=== PATIENT | male | born 1945 | race Caucasian/White ===

== ENCOUNTER 2017-08-10 14:33 | Inpatient (IN) | payer OTHER, MEDICARE ==
--- NOTE | 2017-08-10 14:55 | PDOC ---
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 The patient states he was increasingly short of breath today on his way to dialysis. The patient reports the shortness of breath is present while walking and at rest. The patient denies any chest pain, headache, dizziness, and myalgias. Denies nausea, vomit, diarrhea and constipation. The patient notes that he has been noncompliant with his O2 via nasal cannula. Allergies: iodine, shellfish derived Social history: Former smoker. No reported alcohol or drug use. School Fundraising Director: Dr. Hale Information Technology Intern: Dr. Raymond Athletic Coordinator: Dr. 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) COPD: Yes (BRONCHITIS 04/2014) CHF: Yes Dementia: No Diabetes: Yes (IDDM) GI Disorders: Yes (POLYPS) Disorders: No HTN: Yes Hypercholesterolemia: Yes Liver Disease: Yes (CIRRHOSIS) Seizures: No Thyroid Disease: Yes (THYROID REMOVED IN 1995) - Surgical History Abdominal Surgery: No Appendectomy: No Cardiac Surgery: Yes (DEFIB/PACEMEAKER, STENT) Cholecystectomy: No Lung Surgery: No Neurologic Surgery: No Orthopedic Surgery: No - Suicide/Smoking/Psychosocial Hx Smoking Status: Yes Smoking History: Former smoker Have you smoked in the past 12 months: No Number of Cigarettes Smoked Daily: 0 If you are a former smoker, when did you quit?: 27 YRS AGO Information on smoking cessation initiated: No Hx Alcohol Use: No Drug/Substance Use Hx: No Substance Use Type: None Hx Substance Use Treatment: No <Drew Campoverde - Last Filed: 08/10/17 16:53> - Past Medical History Allergies/Adverse Reactions: Allergies Allergy/AdvReac Type Severity Reaction Status Date / Time iodine Allergy TONGUE Verified 08/10/17 14:51 SWELLING shellfish derived Allergy Hives Verified 08/10/17 14:51 IV CONTRAST Allergy "RASH" Uncoded 08/10/17 14:51 Home Medications: Ambulatory Orders Simvastatin [Zocor -] 5 mg PO HS 10/29/12 Warfarin Sodium [Coumadin] 5 mg PO TU 10/29/12 Levothyroxine [Synthroid -] 125 mcg PO DAILY 06/26/14 Docusate Sodium [Colace -] 100 mg PO BID 07/19/14 Nut.tx.impaired Renal Fxn,Soy [Nepro] 1 ml PO ASDIR 07/19/14 Pantoprazole Sodium [Protonix -] 40 mg PO DAILY 07/19/14 Warfarin Na [Coumadin -] 2.5 mg PO SUMOWETHFRSA 07/19/14 Albuterol Sulfate Inhaler - [Ventolin Hfa Inhaler -] 1 - 2 inh PO Q4H PRN Furosemide [Lasix -] 40 mg PO DAILY 08/10/17 Insulin (Levemir) [Levemir Flexpen -] 7 units SQ HS 08/10/17 Review of Systems - Review of Systems Constitutional: Yes: Chills, Fever Respiratory: Yes: Cough, Shortness of Breath Cardiac (ROS): No: Chest Pain ABD/GI: No: Diarrhea, Nausea, Vomiting : No: Dysuria, Frequency Neurological: No: Headache All Other Systems: Reviewed and Negative <Drew Campoverde - Last Filed: 08/10/17 16:53> *Physical Exam - Vital Signs Last Vital Signs Temp Pulse Resp BP Pulse Ox 98.2 F 73 20 168/52 97 08/10/17 14:38 08/10/17 14:38 08/10/17 14:38 08/10/17 14:38 08/10/17 14:38 - Physical Exam Comments: 08/10/17 15:18 GENERAL: The patient is awake, alert, and fully oriented, in no acute distress. HEAD: Normal with no signs of trauma. EYES: Pupils equal, round and reactive to light, extraocular movements intact, sclera anicteric, conjunctiva clear with no pallor. ENT: Ears normal, nares patent, oropharynx clear without exudates. Moist mucous membranes. NECK: Normal range of motion, supple without lymphadenopathy, JVD, or masses. LUNGS: Breath sounds equal, clear to auscultation bilaterally. No wheeze/ crackles. HEART: Regular rate and rhythm, normal S1 and S2 without murmur or rub. ABDOMEN: Soft/nontender/nondistended. BS wnl. No guarding or rebound. No palpable masses. No hepatosplenomegaly. EXTREMITIES: (+) Venous stasis dermatitis on lower extremities bilaterally with trace edema. (+) Right arm fistula thrill. Normal range of motion. No clubbing or cyanosis. No cords or tenderness. NEUROLOGICAL: Cranial nerves II through XII grossly intact. Normal speech, normal gait. PSYCH: Normal mood, normal affect. SKIN: Warm, Dry, normal turgor. <Suzy Luz - Last Filed: 08/10/17 16:22> - Vital Signs Last Vital Signs Temp Pulse Resp BP Pulse Ox 98.2 F 73 20 168/52 97 08/10/17 14:38 08/10/17 14:38 08/10/17 14:38 08/10/17 14:38 08/10/17 14:38 <Drew Campoverde - Last Filed: 08/10/17 16:53> Repeat PE for Septic Shock - Vital Signs Vital Signs: Vital Signs Temperature 101.7 F H 08/10/17 15:20 Pulse Rate 73 08/10/17 14:38 Respiratory Rate 20 08/10/17 14:38 Blood Pressure 168/52 08/10/17 14:38 O2 Sat by Pulse Oximetry (%) 89 L 08/10/17 15:20 I have reviewed the most recent vital signs: Yes - PE CV for Spetic Shock: Regular Rhythm, Regular Rate, S1, S2 Lungs: Lungs Clear Vascular: Left Radial: 2+ Skin exam: Normal Color, Warm - Impression Impression: Vasopressors not indicated, pt still hypovolemic <Drew Campoverde - Last Filed: 08/10/17 16:53> Heart Score/ECG Review #1 ECG reviewed & interpreted by me at: 15:59 08/10/17 16:05 v-paced at 72. no secondary sign of acute ischemic change. <Drew Campoverde - Last Filed: 08/10/17 16:53> ED Treatment Course - LABORATORY CBC & Chemistry Diagram: 08/10/17 15:13 08/10/17 15:13 <Suzy Luz - Last Filed: 08/10/17 16:22> - LABORATORY CBC & Chemistry Diagram: 08/10/17 15:13 08/10/17 15:13 <Drew Campoverde - Last Filed: 08/10/17 16:53> Medical Decision Making - Critical Care Time Total Critical Care Time (minutes): 55 Critical Care Statement: The care of this patient involved high complexity decision making to prevent further life threatening deterioration of the patient 's condition and/or to evaluate & treat vital organ system(s) failure or risk of failure. - Medical Decision Making 08/10/17 15:33 A portion of this note was documented by scribe services under my direction. I have reviewed the details of the note, within reason, and agree with the documentation with the following case summary and management plan written by me. 71-year-old male with history of end-stage renal disease on Wednesday// Wednesday dialysis presents from dialysis with worsening shortness of breath that has been progressive over the last few weeks to months, associated with increased cough and over the last week some URI symptoms with subjective fevers and chills. Is supposed to use oxygen at night but is noncompliant, denies any recurring chest pain or specific exertional symptoms. Positive fever on rectal temp, tachycardia, relatively low O2 sat at 90% Tachypnea, but alert, warm to touch, positive chills Oropharynx clear, dry mucosa Lungs are notably clear, question decreased breath sounds at the left base, no wheezing or prolonged expiration Heart is regular tachycardia Abdomen is benign Bilateral venous stasis changes with trace edema + R arm fistula thrill, no erythema or signs of infection 71-year-old male presents with fever/sepsis from dialysis, possible respiratory source given his worsening COPD symptoms, rule out bacteremia. Sepsis protocol initiated Antipyretics, broad-spectrum antibiotics, IV fluids Nebulizer Chest x-ray, EKG Admission, followed by Dr. Hale of pulmonology, Dr. Raymond of nephrology 08/10/17 16:05 White count 11.8 with left shift of 91%, remaining labs still pending. 08/10/17 16:29 Chem returned, Trop 0.11 with baseline renal failure, has had trop 0.11 in the past. lactate very elevated 5.4, receiving IVF. flu negative, cxr with congestion but no infiltrate, received abx. BNP markedly elevated 124k. proceed with admission, will repeat lactate, VSS at this time, respirations improved after nebs. 08/10/17 16:52 Accepted for inpatient tele by Dr. Jimenez, pt's PCP. Dr. Schwartz, Nicolas, and Christie consulted as patient's specialists. <Drew Campoverde - Last Filed: 08/10/17 16:53> *DC/Admit/Observation/Transfer - Attestations Scribe Attestion: 08/10/17 15:05 Documentation prepared by Suzy Luz, acting as director of medical services for Drew Campoverde MD. <Suzy Luz - Last Filed: 08/10/17 16:22> - Discharge Dispostion Admit: Yes <Drew Campoverde - Last Filed: 08/10/17 16:53> Diagnosis at time of Disposition: ESRD (end stage renal disease), Elevated lactic acid level Sepsis Qualifiers: Sepsis type: sepsis due to unspecified organism Qualified Code(s): A41.9 - Sepsis, unspecified organism - Discharge Dispostion Condition at time of disposition: Guarded - Referrals Referrals: Loida Jimenez MD [Primary Care Provider] -
[2017-08-10] MEDS: ALBUTEROL SO4 0.083% IH SOL 2.5 MG/3 ML VIAL.NEB. NEB PRN ×2 (15:00→15:25)
[2017-08-10] MEDS ORDERED: ALBUTEROL SO4 0.083% IH SOL 2.5 MG/3 ML VIAL.NEB. NEB ONE (15:05)
[2017-08-10 15:24] LABS: BASO % 0.5 % (0-2.0); EOS % 0.1 % (0-4.5); MCHC 32.1 g/dl (32.0-35.9); MEAN CELL VOLUME 96.6 fl (80-96); MEAN PLT VOLUME 9.5 fl (7.5-11.1); NEUT % 91.4 % (42.8-82.8); PLATELET COUNT 85 K/MM3 (134-434); RDW 17.4 % (11.9-15.9); WHITE BLOOD COUNT 11.8 K/mm3 (4.0-10.0)
[2017-08-10] MEDS ORDERED: SODIUM CHLORIDE 500 ML IV ONE (15:27)
[2017-08-10 15:28] LABS: VENOUS PH 7.33 (7.32-7.42)
[2017-08-10 15:29] LABS: VENOUS BLOOD GAS HCO3 21.5 meq/L (19-25)
[2017-08-10] MEDS ORDERED: PIPERACILLIN/TAZOB 3.375 GM 50 ML IVPB ONE (15:29)
[2017-08-10] MEDS ORDERED: VANCOMYCIN 1,000 MG in DEXTROSE 5%-WATER - 250 ML IVPB ONE (15:29)
[2017-08-10] MEDS ORDERED: ACETAMINOPHEN 1000 MG/100 ML VIAL (NON FORMULARY) IVPB ONE (15:29)
[2017-08-10] MEDS ORDERED: ACETAMINOPHEN INJECTION 100 ML IVPB ONE (15:30)
[2017-08-10 15:49] LABS: ALBUMIN 3.5 g/dl (3.4-5.0); BILIRUBIN,TOTAL 2.1 mg/dL (0.2-1.0); CALCIUM 8.5 mg/dL (8.5-10.1); CO2 20 mmol/L (21-32); CREATININE 4.7 mg/dL (0.7-1.3); GLUCOSE,RANDOM 151 mg/dL (74-106); SGPT/ALT 15 U/L (12-78); TOT PROT 8.1 g/dl (6.4-8.2)
[2017-08-10] MEDS ORDERED: VANCOMYCIN 1 GRAM (PRE-DOCKED) 1,000 MG/250 ML BAG IVPB ONE (15:55)
[2017-08-10] MEDS ORDERED: PIPERACILLIN/TAZOB 3.375 GM 3.375 GM/50 ML BAG IVPB ONE (15:55)
[2017-08-10 15:56] LABS: INR 2.26 (0.82-1.09); PROTHROMBIN TIME (PATIENT) 25.5 SEC (9.98-11.88)
--- NOTE | 2017-08-10 16:04 | EKG ---
Test Reason : Blood Pressure : / mmHG Vent. Rate : 072 BPM Atrial Rate : 075 BPM P-R Int : 000 ms QRS Dur : 162 ms QT Int : 534 ms P-R-T Axes : 000 -85 104 degrees QTc Int : 584 ms ATRIAL FIBRILLATION Ventricular-paced rhythm ABNORMAL ECG WHEN COMPARED WITH ECG OF 27-JUN-2014 09:54, ELECTRONIC VENTRICULAR PACEMAKER HAS REPLACED ATRIAL FIBRILLATION Confirmed by Oscar Michel ([id number]) on 08/10/2017 4:03:49 PM Referred By: Confirmed By:Oscar Michel
[2017-08-10 16:15] LABS: ANION GAP 16 (8-16); MAGNESIUM 1.9 mg/dL (1.8-2.4); SGOT/AST 20 U/L (15-37)
[2017-08-10 16:16] LABS: ALK PHOS 148 U/L (45-117); CPK 106 IU/L (39-308); TROPONIN I 0.11 ng/ml (0.00-0.05)
[2017-08-10 23:08] LABS: TROPONIN I 0.12 ng/ml (0.00-0.05)
[2017-08-10] MEDS ORDERED: DOCUSATE SODIUM 100 MG CAPSULE (FP) PO ONE (23:44)
[2017-08-11] MEDS ORDERED: INSULIN (NOVOLOG) ASPART 100 UNITS/ML 10ML VIAL ONE (00:10)
[2017-08-11] MEDS: INSULIN SLIDING SCALE (NOVOLOG) 1 VIAL SQ SCH ×5 (00:13→22:47)
[2017-08-11] MEDS: ATORVASTATIN CA 10 MG TABLET (FP) PO SCH ×2 (00:13→22:20)
[2017-08-11] MEDS: DOCUSATE SODIUM 100 MG CAPSULE (FP) PO SCH ×3 (00:13→22:19)
[2017-08-11 03:33] VITALS: BMI 22.5
[2017-08-11] MEDS ORDERED: PNEUMOC 13-VAL CONJ-DIP CRM/PF 0.5 ML DISP.SYRIN IM ONE (03:54)
[2017-08-11] MEDS: LEVOTHYROXINE NA 125 MCG TABLET (FP) PO SCH (06:35)
--- NOTE | 2017-08-11 08:21 | PN ---
Progress Note, Physician Chief Complaint: ID Full note dictated Appears comfortable Febrile here and notes episode of chills prior to dialysis yesterday Exertion al and dyspnea at rest progressive but not new - Current Medication List Current Medications: Active Medications Albuterol Sulfate (Ventolin 0.083% Nebulizer Soln -) 1 amp NEB Q15M PRN PRN Reason: Dyspnea Last Admin: 08/10/17 15:25 Dose: 1 amp Atorvastatin Calcium (Lipitor -) 10 mg PO HS [facility] Last Admin: 08/11/17 00:13 Dose: 10 mg Docusate Sodium (Colace -) 100 mg PO BID [facility] Last Admin: 08/11/17 00:13 Dose: 100 mg Furosemide (Lasix -) 40 mg PO DAILY [facility] CEFTRIAXONE 1 G/50 ML PREMIX (Ceftriaxone 1 Gm-D5w Bag) 50 mls @ 100 mls/hr IVPB DAILY [facility] Insulin Aspart (Novolog Vial Sliding Scale -) 1 vial SQ ACHS [facility] PRN Reason: Protocol Last Admin: 08/11/17 06:34 Dose: Not Given Levothyroxine Sodium (Synthroid -) 125 mcg PO DAILY@0700 [facility] Last Admin: 08/11/17 06:35 Dose: 125 mcg Pantoprazole Sodium (Protonix -) 40 mg PO DAILY [facility] Pneumococcal 13-Valent Conj Vacc (Prevnar 13 Syringe -) 0.5 ml IM .ONCE ONE Stop: 08/11/17 03:55 Warfarin Sodium (Coumadin -) 2.5 mg PO SuMoWeThFrSa@1800 [facility] - Objective Vital Signs: Vital Signs Temperature 97.4 F L 08/11/17 05:46 Pulse Rate 75 08/11/17 05:46 Respiratory Rate 20 08/11/17 05:46 Blood Pressure 111/59 08/11/17 05:46 O2 Sat by Pulse Oximetry (%) 97 08/11/17 03:48 Constitutional: Yes: No Distress Neck: Yes: WNL, Supple, Other (scar) Cardiovascular: Yes: Regular Rate and Rhythm, S1, S2. No: Murmur Respiratory: Yes: WNL, Regular, CTA Bilaterally. No: Rales, Rhonchi Gastrointestinal: Yes: Soft. No: Tenderness, Tenderness, Epigastrium Extremities: Yes: Other (ingrown great toe nail tender to touch) Edema: Yes Labs: INR, PTT INR 2.26 (0.82-1.09) H D 08/10/17 15:27 Problem List - Problems (1) Bacteremia Code(s): R78.81 - BACTEREMIA (2) ESRD (end stage renal disease) Code(s): N18.6 - END STAGE RENAL DISEASE (3) Sepsis Code(s): A41.9 - SEPSIS, UNSPECIFIED ORGANISM Qualifiers: Sepsis type: sepsis due to unspecified organism Qualified Code(s): A41.9 - Sepsis, unspecified organism Assessment/Plan Microbiology 08/10/17 15:25 Nasopharyngeal Swab Influenza Types A,B Antigen (BRENDA) - Final 08/10/17 15:25 Nasopharyngeal Swab - Final Laboratory Tests 08/10/17 08/10/17 08/10/17 14:56 15:13 15:27 WBC 11.8 H D Hgb 12.4 Hct 38.5 D Plt Count 85 L INR 2.26 H D Lactic Acid 5.4 H* 08/10/17 17:45 WBC Hgb Hct Plt Count INR Lactic Acid 3.7 H* Assessment Sepsis syndrome Bacteremia ESRD Ingrown infected toe nail great toe Plan Await blood cultures Vancomycin level for now redose based on blood culture Continue Ceftriaxone for now Podiatry evaluation infection great toe ISAURA Maxwell MD
[2017-08-11 08:22] LABS: BASO % 0.3 % (0-2.0); EOS % 0.1 % (0-4.5); MCH 31.7 pg (25.7-33.7); MCHC 32.9 g/dl (32.0-35.9); MEAN CELL VOLUME 96.2 fl (80-96); MEAN PLT VOLUME 9.5 fl (7.5-11.1); NEUT % 88.5 % (42.8-82.8); PLATELET COUNT 59 K/MM3 (134-434); RDW 17.3 % (11.9-15.9); WHITE BLOOD COUNT 9.3 K/mm3 (4.0-10.0)
[2017-08-11 08:39] LABS: INR 2.7 (0.82-1.09); PROTHROMBIN TIME (PATIENT) 30.5 SEC (9.98-11.88)
[2017-08-11 08:49] LABS: CALCIUM 7.6 mg/dL (8.5-10.1)
[2017-08-11 08:57] LABS: ALBUMIN 2.8 g/dl (3.4-5.0); ALK PHOS 97 U/L (45-117); ANION GAP 14 (8-16); BILIRUBIN,TOTAL 1.3 mg/dL (0.2-1.0); CO2 23 mmol/L (21-32); CPK 187 IU/L (39-308); CREATININE 5.7 mg/dL (0.7-1.3); GLUCOSE,RANDOM 95 mg/dL (74-106); SGOT/AST 21 U/L (15-37); SGPT/ALT 18 U/L (12-78); TOT PROT 6.4 g/dl (6.4-8.2); TROPONIN I 0.12 ng/ml (0.00-0.05)
--- NOTE | 2017-08-11 09:05 | HP ---
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 The patient states he was increasingly short of breath today on his way to dialysis. The patient reports the shortness of breath is present while walking and at rest. The patient denies any chest pain, headache, dizziness, and myalgias. Denies nausea, vomit, diarrhea and constipation. The patient notes that he has been noncompliant with his O2 via nasal cannula. This am pt feels better - Past Medical History Cardiovascular: Yes: CAD, CHF, HTN, Hyperlipdemia Pulmonary: Yes: Bronchitis, COPD Renal/: Yes: Renal Failure, Hemodialysis - Past Surgical History Past Surgical History: Yes: AICD, AV Fistula/Graft - Smoking History Smoking history: Former smoker Have you smoked in the past 12 months: No Aproximately how many cigarettes per day: 0 If you are a former smoker, when did you quit?: 27 YRS AGO - Alcohol/Substance Use Hx Alcohol Use: No Home Medications - Allergies Allergies/Adverse Reactions: Allergies Allergy/AdvReac Type Severity Reaction Status Date / Time iodine Allergy TONGUE Verified 08/10/17 14:51 SWELLING shellfish derived Allergy Hives Verified 08/10/17 14:51 IV CONTRAST Allergy "RASH" Uncoded 08/10/17 14:51 - Home Medications Home Medications: Ambulatory Orders Simvastatin [Zocor -] 5 mg PO HS 10/29/12 Warfarin Sodium [Coumadin] 5 mg PO TU 10/29/12 Levothyroxine [Synthroid -] 125 mcg PO DAILY 06/26/14 Docusate Sodium [Colace -] 100 mg PO BID 07/19/14 Nut.tx.impaired Renal Fxn,Soy [Nepro] 1 ml PO ASDIR 07/19/14 Pantoprazole Sodium [Protonix -] 40 mg PO DAILY 07/19/14 Warfarin Na [Coumadin -] 2.5 mg PO SUMOWETHFRSA 07/19/14 Albuterol Sulfate Inhaler - [Ventolin Hfa Inhaler -] 1 - 2 inh PO Q4H PRN Furosemide [Lasix -] 40 mg PO DAILY 08/10/17 Insulin (Levemir) [Levemir Flexpen -] 7 units SQ HS 08/10/17 Review of Systems - Review of Systems Constitutional: reports: Fever Cardiovascular: reports: Shortness of Breath. denies: Chest Pain Respiratory: reports: Cough, SOB, SOB on Exertion Neurological: reports: Weakness Physical Examination Vital Signs: Vital Signs Temperature 97.4 F L 08/11/17 05:46 Pulse Rate 75 08/11/17 05:46 Respiratory Rate 20 08/11/17 05:46 Blood Pressure 111/59 08/11/17 05:46 O2 Sat by Pulse Oximetry (%) 97 08/11/17 03:48 Cardiovascular: Yes: Murmur, S1, S2 Respiratory: Yes: Regular, CTA Bilaterally. No: SOB Gastrointestinal: Yes: Normal Bowel Sounds, Soft. No: Tenderness Extremities: Yes: Other (lt toe paronchia) Edema: No Wound/Incision: Yes: Reddened Neurological: Yes: Alert, Oriented Labs: CBC, BMP 08/11/17 06:45 08/11/17 06:45 Problem List - Problems (1) Bacteremia Assessment/Plan: IV ABX AWAIT FINAL RESULTS Microbiology 08/10/17 15:25 Blood Culture - Preliminary Blood - Peripheral Venous Pending Organism 08/10/17 15:25 Blood Culture - Preliminary Blood - Peripheral Venous Pending Organism 08/10/17 15:25 Influenza Types A,B Antigen (BRENDA) - Final Nasopharyngeal Swab - Final Code(s): R78.81 - BACTEREMIA (2) AICD (automatic cardioverter/defibrillator) present Assessment/Plan: per cardio Code(s): Z95.810 - PRESENCE OF AUTOMATIC (IMPLANTABLE) CARDIAC DEFIBRILLATOR (3) ESRD (end stage renal disease) Assessment/Plan: DAILYSIS PER RENAL Code(s): N18.6 - END STAGE RENAL DISEASE (4) Sepsis Code(s): A41.9 - SEPSIS, UNSPECIFIED ORGANISM Qualifiers: Sepsis type: sepsis due to unspecified organism Qualified Code(s): A41.9 - Sepsis, unspecified organism (5) Cellulitis Assessment/Plan: IV ABX PODIATRY Code(s): L03.90 - CELLULITIS, UNSPECIFIED (6) CHF (congestive heart failure) Assessment/Plan: DIALYSIS CARDIO Code(s): I50.9 - HEART FAILURE, UNSPECIFIED
[2017-08-11] MEDS ORDERED: CEFTRIAXONE 1 GM in DEXTROSE 5%-WATER - 50 ML IVPB SCH (10:00)
[2017-08-11 10:01] LABS: C-REACTIVE PROTEIN 8.1 MG/DL (0.00-0.3)
[2017-08-11] MEDS: FUROSEMIDE 40 MG TABLET (FP) PO SCH (10:32)
[2017-08-11] MEDS: CEFTRIAXONE 1 G/50 ML PREMIX 50 ML IVPB SCH (10:32)
[2017-08-11] MEDS: PANTOPRAZOLE 40 MG TABLET (FP) PO SCH (10:32)
--- NOTE | 2017-08-11 11:11 | CON.CARD ---
Cardiology Consult (text) - Consultation Consultation Note: cc: sob, cough, chills hpi: 71 m hx cad s/p pci (chet lpl1 2007, cath 05/2015: patent lpl1 stent, residual om1 60-70 (unchanged from 2011 cath), htn, hld, ICD, dm, copd, esrd on hd, chronic afib, here with sob/cough/chills. Chronic sumner unchanged until past few days when noticed sob, cough, chills. No cp, palps, dizzy, loc, pnd, orthopnea, le edema. Sees me for cardio. pmh: per hpi psh: icd social: ex tob fam: no premature cad, scd ros: per hpi; no nvd, szymanski, vision changes, wt loss, gib, hematuria, dysuria, muscle pain meds: Home Medications Medication Instructions Recorded Simvastatin [Zocor -] 5 mg PO HS 10/29/12 Warfarin Sodium [Coumadin] 5 mg PO TU 10/29/12 Levothyroxine [Synthroid -] 125 mcg PO DAILY 06/26/14 Docusate Sodium [Colace -] 100 mg PO BID 07/19/14 Nut.tx.impaired Renal Fxn,Soy 1 ml PO ASDIR 07/19/14 [Nepro] Pantoprazole Sodium [Protonix -] 40 mg PO DAILY 07/19/14 Warfarin Na [Coumadin -] 2.5 mg PO SUMOWETHFRSA 07/19/14 Albuterol Sulfate Inhaler - 1 - 2 inh PO Q4H PRN 08/10/17 [Ventolin Hfa Inhaler -] Furosemide [Lasix -] 40 mg PO DAILY 08/10/17 Insulin (Levemir) [Levemir Flexpen 7 units SQ HS 08/10/17 -] Current Medications Generic Name Dose Route Start Last Admin Trade Name Freq PRN Reason Stop Dose Admin Albuterol Sulfate 1 amp 08/10/17 14:56 08/10/17 15:25 Ventolin 0.083% Nebulizer Soln - NEB 1 amp Q15M PRN Administration Dyspnea Atorvastatin Calcium 10 mg 08/10/17 22:00 08/11/17 00:13 Lipitor - PO 10 mg HS [facility] Administration Docusate Sodium 100 mg 08/10/17 22:00 08/11/17 10:32 Colace - PO 100 mg BID [facility] Administration Furosemide 40 mg 08/11/17 10:00 08/11/17 10:32 Lasix - PO 40 mg DAILY [facility] Administration CEFTRIAXONE 1 G/50 ML PREMIX 50 mls @ 100 mls/hr 08/11/17 10:00 08/11/17 10: 32 Ceftriaxone 1 Gm-D5w Bag IVPB 100 mls/hr DAILY [facility] Administration Insulin Aspart 1 vial 08/10/17 22:00 08/11/17 06:34 Novolog Vial Sliding Scale - SQ Not Given ACHS [facility] Protocol Levothyroxine Sodium 125 mcg 08/11/17 07:00 08/11/17 06:35 Synthroid - PO 125 mcg DAILY@0700 [facility] Administration Pantoprazole Sodium 40 mg 08/11/17 10:00 08/11/17 10:32 Protonix - PO 40 mg DAILY [facility] Administration Warfarin Sodium 2.5 mg 08/11/17 18:00 Coumadin - PO SuMoWeThFrSa@1800 [facility] Vital Signs Period Temp Pulse Resp BP Sys/Rea Pulse Ox Last 24 Hr 97.4 F-101.7 F 70-86 19-24 111-168/52-78 89-100 nad no jvd irreg, s1s2 no mrg cta bl nl eff aaox3 trace le edema bl, no c/c abd nt nd pos bs no jaundice diaphoresis pos dp pt no carotid bruits Laboratory Last Values WBC 9.3 K/mm3 (4.0-10.0) 08/11/17 06:45 RBC 3.15 M/mm3 (4.00-5.60) L D 08/11/17 06:45 Hgb 10.0 GM/dL (11.7-16.9) L D 08/11/17 06:45 Hct 30.3 % (35.4-49) L D 08/11/17 06:45 MCV 96.2 fl (80-96) H 08/11/17 06:45 MCH 31.7 pg (25.7-33.7) 08/11/17 06:45 MCHC 32.9 g/dl (32.0-35.9) 08/11/17 06:45 RDW 17.3 % (11.9-15.9) H 08/11/17 06:45 Plt Count 59 K/MM3 (134-434) L D 08/11/17 06:45 MPV 9.5 fl (7.5-11.1) 08/11/17 06:45 Neutrophils % 88.5 % (42.8-82.8) H 08/11/17 06:45 Lymphocytes % 4.9 % (8-40) L 08/11/17 06:45 Monocytes % 6.2 % (3.8-10.2) 08/11/17 06:45 Eosinophils % 0.1 % (0-4.5) 08/11/17 06:45 Basophils % 0.3 % (0-2.0) 08/11/17 06:45 PT with INR 30.50 SEC (9.98-11.88) H 08/11/17 06:45 INR 2.70 (0.82-1.09) H 08/11/17 06:45 PTT (Actin FS) 34.0 SECONDS (26.9-34.4) 08/10/17 15:27 VBG pH 7.33 (7.32-7.42) 08/10/17 15:25 POC VBG pCO2 42.0 mmHg (38-52) 08/10/17 15:25 POC VBG pO2 32.1 mmHg (28-48) 08/10/17 15:25 Mixed VBG HCO3 21.5 meq/L (19-25) 08/10/17 15:25 Sodium 134 mmol/L (136-145) L 08/11/17 06:45 Potassium 3.7 mmol/L (3.5-5.1) 08/11/17 06:45 Chloride 97 mmol/L (98-107) L 08/11/17 06:45 Carbon Dioxide 23 mmol/L (21-32) 08/11/17 06:45 Anion Gap 14 (8-16) 08/11/17 06:45 BUN 55 mg/dL (7-18) H D 08/11/17 06:45 Creatinine 5.7 mg/dL (0.7-1.3) H D 08/11/17 06:45 Creat Clearance w eGFR 9.88 (>60) 08/11/17 06:45 POC Glucometer 172 UNITS (80-120) 08/11/17 05:39 Random Glucose 95 mg/dL (74-106) D 08/11/17 06:45 Lactic Acid 3.7 mmol/L (0.4-2.0) H* 08/11/17 06:45 Calcium 7.6 mg/dL (8.5-10.1) L 08/11/17 06:45 Magnesium 1.9 mg/dL (1.8-2.4) 08/10/17 15:13 Total Bilirubin 1.3 mg/dL (0.2-1.0) H D 08/11/17 06:45 AST 21 U/L (15-37) 08/11/17 06:45 ALT 18 U/L (12-78) 08/11/17 06:45 Alkaline Phosphatase 97 U/L (45-117) D 08/11/17 06:45 Creatine Kinase 187 IU/L (39-308) 08/11/17 06:45 Creatine Kinase Index 4.5 % (0.0-5.0) 08/11/17 06:45 CK-MB (CK-2) 8.551 ng/mL (0.5-3.6) H 08/11/17 06:45 Troponin I 0.12 ng/ml (0.00-0.05) H 08/11/17 06:45 C-Reactive Protein 8.1 MG/DL (0.00-0.3) H 08/11/17 06:45 B-Natriuretic Peptide 317148.95 pg/ml (5-125) H 08/10/17 15:13 Total Protein 6.4 g/dl (6.4-8.2) D 08/11/17 06:45 Albumin 2.8 g/dl (3.4-5.0) L 08/11/17 06:45 Random Vancomycin 13.255 ug/ml 08/11/17 10:00 Blood Type O POSITIVE 08/10/17 15:26 Antibody Screen Negative 08/10/17 15:26 ct chest: b/l effs, copd, ascites ecg 08/10/17: afib, vpaced tele: afib, vpaced, rate controlled mibi 09/2014: no ischemia echo 12/2015: nl lv/rv, mild [place], mild mr, mod tr, mild pr, rvsp 60 a/p: 71 m hx cad s/p pci, htn, hld, ICD, dm, copd, esrd on hd, chronic afib, here with sob/cough/chills. sob, fever, sepsis: -has some vol overload on imaging, would cont HD per renal for vol removal -has +bld cxs, cont abx per ID cad s/p remote pci: -stable, no signs acs, ce's neg x3 -recent cath 2014 showed patent stent -nl lvef on recent echo -cont statin, ac (no asa) -not on bb due to copd htn: -bb recently stopped as outpt by pulm htn specialist -currently bp controlled, monitor for need for additional bp med, would start norvasc 5 if needed pulm htn: -chronic issue, seen by pulm htn specialist at [facility] who felt due to ESRD/HD and had no further rec's at this time -nl rv on prior echo hld: -cont statin icd: -follows at [place] prn physical therapist, nl check this year in 03/2017 -unclear why has ICD (? low lvef in past that has since improved) afib: -cont ac -not on bb anymore due to copd, rate controlled off meds for now, monitor
--- NOTE | 2017-08-11 11:31 | CONS ---
INFECTIOUS DISEASE CONSULTATION DATE OF CONSULTATION: DATE OF DICTATION: 08/11/2017 HISTORY OF PRESENT ILLNESS: This is a 71-year-old male with end-stage renal disease and a defibrillator, who I am asked to see for evaluation of fever and sepsis. He is on chronic hemodialysis Tuesdays, , and Saturdays via a right arm fistula. He is a known diabetic, hypertensive, with severe COPD and came to the emergency room complaining of shortness of breath which, on further questioning, he says has been both chronic and progressive. In the ER, he was noted to be febrile to 101 degrees. On questioning, the patient states that prior to dialysis, he had had an episode of possible fever but definitely chills 1-2 days ago at home. He has a chronic cough, but this has not changed, and he denied any sputum production or hemoptysis or chest pain. He was given a dose of vancomycin along with ceftriaxone, and this morning, a preliminary culture information indicates growth in all bottles. A Gram stain is currently pending. At the present time, he is afebrile and feels generally at baseline. PAST MEDICAL HISTORY: As noted above. End-stage renal disease; congestive heart failure, status post defibrillator and coronary stent; hypertension; COPD; cirrhosis; status post thyroidectomy. MEDICATIONS AT HOME: Simvastatin, Coumadin, Synthroid, Protonix, Lasix, and insulin. ALLERGIES: IV CONTRAST. SOCIAL HISTORY: He lives at home with his . Heavy smoker but quit 27 years ago. No history of alcohol use. FAMILY HISTORY: Reviewed and noncontributory. REVIEW OF SYSTEMS: Respiratory: Shortness of breath, progressive; dry cough. Cardiac: No chest pain, palpitations. History of defibrillator. Coronary stent. Gastrointestinal: No nausea, vomiting, diarrhea, or abdominal pain. Genitourinary: No dysuria, hematuria, or urinary frequency. End-stage renal disease. Neuromuscular: No headaches, joint pains. Skin: No rash. PHYSICAL EXAMINATION: General: He was an alert male in no acute distress. Vital Signs: The temperature currently 97.4, pulse 75, blood pressure 111/59, respirations 20, O2 saturation 97% on room air. Neck: Supple without adenopathy and a healed surgical scar anteriorly across his neck. Lungs: Clear to percussion and auscultation with no rales or rhonchi. Heart: S1, S2. Irregularly irregular rhythm without murmur or gallop. Abdomen: Soft, nontender, without hepatosplenomegaly. Extremities: Revealed an ingrown toenail on the great toe with swelling and tenderness. Lower extremity edema with venous stasis dermatitis on both legs. DIAGNOSTIC DATA: The white count is 11.8 with a hemoglobin 12.4, platelets of 85,000. Chemistries consistent with end-stage renal disease. Lactic acid 3.7. AST 20, ALT 15, alkaline phosphatase 148. CT scan was reviewed, shows bilateral pleural effusions without obvious infiltrate, but official reading is pending. ASSESSMENT: Sepsis syndrome in this 71-year-old male with end-stage renal disease and multiple comorbidities, presents with shortness of breath and fever to 101,elevated lactic acid and white count consistent with diagnosis of sepsis syndrome. Possible sources include dialysis with fistula, the lung although no infiltrate seen, and lastly, the great toe which appears infected. Gram stain of the blood culture currently pending. For now, would get a vancomycin level to see if he needs to be re-dosed; continue ceftriaxone, again pending final blood culture report; CRP;advise podiatry consultation for evaluation of infection of the great toe. Endocarditis consdered Annita VILLARREAL/[id number] MTDD
--- NOTE | 2017-08-11 11:35 | CON.PULM ---
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 The patient states he was increasingly short of breath today on his way to dialysis. The patient reports the shortness of breath is present while walking and at rest. The patient denies any chest pain, headache, dizziness, and myalgias. Denies nausea , vomit, diarrhea and constipation. The patient notes that he has been noncompliant with his O2 via nasal cannula. the patient also states that he felt worse after HD. He now has blood cultures with a pending organism and has been started on antibiotics. 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 Cardio/Vascular: Yes: CAD, CHF, HTN, Hyperlipdemia Pulmonary: Yes: Bronchitis, COPD Renal/: Yes: Renal Failure, Hemodialysis - Past Surgical History Past Surgical History: Yes: AICD, AV Fistula/Graft - Alcohol/Substance Use Hx Alcohol Use: No - Smoking History Smoking history: Former smoker Have you smoked in the past 12 months: No Aproximately how many cigarettes per day: 0 If you are a former smoker, when did you quit?: 27 YRS AGO - Social History History of Recent Travel: No Home Medications - Allergies Allergies/Adverse Reactions: Allergies Allergy/AdvReac Type Severity Reaction Status Date / Time iodine Allergy TONGUE Verified 08/10/17 14:51 SWELLING shellfish derived Allergy Hives Verified 08/10/17 14:51 IV CONTRAST Allergy "RASH" Uncoded 08/10/17 14:51 - Home Medications Home Medications: Ambulatory Orders Simvastatin [Zocor -] 5 mg PO HS 10/29/12 Warfarin Sodium [Coumadin] 5 mg PO TU 10/29/12 Levothyroxine [Synthroid -] 125 mcg PO DAILY 06/26/14 Docusate Sodium [Colace -] 100 mg PO BID 07/19/14 Nut.tx.impaired Renal Fxn,Soy [Nepro] 1 ml PO ASDIR 07/19/14 Pantoprazole Sodium [Protonix -] 40 mg PO DAILY 07/19/14 Warfarin Na [Coumadin -] 2.5 mg PO SUMOWETHFRSA 07/19/14 Albuterol Sulfate Inhaler - [Ventolin Hfa Inhaler -] 1 - 2 inh PO Q4H PRN Furosemide [Lasix -] 40 mg PO DAILY 08/10/17 Insulin (Levemir) [Levemir Flexpen -] 7 units SQ HS 08/10/17 Family Disease History - Family Disease History Family History: Unremarkable Review of Systems - Review of Systems Constitutional: reports: Lethargy. denies: Diaphoresis, Fever, Night Sweats Eyes: denies: Blind Spots HENT: denies: Difficult Swallowing Neck: denies: Decreased ROM Cardiovascular: denies: Chest Pain, Palpitations Respiratory: reports: Cough, Exercise Intolerance, SOB, SOB on Exertion. denies : Hemoptysis Gastrointestinal: denies: Abdominal Pain Genitourinary: reports: No Symptoms Breasts: reports: No Symptoms Reported Musculoskeletal: reports: No Symptoms Integumentary: reports: No Symptoms Physical Exam Vital Sings: Vital Signs Temperature 98.6 F 08/11/17 10:00 Pulse Rate 80 08/11/17 10:00 Respiratory Rate 20 08/11/17 10:00 Blood Pressure 120/66 08/11/17 10:00 O2 Sat by Pulse Oximetry (%) 97 08/11/17 03:48 Constitutional: Yes: Calm Eyes: Yes: EOM Intact HENT: Yes: Normocephalic Neck: Yes: Trachea Midline Cardiovascular: Yes: Pulse Irregular, S1, S2 Respiratory: Yes: Diminished (BIBASILAR OTHERWISE CLEAR) ...Inspection: Yes: WNL Gastrointestinal: Yes: Normal Bowel Sounds, Soft Edema: No Integumentary: Yes: WNL Neurological: Yes: WNL Labs: CBC, BMP 08/11/17 06:45 08/11/17 06:45 INR 2.7 LACTIC ACID3.7 VBG 7.33/PCO2 42 MICRO ORGANISM PENDING Imaging - Results Chest X-ray: Report Reviewed, Image Reviewed Cat Scan: Report Reviewed, Image Reviewed Problem List - Problems (1) AICD (automatic cardioverter/defibrillator) present Code(s): Z95.810 - PRESENCE OF AUTOMATIC (IMPLANTABLE) CARDIAC DEFIBRILLATOR (2) Bacteremia Code(s): R78.81 - BACTEREMIA (3) CHF (congestive heart failure) Code(s): I50.9 - HEART FAILURE, UNSPECIFIED (4) ESRD (end stage renal disease) Code(s): N18.6 - END STAGE RENAL DISEASE (5) Elevated lactic acid level Code(s): R79.89 - OTHER SPECIFIED ABNORMAL FINDINGS OF BLOOD CHEMISTRY (6) Sepsis Code(s): A41.9 - SEPSIS, UNSPECIFIED ORGANISM Qualifiers: Sepsis type: sepsis due to unspecified organism Qualified Code(s): A41.9 - Sepsis, unspecified organism Assessment/Plan DYSPNEA/NO INFILTRATES ON CT BACTEREMIA/ORGANISM PENDING ? CONTAMINANT ESRD/HD COPD/HTN/ACS/AICD/ANEMIA/PUL HTN AWAIT ORGANISM IDENTIFICATION CONTINUE O2 TO KEEP SAT GREATER THAN 90% EMPIRIC ANTIBIOTICS FOR NOW HD PER RENAL WILL FOLLOW Zulay BLAKELY MD
--- NOTE | 2017-08-11 11:46 | EKG ---
Test Reason : Blood Pressure : / mmHG Vent. Rate : 070 BPM Atrial Rate : 066 BPM P-R Int : 000 ms QRS Dur : 168 ms QT Int : 538 ms P-R-T Axes : 000 -71 107 degrees QTc Int : 581 ms Ventricular-paced rhythm ABNORMAL ECG WHEN COMPARED WITH ECG OF 10-AUG-2017 15:59, VENT. RATE HAS DECREASED BY 2 BPM Confirmed by ADE PRESTON MD ([id number]) on 08/11/2017 11:45:33 AM Referred By: Confirmed By:ADE PRESTON MD
--- NOTE | 2017-08-11 12:02 | CON.NEP ---
Consult Consult Specialty:: Nephrology Referred by:: Dr. Jimenez Reason for Consultation:: ESRD on HD - History of Present Illness Chief Complaint: SOB/Fever History of Present Illness: This is a 71 year old gentleman with PMhx of ESRD on HD (TTS), Hypertension, CHF , CAD, Afib, COPD, Anemia who presented with complaints of SOB worsening over the past few days with fever and admitted for HF/Bactermia/Suspected sepsis. Pt last had dialysis yesterday w/o complication. Pt denies any CP, palpitations. + IVAN. + LE swelling. Pt is above his dry weight. No fevers noted at dialysis. 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 Cardio/Vascular: Yes: CAD, CHF, HTN, Hyperlipdemia Pulmonary: Yes: Bronchitis, COPD Renal/: Yes: Renal Failure, Hemodialysis - Past Surgical History Past Surgical History: Yes: AICD, AV Fistula/Graft - Alcohol/Substance Use Hx Alcohol Use: No - Smoking History Smoking history: Former smoker Have you smoked in the past 12 months: No Aproximately how many cigarettes per day: 0 If you are a former smoker, when did you quit?: 27 YRS AGO - Social History History of Recent Travel: No Home Medications - Allergies Allergies/Adverse Reactions: Allergies Allergy/AdvReac Type Severity Reaction Status Date / Time iodine Allergy TONGUE Verified 08/10/17 14:51 SWELLING shellfish derived Allergy Hives Verified 08/10/17 14:51 IV CONTRAST Allergy "RASH" Uncoded 08/10/17 14:51 - Home Medications Home Medications: Ambulatory Orders Simvastatin [Zocor -] 5 mg PO HS 10/29/12 Warfarin Sodium [Coumadin] 5 mg PO TU 10/29/12 Levothyroxine [Synthroid -] 125 mcg PO DAILY 06/26/14 Docusate Sodium [Colace -] 100 mg PO BID 07/19/14 Nut.tx.impaired Renal Fxn,Soy [Nepro] 1 ml PO ASDIR 07/19/14 Pantoprazole Sodium [Protonix -] 40 mg PO DAILY 07/19/14 Warfarin Na [Coumadin -] 2.5 mg PO SUMOWETHFRSA 07/19/14 Albuterol Sulfate Inhaler - [Ventolin Hfa Inhaler -] 1 - 2 inh PO Q4H PRN 12/12/ 17 Furosemide [Lasix -] 40 mg PO DAILY 08/10/17 Insulin (Levemir) [Levemir Flexpen -] 7 units SQ HS 08/10/17 Review of Systems - Review of Systems Constitutional: reports: No Symptoms Eyes: reports: No Symptoms HENT: reports: No Symptoms Neck: reports: No Symptoms Cardiovascular: reports: Edema, Shortness of Breath. denies: Chest Pain, Palpitations Respiratory: reports: Exercise Intolerance, Orthopnea, SOB, SOB on Exertion, Wheezing. denies: Cough Gastrointestinal: reports: No Symptoms Genitourinary: reports: No Symptoms Breasts: reports: No Symptoms Reported Musculoskeletal: reports: No Symptoms Integumentary: reports: No Symptoms Neurological: reports: No Symptoms Endocrine: reports: No Symptoms Hematology/Lymphatic: reports: No Symptoms Nephrology Consult - Height Height: 5 ft 6 in - Weight Weight: 63.276 kg - BMI Body Mass Index (BMI): 22.5 - Lab Results CBC,BMP: CBC, BMP 08/11/17 06:45 08/11/17 06:45 Anion Gap: Anion Gap Anion Gap 14 (8-16) 08/11/17 06:45 - Imaging Chest X-ray: Report Reviewed Cat Scan: Report Reviewed - Physical Examination Vital Signs: Vital Signs Temperature 98.6 F 08/11/17 10:00 Pulse Rate 80 08/11/17 10:00 Respiratory Rate 20 08/11/17 10:00 Blood Pressure 120/66 08/11/17 10:00 O2 Sat by Pulse Oximetry (%) 97 08/11/17 03:48 Constitutional: Yes: Well Nourished, No Distress, Calm HENT: Yes: Atraumatic, Normocephalic Neck: Yes: Supple Cardiovascular: Yes: Pulse Irregular. No: Murmur, Rub Respiratory: Yes: Regular, CTA Bilaterally, SOB. No: On Nasal O2, Rales, Rhonchi Gastrointestinal: Yes: Normal Bowel Sounds, Soft Renal/: No: Anuria, Bladder Distention, CVA Tenderness - Left, CVA Tenderness - Right, Liu Present Extremities: No: Cold, Cool, Cyanosis Edema: No Wound/Incision: Yes: Well Approximated Neurological: Yes: Alert, Oriented Assessment/Plan 71 year old gentleman with PMhx of ESRD on HD (TTS), Hypertension, CHF, CAD, Afib, COPD, Anemia who presented with complaints of SOB worsening over the past few days with fever and admitted for HF/Bactermia/Suspected sepsis. #SOB/IVAN CT w/o signs of PNA but pt with + fever and + blood cultures will arrange for isolated UF today for volume removal low salt diet Pulmonary and cardiology follow up #Bacteremia Blood cultures grew gram positive cocci in chains s/p Vanco yesterday f/u final culture report will check Vanco level and redose with HD tomorrow Ceftriaxone per ID #ESRD on HD s/p dialysis yesterday for isolated UF today dose all meds for intermittent Hd low salt diet fluid restriction of 1.2L daily Change Lasix 80mg Daily but unlikely that pt will produce considerable amount of urine Thank you will follow Antonio Koroma Do
[2017-08-11] MEDS ORDERED: VANCOMYCIN 1 GRAM (PRE-DOCKED) 1,000 MG/250 ML BAG IVPB ONE (12:24)
[2017-08-11] MEDS ORDERED: LIDOCAINE 2.5%/PRILOCAINE 2.5% (5 Gram/TUBE) TP ONE (12:28)
[2017-08-11] MEDS ORDERED: VANCOMYCIN 1,000 MG in DEXTROSE 5%-WATER - 250 ML IVPB ONE (12:30)
[2017-08-11] MEDS: WARFARIN NA 2.5 MG TABLET (FP) PO SCH (17:13)
[2017-08-12] MEDS: INSULIN SLIDING SCALE (NOVOLOG) 1 VIAL SQ SCH ×4 (06:31→21:07)
[2017-08-12] MEDS: LEVOTHYROXINE NA 125 MCG TABLET (FP) PO SCH (06:32)
[2017-08-12 07:32] LABS: BASO % 0.7 % (0-2.0); EOS % 1.3 % (0-4.5); MCH 31.5 pg (25.7-33.7); MCHC 32.6 g/dl (32.0-35.9); MEAN CELL VOLUME 96.4 fl (80-96); MEAN PLT VOLUME 9.1 fl (7.5-11.1); PLATELET COUNT 72 K/MM3 (134-434); RDW 17.5 % (11.9-15.9); WHITE BLOOD COUNT 7.9 K/mm3 (4.0-10.0)
[2017-08-12 07:54] LABS: ALBUMIN 2.9 g/dl (3.4-5.0); ALK PHOS 140 U/L (45-117); ANION GAP 14 (8-16); BILIRUBIN,TOTAL 1.2 mg/dL (0.2-1.0); CALCIUM 8.3 mg/dL (8.5-10.1); CO2 21 mmol/L (21-32); CREATININE 6.7 mg/dL (0.7-1.3); GLUCOSE,RANDOM 173 mg/dL (74-106); SGOT/AST 25 U/L (15-37); SGPT/ALT 19 U/L (12-78); TOT PROT 7.3 g/dl (6.4-8.2)
[2017-08-12] MEDS ORDERED: HEPARIN NA (PORCINE) 5,000 UNITS/ML 1ML VIAL IVPUSH ONE (08:00)
--- NOTE | 2017-08-12 08:33 | PN ---
Progress Note, Physician - Current Medication List Current Medications: Active Medications Albuterol Sulfate (Ventolin 0.083% Nebulizer Soln -) 1 amp NEB Q15M PRN PRN Reason: Dyspnea Last Admin: 08/10/17 15:25 Dose: 1 amp Atorvastatin Calcium (Lipitor -) 10 mg PO HS [facility] Last Admin: 08/11/17 22:20 Dose: 10 mg Docusate Sodium (Colace -) 100 mg PO BID [facility] Last Admin: 08/11/17 22:19 Dose: 100 mg Epoetin Kamran (Epogen -) 4,000 units IVPUSH ONCE ONE Stop: 08/12/17 09:01 Furosemide (Lasix -) 40 mg PO DAILY [facility] Last Admin: 08/11/17 10:32 Dose: 40 mg CEFTRIAXONE 1 G/50 ML PREMIX (Ceftriaxone 1 Gm-D5w Bag) 50 mls @ 100 mls/hr IVPB DAILY [facility] Last Admin: 08/11/17 10:32 Dose: 100 mls/hr Vancomycin HCl 1,000 mg/ (Dextrose) 250 mls @ 166.667 mls/hr IVPB ONCE ONE PRN Reason: Protocol Stop: 08/12/17 10:29 Insulin Aspart (Novolog Vial Sliding Scale -) 1 vial SQ ACHS [facility] PRN Reason: Protocol Last Admin: 08/12/17 06:31 Dose: Not Given Levothyroxine Sodium (Synthroid -) 125 mcg PO DAILY@0700 [facility] Last Admin: 08/12/17 06:32 Dose: Not Given Pantoprazole Sodium (Protonix -) 40 mg PO DAILY [facility] Last Admin: 08/11/17 10:32 Dose: 40 mg Warfarin Sodium (Coumadin -) 2.5 mg PO SuMoWeThFrSa@1800 [facility] Last Admin: 08/11/17 17:13 Dose: 2.5 mg - Objective Vital Signs: Vital Signs Temperature 18 F L 08/12/17 08:10 Pulse Rate 70 08/12/17 08:10 Respiratory Rate 18 08/12/17 07:40 Blood Pressure 140/85 08/12/17 08:10 O2 Sat by Pulse Oximetry (%) 95 08/11/17 21:00 Cardiovascular: Yes: Murmur, S1, S2 Respiratory: Yes: Regular, CTA Bilaterally Gastrointestinal: Yes: Normal Bowel Sounds, Soft Labs: CBC, BMP 08/12/17 05:05 INR, PTT INR 2.70 (0.82-1.09) H 08/11/17 06:45 Problem List - Problems (1) Bacteremia Assessment/Plan: IV ABX AWAIT FINAL RESULTS Microbiology 08/10/17 15:25 Blood Culture - Preliminary Blood - Peripheral Venous Pending Organism 08/10/17 15:25 Blood Culture - Preliminary Blood - Peripheral Venous Pending Organism 08/10/17 15:25 Influenza Types A,B Antigen (BRENDA) - Final Nasopharyngeal Swab - Final Code(s): R78.81 - BACTEREMIA (2) AICD (automatic cardioverter/defibrillator) present Assessment/Plan: per cardio Code(s): Z95.810 - PRESENCE OF AUTOMATIC (IMPLANTABLE) CARDIAC DEFIBRILLATOR (3) ESRD (end stage renal disease) Assessment/Plan: DAILYSIS PER RENAL Code(s): N18.6 - END STAGE RENAL DISEASE (4) Sepsis Code(s): A41.9 - SEPSIS, UNSPECIFIED ORGANISM Qualifiers: Sepsis type: sepsis due to unspecified organism Qualified Code(s): A41.9 - Sepsis, unspecified organism (5) Cellulitis Assessment/Plan: IV ABX PODIATRY Code(s): L03.90 - CELLULITIS, UNSPECIFIED (6) CHF (congestive heart failure) Assessment/Plan: DIALYSIS CARDIO Code(s): I50.9 - HEART FAILURE, UNSPECIFIED
[2017-08-12] MEDS ORDERED: EPOETIN ALFA 2,000 UNITS/1 ML VIAL IVPUSH ONE (09:00)
[2017-08-12] MEDS ORDERED: VANCOMYCIN 1,000 MG in DEXTROSE 5%-WATER - 250 ML IVPB ONE (09:00)
--- NOTE | 2017-08-12 09:08 | PN ---
Progress Note (short form) - Note Progress Note: ID Vancomcyin and Ceftriaxone day 2 Currently on dialysis Selected Entries 08/12/17 08/12/17 07:35 08:40 Temperature 98.4 F Pulse Rate 85 Respiratory 18 Rate Blood Pressure 154/59 Microbiology 08/10/17 15:25 Blood - Peripheral Venous Blood Culture - Preliminary Pending Organism 08/10/17 15:25 Blood - Peripheral Venous Blood Culture - Preliminary Pending Organism Laboratory Tests 08/12/17 08/12/17 08/12/17 05:05 05:05 08:40 WBC 7.9 Hgb 11.2 L D Plt Count 72 L D Total Bilirubin 1.2 H Alkaline Phosphatase 140 H D Random Vancomycin Pending Assessment Probable Enterococcal bacteremia source unclear Plan For now continue Vancomycin based on today level pending sensitivities Addition of Gentamycin CRP ECHO repeat blood cultures Hans BANKS Problem List - Problems (1) Bacteremia Code(s): R78.81 - BACTEREMIA (2) ESRD (end stage renal disease) Code(s): N18.6 - END STAGE RENAL DISEASE (3) Sepsis Code(s): A41.9 - SEPSIS, UNSPECIFIED ORGANISM Qualifiers: Sepsis type: sepsis due to unspecified organism Qualified Code(s): A41.9 - Sepsis, unspecified organism
[2017-08-12] MEDS ORDERED: GENTAMICIN SO4 *PEDIATRIC* 20 MG/2 ML VIAL IVPB ONE (09:09)
[2017-08-12 09:38] LABS: C-REACTIVE PROTEIN 7.1 MG/DL (0.00-0.3)
[2017-08-12] MEDS ORDERED: GENTAMICIN 80 MG PREMIXED IVPB 80 MG/100 ML BAG IVPB ONE (10:00)
--- NOTE | 2017-08-12 10:00 | PN ---
Progress Note (short form) - Note Progress Note: PULMONARY APPEARS STABLE/OFFERS NO COMPLAINTS FEBRILE ON HD PRESENTLY ANICTERIC DIMINISHED BREATH SOUNDS AT BASES S1S2 IRREGULAR BS+ SOFT NONTENDER NO EDEMA LABS/MEDS/NOTES/MICRO REVIEWED CRP 7.1 COPD STABLE ESRD ON HD HTN/ H/O ACS AICD/PUL HTN ANEMIA BACTEREMIA ORGANISM ID PENDING ABS CONTINUE FOR NOW R REDDY BANKS Problem List - Problems (1) AICD (automatic cardioverter/defibrillator) present Code(s): Z95.810 - PRESENCE OF AUTOMATIC (IMPLANTABLE) CARDIAC DEFIBRILLATOR (2) Bacteremia Code(s): R78.81 - BACTEREMIA (3) CHF (congestive heart failure) Code(s): I50.9 - HEART FAILURE, UNSPECIFIED (4) ESRD (end stage renal disease) Code(s): N18.6 - END STAGE RENAL DISEASE (5) Elevated lactic acid level Code(s): R79.89 - OTHER SPECIFIED ABNORMAL FINDINGS OF BLOOD CHEMISTRY (6) Sepsis Code(s): A41.9 - SEPSIS, UNSPECIFIED ORGANISM Qualifiers: Sepsis type: sepsis due to unspecified organism Qualified Code(s): A41.9 - Sepsis, unspecified organism
[2017-08-12] MEDS: ALBUTEROL SO4 0.083% IH SOL 2.5 MG/3 ML VIAL.NEB. NEB PRN (10:11)
--- NOTE | 2017-08-12 10:35 | PN ---
Progress Note (short form) - Note Progress Note: s: no cp palps dizzy; sob better o: Vital Signs Period Temp Pulse Resp BP Sys/Rea Pulse Ox Last 24 Hr 97.0 F-98.8 F 68-86 18-20 95-157/49-85 95-96 nad no jvd irreg, s1s2 no mrg cta bl nl eff aaox3 trace le edema bl, no c/c abd nt nd pos bs no jaundice diaphoresis Current Medications Generic Name Dose Route Start Last Admin Trade Name Liu PRN Reason Stop Dose Admin Atorvastatin Calcium 10 mg 08/10/17 22:00 08/11/17 22:20 Lipitor - PO 10 mg HS LIEN Administration Docusate Sodium 100 mg 08/10/17 22:00 08/11/17 22:19 Colace - PO 100 mg BID LIEN Administration Furosemide 40 mg 08/11/17 10:00 08/11/17 10:32 Lasix - PO 40 mg DAILY LIEN Administration CEFTRIAXONE 1 G/50 ML PREMIX 50 mls @ 100 mls/hr 08/11/17 10:00 08/11/17 10: 32 Ceftriaxone 1 Gm-D5w Bag IVPB 100 mls/hr DAILY LIEN Administration Gentamicin Sulfate/Sodium Chloride 80 mg in 100 mls @ 100 mls/hr 08/12/17 10: 00 Garamycin 80 Mg Premixed Ivpb - IVPB 08/12/17 10:59 ONCE ONE Insulin Aspart 1 vial 08/10/17 22:00 08/12/17 06:31 Novolog Vial Sliding Scale - SQ Not Given ACHS [facility] Protocol Levothyroxine Sodium 125 mcg 08/11/17 07:00 08/12/17 06:32 Synthroid - PO Not Given DAILY@0700 LIEN Pantoprazole Sodium 40 mg 08/11/17 10:00 08/11/17 10:32 Protonix - PO 40 mg DAILY [facility]EN Administration Warfarin Sodium 2.5 mg 08/11/17 18:00 08/11/17 17:13 Coumadin - PO 2.5 mg SuMoWeThFrSa@1800 LIEN Administration CBC, BMP 08/12/17 05:05 08/12/17 05:05 ct chest: b/l effs, copd, ascites ecg 08/10/17: afib, vpaced tele: afib, vpaced, rate controlled mibi 09/2014: no ischemia echo 12/2015: nl lv/rv, mild [place], mild mr, mod tr, mild pr, rvsp 60 a/p: 71 m hx cad s/p pci, htn, hld, ICD, dm, copd, esrd on hd, chronic afib, here with sob/cough/chills. sob, fever, sepsis: -has some vol overload on imaging, would cont HD per renal for vol removal -has +bld cxs, cont abx per ID cad s/p remote pci: -stable, no signs acs, ce's neg x3 -recent cath 2014 showed patent stent -nl lvef on recent echo -cont statin, ac (no asa) -not on bb due to copd htn: -bb recently stopped as outpt by pulm htn specialist -currently bp controlled, monitor for need for additional bp med, would start norvasc 5 if needed pulm htn: -chronic issue, seen by pulm htn specialist at [facility] who felt due to ESRD/HD and had no further rec's at this time -nl rv on prior echo hld: -cont statin icd: -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 low lvef in past that has since improved) afib: -cont ac -not on bb anymore due to copd, rate controlled off meds for now, monitor
[2017-08-12] MEDS: DOCUSATE SODIUM 100 MG CAPSULE (FP) PO SCH ×2 (11:55→21:06)
[2017-08-12] MEDS: CEFTRIAXONE 1 G/50 ML PREMIX 50 ML IVPB SCH (11:55)
[2017-08-12] MEDS: FUROSEMIDE 40 MG TABLET (FP) PO SCH (11:56)
[2017-08-12] MEDS: PANTOPRAZOLE 40 MG TABLET (FP) PO SCH (11:56)
--- NOTE | 2017-08-12 12:00 | PN ---
Progress Note (short form) - Note Progress Note: Renal follow up for ESRD on HD Pt seen and examined during dialysis BP stable goal UF is 2.5L pt without complaints no fever Vital Signs Temperature 97.6 F 08/12/17 10:12 Pulse Rate 67 08/12/17 11:15 Respiratory Rate 18 08/12/17 11:15 Blood Pressure 144/61 08/12/17 11:15 O2 Sat by Pulse Oximetry (%) 96 08/12/17 10:10 Intake & Output 08/09/17 08/10/17 08/11/17 08/12/17 23:59 23:59 23:59 23:59 Intake Total 510 170 Balance 510 170 Weight 63.957 kg 63.276 kg 62.414 kg NAD awake and alert 1+ LE edema CBC, BMP 08/12/17 05:05 08/12/17 05:05 Current Medications Atorvastatin Calcium (Lipitor -) 10 mg PO HS [facility] Last Admin: 08/11/17 22:20 Dose: 10 mg Docusate Sodium (Colace -) 100 mg PO BID [facility] Last Admin: 08/12/17 11:55 Dose: 100 mg Furosemide (Lasix -) 40 mg PO DAILY [facility] Last Admin: 08/12/17 11:56 Dose: 40 mg CEFTRIAXONE 1 G/50 ML PREMIX (Ceftriaxone 1 Gm-D5w Bag) 50 mls @ 100 mls/hr IVPB DAILY [facility] Last Admin: 08/12/17 11:55 Dose: 100 mls/hr Insulin Aspart (Novolog Vial Sliding Scale -) 1 vial SQ ACHS [facility] PRN Reason: Protocol Last Admin: 08/12/17 11:46 Dose: Not Given Levothyroxine Sodium (Synthroid -) 125 mcg PO DAILY@0700 [facility] Last Admin: 08/12/17 06:32 Dose: Not Given Pantoprazole Sodium (Protonix -) 40 mg PO DAILY [facility] Last Admin: 08/12/17 11:56 Dose: 40 mg Warfarin Sodium (Coumadin -) 2.5 mg PO SuMoWeThFrSa@1800 [facility] Last Admin: 08/11/17 17:13 Dose: 2.5 mg 71 year old gentleman with PMhx of ESRD on HD (TTS), Hypertension, CHF, CAD, Afib, COPD, Anemia who presented with complaints of SOB worsening over the past few days with fever and admitted for HF/Bactermia/Suspected sepsis. #SOB/IVAN CT w/o signs of PNA but pt with + fever and + blood cultures s/p 2.5L UF yesterday, will get additional 2.5L removed today #Bacteremia Blood cultures grew group D strep and enteroccocus to get Vanco and Gent per ID Vanco level 20 today #ESRD on HD tolerating dialysis well today UF as tolerated dose all meds for intermittent HD Antonio Koroma Do
--- NOTE | 2017-08-12 12:05 | CONSULT ---
Consult - text type - Consultation Consultation Note: Podiatry Consultation: 71 year old IDDM M presents to hospital for admission for SOB symptoms. Patient has complex medical history, found to have bacteremia while admitted. Podiatry consultation requested for L great toe ingrown nail, which he gets treated at [facility]. Does note occasional pus from the nail fold. He soaks in epsom salt which helps alleviate symptoms. Currently afebrile, VSS. PMHx: IDDM, HTN, HLP, COPD, ESRD on HD, CAD s/p PCI Meds: noted in chart ALL: iodine, shellfish JEFF: L foot: pedal pulses 1/4, TG wnl, CFT brisk to all toes. There is an ingrowing nail along the lateral nail fold with minimal erythema to the lateral nail fold. No purulence expressed on palpation. No fluctuance, no ascending cellulitis, no signs of active infection. No ischemic skin changes. The nail is thickened, tender, discolored. WBC: 7.9 Blood Cx: group D strep Blood Cx current: pending L foot XR: ? cortical erosion distal tuft of hallux Imp: 71 year old IDDM M with L great toe nail onychomycosis, paronychia nail fold 1. Medical management 2. IV abx per ID 3. I discussed my findings with patient. Given no signs of infection, no appreciable collection, I am confident paronychia is not source of bacteremia. Would f/u blood cultures. Findings on xray could be from prior trauma or reactivity. 4. Recommend epsom soaking to alleviate ingrowing nail. 5. Thank you for the courtesy of this consultation. Mario Neil DPM
[2017-08-12 18:22] LABS: INR 2.17 (0.82-1.09); PROTHROMBIN TIME (PATIENT) 24.5 SEC (9.98-11.88)
[2017-08-12] MEDS: WARFARIN NA 2.5 MG TABLET (FP) PO SCH (21:06)
[2017-08-12] MEDS: ATORVASTATIN CA 10 MG TABLET (FP) PO SCH (21:06)
[2017-08-13] MEDS: INSULIN SLIDING SCALE (NOVOLOG) 1 VIAL SQ SCH ×4 (06:30→21:27)
[2017-08-13] MEDS: LEVOTHYROXINE NA 125 MCG TABLET (FP) PO SCH (06:31)
[2017-08-13 08:09] LABS: INR 2.09 (0.82-1.09); PROTHROMBIN TIME (PATIENT) 23.6 SEC (9.98-11.88)
--- NOTE | 2017-08-13 08:16 | PN ---
Progress Note, Physician History of Present Illness: FEELS BETTER - Current Medication List Current Medications: Active Medications Atorvastatin Calcium (Lipitor -) 10 mg PO HS [facility] Last Admin: 08/12/17 21:06 Dose: 10 mg Docusate Sodium (Colace -) 100 mg PO BID [facility] Last Admin: 08/12/17 21:06 Dose: 100 mg Furosemide (Lasix -) 40 mg PO DAILY [facility] Last Admin: 08/12/17 11:56 Dose: 40 mg CEFTRIAXONE 1 G/50 ML PREMIX (Ceftriaxone 1 Gm-D5w Bag) 50 mls @ 100 mls/hr IVPB DAILY [facility] Last Admin: 08/12/17 11:55 Dose: 100 mls/hr Insulin Aspart (Novolog Vial Sliding Scale -) 1 vial SQ ACHS [facility] PRN Reason: Protocol Last Admin: 08/13/17 06:30 Dose: Not Given Levothyroxine Sodium (Synthroid -) 125 mcg PO DAILY@0700 [facility] Last Admin: 08/13/17 06:31 Dose: 125 mcg Pantoprazole Sodium (Protonix -) 40 mg PO DAILY [facility] Last Admin: 08/12/17 11:56 Dose: 40 mg Warfarin Sodium (Coumadin -) 2.5 mg PO SuMoWeThFrSa@1800 [facility] Last Admin: 08/12/17 21:06 Dose: 2.5 mg - Objective Vital Signs: Vital Signs Temperature 97.8 F 08/13/17 05:46 Pulse Rate 74 08/13/17 05:46 Respiratory Rate 18 08/13/17 05:46 Blood Pressure 121/73 08/13/17 05:46 O2 Sat by Pulse Oximetry (%) 99 08/12/17 21:00 Cardiovascular: Yes: S1, S2 Respiratory: Yes: Regular, CTA Bilaterally Gastrointestinal: Yes: Normal Bowel Sounds, Soft Labs: CBC, BMP 08/12/17 05:05 08/12/17 05:05 INR, PTT INR 2.17 (0.82-1.09) H 08/12/17 17:30 Problem List - Problems (1) Bacteremia Assessment/Plan: IV ABX AWAIT FINAL RESULTS Microbiology 08/10/17 15:25 Blood Culture - Preliminary Blood - Peripheral Venous Pending Organism 08/10/17 15:25 Blood Culture - Preliminary Blood - Peripheral Venous Pending Organism 08/10/17 15:25 Influenza Types A,B Antigen (BRENDA) - Final Nasopharyngeal Swab - Final REPEAT BC ECHO Code(s): R78.81 - BACTEREMIA (2) AICD (automatic cardioverter/defibrillator) present Assessment/Plan: per cardio Code(s): Z95.810 - PRESENCE OF AUTOMATIC (IMPLANTABLE) CARDIAC DEFIBRILLATOR (3) ESRD (end stage renal disease) Assessment/Plan: DAILYSIS PER RENAL Code(s): N18.6 - END STAGE RENAL DISEASE (4) Sepsis Code(s): A41.9 - SEPSIS, UNSPECIFIED ORGANISM Qualifiers: Sepsis type: sepsis due to unspecified organism Qualified Code(s): A41.9 - Sepsis, unspecified organism (5) Cellulitis Assessment/Plan: IV ABX PODIATRY NOTED--NOT SOURCE OF BACTEREMIA Code(s): L03.90 - CELLULITIS, UNSPECIFIED (6) CHF (congestive heart failure) Code(s): I50.9 - HEART FAILURE, UNSPECIFIED
[2017-08-13] MEDS: DOCUSATE SODIUM 100 MG CAPSULE (FP) PO SCH ×2 (09:35→21:26)
[2017-08-13] MEDS: PANTOPRAZOLE 40 MG TABLET (FP) PO SCH (09:35)
[2017-08-13] MEDS: FUROSEMIDE 40 MG TABLET (FP) PO SCH (09:35)
[2017-08-13] MEDS: CEFTRIAXONE 1 G/50 ML PREMIX 50 ML IVPB SCH (09:35)
--- NOTE | 2017-08-13 10:59 | PN ---
Progress Note (short form) - Note Progress Note: s: no cp palps dizzy; sob better o: Vital Signs Period Temp Pulse Resp BP Sys/Rea Pulse Ox Last 24 Hr 97.6 F-98.4 F 67-77 18-18 112-150/42-85 99-99 nad no jvd irreg, s1s2 no mrg cta bl nl eff aaox3 no le edema bl, no c/c abd nt nd pos bs no jaundice diaphoresis Current Medications Generic Name Dose Route Start Last Admin Trade Name Liu PRN Reason Stop Dose Admin Atorvastatin Calcium 10 mg 08/10/17 22:00 08/12/17 21:06 Lipitor - PO 10 mg HS LIEN Administration Docusate Sodium 100 mg 08/10/17 22:00 08/13/17 09:35 Colace - PO 100 mg BID LIEN Administration Furosemide 40 mg 08/11/17 10:00 08/13/17 09:35 Lasix - PO 40 mg DAILY LIEN Administration CEFTRIAXONE 1 G/50 ML PREMIX 50 mls @ 100 mls/hr 08/11/17 10:00 08/13/17 09: 35 Ceftriaxone 1 Gm-D5w Bag IVPB 100 mls/hr DAILY LIEN Administration Insulin Aspart 1 vial 08/10/17 22:00 08/13/17 06:30 Novolog Vial Sliding Scale - SQ Not Given ACHS [facility] Protocol Levothyroxine Sodium 125 mcg 08/11/17 07:00 08/13/17 06:31 Synthroid - PO 125 mcg DAILY@0700 LIEN Administration Pantoprazole Sodium 40 mg 08/11/17 10:00 08/13/17 09:35 Protonix - PO 40 mg DAILY [facility]EN Administration Warfarin Sodium 2.5 mg 08/11/17 18:00 08/12/17 21:06 Coumadin - PO 2.5 mg SuMoWeThFrSa@1800 LIEN Administration Laboratory Last Values WBC 7.9 K/mm3 (4.0-10.0) 08/12/17 05:05 RBC 3.56 M/mm3 (4.00-5.60) L 08/12/17 05:05 Hgb 11.2 GM/dL (11.7-16.9) L D 08/12/17 05:05 Hct 34.3 % (35.4-49) L 08/12/17 05:05 MCV 96.4 fl (80-96) H 08/12/17 05:05 MCH 31.5 pg (25.7-33.7) 08/12/17 05:05 MCHC 32.6 g/dl (32.0-35.9) 08/12/17 05:05 RDW 17.5 % (11.9-15.9) H 08/12/17 05:05 Plt Count 72 K/MM3 (134-434) L D 08/12/17 05:05 MPV 9.1 fl (7.5-11.1) 08/12/17 05:05 Neutrophils % 82.0 % (42.8-82.8) 08/12/17 05:05 Lymphocytes % 8.9 % (8-40) D 08/12/17 05:05 Monocytes % 7.1 % (3.8-10.2) 08/12/17 05:05 Eosinophils % 1.3 % (0-4.5) D 08/12/17 05:05 Basophils % 0.7 % (0-2.0) 08/12/17 05:05 PT with INR 23.60 SEC (9.98-11.88) H 08/13/17 06:30 INR 2.09 (0.82-1.09) H 08/13/17 06:30 PTT (Actin FS) 34.0 SECONDS (26.9-34.4) 08/10/17 15:27 VBG pH 7.33 (7.32-7.42) 08/10/17 15:25 POC VBG pCO2 42.0 mmHg (38-52) 08/10/17 15:25 POC VBG pO2 32.1 mmHg (28-48) 08/10/17 15:25 Mixed VBG HCO3 21.5 meq/L (19-25) 08/10/17 15:25 Sodium 131 mmol/L (136-145) L 08/12/17 05:05 Potassium 3.8 mmol/L (3.5-5.1) 08/12/17 05:05 Chloride 96 mmol/L (98-107) L 08/12/17 05:05 Carbon Dioxide 21 mmol/L (21-32) 08/12/17 05:05 Anion Gap 14 (8-16) 08/12/17 05:05 BUN 69 mg/dL (7-18) H D 08/12/17 05:05 Creatinine 6.7 mg/dL (0.7-1.3) H 08/12/17 05:05 Creat Clearance w eGFR 8.20 (>60) 08/12/17 05:05 POC Glucometer 153 UNITS (80-120) 08/13/17 06:20 Random Glucose 173 mg/dL (74-106) H D 08/12/17 05:05 Lactic Acid 3.7 mmol/L (0.4-2.0) H* 08/11/17 06:45 Calcium 8.3 mg/dL (8.5-10.1) L 08/12/17 05:05 Phosphorus 5.0 mg/dL (2.5-4.9) H D 08/12/17 05:05 Magnesium 1.9 mg/dL (1.8-2.4) 08/10/17 15:13 Total Bilirubin 1.2 mg/dL (0.2-1.0) H 08/12/17 05:05 AST 25 U/L (15-37) 08/12/17 05:05 ALT 19 U/L (12-78) 08/12/17 05:05 Alkaline Phosphatase 140 U/L (45-117) H D 08/12/17 05:05 Creatine Kinase 187 IU/L (39-308) 08/11/17 06:45 Creatine Kinase Index 4.5 % (0.0-5.0) 08/11/17 06:45 CK-MB (CK-2) 8.551 ng/mL (0.5-3.6) H 08/11/17 06:45 Troponin I 0.12 ng/ml (0.00-0.05) H 08/11/17 06:45 C-Reactive Protein 7.1 MG/DL (0.00-0.3) H D 08/12/17 05:05 B-Natriuretic Peptide 889343.95 pg/ml (5-125) H 08/10/17 15:13 Total Protein 7.3 g/dl (6.4-8.2) 08/12/17 05:05 Albumin 2.9 g/dl (3.4-5.0) L 08/12/17 05:05 Random Vancomycin 21.280 ug/ml 08/12/17 08:40 Hepatitis A Ab Total Negative (Negative) 08/11/17 13:30 Hep Bs Antigen Negative (Negative) 08/11/17 13:30 Hep Bs Antibody Reactive (.) 08/11/17 13:30 Hep B Core Total Ab Negative (Negative) 08/11/17 13:30 Hepatitis C Antibody <0.1 s/co ratio (0.0-0.9) 08/11/17 13:30 Blood Type O POSITIVE 08/10/17 15:26 Antibody Screen Negative 08/10/17 15:26 ct chest: b/l effs, copd, ascites ecg 08/10/17: afib, vpaced tele: afib, vpaced, rate controlled mibi 09/2014: no ischemia echo 12/2015: nl lv/rv, mild london, mild mr, mod tr, mild pr, rvsp 60 echo 07/2017: mild conc lvh, nl lv/rv, mod london, mild mr, mild tr, mod pr, small pericardial eff, rvsp 50-60 a/p: 71 m hx cad s/p pci, htn, hld, ICD, dm, copd, esrd on hd, chronic afib, here with sob/cough/chills. sob, fever, sepsis: -has some vol overload so has been getting daily HD/UF. Vol status improving. Cont HD per renal for vol removal -has +bld cxs, cont abx per ID cad s/p remote pci: -stable, no signs acs, ce's neg x3 -recent cath 2014 showed patent stent -nl lvef on echo here -cont statin, ac (no asa) -not on bb due to copd htn: -bb recently stopped as outpt by pulm htn specialist -currently bp controlled, monitor for need for additional bp med, would start norvasc 5 if needed pulm htn: -chronic issue, seen by pulm htn specialist at [facility] who felt due to ESRD/HD and had no further rec's at this time -nl rv on prior echo hld: -cont statin icd: -follows at [place] [facility], nl check this year in 03/2017 -unclear why has ICD (? low lvef in past that has since improved) afib: -cont ac -not on bb anymore due to copd, rate controlled off meds for now, monitor
--- NOTE | 2017-08-13 11:30 | PN ---
Progress Note (short form) - Note Progress Note: PULMONARY APPEARS STABLE/OFFERS NO COMPLAINTS AFEBRILE ANICTERIC DIMINISHED BREATH SOUNDS AT BASES S1S2 IRREGULAR BS+ SOFT NONTENDER NO EDEMA LABS/MEDS/NOTES/MICRO REVIEWED GRP D STREP OR ENTEROCOCCUS CRP 7.1 LUNG DOES NOT APPEAR TO BE SOURCE OF INFECTION COPD STABLE ESRD ON HD HTN/ H/O ACS AICD/PUL HTN ANEMIA GRP D STREP BACTEREMIA ABS/ANTICOAGULATION/HD ECHO DONE NO MENTION OF VEGETATIONS Zulay BLAKELY MD Problem List - Problems (1) AICD (automatic cardioverter/defibrillator) present Code(s): Z95.810 - PRESENCE OF AUTOMATIC (IMPLANTABLE) CARDIAC DEFIBRILLATOR (2) Bacteremia Code(s): R78.81 - BACTEREMIA (3) CHF (congestive heart failure) Code(s): I50.9 - HEART FAILURE, UNSPECIFIED (4) ESRD (end stage renal disease) Code(s): N18.6 - END STAGE RENAL DISEASE (5) Elevated lactic acid level Code(s): R79.89 - OTHER SPECIFIED ABNORMAL FINDINGS OF BLOOD CHEMISTRY (6) Sepsis Code(s): A41.9 - SEPSIS, UNSPECIFIED ORGANISM Qualifiers: Sepsis type: sepsis due to unspecified organism Qualified Code(s): A41.9 - Sepsis, unspecified organism
--- NOTE | 2017-08-13 12:22 | PN ---
Progress Note (short form) - Note Progress Note: feels well seen by podiatry- no active foot infection Vital Signs Period Temp Pulse Resp BP Sys/Rea Pulse Ox Last 24 Hr 97.6 F-98.4 F 71-74 18-18 112-150/42-85 99-99 cor-rrr lungs decreased bs at bases ppm/defib pocket no erythema, not tenderenterococcal ba abd soft,nt ext no edema, avf no erythema feet- no open lesions CBC, BMP 08/12/17 05:05 08/12/17 05:05 Microbiology 08/10/17 15:25 Blood - Peripheral Venous Blood Culture - Preliminary Group D Strep Or Entero Coccus 08/10/17 15:25 Blood - Peripheral Venous Blood Culture - Preliminary Group D Strep Or Entero Coccus 08/12/17 09:20 Blood - Peripheral Venous Blood Culture - Preliminary NO GROWTH OBTAINED AFTER 24 HOURS, INCUBATION TO CONTINUE FOR 4 DAYS. 08/12/17 09:20 Blood - Peripheral Venous Blood Culture - Preliminary NO GROWTH OBTAINED AFTER 24 HOURS, INCUBATION TO CONTINUE FOR 4 DAYS. 08/10/17 13:28 Urine - Urine - Catheterized Urine Culture - Final NO GROWTH OBTAINED 08/10/17 15:25 Nasopharyngeal Swab Influenza Types A,B Antigen (BRENDA) - Final 08/10/17 15:25 Nasopharyngeal Swab - Final Current Medications Atorvastatin Calcium (Lipitor -) 10 mg PO HS [facility] Last Admin: 08/12/17 21:06 Dose: 10 mg Docusate Sodium (Colace -) 100 mg PO BID [facility] Last Admin: 08/13/17 09:35 Dose: 100 mg Furosemide (Lasix -) 40 mg PO DAILY [facility] Last Admin: 08/13/17 09:35 Dose: 40 mg CEFTRIAXONE 1 G/50 ML PREMIX (Ceftriaxone 1 Gm-D5w Bag) 50 mls @ 100 mls/hr IVPB DAILY [facility] Last Admin: 08/13/17 09:35 Dose: 100 mls/hr Insulin Aspart (Novolog Vial Sliding Scale -) 1 vial SQ ACHS [facility] PRN Reason: Protocol Last Admin: 08/13/17 11:45 Dose: Not Given Levothyroxine Sodium (Synthroid -) 125 mcg PO DAILY@0700 [facility] Last Admin: 08/13/17 06:31 Dose: 125 mcg Pantoprazole Sodium (Protonix -) 40 mg PO DAILY [facility] Last Admin: 08/13/17 09:35 Dose: 40 mg Warfarin Sodium (Coumadin -) 2.5 mg PO SuMoWeThFrSa@1800 [facility] Last Admin: 08/12/17 21:06 Dose: 2.5 mg a/p enterococcal bacteremia ?source repeat blood cultures check vanco trough today, redose less the 15 received gentamicin yesterday for HD tomorrow ct scan abd/pelvis d/c rocephin esrd/hd- has avf cad- defib/ppm
--- NOTE | 2017-08-13 13:20 | PN ---
Progress Note (short form) - Note Progress Note: Renal follow up for ESRD on HD Pt seen and examined at the bedside no acute complaints no sob, chest pain, abd pain s/p dialysis yesterday no fever or chills Vital Signs Temperature 97.7 F 08/13/17 09:00 Pulse Rate 72 08/13/17 09:00 Respiratory Rate 18 08/13/17 09:00 Blood Pressure 150/85 08/13/17 09:00 O2 Sat by Pulse Oximetry (%) 99 08/13/17 09:00 Intake & Output 08/10/17 08/11/17 08/12/17 08/13/17 23:59 23:59 23:59 23:59 Intake Total 510 700 120 Balance 510 700 120 Weight 63.957 kg 63.276 kg 62.414 kg 62.324 kg NAD awake and alert 1+ LE edema CBC, BMP 08/12/17 05:05 08/12/17 05:05 Current Medications Atorvastatin Calcium (Lipitor -) 10 mg PO HS [facility] Last Admin: 08/12/17 21:06 Dose: 10 mg Docusate Sodium (Colace -) 100 mg PO BID [facility] Last Admin: 08/13/17 09:35 Dose: 100 mg Furosemide (Lasix -) 40 mg PO DAILY [facility] Last Admin: 08/13/17 09:35 Dose: 40 mg Insulin Aspart (Novolog Vial Sliding Scale -) 1 vial SQ ACHS [facility] PRN Reason: Protocol Last Admin: 08/13/17 11:45 Dose: Not Given Levothyroxine Sodium (Synthroid -) 125 mcg PO DAILY@0700 [facility] Last Admin: 08/13/17 06:31 Dose: 125 mcg Pantoprazole Sodium (Protonix -) 40 mg PO DAILY [facility] Last Admin: 08/13/17 09:35 Dose: 40 mg Warfarin Sodium (Coumadin -) 2.5 mg PO SuMoWeThFrSa@1800 [facility] Last Admin: 08/12/17 21:06 Dose: 2.5 mg 71 year old gentleman with PMhx of ESRD on HD (TTS), Hypertension, CHF, CAD, Afib, COPD, Anemia who presented with complaints of SOB worsening over the past few days with fever and admitted for HF/Bactermia/Suspected sepsis. #SOB/IVAN CT w/o signs of PNA but pt with + fever and + blood cultures will continue aggressive UF with HD for dialysis tomorrow #Bacteremia Blood cultures grew group D strep and enteroccocus on Vanco and Gent with HD to check Vanco level today ID following pt has pacemaker leads that could potentially be a cause of persistent bacteremia repeat cultures from yesterday so far negative #ESRD on HD for dialysis tomorrow Antonio Koroma Do
[2017-08-13] MEDS: WARFARIN NA 2.5 MG TABLET (FP) PO SCH (17:18)
[2017-08-13] MEDS: ATORVASTATIN CA 10 MG TABLET (FP) PO SCH (21:26)
[2017-08-14] MEDS: LEVOTHYROXINE NA 125 MCG TABLET (FP) PO SCH (06:15)
[2017-08-14] MEDS: INSULIN SLIDING SCALE (NOVOLOG) 1 VIAL SQ SCH ×4 (06:15→21:03)
[2017-08-14 08:59] LABS: MCH 31.2 pg (25.7-33.7); MCHC 32.3 g/dl (32.0-35.9); MEAN CELL VOLUME 96.7 fl (80-96); MEAN PLT VOLUME 9.2 fl (7.5-11.1); PLATELET COUNT 83 K/MM3 (134-434); RDW 17.3 % (11.9-15.9); WHITE BLOOD COUNT 5.7 K/mm3 (4.0-10.0)
[2017-08-14] MEDS: FUROSEMIDE 40 MG TABLET (FP) PO SCH (09:14)
[2017-08-14] MEDS: DOCUSATE SODIUM 100 MG CAPSULE (FP) PO SCH ×2 (09:14→21:17)
[2017-08-14] MEDS: PANTOPRAZOLE 40 MG TABLET (FP) PO SCH (09:14)
[2017-08-14] MEDS ORDERED: VANCOMYCIN 500 MG in DEXTROSE 5%-WATER - 100 ML IVPB ONE (09:15)
[2017-08-14] MEDS ORDERED: GENTAMICIN 80 MG PREMIXED IVPB 80 MG/100 ML BAG IVPB ONE (09:15)
[2017-08-14 09:25] LABS: ANION GAP 15 (8-16); CALCIUM 7.8 mg/dL (8.5-10.1); CO2 22 mmol/L (21-32); CREATININE 6.1 mg/dL (0.7-1.3); GLUCOSE,RANDOM 225 mg/dL (74-106); PHOSPHOROUS 4.7 mg/dL (2.5-4.9)
--- NOTE | 2017-08-14 09:34 | PN ---
Progress Note (short form) - Note Progress Note: Renal follow up for ESRD on HD Pt seen and examined during dialysis BP stable, goal uf is 3L arterial pressures high AVF with good flow pt reprots feeling better SOB is improved Vital Signs Temperature 97.4 F L 08/14/17 08:15 Pulse Rate 74 08/14/17 08:50 Respiratory Rate 18 08/14/17 08:50 Blood Pressure 148/79 08/14/17 08:50 O2 Sat by Pulse Oximetry (%) 99 08/13/17 21:00 Intake & Output 08/11/17 08/12/17 08/13/17 08/14/17 23:59 23:59 23:59 23:59 Intake Total 510 700 610 360 Balance 510 700 610 360 Weight 63.276 kg 62.414 kg 62.324 kg 63.866 kg NAD awake and alert 1+ LE edema CBC, BMP 08/14/17 08:20 Current Medications Atorvastatin Calcium (Lipitor -) 10 mg PO HS [facility] Last Admin: 08/13/17 21:26 Dose: 10 mg Docusate Sodium (Colace -) 100 mg PO BID [facility] Last Admin: 08/14/17 09:14 Dose: Not Given Furosemide (Lasix -) 40 mg PO DAILY [facility] Last Admin: 08/14/17 09:14 Dose: Not Given Gentamicin Sulfate/Sodium Chloride (Garamycin 80 Mg Premixed Ivpb -) 80 mg in 100 mls @ 100 mls/hr IVPB ONCE ONE Stop: 08/14/17 10:14 Vancomycin HCl 500 mg/ (Dextrose) 100 mls @ 100 mls/hr IVPB ONCE ONE PRN Reason: Protocol Stop: 08/14/17 10:14 Insulin Aspart (Novolog Vial Sliding Scale -) 1 vial SQ ACHS [facility] PRN Reason: Protocol Last Admin: 08/14/17 06:15 Dose: Not Given Levothyroxine Sodium (Synthroid -) 125 mcg PO DAILY@0700 [facility] Last Admin: 08/14/17 06:15 Dose: 125 mcg Pantoprazole Sodium (Protonix -) 40 mg PO DAILY [facility] Last Admin: 08/14/17 09:14 Dose: Not Given Warfarin Sodium (Coumadin -) 2.5 mg PO SuMoWeThFrSa@1800 [facility] Last Admin: 08/13/17 17:18 Dose: 2.5 mg 71 year old gentleman with PMhx of ESRD on HD (TTS), Hypertension, CHF, CAD, Afib, COPD, Anemia who presented with complaints of SOB worsening over the past few days with fever and admitted for HF/Bactermia/Suspected sepsis. #SOB/IVAN clinically improving aggressive UF with HD #Bacteremia Blood cultures grew group D strep and enteroccocus on Vanco and Gent with HD Vanco level is 15 today, will get 500mg of Vanco post HD continue Gent per ID recs #ESRD on HD tolerating dialysis well today Antonio Koroma Do
[2017-08-14] MEDS ORDERED: GENTAMICIN SO4 *PEDIATRIC* 20 MG/2 ML VIAL IVPB ONE (09:43)
--- NOTE | 2017-08-14 09:43 | PN ---
Progress Note, Physician Chief Complaint: ID Source of bacteremia unclear Doing well Kd Podiatry note seen and appreciated - Current Medication List Current Medications: Active Medications Atorvastatin Calcium (Lipitor -) 10 mg PO HS [facility] Last Admin: 08/13/17 21:26 Dose: 10 mg Docusate Sodium (Colace -) 100 mg PO BID [facility] Last Admin: 08/14/17 09:14 Dose: Not Given Furosemide (Lasix -) 40 mg PO DAILY [facility] Last Admin: 08/14/17 09:14 Dose: Not Given Gentamicin Sulfate/Sodium Chloride (Garamycin 80 Mg Premixed Ivpb -) 80 mg in 100 mls @ 100 mls/hr IVPB ONCE ONE Stop: 08/14/17 10:14 Vancomycin HCl 500 mg/ (Dextrose) 100 mls @ 100 mls/hr IVPB ONCE ONE PRN Reason: Protocol Stop: 08/14/17 10:14 Insulin Aspart (Novolog Vial Sliding Scale -) 1 vial SQ ACHS [facility] PRN Reason: Protocol Last Admin: 08/14/17 06:15 Dose: Not Given Levothyroxine Sodium (Synthroid -) 125 mcg PO DAILY@0700 [facility] Last Admin: 08/14/17 06:15 Dose: 125 mcg Pantoprazole Sodium (Protonix -) 40 mg PO DAILY [facility] Last Admin: 08/14/17 09:14 Dose: Not Given Warfarin Sodium (Coumadin -) 2.5 mg PO SuMoWeThFrSa@1800 [facility] Last Admin: 08/13/17 17:18 Dose: 2.5 mg - Objective Vital Signs: Vital Signs Temperature 97.4 F L 08/14/17 08:15 Pulse Rate 74 08/14/17 08:50 Respiratory Rate 18 08/14/17 08:50 Blood Pressure 148/79 08/14/17 08:50 O2 Sat by Pulse Oximetry (%) 99 08/13/17 21:00 Constitutional: Yes: Well Nourished, No Distress Neck: Yes: WNL, Supple Cardiovascular: Yes: Regular Rate and Rhythm, S1, S2. No: Murmur Respiratory: Yes: WNL, Regular, CTA Bilaterally Gastrointestinal: Yes: WNL, Normal Bowel Sounds, Soft. No: Tenderness Edema: No Labs: CBC, BMP 08/14/17 08:20 INR, PTT INR 2.09 (0.82-1.09) H 08/13/17 06:30 Problem List - Problems (1) Bacteremia Code(s): R78.81 - BACTEREMIA (2) ESRD (end stage renal disease) Code(s): N18.6 - END STAGE RENAL DISEASE (3) Sepsis Code(s): A41.9 - SEPSIS, UNSPECIFIED ORGANISM Qualifiers: Sepsis type: sepsis due to unspecified organism Qualified Code(s): A41.9 - Sepsis, unspecified organism Assessment/Plan Laboratory Tests 08/12/17 08/14/17 05:05 08:20 WBC 5.7 MCV 96.7 H Plt Count 83 L AST 25 ALT 19 Alkaline Phosphatase 140 H D C-Reactive Protein 7.1 H D Microbiology 08/12/17 09:20 Blood - Peripheral Venous Blood Culture - Preliminary NO GROWTH OBTAINED AFTER 24 HOURS, INCUBATION TO CONTINUE FOR 4 DAYS. 08/12/17 09:20 Blood - Peripheral Venous Blood Culture - Preliminary NO GROWTH OBTAINED AFTER 24 HOURS, INCUBATION TO CONTINUE FOR 4 DAYS. 08/10/17 15:25 Blood - Peripheral Venous Blood Culture - Preliminary Group D Strep Or Entero Coccus 08/10/17 15:25 Blood - Peripheral Venous Blood Culture - Preliminary Group D Strep Or Entero Coccus Laboratory Tests 08/14/17 05:05 Vancomycin Pre-Dose 15.748 H* Assessment Enterococcal bacteremia source unknown Has hardware ( pacemaker) NO GERMANIA at this point Plan Would obtain CT abd pelvis for completeness to look for GI source Await sensitivities make sure not VREF Would think that we could do vanco and Gent( 10 days or so has hearing loss already) with dialysis to complete 4 weeks given a pacemaker Hans BANKS
[2017-08-14 10:36] LABS: C-REACTIVE PROTEIN 3.2 MG/DL (0.00-0.3)
--- NOTE | 2017-08-14 10:41 | PN ---
Progress Note (short form) - Note Progress Note: PULMONARY APPEARS STABLE/OFFERS NO COMPLAINTS AFEBRILE/HD UNDERWAY ANICTERIC DIMINISHED BREATH SOUNDS AT BASES S1S2 IRREGULAR BS+ SOFT NONTENDER NO EDEMA LABS/MEDS/NOTES/MICRO REVIEWED GRP D STREP OR ENTEROCOCCUS CRP 3.2 INR 2.09 LUNG DOES NOT APPEAR TO BE SOURCE OF INFECTION COPD STABLE ESRD ON HD HTN/ H/O ACS AICD/PUL HTN ANEMIA GRP D STREP BACTEREMIA ABS PER ID/ANTICOAGULATION/HD ECHO DONE NO MENTION OF VEGETATIONS Zulay BLAKELY MD Problem List - Problems (1) AICD (automatic cardioverter/defibrillator) present Code(s): Z95.810 - PRESENCE OF AUTOMATIC (IMPLANTABLE) CARDIAC DEFIBRILLATOR (2) Bacteremia Code(s): R78.81 - BACTEREMIA (3) CHF (congestive heart failure) Code(s): I50.9 - HEART FAILURE, UNSPECIFIED (4) ESRD (end stage renal disease) Code(s): N18.6 - END STAGE RENAL DISEASE (5) Elevated lactic acid level Code(s): R79.89 - OTHER SPECIFIED ABNORMAL FINDINGS OF BLOOD CHEMISTRY (6) Sepsis Code(s): A41.9 - SEPSIS, UNSPECIFIED ORGANISM Qualifiers: Sepsis type: sepsis due to unspecified organism Qualified Code(s): A41.9 - Sepsis, unspecified organism
--- NOTE | 2017-08-14 11:17 | PN ---
Progress Note, Physician History of Present Illness: No complaints Feeling better On HD now Less dyspnea - Current Medication List Current Medications: Active Medications Atorvastatin Calcium (Lipitor -) 10 mg PO HS [facility] Last Admin: 08/13/17 21:26 Dose: 10 mg Docusate Sodium (Colace -) 100 mg PO BID [facility] Last Admin: 08/14/17 09:14 Dose: Not Given Furosemide (Lasix -) 40 mg PO DAILY [facility] Last Admin: 08/14/17 09:14 Dose: Not Given Insulin Aspart (Novolog Vial Sliding Scale -) 1 vial SQ ACHS [facility] PRN Reason: Protocol Last Admin: 08/14/17 11:15 Dose: 2 units Levothyroxine Sodium (Synthroid -) 125 mcg PO DAILY@0700 [facility] Last Admin: 08/14/17 06:15 Dose: 125 mcg Pantoprazole Sodium (Protonix -) 40 mg PO DAILY [facility] Last Admin: 08/14/17 09:14 Dose: Not Given Warfarin Sodium (Coumadin -) 2.5 mg PO SuMoWeThFrSa@1800 [facility] Last Admin: 08/13/17 17:18 Dose: 2.5 mg - Objective Vital Signs: Vital Signs Temperature 97.4 F L 08/14/17 09:00 Pulse Rate 68 08/14/17 10:20 Respiratory Rate 18 08/14/17 10:20 Blood Pressure 150/65 08/14/17 10:20 O2 Sat by Pulse Oximetry (%) 99 08/14/17 09:00 Constitutional: Yes: No Distress, Calm (On HD at bedside) Eyes: Yes: WNL HENT: Yes: WNL Neck: Yes: WNL Cardiovascular: Yes: Regular Rate and Rhythm Respiratory: Yes: CTA Bilaterally Gastrointestinal: Yes: Normal Bowel Sounds Extremities: Yes: WNL Edema: No Labs: CBC, BMP 08/14/17 08:20 08/14/17 08:20 INR, PTT INR 2.09 (0.82-1.09) H 08/13/17 06:30 Assessment/Plan a/p: 71 m hx cad s/p pci, htn, hld, ICD, dm, copd, esrd on hd, chronic afib, here with sob/cough/chills. sob, fever, sepsis: -Cont HD per renal for vol removal -has +bld cxs, cont abx per ID cad s/p remote pci: -stable, no signs acs, ce's neg x3 -recent cath 2014 showed patent stent -nl lvef on echo here -cont statin, ac (no asa) -not on bb due to copd htn: -bb recently stopped as outpt by pulm htn specialist -currently bp controlled, monitor for need for additional bp med, would start norvasc 5 if needed afib: -cont ac -not on bb anymore due to copd, rate controlled off meds for now, monitor
--- NOTE | 2017-08-14 11:53 | PN ---
Progress Note, Physician History of Present Illness: FEELS BETTER - Current Medication List Current Medications: Active Medications Atorvastatin Calcium (Lipitor -) 10 mg PO HS [facility] Last Admin: 08/13/17 21:26 Dose: 10 mg Docusate Sodium (Colace -) 100 mg PO BID [facility] Last Admin: 08/14/17 09:14 Dose: Not Given Furosemide (Lasix -) 40 mg PO DAILY [facility] Last Admin: 08/14/17 09:14 Dose: Not Given Insulin Aspart (Novolog Vial Sliding Scale -) 1 vial SQ ACHS [facility] PRN Reason: Protocol Last Admin: 08/14/17 11:15 Dose: 2 units Levothyroxine Sodium (Synthroid -) 125 mcg PO DAILY@0700 [facility] Last Admin: 08/14/17 06:15 Dose: 125 mcg Pantoprazole Sodium (Protonix -) 40 mg PO DAILY [facility] Last Admin: 08/14/17 09:14 Dose: Not Given Warfarin Sodium (Coumadin -) 2.5 mg PO SuMoWeThFrSa@1800 [facility] Last Admin: 08/13/17 17:18 Dose: 2.5 mg - Objective Vital Signs: Vital Signs Temperature 97.4 F L 08/14/17 09:00 Pulse Rate 69 08/14/17 11:20 Respiratory Rate 18 08/14/17 11:20 Blood Pressure 138/76 08/14/17 11:20 O2 Sat by Pulse Oximetry (%) 99 08/14/17 09:00 Cardiovascular: Yes: S1, S2 Respiratory: Yes: Regular, CTA Bilaterally Gastrointestinal: Yes: Normal Bowel Sounds, Soft Labs: CBC, BMP 08/14/17 08:20 08/14/17 08:20 INR, PTT INR 2.09 (0.82-1.09) H 08/13/17 06:30 Problem List - Problems (1) Bacteremia Assessment/Plan: IV ABX AWAIT FINAL RESULTS Microbiology 08/12/17 09:20 Blood Culture - Preliminary Blood - Peripheral Venous NO GROWTH OBTAINED AFTER 48 HOURS, INCUBATION TO CONTINUE FOR 3 DAYS. 08/12/17 09:20 Blood Culture - Preliminary Blood - Peripheral Venous NO GROWTH OBTAINED AFTER 48 HOURS, INCUBATION TO CONTINUE FOR 3 DAYS. 08/10/17 15:25 Blood Culture - Preliminary Blood - Peripheral Venous Group D Strep Or Entero Coccus 08/10/17 15:25 Blood Culture - Preliminary Blood - Peripheral Venous Group D Strep Or Entero Coccus AWAIT SENSITIVITY ECHO Code(s): R78.81 - BACTEREMIA (2) AICD (automatic cardioverter/defibrillator) present Assessment/Plan: per cardio Code(s): Z95.810 - PRESENCE OF AUTOMATIC (IMPLANTABLE) CARDIAC DEFIBRILLATOR (3) ESRD (end stage renal disease) Assessment/Plan: DAILYSIS PER RENAL Code(s): N18.6 - END STAGE RENAL DISEASE (4) Sepsis Code(s): A41.9 - SEPSIS, UNSPECIFIED ORGANISM Qualifiers: Sepsis type: sepsis due to unspecified organism Qualified Code(s): A41.9 - Sepsis, unspecified organism (5) Cellulitis Assessment/Plan: IV ABX PODIATRY NOTED--NOT SOURCE OF BACTEREMIA Code(s): L03.90 - CELLULITIS, UNSPECIFIED (6) CHF (congestive heart failure) Assessment/Plan: DIALYSIS CARDIO Code(s): I50.9 - HEART FAILURE, UNSPECIFIED
[2017-08-14 13:52] LABS: CREATININE 2.1 mg/dL (0.7-1.3)
[2017-08-14 15:14] LABS: INR 1.95 (0.82-1.09)
[2017-08-14] MEDS: WARFARIN NA 2.5 MG TABLET (FP) PO SCH (17:35)
[2017-08-14] MEDS: ATORVASTATIN CA 10 MG TABLET (FP) PO SCH (21:15)
[2017-08-15] MEDS: INSULIN SLIDING SCALE (NOVOLOG) 1 VIAL SQ SCH ×4 (06:30→22:05)
[2017-08-15] MEDS: LEVOTHYROXINE NA 125 MCG TABLET (FP) PO SCH (06:30)
--- NOTE | 2017-08-15 09:23 | PN ---
Progress Note, Physician History of Present Illness: Feels significantly improved Less dyspnea Able to ambulate across unit without dyspnea Appetite "great" - Current Medication List Current Medications: Active Medications Atorvastatin Calcium (Lipitor -) 10 mg PO HS [facility] Last Admin: 08/14/17 21:15 Dose: 10 mg Docusate Sodium (Colace -) 100 mg PO BID [facility] Last Admin: 08/14/17 21:17 Dose: 100 mg Furosemide (Lasix -) 40 mg PO DAILY [facility] Last Admin: 08/14/17 09:14 Dose: Not Given Insulin Aspart (Novolog Vial Sliding Scale -) 1 vial SQ ACHS [facility] PRN Reason: Protocol Last Admin: 08/15/17 06:30 Dose: Not Given Levothyroxine Sodium (Synthroid -) 125 mcg PO DAILY@0700 [facility] Last Admin: 08/15/17 06:30 Dose: 125 mcg Pantoprazole Sodium (Protonix -) 40 mg PO DAILY [facility] Last Admin: 08/14/17 09:14 Dose: Not Given Warfarin Sodium (Coumadin -) 2.5 mg PO SuMoWeThFrSa@1800 [facility] Last Admin: 08/14/17 17:35 Dose: 2.5 mg - Objective Vital Signs: Vital Signs Temperature 97.8 F 08/15/17 05:46 Pulse Rate 76 08/15/17 05:46 Respiratory Rate 20 08/15/17 05:46 Blood Pressure 145/80 08/15/17 05:46 O2 Sat by Pulse Oximetry (%) 99 08/14/17 21:00 Constitutional: Yes: No Distress, Calm Eyes: Yes: Conjunctiva Clear HENT: Yes: WNL Neck: Yes: WNL Cardiovascular: Yes: WNL, Regular Rate and Rhythm Respiratory: Yes: CTA Bilaterally Gastrointestinal: Yes: Normal Bowel Sounds Musculoskeletal: Yes: WNL Extremities: Yes: WNL Edema: LLE: Trace, RLE: Trace Labs: CBC, BMP 08/14/17 08:20 08/14/17 11:50 INR, PTT INR 1.95 (0.82-1.09) H 08/14/17 14:20 Assessment/Plan a/p: 71 m hx cad s/p pci, htn, hld, ICD, dm, copd, esrd on hd, chronic afib, here with sob/cough/chills. sob, fever, sepsis: -Cont HD per renal for vol removal -has +bld cxs, cont abx per ID cad s/p remote pci: -stable, no signs acs, ce's neg x3 -recent cath 2014 showed patent stent -nl lvef on echo here -cont statin, ac (no asa) -not on bb due to copd htn: -bb recently stopped as outpt by pulm htn specialist -currently bp elevated -Will start norvasc 5mg afib: -cont ac -not on bb anymore due to copd, rate controlled off meds for now, monitor
[2017-08-15] MEDS: FUROSEMIDE 40 MG TABLET (FP) PO SCH (09:48)
[2017-08-15] MEDS: DOCUSATE SODIUM 100 MG CAPSULE (FP) PO SCH ×2 (09:48→22:03)
[2017-08-15] MEDS: PANTOPRAZOLE 40 MG TABLET (FP) PO SCH (09:48)
--- NOTE | 2017-08-15 13:22 | PN ---
Progress Note, Physician - Current Medication List Current Medications: Active Medications Atorvastatin Calcium (Lipitor -) 10 mg PO HS [facility] Last Admin: 08/14/17 21:15 Dose: 10 mg Docusate Sodium (Colace -) 100 mg PO BID [facility] Last Admin: 08/15/17 09:48 Dose: 100 mg Furosemide (Lasix -) 40 mg PO DAILY [facility] Last Admin: 08/15/17 09:48 Dose: 40 mg Insulin Aspart (Novolog Vial Sliding Scale -) 1 vial SQ ACHS [facility] PRN Reason: Protocol Last Admin: 08/15/17 13:13 Dose: 2 units Levothyroxine Sodium (Synthroid -) 125 mcg PO DAILY@0700 [facility] Last Admin: 08/15/17 06:30 Dose: 125 mcg Pantoprazole Sodium (Protonix -) 40 mg PO DAILY [facility] Last Admin: 08/15/17 09:48 Dose: 40 mg Warfarin Sodium (Coumadin -) 2.5 mg PO SuMoWeThFrSa@1800 [facility] Last Admin: 08/14/17 17:35 Dose: 2.5 mg - Objective Vital Signs: Vital Signs Temperature 97.4 F L 08/15/17 10:00 Pulse Rate 80 08/15/17 10:00 Respiratory Rate 20 08/15/17 10:00 Blood Pressure 133/61 08/15/17 10:00 O2 Sat by Pulse Oximetry (%) 99 08/15/17 09:00 Cardiovascular: Yes: S1, S2 Respiratory: Yes: Regular, CTA Bilaterally Gastrointestinal: Yes: Normal Bowel Sounds, Soft Labs: CBC, BMP 08/14/17 08:20 08/14/17 11:50 INR, PTT INR 1.95 (0.82-1.09) H 08/14/17 14:20 Problem List - Problems (1) Bacteremia Assessment/Plan: IV ABX AWAIT FINAL RESULTS Microbiology 08/12/17 09:20 Blood Culture - Preliminary Blood - Peripheral Venous NO GROWTH OBTAINED AFTER 48 HOURS, INCUBATION TO CONTINUE FOR 3 DAYS. 08/12/17 09:20 Blood Culture - Preliminary Blood - Peripheral Venous NO GROWTH OBTAINED AFTER 48 HOURS, INCUBATION TO CONTINUE FOR 3 DAYS. 08/10/17 15:25 Blood Culture - Preliminary Blood - Peripheral Venous Group D Strep Or Entero Coccus 08/10/17 15:25 Blood Culture - Preliminary Blood - Peripheral Venous Group D Strep Or Entero Coccus AWAIT SENSITIVITY ECHO Code(s): R78.81 - BACTEREMIA (2) AICD (automatic cardioverter/defibrillator) present Assessment/Plan: per cardio Code(s): Z95.810 - PRESENCE OF AUTOMATIC (IMPLANTABLE) CARDIAC DEFIBRILLATOR (3) ESRD (end stage renal disease) Assessment/Plan: DAILYSIS PER RENAL Code(s): N18.6 - END STAGE RENAL DISEASE (4) Sepsis Assessment/Plan: ABOVE Code(s): A41.9 - SEPSIS, UNSPECIFIED ORGANISM Qualifiers: Sepsis type: sepsis due to unspecified organism Qualified Code(s): A41.9 - Sepsis, unspecified organism (5) Cellulitis Code(s): L03.90 - CELLULITIS, UNSPECIFIED (6) CHF (congestive heart failure) Assessment/Plan: DIALYSIS CARDIO NOTED Code(s): I50.9 - HEART FAILURE, UNSPECIFIED
--- NOTE | 2017-08-15 13:48 | PN ---
Progress Note (short form) - Note Progress Note: PULMONARY APPEARS STABLE/OFFERS NO COMPLAINTS AFEBRILE/ ANICTERIC DIMINISHED BREATH SOUNDS AT BASES S1S2 IRREGULAR BS+ SOFT NONTENDER NO EDEMA LABS/MEDS/NOTES/MICRO REVIEWED GRP D STREP OR ENTEROCOCCUS LUNG DOES NOT APPEAR TO BE SOURCE OF INFECTION COPD STABLE ESRD ON HD HTN/ H/O ACS AICD/PUL HTN ANEMIA GRP D STREP BACTEREMIA ABS PER ID/ANTICOAGULATION/HD ECHO DONE NO MENTION OF VEGETATIONS ABD CT RESULTS PENDING R REDDY BANKS Problem List - Problems (1) AICD (automatic cardioverter/defibrillator) present Code(s): Z95.810 - PRESENCE OF AUTOMATIC (IMPLANTABLE) CARDIAC DEFIBRILLATOR (2) Bacteremia Code(s): R78.81 - BACTEREMIA (3) CHF (congestive heart failure) Code(s): I50.9 - HEART FAILURE, UNSPECIFIED (4) ESRD (end stage renal disease) Code(s): N18.6 - END STAGE RENAL DISEASE (5) Elevated lactic acid level Code(s): R79.89 - OTHER SPECIFIED ABNORMAL FINDINGS OF BLOOD CHEMISTRY (6) Sepsis Code(s): A41.9 - SEPSIS, UNSPECIFIED ORGANISM Qualifiers: Sepsis type: sepsis due to unspecified organism Qualified Code(s): A41.9 - Sepsis, unspecified organism
[2017-08-15 15:16] LABS: INR 1.9 (0.82-1.09); PROTHROMBIN TIME (PATIENT) 21.5 SEC (9.98-11.88)
[2017-08-15 16:03] LABS: BILIRUBIN,DIRECT 0.5 mg/dL (0.0-0.2); BILIRUBIN,TOTAL 0.9 mg/dL (0.2-1.0); TOT PROT 7.5 g/dl (6.4-8.2)
[2017-08-15] MEDS: WARFARIN NA 2.5 MG TABLET (FP) PO SCH (17:53)
[2017-08-15] MEDS ORDERED: INSULIN (NOVOLOG) ASPART 100 UNITS/ML 10ML VIAL ONE (21:32)
--- NOTE | 2017-08-15 21:59 | PN ---
Progress Note, Physician - Current Medication List Current Medications: Active Medications Amlodipine Besylate (Norvasc -) 5 mg PO DAILY [facility] Atorvastatin Calcium (Lipitor -) 10 mg PO HS [facility] Last Admin: 08/14/17 21:15 Dose: 10 mg Docusate Sodium (Colace -) 100 mg PO BID [facility] Last Admin: 08/15/17 09:48 Dose: 100 mg Furosemide (Lasix -) 40 mg PO DAILY [facility] Last Admin: 08/15/17 09:48 Dose: 40 mg Insulin Aspart (Novolog Vial Sliding Scale -) 1 vial SQ ACHS [facility] PRN Reason: Protocol Last Admin: 08/15/17 16:10 Dose: Not Given Levothyroxine Sodium (Synthroid -) 125 mcg PO DAILY@0700 [facility] Last Admin: 08/15/17 06:30 Dose: 125 mcg Pantoprazole Sodium (Protonix -) 40 mg PO DAILY [facility] Last Admin: 08/15/17 09:48 Dose: 40 mg Warfarin Sodium (Coumadin -) 2.5 mg PO SuMoWeThFrSa@1800 [facility] Last Admin: 08/15/17 17:53 Dose: 2.5 mg - Objective Vital Signs: Vital Signs Temperature 97.6 F 08/15/17 20:42 Pulse Rate 80 08/15/17 20:42 Respiratory Rate 20 08/15/17 20:42 Blood Pressure 152/66 08/15/17 20:42 O2 Sat by Pulse Oximetry (%) 97 08/15/17 20:42 Labs: CBC, BMP 08/14/17 08:20 08/14/17 11:50 INR, PTT INR 1.90 (0.82-1.09) H 08/15/17 14:51 Assessment/Plan ct chest: b/l effs, copd, ascites Echo 12/2015: nl lv/rv, mild lodnon, mild mr, mod tr, mild pr, rvsp 60 Echo 07/2017: mild conc lvh, nl lv/rv, mod [place], mild MR/TR. small pericardial eff, rvsp 50-60 L/RHC 2014: wedge 22, PA 70/22, RA 14, C.I. normal (2.6). stent [id number] patent; 60- 70% OM1; 70-80% small RCA (med mngd) a/p: 71 m hx cad s/p pci, htn, hld, ICD, dm, copd, esrd on hd, chronic afib, here with sob/cough/chills. 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 low lvef in past that has since improved) afib: -cont ac -not on bb anymore due to copd, rate controlled off meds for now, monitor ESRD, on HD: -dialysis schedule per renal
[2017-08-15] MEDS: ATORVASTATIN CA 10 MG TABLET (FP) PO SCH (22:03)
[2017-08-16] MEDS: INSULIN SLIDING SCALE (NOVOLOG) 1 VIAL SQ SCH ×4 (06:40→21:58)
[2017-08-16] MEDS: LEVOTHYROXINE NA 125 MCG TABLET (FP) PO SCH (06:41)
--- NOTE | 2017-08-16 08:08 | PN ---
Progress Note, Physician - Current Medication List Current Medications: Active Medications Amlodipine Besylate (Norvasc -) 5 mg PO DAILY [facility] Atorvastatin Calcium (Lipitor -) 10 mg PO HS [facility] Last Admin: 08/15/17 22:03 Dose: 10 mg Docusate Sodium (Colace -) 100 mg PO BID [facility] Last Admin: 08/15/17 22:03 Dose: 100 mg Furosemide (Lasix -) 40 mg PO DAILY [facility] Last Admin: 08/15/17 09:48 Dose: 40 mg Insulin Aspart (Novolog Vial Sliding Scale -) 1 vial SQ ACHS [facility] PRN Reason: Protocol Last Admin: 08/16/17 06:40 Dose: 2 units Levothyroxine Sodium (Synthroid -) 125 mcg PO DAILY@0700 [facility] Last Admin: 08/16/17 06:41 Dose: 125 mcg Pantoprazole Sodium (Protonix -) 40 mg PO DAILY [facility] Last Admin: 08/15/17 09:48 Dose: 40 mg Warfarin Sodium (Coumadin -) 2.5 mg PO SuMoWeThFrSa@1800 [facility] Last Admin: 08/15/17 17:53 Dose: 2.5 mg - Objective Vital Signs: Vital Signs Temperature 98.0 F 08/16/17 06:00 Pulse Rate 70 08/16/17 06:00 Respiratory Rate 20 08/16/17 06:00 Blood Pressure 128/60 08/16/17 06:00 O2 Sat by Pulse Oximetry (%) 97 08/15/17 20:42 Cardiovascular: Yes: S1, S2 Respiratory: Yes: Regular, CTA Bilaterally Gastrointestinal: Yes: Normal Bowel Sounds, Soft Labs: CBC, BMP 08/14/17 08:20 08/14/17 11:50 INR, PTT INR 1.90 (0.82-1.09) H 08/15/17 14:51 Problem List - Problems (1) Bacteremia Assessment/Plan: IV ABX PER ID--FOLLOW UP AWAIT FINAL RESULTS Microbiology 08/12/17 09:20 Blood Culture - Preliminary Blood - Peripheral Venous NO GROWTH OBTAINED AFTER 48 HOURS, INCUBATION TO CONTINUE FOR 3 DAYS. 08/12/17 09:20 Blood Culture - Preliminary Blood - Peripheral Venous NO GROWTH OBTAINED AFTER 48 HOURS, INCUBATION TO CONTINUE FOR 3 DAYS. 08/10/17 15:25 Blood Culture - Preliminary Blood - Peripheral Venous Group D Strep Or Entero Coccus 08/10/17 15:25 Blood Culture - Preliminary Blood - Peripheral Venous Group D Strep Or Entero Coccus AWAIT SENSITIVITY ECHO Code(s): R78.81 - BACTEREMIA (2) AICD (automatic cardioverter/defibrillator) present Assessment/Plan: per cardio Code(s): Z95.810 - PRESENCE OF AUTOMATIC (IMPLANTABLE) CARDIAC DEFIBRILLATOR (3) ESRD (end stage renal disease) Assessment/Plan: DAILYSIS PER RENAL Code(s): N18.6 - END STAGE RENAL DISEASE (4) Sepsis Assessment/Plan: ABOVE Code(s): A41.9 - SEPSIS, UNSPECIFIED ORGANISM Qualifiers: Sepsis type: sepsis due to unspecified organism Qualified Code(s): A41.9 - Sepsis, unspecified organism (5) Cellulitis Code(s): L03.90 - CELLULITIS, UNSPECIFIED (6) CHF (congestive heart failure) Assessment/Plan: DIALYSIS CARDIO NOTED Code(s): I50.9 - HEART FAILURE, UNSPECIFIED (7) Contraction, gallbladder Assessment/Plan: GI CONSULT Code(s): K82.0 - OBSTRUCTION OF GALLBLADDER (8) Pancreatic abnormality Assessment/Plan: CHECK LABS GI CONSULT Code(s): 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
[2017-08-16 08:32] LABS: INR 1.84 (0.82-1.09); PROTHROMBIN TIME (PATIENT) 20.8 SEC (9.98-11.88)
[2017-08-16] MEDS: FUROSEMIDE 40 MG TABLET (FP) PO SCH (09:19)
[2017-08-16] MEDS: PANTOPRAZOLE 40 MG TABLET (FP) PO SCH (09:20)
[2017-08-16] MEDS: amLODIPine BESYLATE 5 MG TABLET (FP) PO SCH (09:20)
[2017-08-16] MEDS: DOCUSATE SODIUM 100 MG CAPSULE (FP) PO SCH ×2 (09:20→22:01)
--- NOTE | 2017-08-16 10:20 | CON.GI ---
Consult Consult Specialty:: Dr. Pollard covering for Dr. Valladares Referred by:: Dr. Loida Jimenez Reason for Consultation:: Abnormal CT scan findings - History of Present Illness Chief Complaint: "I have been getting more short of breath" History of Present Illness: 71M admitted through [facility] ER 08/10/17 for increasing SOB. Being treated for strep bacteremia. Asked to evaluate given abnormal CT scan findings of the chest and abdomen that consist of a cirrhotic appearing liver and question of prominence of the head of the pancreas. Mr. Newton denies nausea, vomiting, abdominal pain, change in appetite, fevers/chills, change in bowel habits. He had EGD / colonoscopy performed by Dr. Brittany Valladares 07/20/14: EGD revealed laci esophagitis and failed to reveal varices. Colonoscopy revealed a diminutive cecal adenoma and a few hyperplastic polyps. There is no family history of colorectal cancer or other GI malignancy. 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 No: Alzheimer's Cardio/Vascular: Yes: CAD, CHF, HTN, Hyperlipdemia Pulmonary: Yes: Bronchitis, COPD Gastrointestinal: Yes: Other Hepatobiliary: Yes: Cirrhosis, Other (Gallbladder polyps, suspected liver cirrhosis) Renal/: Yes: Renal Failure (CKD on HD //Wed), Hemodialysis ENT: Yes: Other (Hearing loss right ear) Endocrine: Yes: Diabetes Mellitus (DM II), Other (Multinoduilar thyroid goiter in the past) - Past Surgical History Past Surgical History: Yes: AICD (PPM/AICD), AV Fistula/Graft, Tonsillectomy Additional Surgical History: thyroidectomy - Alcohol/Substance Use Hx Alcohol Use: Yes (social) History of Substance Use: reports: None - Smoking History Smoking history: Former smoker Have you smoked in the past 12 months: No Aproximately how many cigarettes per day: 0 If you are a former smoker, when did you quit?: 27 YRS AGO - Social History Usual Living Arrangement: With Spouse ADL: Independent 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 Place of : [facility] History of Recent Travel: No Home Medications - Allergies Allergies/Adverse Reactions: Allergies Allergy/AdvReac Type Severity Reaction Status Date / Time iodine Allergy TONGUE Verified 12/12/17 14:51 SWELLING shellfish derived Allergy Hives Verified 08/10/17 14:51 IV CONTRAST Allergy "RASH" Uncoded 08/10/17 14:51 - Home Medications Home Medications: Ambulatory Orders Simvastatin [Zocor -] 5 mg PO HS 10/29/12 Warfarin Sodium [Coumadin] 5 mg PO TU 10/29/12 Levothyroxine [Synthroid -] 125 mcg PO DAILY 06/26/14 Docusate Sodium [Colace -] 100 mg PO BID 07/19/14 Nut.tx.impaired Renal Fxn,Soy [Nepro] 1 ml PO ASDIR 07/19/14 Pantoprazole Sodium [Protonix -] 40 mg PO DAILY 07/19/14 Warfarin Na [Coumadin -] 2.5 mg PO SUMOWETHFRSA 07/19/14 Albuterol Sulfate Inhaler - [Ventolin Hfa Inhaler -] 1 - 2 inh PO Q4H PRN Furosemide [Lasix -] 40 mg PO DAILY 08/10/17 Insulin (Levemir) [Levemir Flexpen -] 7 units SQ HS 08/10/17 Family Disease History - Family Disease History Family Disease History: Other: Father (Alive: 96: healthy), Mother (: 89 : Alzheimer's dementia), Sister (: alcoholic liver disease/cirrhosis) Other Family History: No children, no family history of colorectal cancer or other GI malignancy Review of Systems - Review of Systems Constitutional: denies: Chills, Unintentional Wgt. Loss Cardiovascular: reports: Shortness of Breath. denies: Chest Pain Respiratory: denies: Cough Gastrointestinal: denies: Abdominal Pain, Bloating, Constipation, Diarrhea, Dysphagia, Indigestion, Melena, Nausea, Rectal Bleeding, Vomiting, Vomiting Blood Musculoskeletal: reports: Extremity Pain (pain in left great toe: describes ingrown toenail that has been bothering him over the last 6 months: pus can sometimes be expressed.) Physical Exam-GI Vital Signs: Vital Signs Temperature 98.0 F 08/16/17 06:00 Pulse Rate 70 08/16/17 06:00 Respiratory Rate 20 08/16/17 06:00 Blood Pressure 128/60 08/16/17 06:00 O2 Sat by Pulse Oximetry (%) 97 08/15/17 20:42 Constitutional: Yes: Calm Eyes: No: Sclera Icterus Cardiovascular: Yes: Regular Rate and Rhythm Respiratory: Yes: CTA Bilaterally Gastrointestinal Inspection: No: Distention ...Auscultate: Yes: Normoactive Bowel Sounds ...Palpate: Yes: Soft. No: Hepatomegaly, Mass, Splenomegaly, Tenderness ...Percussion: No: Tympanitic ...Rectal Exam: Yes: Other (No external lesions, no masses, scant light brown stool, guaiac negative) Edema: Yes Neurological: Yes: Alert, Oriented Labs: CBC, BMP 08/14/17 08:20 08/14/17 11:50 INR, PTT INR 1.84 (0.82-1.09) H 08/16/17 06:00 Hepatic Panel Total Bilirubin 0.9 mg/dL (0.2-1.0) D 08/15/17 15:35 Direct Bilirubin 0.5 mg/dL (0.0-0.2) H 08/15/17 15:35 AST 25 U/L (15-37) 08/15/17 15:35 ALT 22 U/L (12-78) 08/15/17 15:35 Alkaline Phosphatase 135 U/L (45-117) H 08/15/17 15:35 Albumin 3.0 g/dl (3.4-5.0) L 08/15/17 15:35 Imaging - Results Cat Scan: Report Reviewed, Image Reviewed Ultrasound: Report Reviewed Problem List - Problems (1) Pancreatic abnormality Assessment/Plan: I Discussed this finding with Mr. Newton. He denies any current abdominal pain , change in appetite, symptoms suggestive of gastric outlet obstruction or early satiety. No clinical evidence of pancreatitis and lipase mildly elevated when you look at upper limit of normal. Advised Mr. Newton that he will need close follow-up regarding the CT scan finding of the pancereas to exclude a tumor/cancerous process. Contrast MRI would be ideal however he has a PPM/Defibrilator in place. EUS would likely need to be arrange as an outpatient. I called Dr. Valladares's office as he is away this week and asked that they arrange follow-up in office with him in the next 1-2 weeks. CA 19-9 pending. CEA was ordered and pending but not ideal for screening purposes. 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 Valladares as described above Code(s): K74.60 - UNSPECIFIED CIRRHOSIS OF LIVER Qualifiers: Hepatic cirrhosis type: unspecified hepatic cirrhosis
--- NOTE | 2017-08-16 10:49 | PN ---
Progress Note, Physician History of Present Illness: PULMONARY ALERT,NAD,-CP,LESS DYSPNEIC - Current Medication List Current Medications: Active Medications Amlodipine Besylate (Norvasc -) 5 mg PO DAILY [facility] Last Admin: 08/16/17 09:20 Dose: 5 mg Atorvastatin Calcium (Lipitor -) 10 mg PO HS [facility] Last Admin: 08/15/17 22:03 Dose: 10 mg Docusate Sodium (Colace -) 100 mg PO BID [facility] Last Admin: 08/16/17 09:20 Dose: 100 mg Furosemide (Lasix -) 40 mg PO DAILY [facility] Last Admin: 08/16/17 09:19 Dose: 40 mg Insulin Aspart (Novolog Vial Sliding Scale -) 1 vial SQ ACHS [facility] PRN Reason: Protocol Last Admin: 08/16/17 06:40 Dose: 2 units Levothyroxine Sodium (Synthroid -) 125 mcg PO DAILY@0700 [facility] Last Admin: 08/16/17 06:41 Dose: 125 mcg Pantoprazole Sodium (Protonix -) 40 mg PO DAILY [facility] Last Admin: 08/16/17 09:20 Dose: 40 mg Warfarin Sodium (Coumadin -) 2.5 mg PO SuMoWeThFrSa@1800 [facility] Last Admin: 08/15/17 17:53 Dose: 2.5 mg - Objective Vital Signs: Vital Signs Temperature 98.1 F 08/16/17 10:00 Pulse Rate 74 08/16/17 10:00 Respiratory Rate 20 08/16/17 10:00 Blood Pressure 142/82 08/16/17 10:00 O2 Sat by Pulse Oximetry (%) 95 08/16/17 10:00 Constitutional: Yes: Well Nourished, Calm Eyes: Yes: WNL HENT: Yes: WNL Neck: Yes: WNL Cardiovascular: Yes: Regular Rate and Rhythm, S1, S2 Respiratory: Yes: Rales (BIBASILAR CRACKLES) Gastrointestinal: Yes: Normal Bowel Sounds, Soft Extremities: Yes: WNL Edema: Yes Labs: CBC, BMP 08/14/17 08:20 08/14/17 11:50 INR, PTT INR 1.84 (0.82-1.09) H 08/16/17 06:00 Assessment/Plan Problem List - Problems (1) AICD (automatic cardioverter/defibrillator) present Code(s): Z95.810 - PRESENCE OF AUTOMATIC (IMPLANTABLE) CARDIAC DEFIBRILLATOR (2) Bacteremia Code(s): R78.81 - BACTEREMIA (3) CHF (congestive heart failure) Code(s): I50.9 - HEART FAILURE, UNSPECIFIED (4) ESRD (end stage renal disease) Code(s): N18.6 - END STAGE RENAL DISEASE (5) Elevated lactic acid level Code(s): R79.89 - OTHER SPECIFIED ABNORMAL FINDINGS OF BLOOD CHEMISTRY (6) Sepsis Code(s): A41.9 - SEPSIS, UNSPECIFIED ORGANISM Qualifiers: Sepsis type: sepsis due to unspecified organism Qualified Code(s): A41.9 - Sepsis, unspecified organism Assessment/Plan DYSPNEA/NO INFILTRATES ON CT BACTEREMIA/ORGANISM PENDING ? CONTAMINANT ESRD/HD COPD HTN ACS AICD ANEMIA PUL HTN AWAIT ORGANISM IDENTIFICATION CONTINUE O2 TO KEEP SAT GREATER THAN 90% HD PER RENAL DR HALL
[2017-08-16] MEDS ORDERED: INSULIN (NOVOLOG) ASPART 100 UNITS/ML 10ML VIAL ONE (11:28)
--- NOTE | 2017-08-16 11:54 | PN ---
Progress Note, Physician Chief Complaint: sob History of Present Illness: sob improved--can walk down pratt, vs previously this admit had to stop leg swelling mild, stable vs prior no cp, palpitations ex cigs - Current Medication List Current Medications: Active Medications Amlodipine Besylate (Norvasc -) 5 mg PO DAILY [facility] Last Admin: 08/16/17 09:20 Dose: 5 mg Atorvastatin Calcium (Lipitor -) 10 mg PO HS [facility] Last Admin: 08/15/17 22:03 Dose: 10 mg Docusate Sodium (Colace -) 100 mg PO BID [facility] Last Admin: 08/16/17 09:20 Dose: 100 mg Furosemide (Lasix -) 40 mg PO DAILY [facility] Last Admin: 08/16/17 09:19 Dose: 40 mg Insulin Aspart (Novolog Vial Sliding Scale -) 1 vial SQ ACHS [facility] PRN Reason: Protocol Last Admin: 08/16/17 11:32 Dose: 2 units Levothyroxine Sodium (Synthroid -) 125 mcg PO DAILY@0700 [facility] Last Admin: 08/16/17 06:41 Dose: 125 mcg Pantoprazole Sodium (Protonix -) 40 mg PO DAILY [facility] Last Admin: 08/16/17 09:20 Dose: 40 mg Warfarin Sodium (Coumadin -) 2.5 mg PO SuMoWeThFrSa@1800 [facility] Last Admin: 08/15/17 17:53 Dose: 2.5 mg - Objective Vital Signs: Vital Signs Temperature 98.1 F 08/16/17 10:00 Pulse Rate 74 08/16/17 10:00 Respiratory Rate 20 08/16/17 10:00 Blood Pressure 142/82 08/16/17 10:00 O2 Sat by Pulse Oximetry (%) 95 08/16/17 10:00 Constitutional: Yes: Well Nourished, No Distress, Calm Cardiovascular: Yes: Regular Rate and Rhythm, S1, S2. No: Gallop, Murmur Respiratory: Yes: Regular, CTA Bilaterally. No: Accessory Muscle Use, Rales, Wheezes Extremities: No: Cold Edema: No Neurological: Yes: Alert, Oriented Psychiatric: No: Agitated Labs: CBC, BMP 08/14/17 08:20 08/14/17 11:50 INR, PTT INR 1.84 (0.82-1.09) H 08/16/17 06:00 - ....Imaging EKG: Other (tele: v-paced, ? underlying afib) Assessment/Plan ct chest: b/l effs, copd, ascites Echo 12/2015: nl lv/rv, mild l[place], mild mr, mod tr, mild pr, rvsp 60 Echo 07/2017: mild conc lvh, nl lv/rv, mod london, mild MR/TR. small pericardial eff, rvsp 50-60 L/RHC 2014: wedge 22, PA 70/22, RA 14, C.I. normal (2.6). stent LPL1 patent; 60- 70% OM1; 70-80% small RCA (med mngd) a/p: 71 m hx cad s/p pci, htn, hld, ICD, dm, copd, esrd on hd, chronic afib, here with sob/cough/chills. enterococcal bacteremia, sepsis: -ID following, source not clear -cont mgmt plan/abx per ID recs sob, volume overload, acute diast chf, ascites on CT: -fluid mgmt per renal (HD) -sob has improved (ambulating halls) though wt not down significantly--d/w renal ? lower target wt -no significant TR on echo here (has ICD lead) to explain ascites -a.e. copd not suspected by pulmonary team cad s/p remote pci: -no signs/sx of acs, ce's neg x3 -cath 2014 no ischemia-causing dz (small RCA with stenosis--med mngd) -nl lvef -cont statin, ac (no asa) -not on bb due to copd -currently, sob sx's resolved with tx of infection (and ? due to volume removal with HD)--if returns, will probably need stress test. 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 low lvef in past that has since improved) afib: -cont warfarin, dose per INRs here -not on bb anymore due to copd, rate controlled off meds for now, monitor ESRD, on HD: -dialysis schedule per renal
--- NOTE | 2017-08-16 17:18 | PN ---
Progress Note (short form) - Note Progress Note: Renal follow up for ESRD on HD Pt seen and examined at the bedside awake and alert no acute complaints sob, ivan improved Vital Signs Temperature 98.4 F 08/16/17 14:20 Pulse Rate 71 08/16/17 14:20 Respiratory Rate 20 08/16/17 14:20 Blood Pressure 141/86 08/16/17 14:20 O2 Sat by Pulse Oximetry (%) 95 08/16/17 10:00 Intake & Output 08/13/17 08/14/17 08/15/17 08/16/17 23:59 23:59 23:59 23:59 Intake Total 610 920 620 200 Balance 610 920 620 200 Weight 62.324 kg 63.866 kg 62.324 kg 62.652 kg NAD awake and alert 1+ LE edema CBC, BMP 08/14/17 08:20 08/14/17 11:50 Current Medications Amlodipine Besylate (Norvasc -) 5 mg PO DAILY [facility] Last Admin: 08/16/17 09:20 Dose: 5 mg Atorvastatin Calcium (Lipitor -) 10 mg PO HS [facility] Last Admin: 08/15/17 22:03 Dose: 10 mg Docusate Sodium (Colace -) 100 mg PO BID [facility] Last Admin: 08/16/17 09:20 Dose: 100 mg Furosemide (Lasix -) 40 mg PO DAILY [facility] Last Admin: 08/16/17 09:19 Dose: 40 mg Insulin Aspart (Novolog Vial Sliding Scale -) 1 vial SQ ACHS [facility] PRN Reason: Protocol Last Admin: 08/16/17 11:32 Dose: 2 units Levothyroxine Sodium (Synthroid -) 125 mcg PO DAILY@0700 [facility] Last Admin: 08/16/17 06:41 Dose: 125 mcg Pantoprazole Sodium (Protonix -) 40 mg PO DAILY [facility] Last Admin: 08/16/17 09:20 Dose: 40 mg Warfarin Sodium (Coumadin -) 2.5 mg PO SuMoWeThFrSa@1800 [facility] Last Admin: 08/15/17 17:53 Dose: 2.5 mg 71 year old gentleman with PMhx of ESRD on HD (TTS), Hypertension, CHF, CAD, Afib, COPD, Anemia who presented with complaints of SOB worsening over the past few days with fever and admitted for HF/Bactermia/Suspected sepsis. #SOB/IVAN symptomatically improved but weight remains high continue salt and fluid restriction aggressive UF with HD tomorrow #Bacteremia Blood cultures grew group D strep and enteroccocus on Vanco and Gent with HD repeat cultures w/o growth to date #ESRD on HD for dialysis tomorrow Antonio Koroma Do
[2017-08-16] MEDS: ATORVASTATIN CA 10 MG TABLET (FP) PO SCH (22:01)
[2017-08-17] MEDS: INSULIN SLIDING SCALE (NOVOLOG) 1 VIAL SQ SCH ×2 (06:08→12:06)
[2017-08-17] MEDS: LEVOTHYROXINE NA 125 MCG TABLET (FP) PO SCH (06:18)
[2017-08-17] MEDS ORDERED: GENTAMICIN 80 MG PREMIXED IVPB 80 MG/100 ML BAG IVPB ONE (08:00)
--- NOTE | 2017-08-17 08:30 | DS ---
Physical Examination Vital Signs: Vital Signs Temperature 98.3 F 08/17/17 07:10 Pulse Rate 72 08/17/17 08:15 Respiratory Rate 18 08/17/17 08:15 Blood Pressure 135/41 08/17/17 08:15 O2 Sat by Pulse Oximetry (%) 96 08/16/17 21:00 Discharge Summary Reason For Visit: SEPSIS, ESRD Current Active Problems AICD (automatic cardioverter/defibrillator) present (Acute) Bacteremia (Acute) CHF (congestive heart failure) (Acute) Cirrhosis (Acute) Contraction, gallbladder (Acute) ESRD (end stage renal disease) (Acute) Elevated lactic acid level (Acute) Pancreatic abnormality (Acute) Sepsis (Acute) Condition: Guarded - Instructions Referrals: Loida Jimenez MD [Primary Care Provider] - - Home Medications Comprehensive Discharge Medication List: Ambulatory Orders Simvastatin [Zocor -] 5 mg PO HS 10/29/12 Warfarin Sodium [Coumadin] 5 mg PO TU 10/29/12 Levothyroxine [Synthroid -] 125 mcg PO DAILY 06/26/14 Docusate Sodium [Colace -] 100 mg PO BID 07/19/14 Nut.tx.impaired Renal Fxn,Soy [Nepro] 1 ml PO ASDIR 07/19/14 Pantoprazole Sodium [Protonix -] 40 mg PO DAILY 07/19/14 Warfarin Na [Coumadin -] 2.5 mg PO SUMOWETHFRSA 07/19/14 Albuterol Sulfate Inhaler - [Ventolin Hfa Inhaler -] 1 - 2 inh PO Q4H PRN Furosemide [Lasix -] 40 mg PO DAILY 08/10/17 Insulin (Levemir) [Levemir Flexpen -] 7 units SQ HS 08/10/17
[2017-08-17 08:31] LABS: BASO % 1.2 % (0-2.0); EOS % 1.5 % (0-4.5); MCH 31.3 pg (25.7-33.7); MCHC 32.6 g/dl (32.0-35.9); MEAN CELL VOLUME 95.9 fl (80-96); MEAN PLT VOLUME 8.9 fl (7.5-11.1); NEUT % 71.2 % (42.8-82.8); PLATELET COUNT 87 K/MM3 (134-434); RDW 17.1 % (11.9-15.9); WHITE BLOOD COUNT 5.2 K/mm3 (4.0-10.0)
[2017-08-17] MEDS ORDERED: EPOETIN ALFA 3,000 UNIT/1 ML ML IVPUSH ONE (09:00)
[2017-08-17] MEDS ORDERED: VANCOMYCIN 500 MG in DEXTROSE 5%-WATER - 100 ML IVPB ONE (09:00)
[2017-08-17 09:05] LABS: ANION GAP 16 (8-16); CALCIUM 7.8 mg/dL (8.5-10.1); CO2 23 mmol/L (21-32); CREATININE 7.1 mg/dL (0.7-1.3); GLUCOSE,RANDOM 145 mg/dL (74-106); MAGNESIUM 1.8 mg/dL (1.8-2.4); PHOSPHOROUS 5.4 mg/dL (2.5-4.9)
[2017-08-17 09:23] LABS: INR 1.71 (0.82-1.09); PROTHROMBIN TIME (PATIENT) 19.3 SEC (9.98-11.88)
[2017-08-17] MEDS ORDERED: VANCOMYCIN 1,000 MG in DEXTROSE 5%-WATER - 250 ML IVPB ONE (09:30)
--- NOTE | 2017-08-17 09:46 | DS ---
Physical Examination Vital Signs: Vital Signs Temperature 98.3 F 08/17/17 07:10 Pulse Rate 93 H 08/17/17 08:45 Respiratory Rate 18 08/17/17 08:45 Blood Pressure 117/73 08/17/17 08:45 O2 Sat by Pulse Oximetry (%) 96 08/16/17 21:00 Cardiovascular: Yes: Murmur, S1, S2 Respiratory: Yes: Regular, CTA Bilaterally Gastrointestinal: Yes: Normal Bowel Sounds, Soft Labs: CBC, BMP 08/17/17 07:15 08/17/17 07:15 Discharge Summary Reason For Visit: SEPSIS, ESRD Current Active Problems AICD (automatic cardioverter/defibrillator) present (Acute) Bacteremia (Acute) CHF (congestive heart failure) (Acute) Cirrhosis (Acute) Contraction, gallbladder (Acute) ESRD (end stage renal disease) (Acute) Elevated lactic acid level (Acute) Pancreatic abnormality (Acute) Sepsis (Acute) Hospital Course: 71 year old male with a significant PMH of 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 The patient states he was increasingly short of breath today on his way to dialysis. The patient reports the shortness of breath is present while walking and at rest. The patient denies any chest pain, headache, dizziness, and myalgias. Denies nausea, vomit, diarrhea and constipation. The patient notes that he has been noncompliant with his O2 via nasal cannula. This am pt feels better - Past Medical History Cardiovascular: Yes: CAD, CHF, HTN, Hyperlipdemia Pulmonary: Yes: Bronchitis, COPD Renal/: Yes: Renal Failure, Hemodialysis - Past Surgical History Past Surgical History: Yes: AICD, AV Fistula/Graft - Smoking History Smoking history: Former smoker - Problems (1) Bacteremia Assessment/Plan: IV ABX PER ID--FOLLOW UP Microbiology 08/10/17 15:25 Blood Culture - Final Blood - Peripheral Venous Enterococcus Faecalis 08/10/17 15:25 Blood Culture - Final Blood - Peripheral Venous Enterococcus Faecalis 08/12/17 09:20 Blood Culture - Preliminary Blood - Peripheral Venous NO GROWTH OBTAINED AFTER 96 HOURS, INCUBATION TO CONTINUE FOR 1 DAYS. 08/12/17 09:20 Blood Culture - Preliminary Blood - Peripheral Venous NO GROWTH OBTAINED AFTER 96 HOURS, INCUBATION TO CONTINUE FOR 1 DAYS. d/w dr vivian low on vanco ECHO noted Code(s): R78.81 - BACTEREMIA (2) AICD (automatic cardioverter/defibrillator) present Assessment/Plan: per cardio Code(s): Z95.810 - PRESENCE OF AUTOMATIC (IMPLANTABLE) CARDIAC DEFIBRILLATOR (3) ESRD (end stage renal disease) Assessment/Plan: DAILYSIS PER RENAL Code(s): N18.6 - END STAGE RENAL DISEASE (4) Sepsis Assessment/Plan: ABOVE Code(s): A41.9 - SEPSIS, UNSPECIFIED ORGANISM Qualifiers: Sepsis type: sepsis due to unspecified organism Qualified Code(s): A41.9 - Sepsis, unspecified organism (5) Cellulitis Code(s): L03.90 - CELLULITIS, UNSPECIFIED (6) CHF (congestive heart failure) Assessment/Plan: DIALYSIS CARDIO NOTED Code(s): I50.9 - HEART FAILURE, UNSPECIFIED (7) Contraction, gallbladder Assessment/Plan: GI CONSULT Code(s): K82.0 - OBSTRUCTION OF GALLBLADDER (8) Pancreatic abnormality Assessment/Plan: CHECK LABS GI CONSULT Code(s): 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 Condition: Improved - Instructions Diet, Activity, Other Instructions: vancomycin with dialysis Referrals: Loida Jimenez MD [Primary Care Provider] - Brittany Valladares MD [Staff Physician] - 1 Week Disposition: HOME - Home Medications Comprehensive Discharge Medication List: Ambulatory Orders Simvastatin [Zocor -] 5 mg PO HS 10/29/12 Warfarin Sodium [Coumadin] 5 mg PO TU 10/29/12 Levothyroxine [Synthroid -] 125 mcg PO DAILY 06/26/14 Docusate Sodium [Colace -] 100 mg PO BID 07/19/14 Nut.tx.impaired Renal Fxn,Soy [Nepro] 1 ml PO ASDIR 07/19/14 Pantoprazole Sodium [Protonix -] 40 mg PO DAILY 07/19/14 Warfarin Na [Coumadin -] 2.5 mg PO SUMOWETHFRSA 07/19/14 Albuterol Sulfate Inhaler - [Ventolin HFA Inhaler -] 1 - 2 inh PO Q4H PRN Furosemide [Lasix -] 40 mg PO DAILY 08/10/17 Insulin (Levemir) [Levemir Flexpen -] 7 units SQ HS 08/10/17 Amlodipine Besylate [Norvasc -] 5 mg PO DAILY #30 tablet 08/17/17
--- NOTE | 2017-08-17 10:36 | PN ---
Progress Note, Physician History of Present Illness: PULMONARY ALERT,ON DIALYSIS,DYSPNEA IMPROVING,-COUGH,-CP - Current Medication List Current Medications: Active Medications Amlodipine Besylate (Norvasc -) 5 mg PO DAILY [facility] Last Admin: 08/16/17 09:20 Dose: 5 mg Atorvastatin Calcium (Lipitor -) 10 mg PO HS [facility] Last Admin: 08/16/17 22:01 Dose: 10 mg Docusate Sodium (Colace -) 100 mg PO BID [facility] Last Admin: 08/16/17 22:01 Dose: 100 mg Furosemide (Lasix -) 40 mg PO DAILY [facility] Last Admin: 08/16/17 09:19 Dose: 40 mg Insulin Aspart (Novolog Vial Sliding Scale -) 1 vial SQ ACHS [facility] PRN Reason: Protocol Last Admin: 08/17/17 06:08 Dose: Not Given Levothyroxine Sodium (Synthroid -) 125 mcg PO DAILY@0700 [facility] Last Admin: 08/17/17 06:18 Dose: 125 mcg Pantoprazole Sodium (Protonix -) 40 mg PO DAILY [facility] Last Admin: 08/16/17 09:20 Dose: 40 mg - Objective Vital Signs: Vital Signs Temperature 98.3 F 08/17/17 07:10 Pulse Rate 79 08/17/17 10:15 Respiratory Rate 18 08/17/17 10:15 Blood Pressure 147/60 08/17/17 10:15 O2 Sat by Pulse Oximetry (%) 96 08/16/17 21:00 Constitutional: Yes: Well Nourished, Calm Eyes: Yes: WNL HENT: Yes: WNL Neck: Yes: WNL Cardiovascular: Yes: Regular Rate and Rhythm, S1, S2 Respiratory: Yes: Rales (FEW BIBASILAR RALES) Gastrointestinal: Yes: Normal Bowel Sounds, Soft Extremities: Yes: WNL Edema: Yes Edema: LLE: Trace, RLE: Trace Labs: CBC, BMP 08/17/17 07:15 08/17/17 07:15 INR, PTT INR 1.71 (0.82-1.09) H 08/17/17 07:15 Assessment/Plan Problem List - Problems (1) AICD (automatic cardioverter/defibrillator) present Code(s): Z95.810 - PRESENCE OF AUTOMATIC (IMPLANTABLE) CARDIAC DEFIBRILLATOR (2) Bacteremia Code(s): R78.81 - BACTEREMIA (3) CHF (congestive heart failure) Code(s): I50.9 - HEART FAILURE, UNSPECIFIED (4) ESRD (end stage renal disease) Code(s): N18.6 - END STAGE RENAL DISEASE (5) Elevated lactic acid level Code(s): R79.89 - OTHER SPECIFIED ABNORMAL FINDINGS OF BLOOD CHEMISTRY (6) Sepsis Code(s): A41.9 - SEPSIS, UNSPECIFIED ORGANISM Qualifiers: Sepsis type: sepsis due to unspecified organism Qualified Code(s): A41.9 - Sepsis, unspecified organism Assessment/Plan DYSPNEA/NO INFILTRATES ON CT BACTEREMIA ENTEROCOCCUS ESRD/HD COPD HTN ACS AICD ANEMIA PUL HTN CONTINUE O2 TO KEEP SAT GREATER THAN 90% HD PER RENAL ID F/U DR HALL
--- NOTE | 2017-08-17 10:51 | PN ---
Progress Note (short form) - Note Progress Note: feels well being dialyzied no complaints Vital Signs Period Temp Pulse Resp BP Sys/Rea Pulse Ox Last 24 Hr 97.3 F-98.4 F 62-93 18-20 117-174/41-86 96-97 cor-rrr llungs decreased bs at bases abd soft,nt ext no edema CBC, BMP 08/17/17 07:15 08/17/17 07:15 Microbiology 08/12/17 09:20 Blood - Peripheral Venous Blood Culture - Final NO GROWTH AFTER 5 DAYS INCUBATION 08/12/17 09:20 Blood - Peripheral Venous Blood Culture - Final NO GROWTH AFTER 5 DAYS INCUBATION 08/10/17 15:25 Blood - Peripheral Venous Blood Culture - Final Enterococcus Faecalis 08/10/17 15:25 Blood - Peripheral Venous Blood Culture - Final Enterococcus Faecalis 08/10/17 13:28 Urine - Urine - Catheterized Urine Culture - Final NO GROWTH OBTAINED 08/10/17 15:25 Nasopharyngeal Swab Influenza Types A,B Antigen (BRENDA) - Final 08/10/17 15:25 Nasopharyngeal Swab - Final a/p enterococcal bacteremia d/w Dr Maxwell low suspicion for endocarditis plan 4 weeks vancomycin with HD, 2 weeks gentamicin with HD will d/w renal should repeat blood cultures after antibiotics are completed as he has a PPM esrd/hd- has avf cad- defib/ppm GI f/u as outpt is planned
--- NOTE | 2017-08-17 11:39 | PN ---
Progress Note (short form) - Note Progress Note: Spoke with Shayla, nurse law office manager from Dr. Valladares's office today. Explained that Dr. Valladares has opening to see Mr. Newton as outpatient next wednesday. I spoke with Mr. Conrad today and advised that he call Blaine Cardoso's office to confirm timing of follow-up appointment. he stated that he would do so. Problem List - Problems (1) Pancreatic abnormality Code(s): Q45.3 - [facility] CONGENITAL MALFORMATIONS OF PANCREAS AND PANCREATIC DUCT (2) Cirrhosis Code(s): K74.60 - UNSPECIFIED CIRRHOSIS OF LIVER Qualifiers: Hepatic cirrhosis type: unspecified hepatic cirrhosis
[2017-08-17] MEDS: PANTOPRAZOLE 40 MG TABLET (FP) PO SCH (12:05)
[2017-08-17] MEDS: DOCUSATE SODIUM 100 MG CAPSULE (FP) PO SCH (12:05)
[2017-08-17] MEDS: FUROSEMIDE 40 MG TABLET (FP) PO SCH (12:06)
[2017-08-17] MEDS: amLODIPine BESYLATE 5 MG TABLET (FP) PO SCH (12:06)
--- NOTE | 2017-08-17 12:32 | PN ---
Progress Note (short form) - Note Progress Note: Renal follow up for ESRD on HD Pt seen and examined at the bedside awake and alert no acute complaints s/p dialysis earlier today Vital Signs Temperature 97.9 F 08/17/17 10:00 Pulse Rate 78 08/17/17 10:50 Respiratory Rate 18 08/17/17 10:50 Blood Pressure 143/75 08/17/17 10:50 O2 Sat by Pulse Oximetry (%) 97 08/17/17 10:00 Intake & Output 08/14/17 08/15/17 08/16/17 08/17/17 23:59 23:59 23:59 23:59 Intake Total 920 620 500 200 Balance 920 620 500 200 Weight 63.866 kg 62.324 kg 62.652 kg 63.985 kg NAD awake and alert 1+ LE edema CBC, BMP 08/17/17 07:15 08/17/17 07:15 Current Medications Amlodipine Besylate (Norvasc -) 5 mg PO DAILY [facility] Last Admin: 08/17/17 12:06 Dose: 5 mg Atorvastatin Calcium (Lipitor -) 10 mg PO HS [facility] Last Admin: 08/16/17 22:01 Dose: 10 mg Docusate Sodium (Colace -) 100 mg PO BID [facility] Last Admin: 08/17/17 12:05 Dose: 100 mg Furosemide (Lasix -) 40 mg PO DAILY [facility] Last Admin: 08/17/17 12:06 Dose: 40 mg Insulin Aspart (Novolog Vial Sliding Scale -) 1 vial SQ ACHS [facility] PRN Reason: Protocol Last Admin: 08/17/17 12:06 Dose: 2 units Levothyroxine Sodium (Synthroid -) 125 mcg PO DAILY@0700 [facility] Last Admin: 08/17/17 06:18 Dose: 125 mcg Pantoprazole Sodium (Protonix -) 40 mg PO DAILY [facility] Last Admin: 08/17/17 12:05 Dose: 40 mg 71 year old gentleman with PMhx of ESRD on HD (TTS), Hypertension, CHF, CAD, Afib, COPD, Anemia who presented with complaints of SOB worsening over the past few days with fever and admitted for HF/Bactermia/Suspected sepsis. #SOB/IVAN clinically improved #Bacteremia (enterococcus) to get VAnco for total of 4 weeks and Gent for 2 weeks per ID repeat blood culture after completion of Abx #ESRD on HD tolerated HD well #Pancreatic Abnormality for FOllow up with GI as outpatient Antonio Koroma Do
--- NOTE | 2017-08-17 12:37 | PN ---
Progress Note (short form) - Note Progress Note: Chief Complaint: sob History of Present Illness: sob improved--can walk down pratt, vs previously this admit had to stop leg swelling mild, stable vs prior no cp, palpitations plan for d/c today ex cigs Current Medications Amlodipine Besylate (Norvasc -) 5 mg PO DAILY [facility] Last Admin: 08/17/17 12:06 Dose: 5 mg Atorvastatin Calcium (Lipitor -) 10 mg PO HS [facility] Last Admin: 08/16/17 22:01 Dose: 10 mg Docusate Sodium (Colace -) 100 mg PO BID [facility] Last Admin: 08/17/17 12:05 Dose: 100 mg Furosemide (Lasix -) 40 mg PO DAILY [facility] Last Admin: 08/17/17 12:06 Dose: 40 mg Insulin Aspart (Novolog Vial Sliding Scale -) 1 vial SQ ACHS [facility] PRN Reason: Protocol Last Admin: 08/17/17 12:06 Dose: 2 units Levothyroxine Sodium (Synthroid -) 125 mcg PO DAILY@0700 [facility] Last Admin: 08/17/17 06:18 Dose: 125 mcg Pantoprazole Sodium (Protonix -) 40 mg PO DAILY [facility] Last Admin: 08/17/17 12:05 Dose: 40 mg - Objective Vital Signs: Vital Signs - 24 hr 08/16/17 08/16/17 08/16/17 14:20 17:00 20:05 Temperature 98.4 F 97.3 F L 98.0 F Pulse Rate 71 72 70 Respiratory 20 20 20 Rate Blood Pressure 141/86 136/74 121/57 O2 Sat by Pulse Oximetry (%) 08/16/17 08/17/17 08/17/17 21:00 00:00 07:10 Temperature 97.7 F 98.3 F Pulse Rate 72 80 Respiratory 20 18 Rate Blood Pressure 129/70 153/70 O2 Sat by Pulse 96 Oximetry (%) 08/17/17 08/17/17 08/17/17 07:15 07:45 08:15 Temperature Pulse Rate 71 74 72 Respiratory 18 18 Rate Blood Pressure 174/41 159/70 135/41 O2 Sat by Pulse Oximetry (%) 08/17/17 08/17/17 08/17/17 08:45 09:15 09:45 Temperature Pulse Rate 93 H 86 62 Respiratory 18 18 18 Rate Blood Pressure 117/73 130/76 144/80 O2 Sat by Pulse Oximetry (%) 08/17/17 08/17/17 08/17/17 10:00 10:15 10:45 Temperature 97.9 F Pulse Rate 75 79 64 Respiratory 18 18 18 Rate Blood Pressure 119/62 147/60 143/40 O2 Sat by Pulse 97 Oximetry (%) 08/17/17 10:50 Temperature Pulse Rate 78 Respiratory 18 Rate Blood Pressure 143/75 O2 Sat by Pulse Oximetry (%) Intake & Output 08/15/17 08/16/17 08/17/17 08/18/17 07:59 07:59 07:59 07:59 Intake Total 760 420 500 200 Balance 760 420 500 200 Weight 137 lb 6.4 oz 138 lb 2 oz 141 lb 1 oz Constitutional: Yes: Well Nourished, No Distress, Calm Cardiovascular: Yes: Regular Rate and Rhythm, S1, S2. No: Gallop, Murmur Respiratory: Yes: Regular, CTA Bilaterally. No: Accessory Muscle Use, Rales, Wheezes Extremities: No: Cold Edema: No Neurological: Yes: Alert, Oriented Psychiatric: No: Agitated Labs: CBC, BMP 08/17/17 07:15 08/17/17 07:15 - ....Imaging EKG: Other (tele: v-paced, ? underlying afib) Assessment/Plan ct chest: b/l effs, copd, ascites Echo 12/2015: nl lv/rv, mild l[place], mild mr, mod tr, mild pr, rvsp 60 Echo 07/2017: mild conc lvh, nl lv/rv, mod london, mild MR/TR. small pericardial eff, rvsp 50-60 L/RHC 2014: wedge 22, PA 70/22, RA 14, C.I. normal (2.6). stent LPL1 patent; 60- 70% OM1; 70-80% small RCA (med mngd) a/p: 71 m hx cad s/p pci, htn, hld, ICD, dm, copd, esrd on hd, chronic afib, here with sob/cough/chills. enterococcal bacteremia, sepsis: -ID following, source not clear -cont mgmt plan/abx per ID recs sob, volume overload, acute diast chf, ascites on CT: -fluid mgmt per renal (HD) -sob has improved (ambulating halls) though wt not down significantly--d/w renal ? lower target wt -no significant TR on echo here (has ICD lead) to explain ascites -a.e. copd not suspected by pulmonary team cad s/p remote pci: -no signs/sx of acs, ce's neg x3 -cath 2014 no ischemia-causing dz (small RCA with stenosis--med mngd) -nl lvef -cont statin, ac (no asa) -not on bb due to copd -currently, sob sx's resolved with tx of infection (and ? due to volume removal with HD)--if returns, will probably need stress test. 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 low lvef in past that has since improved) afib: -cont warfarin, dose per INRs here -not on bb anymore due to copd, rate controlled off meds for now, monitor ESRD, on HD: -dialysis schedule per renal
[2017-08-17 15:32] VITALS: BP 130/69; PULSE 72; TEMP 97.4
== END 2017-08-17 16:40 | disposition home or self-care (01) | DRG 871 ==
LOC: JER 14:33 → JERBED 16:53 → J4W 08-11 03:05
PROVIDERS: ADMIT Family Medicine; ATTEND Family Medicine
PROC: 5A1D70Z Performance of Urinary Filtration, Intermittent, Less than 6 Hours Per Day (ICD-10-PCS; principal; 2017-08-11)
DX: A41.89 Other specified sepsis (principal); N18.6 End stage renal disease; I50.31 Acute diastolic (congestive) heart failure; I13.2 Hypertensive heart and chronic kidney disease with heart failure and with stage 5 chronic kidney disease, or end stage renal disease; K82.0 Obstruction of gallbladder; Q45.3 Other congenital malformations of pancreas and pancreatic duct; R18.8 Other ascites; H91.8X1 Other specified hearing loss, right ear; J44.9 Chronic obstructive pulmonary disease, unspecified; I48.2 Chronic atrial fibrillation; I25.10 Atherosclerotic heart disease of native coronary artery without angina pectoris; K63.5 Polyp of colon; R00.0 Tachycardia, unspecified; L60.0 Ingrowing nail; E78.5 Hyperlipidemia, unspecified; D63.8 Anemia in other chronic diseases classified elsewhere; I27.20 Pulmonary hypertension, unspecified; R79.89 Other specified abnormal findings of blood chemistry; E11.22 Type 2 diabetes mellitus with diabetic chronic kidney disease; B35.1 Tinea unguium; L03.032 Cellulitis of left toe; K74.60 Unspecified cirrhosis of liver; Z87.891 Personal history of nicotine dependence; Z99.2 Dependence on renal dialysis; Z95.810 Presence of automatic (implantable) cardiac defibrillator; Z85.828 Personal history of other malignant neoplasm of skin; Z95.5 Presence of coronary angioplasty implant and graft
CPT/HCPCS: 36415; 71010-TC; 71250-TC; 73630-TC-LT; 74176-TC; 80048; 80053; 80076; 82150; 82378; 82550; 82553; 82565; 82803; 83605; 83690; 83735; 83880; 84100; 84484; 84520; 85025; 85027; 85610; 85730; 86140; 86301; 86704; 86706; 86708; 86803; 86850; 86900; 86901; 87040; 87086; 87186; 87340; 87804; 90670; 93005; 93010; 93306-TC; 94640; 99285-25; G0480; J0885; J1644

== ENCOUNTER 2017-11-25 10:57 | Emergency (ER) | payer OTHER, MEDICARE ==
--- NOTE | 2017-11-25 11:44 | PDOC ---
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 The patient states his cough is chronic and typically productive of yellow sputum. The coughing is slightly worse than usual but pt notes no changein his sputum production. The patient reports fatigue and subjective fever this morning prompting him to come to the ER for further evaluation. Of note, the patient did not go to dialysis today, he came here as he was not feeling well. The patient denies increased leg swelling, hemoptysis, dyspnea on exertion, abdominal pain, chest pain, headache and dizziness. Denies nausea, vomit, diarrhea and constipation. Denies dysuria, frequency, urgency and hematuria. Allergies: iodine, shellfish derived Social history: Former smoker. No reported alcohol or drug use. Supervisor Screen Making: Dr. Hale Homogenizer Operator: Dr. Raymond Dining Room Maid: Dr. 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) COPD: Yes (BRONCHITIS 04/2014) CHF: Yes Dementia: No Diabetes: Yes (IDDM) GI Disorders: Yes (POLYPS) Disorders: No HTN: Yes Hypercholesterolemia: Yes Liver Disease: Yes (CIRRHOSIS) Seizures: No Thyroid Disease: Yes (THYROID REMOVED IN 1995) - Surgical History Abdominal Surgery: No Appendectomy: No Cardiac Surgery: Yes (DEFIB/PACEMEAKER, STENT) Cholecystectomy: No Lung Surgery: No Neurologic Surgery: No Orthopedic Surgery: No - Suicide/Smoking/Psychosocial Hx Smoking Status: Yes Smoking History: Former smoker Have you smoked in the past 12 months: No Number of Cigarettes Smoked Daily: 0 If you are a former smoker, when did you quit?: 27 YRS AGO Hx Alcohol Use: No Drug/Substance Use Hx: No Substance Use Type: None Hx Substance Use Treatment: No <Eleazar Pena - Last Filed: 11/25/17 17:53> - Past Medical History Allergies/Adverse Reactions: Allergies Allergy/AdvReac Type Severity Reaction Status Date / Time iodine Allergy TONGUE Verified 11/25/17 11:45 SWELLING shellfish derived Allergy Hives Verified 11/25/17 11:45 IV CONTRAST Allergy "RASH" Uncoded 11/25/17 11:45 Home Medications: Ambulatory Orders Simvastatin [Zocor -] 5 mg PO HS 10/29/12 Warfarin Sodium [Coumadin] 5 mg PO TU 10/29/12 Levothyroxine [Synthroid -] 125 mcg PO DAILY 06/26/14 Docusate Sodium [Colace -] 100 mg PO BID 07/19/14 Nut.tx.impaired Renal Fxn,Soy [Nepro] 1 ml PO ASDIR 07/19/14 Pantoprazole Sodium [Protonix -] 40 mg PO DAILY 07/19/14 Warfarin Na [Coumadin -] 2.5 mg PO SUMOWETHFRSA 07/19/14 Albuterol Sulfate Inhaler - [Ventolin HFA Inhaler -] 1 - 2 inh PO Q4H PRN Furosemide [Lasix -] 40 mg PO DAILY 08/10/17 Insulin (Levemir) [Levemir Flexpen -] 7 units SQ HS 08/10/17 Amlodipine Besylate [Norvasc -] 5 mg PO DAILY #30 tablet 08/17/17 Guaifenesin Dm [Robitussin Dm -] 10 ml PO Q6H PRN #1 bottle 11/25/17 Review of Systems - Review of Systems Able to Perform ROS?: Yes Comments:: 11/25/17 13:14 CONSTITUTIONAL: Reported: (+) Subjective fever, Generalized Weakness, Malaise, No reported: Diaphoresis, Loss of Appetite HEENT: No reported: Rhinorrhea, Nasal Congestion, Throat Pain, Throat Swelling, Difficulty Swallowing, Mouth Swelling, Ear Pain, Eye Pain, Visual Changes CARDIOVASCULAR: No reported: Chest Pain, Syncope, Palpitations, Irregular Heart Rate, Lightheadedness, Peripheral Edema RESPIRATORY: Reported: (+) Productive, chronic cough. (+) SOB. No reported: SOB with Exertion, Orthopnea, Wheezing, Stridor, Hemoptysis GASTROINTESTINAL: No reported: Abdominal pain, Abdominal Distension, Nausea, Vomiting, Diarrhea, Constipation, Melena, Hematochezia GENITOURINARY: No reported: Dysuria, Frequency, Urgency, Hesitancy, Flank Pain, Genital Pain MUSCULOSKELETAL: No reported: Myalgia, Arthralgia, Joint Swelling, Back pain, Neck Pain SKIN: No reported: Rash, Itching, Pallor HEMEATOLOGIC/IMMUNOLOGIC: No reported: Easy Bleeding, Easy Bruising, Lymphadenopathy, Frequent infections ENDOCRINE: No reported: Unexplained Weight Gain, Unexplained Weight Loss, Heat Intolerance , Cold Intolerance NEUROLOGIC: No reported: Headache, Focal Weakness, Paresthesias, Vertigo, Lightheadedness, Unsteady Gait, Seizure, Mental Status Changes, Incontinence PSYCHIATRIC: No reported: Anxiety, Depression <Suzy Luz - Last Filed: 11/25/17 13:13> *Physical Exam - Vital Signs Last Vital Signs Temp Pulse Resp BP Pulse Ox 75 18 134/74 97 11/25/17 11:00 11/25/17 11:00 11/25/17 11:00 11/25/17 11:00 - Physical Exam Comments: 11/25/17 13:14 GENERAL: The patient is awake, alert, and fully oriented, Nontoxic - in no acute distress. HEAD: Normocephalic, atraumatic. EYES: extraocular movements intact, sclera anicteric, conjunctiva clear. ENT: Normal voice, Moist mucous membranes. NECK: Normal range of motion, supple LUNGS: (+) Scant basilar crackles.No wheezes, no rhonchi, no rales. HEART: (+) Pacemaker in left chest. Regular rate and rhythm, without murmur, rub or gallop. ABDOMEN: Soft, nontender, normoactive bowel sounds. No guarding, no rebound.No CVA tenderness EXTREMITIES: (+) Trace edema bilaterally. Normal range of motion. No clubbing or cyanosis. No cords, erythema, or tenderness. NEUROLOGICAL: No facial assymetry, Normal speech, PSYCH: Normal mood, normal affect. SKIN: Warm, Dry, normal turgor <Suzy Luz - Last Filed: 11/25/17 13:13> Heart Score/ECG Review - ECG Impressions Comment:: 11/25/17 12:38 Twelve-lead EKG was performed and reviewed by me. EKG performed: 11/25/2017 at 1227pm Paced ventricular rhythm Rate of 75 No signs of ischemia via Sgarbossa criteria <Eleazar Pena - Last Filed: 11/25/17 17:53> ED Treatment Course - LABORATORY CBC & Chemistry Diagram: 11/25/17 12:38 11/25/17 12:38 - ADDITIONAL ORDERS Additional order review: 11/25/17 11:50 Influenza Types A,B Antigen (BRENDA) - Final Nasopharyngeal Swab - Final <Suzy Luz - Last Filed: 11/25/17 13:13> - LABORATORY CBC & Chemistry Diagram: 11/25/17 12:38 11/25/17 12:38 - RADIOLOGY Radiology Studies Ordered: Category Date Time Status CHEST PA & LAT [RAD] Stat Radiology 11/25/17 11:42 Ordered <Eleazar Pena - Last Filed: 11/25/17 17:53> Medical Decision Making - Medical Decision Making 11/25/17 11:42 72y M hx of 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 ddx pna, viral syndrome, possilbe overload but sypmtmos seem to predate his symptoms Will check the patient's chest x-ray to rule out pneumonia, vs viral syndrome Influenza, CBC, CMP, ekg will reassess Allergies: iodine, shellfish derived Social history: Former smoker. No reported alcohol or drug use. Supervisor Screen Making: Dr. Hale Homogenizer Operator: Dr. Raymond Dining Room Maid: Dr. Valenzuela A portion of this note was documented by scribe services under my direction. I have reviewed the details of the note, within reason, and agree with the documentation with the following case summary and management plan written by me 11/25/17 16:28 Patient is currently symptomatic, labs are unremarkable Chest x-ray is normal without any signs of infiltrate The patient is complaining of a mild cough otherwise has a normal exam Suspect possible viral syndrome will discuss with renal regarding dialysis today or tomorrow. 11/25/17 17:20 case dw kendal does not need immediate dialysis, will dc him with dialysis tomorrow at 6am or 6pm will dc with pmd fu The patient is feeling improved is able to ambulate at his baseline without any shortness of breath return precuations were discussed I discussed the physical exam findings, ancillary test results and final diagnoses with the patient. I answered all of the patient's questions. The patient was satisfied with the care received and felt comfortable with the discharge plan and treatment plan. The patient will call their primary care physician within 24 hours to arrange follow-up and will return to the Emergency Department with any new, persistent or worsening symptoms. <Eleazar Pena - Last Filed: 11/25/17 17:53> *DC/Admit/Observation/Transfer - Attestations Scribe Attestion: 11/25/17 13:14 Documentation prepared by Suzy Luz, acting as medical practice assistant for Eleazar Pena MD. <Suzy Luz - Last Filed: 11/25/17 13:13> - Discharge Dispostion Admit: No <Eleazar Pena - Last Filed: 11/25/17 17:53> Diagnosis at time of Disposition: Cough - Discharge Dispostion Disposition: HOME Condition at time of disposition: Improved - Prescriptions Prescriptions: Guaifenesin Dm [Robitussin Dm -] 10 ml PO Q6H PRN #1 bottle PRN Reason: Cough - Referrals Referrals: Loida Jimenez MD [Primary Care Provider] - - Patient Instructions Printed Discharge Instructions: DI for Cough -- Adult Additional Instructions: Return to the emergency department immediately with ANY new, persistent or worsening symptoms. Take robitussin as needed for your cough. You MUST call and follow up with your doctor tomorrow for further evaluation of your symptoms. Results were discussed with you. Please make sure your doctor reviews the results of your emergency evaluation. Call your dialysis center tomorrow regarding dialysis - you can go either at 6am or 6pm If you had any xrays during your visit, it was read preliminarily by myself, a Radiologist will review it and if there are any additional findings we will call you. Print Language: PALESTINIAN
[2017-11-25 11:45] VITALS: BMI 20.5
[2017-11-25 13:14] LABS: BASO % 0.6 % (0-2.0); EOS % 2.2 % (0-4.5); HEMATOCRIT 34.4 % (35.4-49); HEMOGLOBIN 11.4 GM/dL (11.7-16.9); LYMPH % 4.6 % (8-40); MCH 31.4 pg (25.7-33.7); MCHC 33.2 g/dl (32.0-35.9); MEAN CELL VOLUME 94.8 fl (80-96); MEAN PLT VOLUME 8.9 fl (7.5-11.1); MONO % 5.2 % (3.8-10.2); NEUT % 87.4 % (42.8-82.8); PLATELET COUNT 103 K/MM3 (134-434); RBC 3.63 M/mm3 (4.00-5.60); RDW 17.9 % (11.9-15.9)
[2017-11-25 13:41] LABS: ALBUMIN 2.9 g/dl (3.4-5.0); ANION GAP 16 (8-16); BLOOD UREA NITROGEN 79 mg/dL (7-18); CALCIUM 8.2 mg/dL (8.5-10.1); CHLORIDE 93 mmol/L (98-107); CO2 21 mmol/L (21-32); CREATININE 6.3 mg/dL (0.7-1.3); GLUCOSE,RANDOM 276 mg/dL (74-106); POTASSIUM 4.8 mmol/L (3.5-5.1); SGOT/AST 21 U/L (15-37); SGPT/ALT 21 U/L (12-78); SODIUM 130 mmol/L (136-145)
[2017-11-25 13:42] LABS: ALK PHOS 237 U/L (45-117)
[2017-11-25] MEDS ORDERED: guaiFENesin/D-METHORPHAN HB 10 ML UNIT-DOSE CUPS PO ONE (16:28)
[2017-11-25] MEDS ORDERED: GUAIFENESIN ONE (17:15)
[2017-11-25] MEDS ORDERED: D METHORPHAN HB ONE (17:15)
[2017-11-25 18:24] VITALS: BP 120/77; PULSE 70; TEMP 98
--- NOTE | 2017-11-26 10:00 | EKG ---
Test Reason : Blood Pressure : / mmHG Vent. Rate : 075 BPM Atrial Rate : 098 BPM P-R Int : 000 ms QRS Dur : 164 ms QT Int : 468 ms P-R-T Axes : 000 -84 098 degrees QTc Int : 522 ms Ventricular-paced rhythm ABNORMAL ECG WHEN COMPARED WITH ECG OF 10-AUG-2017 22:30, VENT. RATE HAS INCREASED BY 5 BPM Confirmed by ELISABET BARRERA MD ([id number]) on 11/26/2017 9:59:59 AM Referred By: Confirmed By:ELISABET BARRERA MD
== END 2017-11-25 18:00 | disposition home or self-care (01) ==
LOC: JER 10:57
DX: R05 Cough (principal); I25.119 Atherosclerotic heart disease of native coronary artery with unspecified angina pectoris; I13.2 Hypertensive heart and chronic kidney disease with heart failure and with stage 5 chronic kidney disease, or end stage renal disease; N18.6 End stage renal disease; I50.9 Heart failure, unspecified; Z99.2 Dependence on renal dialysis; Z95.5 Presence of coronary angioplasty implant and graft; Z87.891 Personal history of nicotine dependence; I48.91 Unspecified atrial fibrillation; Z79.01 Long term (current) use of anticoagulants; Z95.810 Presence of automatic (implantable) cardiac defibrillator; E11.9 Type 2 diabetes mellitus without complications; Z79.4 Long term (current) use of insulin; J44.9 Chronic obstructive pulmonary disease, unspecified; K74.60 Unspecified cirrhosis of liver; H91.8X1 Other specified hearing loss, right ear; H34.9 Unspecified retinal vascular occlusion
CPT/HCPCS: 36415; 71046-TC-FY; 80053; 85025; 87804; 93005; 93010; 99284-25

== ENCOUNTER 2017-12-06 11:50 | Inpatient (IN) | payer OTHER, MEDICARE ==
[2017-12-06 12:16] VITALS: BMI 20.5
--- NOTE | 2017-12-06 12:30 | PDOC ---
History of Present Illness - General Chief Complaint: Shortness of Breath Stated Complaint: Shortness of Breath Time Seen by Provider: 12/06/17 12:05 - History of Present Illness Initial Comments: 12/06/17 13:40 The patient is a 72 year old male with a history of ESRD on Dialysis // Wed, CHF, COPD, HTN, HLD, DM who presents for evaluation of shortness of breath. The patient reports a 1 day history of worsening shortness of breath with productive cough and dyspnea on excertion prompting his presentation to the ED for evaluation. The patient also notes some left lower extremity pain but notes that it is chronic in nature. He also notes lower extremity swelling at baseline which he notes has not worsened. He otherwise denies fevers, chills , chest pain, abdominal pain, nausea, vomiting, or changes with bowel movements. Past History - Past Medical History Allergies/Adverse Reactions: Allergies Allergy/AdvReac Type Severity Reaction Status Date / Time iodine Allergy TONGUE Verified 12/06/17 12:02 SWELLING shellfish derived Allergy Hives Verified 12/06/17 12:02 IV CONTRAST Allergy "RASH" Uncoded 12/06/17 12:02 Home Medications: Ambulatory Orders Simvastatin [Zocor -] 20 mg PO HS 10/29/12 Warfarin Sodium [Coumadin] 5 mg PO TU 10/29/12 Levothyroxine [Synthroid -] 125 mcg PO DAILY 06/26/14 Docusate Sodium [Colace -] 100 mg PO BID 07/19/14 Nut.tx.impaired Renal Fxn,Soy [Nepro] 1 ml PO ASDIR 07/19/14 Pantoprazole Sodium [Protonix -] 40 mg PO DAILY 07/19/14 Warfarin Na [Coumadin -] 2.5 mg PO SUMOWETHFRSA 07/19/14 Albuterol Sulfate Inhaler - [Ventolin HFA Inhaler -] 1 - 2 inh PO Q4H PRN Insulin (Levemir) [Levemir Flexpen -] 7 units SQ BID 08/10/17 Anemia: Yes Asthma: No Cancer: Yes (SKIN) Cardiac Disorders: Yes (A FIB; ASHD) 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) COPD: Yes (BRONCHITIS 04/2014) CHF: Yes Dementia: No Diabetes: Yes (IDDM) GI Disorders: Yes (POLYPS) Disorders: No HTN: Yes Hypercholesterolemia: Yes Liver Disease: Yes (CIRRHOSIS) Seizures: No Thyroid Disease: Yes (THYROID REMOVED IN 1995) - Surgical History Abdominal Surgery: No Appendectomy: No Cardiac Surgery: Yes (DEFIB/PACEMEAKER, STENT) Cholecystectomy: No Lung Surgery: No Neurologic Surgery: No Orthopedic Surgery: No - Suicide/Smoking/Psychosocial Hx Smoking Status: Yes Smoking History: Former smoker Have you smoked in the past 12 months: No Number of Cigarettes Smoked Daily: 0 If you are a former smoker, when did you quit?: 27 YRS AGO Information on smoking cessation initiated: No Hx Alcohol Use: No Drug/Substance Use Hx: No Substance Use Type: None Hx Substance Use Treatment: No Review of Systems - Review of Systems Comments:: 12/06/17 13:46 Constitutional: Fatigue. No fevers, chills, malaise HEENT: No Rhinorrhea, nasal congestion, visual changes Cardiovascular: No chest pain, syncope, palpitations, lightheadedness Respiratory: SOB, Cough. No Hemoptysis, Gastrointestinal: No Abdominal pain, Nausea, Vomiting, Constipation, Diarrhea, Melena Genitourinary: No Dysuria, Frequency, Urgency, Hesitancy, Hematuria, Flank pain Musculoskeletal: Left Lower Extremity Pain. No Myalgia, arthralgia Skin: No rashes, itching, bruising, pallor Neurologic: No Headache, Dizziness, Numbness, Weakness, or Tingling Psychiatric: No Hallucinations. No SI or HI *Physical Exam - Vital Signs Last Vital Signs Temp Pulse Resp BP Pulse Ox 99.2 F 72 32 H 112/57 96 12/06/17 12:02 12/06/17 12:02 12/06/17 12:02 12/06/17 12:02 12/06/17 12:02 - Physical Exam Comments: 12/06/17 13:49 General Appearance: Nourished. No Apparent Distress HEENT: EOMI, YAZ. No Pharyngeal Erythema, Tonsillar Exudate, Tonsillar Erythema Neck: No Cervical Lymphadenopathy Respiratory/Chest: Lungs Clear, Normal Breath Sounds. Bibasilar Rales Noted on Exam. No Crackles, Rhonchi, Wheezing Cardiovascular: Regular Rhythm, Regular Rate. No Murmur, Gallops, Rubs Gastrointestinal/Abdominal: Normal Bowel Sounds, Soft. No Guarding, Rebound, Tenderness Musculoskeletal: No CVA Tenderness Extremity: 2+ Pitting Edema in the bilateral lower extremities. Tenderness to Palpation along the left lower extremity. Normal Capillary Refill Integumentary: Normal Color, Dry, Warm Neurologic: Fully Oriented, Alert, Normal Mood/Affect, Normal Response, ED Treatment Course - LABORATORY CBC & Chemistry Diagram: 12/06/17 13:00 12/06/17 13:00 Medical Decision Making - Medical Decision Making 12/06/17 13:55 The patient is a 72 year old male with a history of ESRD on Dialysis Tu// Wed, CHF, COPD, HTN, HLD, DM who presents for evaluation of shortness of breath. Differential includes but is not limited to: CHF exacerbation, COPD exacerbation, DVT, Pneumonia, infectious, metabolic derangement. Given the patient's history, we will obtain a cbc, cmp, troponin, bnp, ekg, blood cultures , chest plain film, lower extremity dopplers to evaluate further for possible etiologies. We will continue to monitor and reassess in the meantime. 12/06/17 16:56 CBC demonstrates small elevated wbc. CMP is consistent with the patient's ESRD. Given the patient's clinical picture of severe dyspnea on excertion and lab results, we believe the patient requires admission for dialysis and further management. Given the patient's left lower extremity pain and wounds, it is possible that the patient is also suffering from a cellulitis and will require antibiotics as well. We discussed the case with Dr. Koroma who has been made aware of the case. We discussed the case with the admitting team who accepted the patient for admission. *DC/Admit/Observation/Transfer Diagnosis at time of Disposition: ESRD (end stage renal disease) Cellulitis Qualifiers: Site of cellulitis: unspecified site Qualified Code(s): L03.90 - Cellulitis, unspecified - Discharge Dispostion Condition at time of disposition: Guarded Admit: Yes - Referrals - Patient Instructions - Post Discharge Activity
[2017-12-06 13:10] LABS: BASO % 0.8 % (0-2.0); EOS % 0.6 % (0-4.5); HEMOGLOBIN 12.3 GM/dL (11.7-16.9); LYMPH % 1.7 % (8-40); MCH 30.4 pg (25.7-33.7); MCHC 32.4 g/dl (32.0-35.9); MEAN CELL VOLUME 93.8 fl (80-96); MONO % 4.3 % (3.8-10.2); NEUT % 92.6 % (42.8-82.8); PLATELET COUNT 118 K/MM3 (134-434); RBC 4.06 M/mm3 (4.00-5.60); RDW 17.5 % (11.9-15.9); WHITE BLOOD COUNT 14.8 K/mm3 (4.0-10.0)
[2017-12-06 13:54] LABS: ALBUMIN 2.6 g/dl (3.4-5.0); ANION GAP 16 (8-16); BILIRUBIN,TOTAL 1.1 mg/dL (0.2-1.0); BLOOD UREA NITROGEN 68 mg/dL (7-18); CALCIUM 8.4 mg/dL (8.5-10.1); CHLORIDE 95 mmol/L (98-107); CO2 19 mmol/L (21-32); CREATININE 5.9 mg/dL (0.7-1.3); GLUCOSE,RANDOM 235 mg/dL (74-106); SGPT/ALT 16 U/L (12-78); SODIUM 130 mmol/L (136-145); TOT PROT 7.7 g/dl (6.4-8.2)
[2017-12-06 14:08] LABS: ALK PHOS 233 U/L (45-117); N-TERMINAL BNP 135241.61 pg/ml (5-125)
[2017-12-06 14:09] LABS: POTASSIUM 5.9 mmol/L (3.5-5.1)
[2017-12-06 14:10] LABS: SGOT/AST 22 U/L (15-37)
[2017-12-06] MEDS ORDERED: VANCOMYCIN 1,000 MG in DEXTROSE 5%-WATER - 250 ML IVPB ONE (16:08)
--- NOTE | 2017-12-06 16:38 | PDOC ---
Attending Attestation - Resident Resident Name: Sudhakar Guillory - ED Attending Attestation I have performed the following: I have examined & evaluated the patient, The case was reviewed & discussed with the resident, I agree w/resident's findings & plan, Exceptions are as noted - Medical Decision Making 12/06/17 16:36 72 years old endstage renal disease diabetic presents with severe shortness of breath difficulty ambulating unable to ambulate a few feet as well as pain to his left shankar with a small ulcer We'll check labs ultrasound x-ray reassess Reevaluation: Patient with notable pulmonary congestion. Given leg pain with redness we will cover with vancomycin admit to medicine arrange for dialysis tomorrow. <Chuckie Urbano - Last Filed: 12/06/17 16:36> - HPI HPI: The patient is a 72 year old female with a significant past medical history of ESRD on Dialysis (//Wednesday) CHF, COPD, hypertension, hyperlipidemia, and diabetes mellitus who presents to the emergency department complaining of shortness of breath since yesterday. The patient reports worsening shortness of breath. The patient also reports associated symptoms of productive cough with yellow sputum, lower extremity pain and swelling, which has not worsened. The patient denies chest pain, headache, and dizziness. Denies fevers, chills, nausea, vomiting, diarrhea, and constipation. Denies dysuria, frequency, urgency, and hematuria. Allergies: iodine, shellfish derived, IV Contrast Past surgical history: Defib, pacemaker Stent. Social history: No reported cigarette, alcohol, or drug use. PCP: Dr. Jimenez - Physicial Exam PE: Vitals: Triage Vital signs reviewed General Appearance: no acute distress, well nourished well developed, Head: Atraumatic, normocephalic Eyes: Pupils equal reactive round, extraocular movement intact Ears: TM's normal bilaterally; Nose: Nares patent bilaterally;no nasal congestion Throat: Posterior oropharynx without erythema, mucous membranes moist, Neck: Supple;No Nuchal rigidity Chest Wall: Nontender Cardiac: Regular rate and rhythm, no murmurs, no rubs, no gallops, Lungs: Clear to auscultation bilateral, good air movement bilaterally, Abdomen: Soft, nondistended, normal bowel sounds, nontender to palpation Rectal: Exam deferred Extremities: +Left lower extremity tender to palpation. +Mild edema in left lower extremity. Full range of motion to all extremities, no cyanosis, clubbing , or edema Skin: Warm and dry, no rashes or lesions, no petechiae Psych: normal mood, normal affect - Medical Decision Making The patient is a 72 year old female with a significant past medical history of ESRD on Dialysis (//Wednesday) CHF, COPD, hypertension, hyperlipidemia, and diabetes mellitus who presents to the emergency department complaining of shortness of breath since yesterday. Plan: -cbc -cmp -troponin -bnp -ECG -blood cultures -chest plain film -lower extremity dopplers <Rosalia Ye - Last Filed: 12/06/17 16:53> Attestations - Attestations 12/06/17 16:53 Documentation prepared by Rosalia Ye, acting as medical affairs manager for Chuckie Urbano MD. <Rosalia Ye - Last Filed: 12/06/17 16:53>
[2017-12-06] MEDS ORDERED: VANCOMYCIN 1 GRAM (PRE-DOCKED) 1,000 MG/250 ML BAG IVPB ONE (16:42)
--- NOTE | 2017-12-06 19:24 | HP ---
CHIEF COMPLAINT: short of breath, left lower extremity ulcer PCP: Dr. Jimenez HISTORY OF PRESENT ILLNESS: Patient is a 72 year old male with a significant past medical history of ESRD on Dialysis (//Wednesday) via right arm AV fistula, CHF, afib, COPD, hypertension, hyperlipidemia, and diabetes mellitus. He presents to the ED today with complaints of shortness of breath since yesterday. He reports that he has worsening shortness of breath associated with a productive cough with yellow sputum. He also notes that he left lower extremity ulcer is painful with pain and swelling of the left lower extremity which continues to worsen. The patient denies any fevers, chest pain or dizziness. No jaw pain no upper extremity pain. Not nauseous or vomiting. ER course was notable for: (1) wbc 14.8 (2) sodium 130 (3) bun.creat 68/5.9 (4) trops 0.13, 0.16 (5) bnp 135,241 Recent Travel: PAST MEDICAL HISTORY: PAST SURGICAL HISTORY: Social History: Smoking: Alcohol: Drugs: Family History: Allergies iodine Allergy (Verified 12/06/17 12:02) TONGUE SWELLING shellfish derived Allergy (Verified 12/06/17 12:02) Hives IV CONTRAST Allergy (Uncoded 12/06/17 12:02) "RASH" HOME MEDICATIONS: Home Medications Medication Instructions Recorded Simvastatin [Zocor -] 20 mg PO 10/29/12 Warfarin Sodium [Coumadin] 5 mg PO 10/29/12 Levothyroxine [Synthroid -] 125 mcg PO DAILY 06/26/14 Docusate Sodium [Colace -] 100 mg PO BID 07/19/14 Nut.tx.impaired Renal Fxn,Soy 1 ml PO ASDIR 07/19/14 [Nepro] Pantoprazole Sodium [Protonix -] 40 mg PO DAILY 07/19/14 Warfarin Na [Coumadin -] 2.5 mg PO SUMOWETHFRSA 07/19/14 Albuterol Sulfate Inhaler - 1 - 2 inh PO Q4H PRN 08/10/17 [Ventolin HFA Inhaler -] Insulin (Levemir) [Levemir Flexpen 7 units SQ BID 08/10/17 -] PHYSICAL EXAMINATION Vital Signs - 24 hr 12/06/17 12/06/17 12:02 12:41 Temperature 99.2 F 98.6 F Pulse Rate 72 104 H Pulse Rate [ 98 H Left Apical] Respiratory 32 H 16 Rate Blood Pressure 112/57 Blood Pressure 112/57 [Left Arm] O2 Sat by Pulse 96 96 Oximetry (%) GENERAL: Awake, alert, and fully oriented, in mild resp. distress HEAD: redness noted to left eye sclera, pt post left eye surgical procedure, right eye visual defect EYES: Pupils equal, round and reactive to light, extraocular movements intact, sclera anicteric, conjunctiva clear. No lid lag. EARS, NOSE, THROAT: Ears normal, nares patent, oropharynx clear without exudates. Moist mucous membranes. NECK: Normal range of motion, supple without lymphadenopathy, JVD, or masses. LUNGS: Breath sounds equal, clear to auscultation bilaterally. No wheezes, and no crackles. No accessory muscle use. HEART: irregular ABDOMEN: Soft, nontender, not distended, normoactive bowel sounds, no guarding, no rebound, no masses. No hepatomegaly or splenomegaly. MUSCULOSKELETAL: Normal range of motion at all joints. No bony deformities or tenderness. No CVA tenderness. UPPER EXTREMITIES:+ bruit, thrill of right upper arm AV fistula LOWER EXTREMITIES: 2+ pulses, warm, well-perfused. No calf tenderness. No peripheral edema. NEUROLOGICAL: Cranial nerves II-XII intact. Normal speech. Normal gait. PSYCHIATRIC: Cooperative. Good eye contact. Appropriate mood and affect. SKIN: left lower leg redness, warm to touch, left inner leg ulceration 12/06/17 12/06/17 13:00 13:00 WBC 14.8 H D RBC 4.06 Hgb 12.3 Hct 38.0 MCV 93.8 MCH 30.4 MCHC 32.4 RDW 17.5 H Plt Count 118 L MPV 9.0 Neutrophils % 92.6 H Lymphocytes % 1.7 L D Monocytes % 4.3 Eosinophils % 0.6 Basophils % 0.8 Sodium 130 L Potassium 5.9 H D Chloride 95 L Carbon Dioxide 19 L Anion Gap 16 BUN 68 H Creatinine 5.9 H Creat Clearance w eGFR 9.47 Random Glucose 235 H Calcium 8.4 L Total Bilirubin 1.1 H AST 22 ALT 16 D Alkaline Phosphatase 233 H Creatine Kinase 66 Troponin I 0.13 H B-Natriuretic Peptide 583646.61 H Total Protein 7.7 Albumin 2.6 L ASSESSMENT/PLAN: Patient is a 72 year old male with a significant past medical history of ESRD on Dialysis (//Wednesday) via right arm AV fistula, CHF, afib, COPD, hypertension, hyperlipidemia, [place], defibrillator, and diabetes mellitus. He presents to the ED today with complaints of shortness of breath since yesterday. He reports that he has worsening shortness of breath associated with a productive cough with yellow sputum. He also notes that he left lower extremity ulcer is painful with pain and swelling of the left lower extremity which continues to worsen. The patient denies any fevers, chest pain or dizziness. No jaw pain no upper extremity pain. Not nauseous or vomiting. ID: Meets SIRS criteria Blood culture/urine cultures sent Given Vanco in ED Pt reports yellow sputum, will sent sputum culture Also has left lower ext cellulitis/ulcer, will consult vascular Monitor labs, vitals ID consulted for antibiotic therapy Pulm: Rule out PNA sputum culture Chest xray with no change since 11/25/17 Supplemental oxygen @ 2 liters Pulm consult Vascular Left lower ext cellulitis, ulcer ID and Vascular consult negative for DVT per doppler left tibia xray pending Given Vanco Renal: ESRD Appears to be volume overloaded BNP elevated For dialysis today Renal following Card: CHF Afib HTN Hyperlipidemia No chest pain on admission Trend trops On Coumadin with alternative doses for afib Continue Coumadin, INR ordered Cardiology consulted Endocrine: Diabetes Mellitus, chronic BGM ac/hs Hmga1c F.E.N. Fluids: none Electrolytes: Repeat after dialysis Nutrition: diabetic/renal diet Prophy: DVT: Hepariin GI: deferred Disposition: full code Hospitalist Screening - Colonoscopy Questionnaire Colonoscopy Questionnaire: Colonoscopy Questionnaire
[2017-12-06] MEDS ORDERED: SODIUM CHLORIDE 250 ML IV PRN (20:23)
[2017-12-06] MEDS ORDERED: HEPARIN NA (PORCINE) 5,000 UNITS/ML 1ML VIAL IVPUSH ONE (20:30)
[2017-12-06] MEDS ORDERED: WARFARIN NA 2.5 MG TABLET (FP) PO ONE (21:00)
[2017-12-06] MEDS ORDERED: ACETAMINOPHEN 325 MG TABLET (FP) ONE (21:47)
[2017-12-06] MEDS: ACETAMINOPHEN 325 MG TABLET (FP) PO PRN (23:00)
[2017-12-06 23:32] LABS: PROTHROMBIN TIME (PATIENT) 48.5 SEC (9.98-11.88)
[2017-12-06 23:35] LABS: INR 4.29 (0.82-1.09)
--- NOTE | 2017-12-06 23:44 | EKG ---
Test Reason : Blood Pressure : / mmHG Vent. Rate : 076 BPM Atrial Rate : 073 BPM P-R Int : 000 ms QRS Dur : 166 ms QT Int : 452 ms P-R-T Axes : 000 263 088 degrees QTc Int : 508 ms Ventricular-paced rhythm ABNORMAL ECG WHEN COMPARED WITH ECG OF 25-NOV-2017 12:27, NO SIGNIFICANT CHANGE WAS FOUND Confirmed by SONIA READ MD ([id number]) on 12/06/2017 11:44:04 PM Referred By: Confirmed By:SONIA READ MD
[2017-12-07] MEDS: ATORVASTATIN CA 10 MG TABLET (FP) PO SCH ×2 (01:33→21:15)
[2017-12-07] MEDS: DOCUSATE SODIUM 100 MG CAPSULE (FP) PO SCH ×3 (01:33→21:15)
[2017-12-07] MEDS: INSULIN SLIDING SCALE (NOVOLOG) 1 VIAL SQ SCH ×4 (01:42→20:10)
[2017-12-07] MEDS: LEVOTHYROXINE NA 125 MCG TABLET (FP) PO SCH (06:00)
[2017-12-07] MEDS ORDERED: PT OWN MED DRAWER 7, Y5N ONE (06:49)
[2017-12-07 09:19] LABS: LDL CHOLESTEROL (ONLY SJRH) 37 mg/dL (5-100); TRIGLYCERIDES 71 mg/dL (35-160)
[2017-12-07 09:27] LABS: CHOLESTEROL 83 mg/dL (50-200); HDL CHOLESTEROL 38 mg/dL (40-60)
[2017-12-07 10:20] LABS: HEMATOCRIT 37.7 % (35.4-49); HEMOGLOBIN 12.2 GM/dL (11.7-16.9); MCH 30.5 pg (25.7-33.7); MCHC 32.4 g/dl (32.0-35.9); MEAN CELL VOLUME 94.3 fl (80-96); MEAN PLT VOLUME 8.3 fl (7.5-11.1); PLATELET COUNT 96 K/MM3 (134-434); RDW 17.9 % (11.9-15.9); WHITE BLOOD COUNT 14.8 K/mm3 (4.0-10.0)
[2017-12-07] MEDS: PANTOPRAZOLE 40 MG TABLET (FP) PO SCH (10:20)
[2017-12-07 10:55] LABS: CHLORIDE 100 mmol/L (98-107); POTASSIUM 4.3 mmol/L (3.5-5.1); SODIUM 137 mmol/L (136-145)
[2017-12-07 11:05] LABS: ALBUMIN 2.6 g/dl (3.4-5.0); ALK PHOS 186 U/L (45-117); ANION GAP 14 (8-16); BLOOD UREA NITROGEN 48 mg/dL (7-18); CALCIUM 8.1 mg/dL (8.5-10.1); CO2 23 mmol/L (21-32); CREATININE 4.9 mg/dL (0.7-1.3); GLUCOSE,RANDOM 81 mg/dL (74-106); SGOT/AST 31 U/L (15-37); SGPT/ALT 22 U/L (12-78); TOT PROT 7.2 g/dl (6.4-8.2)
--- NOTE | 2017-12-07 11:21 | CONSULT ---
Consult - text type - Consultation Consultation Note: Renal Consult for ESRD on HD This is a 72 year old gentleman with PMhx of ESRD on HD, Hypertension, CHF, Hyperlipidemia, DM who presented with SOB and hyperkalemia. Pt also reports brusing and swelling of his left LE. Denies any trauma to the leg. Denies any pain. s/p urgent dialysis yesterday evening with improvement in his symptoms. No N/V/D. Reports compliance with dialysis and dietary restrictions. PMHx: as above Allergies: Iodine Family Hx: NC Social Hx: No T/A/D ROS: as per HPI Home Medications Medication Instructions Recorded Simvastatin [Zocor -] 20 mg PO HS 10/29/12 Warfarin Sodium [Coumadin] 5 mg PO TU 10/29/12 Levothyroxine [Synthroid -] 125 mcg PO DAILY 06/26/14 Docusate Sodium [Colace -] 100 mg PO BID 07/19/14 Nut.tx.impaired Renal Fxn,Soy 1 ml PO ASDIR 07/19/14 [Nepro] Pantoprazole Sodium [Protonix -] 40 mg PO DAILY 07/19/14 Warfarin Na [Coumadin -] 2.5 mg PO SUMOWETHFRSA 07/19/14 Albuterol Sulfate Inhaler - 1 - 2 inh PO Q4H PRN 08/10/17 [Ventolin HFA Inhaler -] Insulin (Levemir) [Levemir Flexpen 7 units SQ BID 08/10/17 -] Vital Signs Temperature 97.4 F L 12/07/17 06:00 Pulse Rate 75 12/07/17 06:00 Respiratory Rate 18 12/07/17 06:00 Blood Pressure 145/77 12/07/17 06:00 O2 Sat by Pulse Oximetry (%) 99 12/07/17 00:35 Intake & Output 12/04/17 12/05/17 12/06/17 12/07/17 23:59 23:59 23:59 23:59 Intake Total 240 30 Balance 240 30 Weight 57.606 kg 55.792 kg NAD on NC O2 MMM, No JVD, neck supple RRR, No M/R Dec Bs at lung bases but no rales soft NT/ND 1+ edema in b/l LE, bursing and skin tears on left LE Right arm AVF + thrill CBC, BMP 12/07/17 08:15 12/07/17 08:15 Laboratory Tests 08/12/17 08/12/17 12/07/17 05:05 08:40 07:50 Calcium 8.3 L 8.1 L Phosphorus 5.0 H D Magnesium 2.0 Total Bilirubin 1.0 Albumin 2.9 L 2.6 L Random Vancomycin 21.280 Current Medications Acetaminophen (Tylenol -) 650 mg PO Q6H PRN PRN Reason: PAIN LEVEL 6-10 Last Admin: 12/06/17 23:00 Dose: 650 mg Atorvastatin Calcium (Lipitor -) 10 mg PO HS [facility] Last Admin: 12/07/17 01:33 Dose: 10 mg Docusate Sodium (Colace -) 100 mg PO BID [facility] Last Admin: 12/07/17 10:20 Dose: 100 mg Sodium Chloride (Normal Saline -) 250 mls @ 3,000 mls/hr IV PRN PRN PRN Reason: Hypotension during Dialysis Stop: 12/07/17 20:22 Insulin Aspart (Novolog Vial Sliding Scale -) 1 vial SQ ACHS [facility] PRN Reason: Protocol Last Admin: 12/07/17 06:00 Dose: 4 units Levothyroxine Sodium (Synthroid -) 125 mcg PO DAILY@0700 [facility] Last Admin: 12/07/17 06:00 Dose: 125 mcg Pantoprazole Sodium (Protonix -) 40 mg PO DAILY [facility] Last Admin: 12/07/17 10:20 Dose: 40 mg 72 year old gentleman with PMhx of ESRD on HD, Hypertension, CHF, Hyperlipidemia , DM who presented with SOB and hyperkalemia #Fluid Overload #CHF #ESRD on HD #Hypertension #Hyperkalemia #Thrombocytopenia Will arrange for additional dialysis today with UF as tolerated Additional HD/UF as needed to maintain evolemia Maintain on low salt diet and fluid restriction Cardiology follow up BP is acceptable off antihypertensives, expect BP to improve with UF Renal Diet Pt has chronic thrombocytopenia, will avoid heparin with HD US showed no DVT in LT, XRay showed no fracture pain control Thank you Antonio Koroma DO
[2017-12-07] MEDS ORDERED: SODIUM CHLORIDE 250 ML IV PRN (11:44)
--- NOTE | 2017-12-07 12:08 | CON.CARD ---
Cardiology Consult (text) - Consultation Consultation Note: cc: sob, cough, chills hpi: 72 yo with hx cad s/p pci (chet lpl1 2007, cath 05/2015: patent lpl1 stent , residual om1 60-70 (unchanged from 2011 cath), htn, hld, ICD, dm, copd, esrd on hd, chronic afib, here with sob/cough and le wound. worsening shortness of breath associated with a productive cough with yellow sputum. He also notes that he left lower extremity ulcer is painful with pain and swelling of the left lower extremity which continues to worsen. s/p urgent HD yesterday evening. No cp, palps, dizzy, loc, pnd, orthopnea, le edema. Sees Dr. Workman for cardio. pmh: per hpi psh: icd social: ex tob fam: no premature cad, scd ros: per hpi; no fcs, nvd, szymanski, vision changes, wt loss, gib, hematuria, dysuria , muscle pain meds: Ambulatory Orders Simvastatin [Zocor -] 20 mg PO HS 10/29/12 Warfarin Sodium [Coumadin] 5 mg PO TU 10/29/12 Levothyroxine [Synthroid -] 125 mcg PO DAILY 06/26/14 Docusate Sodium [Colace -] 100 mg PO BID 07/19/14 Nut.tx.impaired Renal Fxn,Soy [Nepro] 1 ml PO ASDIR 07/19/14 Pantoprazole Sodium [Protonix -] 40 mg PO DAILY 07/19/14 Warfarin Na [Coumadin -] 2.5 mg PO SUMOWETHFRSA 07/19/14 Albuterol Sulfate Inhaler - [Ventolin HFA Inhaler -] 1 - 2 inh PO Q4H PRN Insulin (Levemir) [Levemir Flexpen -] 7 units SQ BID 08/10/17 Current Medications Acetaminophen (Tylenol -) 650 mg PO Q6H PRN PRN Reason: PAIN LEVEL 6-10 Last Admin: 12/06/17 23:00 Dose: 650 mg Atorvastatin Calcium (Lipitor -) 10 mg PO HS [facility] Last Admin: 12/07/17 01:33 Dose: 10 mg Docusate Sodium (Colace -) 100 mg PO BID [facility] Last Admin: 12/07/17 10:20 Dose: 100 mg Sodium Chloride (Normal Saline -) 250 mls @ 3,000 mls/hr IV PRN PRN PRN Reason: Hypotension during Dialysis Stop: 12/07/17 20:22 Sodium Chloride (Normal Saline -) 250 mls @ 3,000 mls/hr IV PRN PRN PRN Reason: Hypotension during Dialysis Stop: 12/08/17 11:44 Insulin Aspart (Novolog Vial Sliding Scale -) 1 vial SQ ACHS [facility] PRN Reason: Protocol Last Admin: 12/07/17 12:03 Dose: Not Given Levothyroxine Sodium (Synthroid -) 125 mcg PO DAILY@0700 [facility] Last Admin: 12/07/17 06:00 Dose: 125 mcg Pantoprazole Sodium (Protonix -) 40 mg PO DAILY [facility] Last Admin: 12/07/17 10:20 Dose: 40 mg Tramadol HCl (Ultram -) 50 mg PO Q12H PRN PRN Reason: PAIN LEVEL 6-10 Vital Signs - 24 hr 12/06/17 12/06/17 12/06/17 12:41 20:35 20:40 Temperature 98.6 F 98.4 F Pulse Rate 104 H 88 86 Pulse Rate [ 98 H Left Apical] Respiratory 16 18 18 Rate Blood Pressure 129/95 132/94 Blood Pressure 112/57 [Left Arm] O2 Sat by Pulse 96 Oximetry (%) 12/06/17 12/06/17 12/06/17 21:00 21:10 21:40 Temperature 99.2 F Pulse Rate 85 82 85 Pulse Rate [ Left Apical] Respiratory 18 18 18 Rate Blood Pressure 118/56 127/44 132/100 Blood Pressure [Left Arm] O2 Sat by Pulse 989 H Oximetry (%) 12/06/17 12/06/17 12/06/17 22:10 22:40 23:10 Temperature Pulse Rate 81 99 H 73 Pulse Rate [ Left Apical] Respiratory 18 18 18 Rate Blood Pressure 143/47 133/41 119/65 Blood Pressure [Left Arm] O2 Sat by Pulse Oximetry (%) 12/06/17 12/07/17 12/07/17 23:40 00:00 00:35 Temperature 98.1 F Pulse Rate 75 78 75 Pulse Rate [ Left Apical] Respiratory 18 18 18 Rate Blood Pressure 101/55 120/62 118/74 Blood Pressure [Left Arm] O2 Sat by Pulse 99 Oximetry (%) 12/07/17 06:00 Temperature 97.4 F L Pulse Rate 75 Pulse Rate [ Left Apical] Respiratory 18 Rate Blood Pressure 145/77 Blood Pressure [Left Arm] O2 Sat by Pulse Oximetry (%) Intake & Output 12/05/17 12/06/17 12/07/17 12/08/17 07:59 07:59 07:59 07:59 Intake Total 270 Balance 270 Weight 123 lb nad no jvd rrr, s1s2 no mrg cta bl nl eff aaox3 trace le edema bl, no c/c + LE wound on left abd nt nd pos bs no jaundice diaphoresis pos dp pt no carotid bruits CBC, BMP 12/07/17 08:15 Laboratory Tests 11/25/17 12/06/17 12/06/17 12:38 13:00 19:20 INR Sodium 130 L Creatinine 6.3 H 5.9 H Total Bilirubin AST ALT Alkaline Phosphatase Troponin I 0.13 H 0.16 H 12/06/17 12/06/17 12/07/17 22:30 22:30 07:50 INR 4.29 H* D Sodium Creatinine Total Bilirubin 1.0 AST 31 D ALT 22 D Alkaline Phosphatase 186 H D Troponin I 0.16 H ekg- vpaced cxr: no infiltrates Echo 07/2017: mild conc lvh, nl lv/rv, mod [place], mild MR/TR. small pericardial eff, rvsp 50-60 L/RHC 2014: wedge 22, PA 70/22, RA 14, C.I. normal (2.6). stent LPL1 patent; 60- 70% OM1; 70-80% small RCA (med mngd) A/P sob, volume overload, acute diast chf, -fluid mgmt per renal (HD) -mgm't of possible copd component per pum cad s/p remote pci: -no signs/sx of acs, ce's intermediate elevation x3. flat trend in setting of underlying ckd. no concern for acs. -cath 2014 no ischemia-causing dz (small RCA with stenosis--med mngd) -nl lvef -cont statin, ac (no asa) -not on bb due to copd copd: -per pmd htn: -currently controlled off meds. hld: -cont statin icd: -follows at [facility], con't outpatient monitoring. May be seeing Dr. workman now? will check office notes. -unclear why has ICD (? low lvef in past that has since improved) afib: -cont warfarin, dose per INRs here -not on bb anymore due to copd, rate controlled off meds for now, monitor ESRD, on HD: -dialysis schedule per renal LE wound - per pmd
--- NOTE | 2017-12-07 15:54 | PN ---
Progress Note (short form) - Note Progress Note: ID consult dictated imp/reccd leukocytosis-f/u blood cultures volume overload - improved with HD, now denies cough or SOB and feels welll ( second HD) left leg with hematoma?- reports this occurred after a tape was removed from his leg leaving a small hole ?secondary to coagulopathy received vancomycin in Ed would check level in am no real component of cellulitis to the leg at this time esrd/hd suggest vascular to see for the LLE chronic thrombocytopenia enterococcal bacteremia in 07/2017, f/u repeat blood cultures Problem List - Problems (1) Leukocytosis Code(s): D72.829 - ELEVATED WHITE BLOOD CELL COUNT, UNSPECIFIED (2) ESRD (end stage renal disease) Code(s): N18.6 - END STAGE RENAL DISEASE (3) Hematoma Code(s): T14.8XXA - OTHER INJURY OF UNSPECIFIED BODY REGION, INITIAL ENCOUNTER
[2017-12-07] MEDS: traMADol HCL 50 MG TABLET PO PRN (17:24)
--- NOTE | 2017-12-07 19:30 | PN ---
Progress Note, Physician Chief Complaint: PATIENT SEEN AND EXAMINED NOTES REVIEWED THIS IS MY FIRST ENCOUNTER WITH THIS PATIENT - Current Medication List Current Medications: Active Medications Acetaminophen (Tylenol -) 650 mg PO Q6H PRN PRN Reason: PAIN LEVEL 6-10 Last Admin: 12/06/17 23:00 Dose: 650 mg Atorvastatin Calcium (Lipitor -) 10 mg PO HS [facility] Last Admin: 12/07/17 01:33 Dose: 10 mg Docusate Sodium (Colace -) 100 mg PO BID [facility] Last Admin: 12/07/17 10:20 Dose: 100 mg Sodium Chloride (Normal Saline -) 250 mls @ 3,000 mls/hr IV PRN PRN PRN Reason: Hypotension during Dialysis Stop: 12/07/17 20:22 Sodium Chloride (Normal Saline -) 250 mls @ 3,000 mls/hr IV PRN PRN PRN Reason: Hypotension during Dialysis Stop: 12/08/17 11:44 Insulin Aspart (Novolog Vial Sliding Scale -) 1 vial SQ ACHS [facility] PRN Reason: Protocol Last Admin: 12/07/17 12:03 Dose: Not Given Levothyroxine Sodium (Synthroid -) 125 mcg PO DAILY@0700 [facility] Last Admin: 12/07/17 06:00 Dose: 125 mcg Pantoprazole Sodium (Protonix -) 40 mg PO DAILY [facility] Last Admin: 12/07/17 10:20 Dose: 40 mg Tramadol HCl (Ultram -) 50 mg PO Q12H PRN PRN Reason: PAIN LEVEL 6-10 Last Admin: 12/07/17 17:24 Dose: 50 mg - Objective Vital Signs: Vital Signs Temperature 97.2 F L 12/07/17 15:05 Pulse Rate 77 12/07/17 17:55 Respiratory Rate 18 12/07/17 17:55 Blood Pressure 126/64 12/07/17 17:55 O2 Sat by Pulse Oximetry (%) 100 12/07/17 09:00 Constitutional: Yes: Mild Distress Eyes: Yes: WNL HENT: Yes: WNL Neck: Yes: WNL Cardiovascular: Yes: Pulse Irregular Respiratory: Yes: WNL Gastrointestinal: Yes: WNL Genitourinary: Yes: Other Musculoskeletal: Yes: Muscle Weakness Extremities: Yes: Deformity, Erythema Edema: Yes Peripheral Pulses WNL: Yes Integumentary: Yes: Pressure Ulcer, Venous Stasis Changes Wound/Incision: Yes: Dressing Dry and Intact Neurological: Yes: Pre-Existing Deficit ...Motor Strength: LLE, RLE Psychiatric: Yes: Other Labs: CBC, BMP 12/07/17 08:15 12/07/17 08:15 INR, PTT INR 4.29 (0.82-1.09) H* D 12/06/17 22:30 Problem List - Problems (1) Cellulitis Code(s): L03.90 - CELLULITIS, UNSPECIFIED Qualifiers: Site of cellulitis: unspecified site Qualified Code(s): L03.90 - Cellulitis , unspecified (2) ESRD (end stage renal disease) Code(s): N18.6 - END STAGE RENAL DISEASE (3) Hematoma Code(s): T14.8XXA - OTHER INJURY OF UNSPECIFIED BODY REGION, INITIAL ENCOUNTER (4) Leukocytosis Code(s): D72.829 - ELEVATED WHITE BLOOD CELL COUNT, UNSPECIFIED (5) AICD (automatic cardioverter/defibrillator) present Code(s): Z95.810 - PRESENCE OF AUTOMATIC (IMPLANTABLE) CARDIAC DEFIBRILLATOR (6) Bacteremia Code(s): R78.81 - BACTEREMIA (7) Bronchitis Code(s): J40 - BRONCHITIS, NOT SPECIFIED ACUTE OR CHRONIC (8) CHF (congestive heart failure) Code(s): I50.9 - HEART FAILURE, UNSPECIFIED (9) Cirrhosis Code(s): K74.60 - UNSPECIFIED CIRRHOSIS OF LIVER Qualifiers: Hepatic cirrhosis type: unspecified hepatic cirrhosis Assessment/Plan IV ABX VASC SX EVAL FOR LOWER EXTREMITY HEMATOMA/CELLULITIS ESRD ON HD RENAL F/U APPRECIATED HOLD COUMADIN FOR HIGH INR CHECK CBC AND INR IN AM PAIN MEDS
[2017-12-07] MEDS: ACETAMINOPHEN 325 MG TABLET (FP) PO PRN (21:15)
--- NOTE | 2017-12-07 22:07 | CONS ---
DATE OF CONSULTATION: 12/07/2017 This is a 72-year-old man who presented to the ER complaining of shortness of breath. As well, he has had progressive left lower extremity pain that he describes starting 3 weeks ago when he went for an MRI. They placed some sort of lead on his leg. When it was removed, it left a small hole, after which his leg became swollen and discolored. He denies any fevers or chills, chest pain. He was seen in the ER on the . He was found to be volume overloaded and hyperkalemic with a potassium of 5.9. He reports that he attends dialysis regularly. He had a chest x-ray that was notable for cardiomegaly. No real infiltrate. He underwent emergent dialysis yesterday. He was given a dose of vancomycin for possible cellulitis of the leg and I was asked to see him. Today he is on dialysis again, reporting feeling much better. He has no further shortness of breath. He has no cough. He denies any fevers or chills. He notes that as stated before, the leg incident happened after the lead was removed from his leg, which he thought left a small hole and he denies any trauma. He appears to have a large area of hematoma of blood. ALLERGIES: SHELLFISH AND IODINE. MEDICATIONS: Include Zocor, Coumadin, levothyroxine, Colace, Protonix, albuterol inhaler, and insulin. 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 He has a history of liver cirrhosis and is status post thyroidectomy. He has a defibrillator pacemaker in place. He has end-stage renal disease, on dialysis, and has had an AV fistula for 5 years. He has a history of prior Enterococcal bacteremia in July of 2017, and chronic thrombocytopenia. SOCIAL HISTORY: He is a former smoker. He quit 27 years ago. He lives at home with his . REVIEW OF SYSTEMS: His shortness of breath is completely resolved and he notes the discoloration of his left leg. PHYSICAL EXAMINATION: Vital Signs: He is afebrile, temperature 97.2, pulse is 71, blood pressure 149/59, respiratory rate is 18. HEENT: He is normocephalic. Eyes are anicteric. Neck: Supple. Lungs: Clear to auscultation. Heart: Regular rate and rhythm. Abdomen: Soft, nontender. Extremities: Notable for a hematoma of his left lower extremity. LABORATORY: His white count is 14.8, hemoglobin 12.2, platelets are 96,000. INR is 4.2. BUN of 48, creatinine 4.9. Blood cultures are negative after 24 hours. Chest x-ray reveals cardiomegaly with a pacemaker. Tibia-fibula x-rays are negative for fracture. Duplex of the left lower extremity is negative as well. IN SUMMARY: This is a 72-year-old man with leukocytosis. I recommend following up with the blood culture. He has no fevers. It is unclear as to what the source is. His volume overload is markedly improved with dialysis. The left leg has what appears to be a hematoma, which appears to be improving. He still has an elevated INR. I would suggest vascular disease of the left leg. I would check a vancomycin level in the morning. He received a dose last night. At this time, there is no real component of cellulitis to the leg. I would check a CBC as well in the morning to see if further workup is needed. Further recommendations to follow. Annita [id number]
[2017-12-08] MEDS: INSULIN SLIDING SCALE (NOVOLOG) 1 VIAL SQ SCH ×4 (00:14→17:55)
[2017-12-08] MEDS: LEVOTHYROXINE NA 125 MCG TABLET (FP) PO SCH (06:41)
[2017-12-08 07:36] LABS: HEMATOCRIT 37.8 % (35.4-49); HEMOGLOBIN 12.2 GM/dL (11.7-16.9); MCH 30.4 pg (25.7-33.7); MCHC 32.3 g/dl (32.0-35.9); MEAN CELL VOLUME 94.3 fl (80-96); MEAN PLT VOLUME 9.4 fl (7.5-11.1); PLATELET COUNT 101 K/MM3 (134-434); RBC 4.01 M/mm3 (4.00-5.60); RDW 17.7 % (11.9-15.9); WHITE BLOOD COUNT 13.3 K/mm3 (4.0-10.0)
[2017-12-08 07:40] LABS: INR 3.21 (0.82-1.09); PROTHROMBIN TIME (PATIENT) 36.3 SEC (9.98-11.88)
[2017-12-08] MEDS: PANTOPRAZOLE 40 MG TABLET (FP) PO SCH (09:21)
[2017-12-08] MEDS: DOCUSATE SODIUM 100 MG CAPSULE (FP) PO SCH ×2 (09:21→23:59)
--- NOTE | 2017-12-08 11:23 | PN ---
Progress Note, Physician Chief Complaint: AWAKE ALERT BEDSIDE NAD - Current Medication List Current Medications: Active Medications Acetaminophen (Tylenol -) 650 mg PO Q6H PRN PRN Reason: PAIN LEVEL 6-10 Last Admin: 12/07/17 21:15 Dose: 650 mg Atorvastatin Calcium (Lipitor -) 10 mg PO HS [facility] Last Admin: 12/07/17 21:15 Dose: 10 mg Docusate Sodium (Colace -) 100 mg PO BID [facility] Last Admin: 12/08/17 09:21 Dose: 100 mg Sodium Chloride (Normal Saline -) 250 mls @ 3,000 mls/hr IV PRN PRN PRN Reason: Hypotension during Dialysis Stop: 12/08/17 11:44 Insulin Aspart (Novolog Vial Sliding Scale -) 1 vial SQ ACHS [facility] PRN Reason: Protocol Last Admin: 12/08/17 06:41 Dose: Not Given Levothyroxine Sodium (Synthroid -) 125 mcg PO DAILY@0700 [facility] Last Admin: 12/08/17 06:41 Dose: 125 mcg Pantoprazole Sodium (Protonix -) 40 mg PO DAILY [facility] Last Admin: 12/08/17 09:21 Dose: 40 mg Tramadol HCl (Ultram -) 50 mg PO Q12H PRN PRN Reason: PAIN LEVEL 6-10 Last Admin: 12/07/17 17:24 Dose: 50 mg - Objective Vital Signs: Vital Signs Temperature 97.9 F 12/08/17 06:00 Pulse Rate 70 12/08/17 06:00 Respiratory Rate 18 12/08/17 06:00 Blood Pressure 114/46 12/08/17 06:00 O2 Sat by Pulse Oximetry (%) 98 12/07/17 21:00 Constitutional: Yes: No Distress Eyes: Yes: WNL, Occular Prosthesis Neck: Yes: WNL Cardiovascular: Yes: Other Respiratory: Yes: WNL Gastrointestinal: Yes: WNL Musculoskeletal: Yes: Muscle Weakness Extremities: Yes: Erythema Edema: No Peripheral Pulses WNL: Yes Integumentary: Yes: Erythema, Pressure Ulcer Wound/Incision: Yes: Open to air, Draining, Reddened, Excoriated, Unapproximated Neurological: Yes: Pre-Existing Deficit ...Motor Strength: LLE Psychiatric: Yes: WNL Labs: CBC, BMP 12/08/17 07:05 12/07/17 08:15 INR, PTT INR 3.21 (0.82-1.09) H 12/08/17 07:05 Problem List - Problems (1) Cellulitis Code(s): L03.90 - CELLULITIS, UNSPECIFIED Qualifiers: Site of cellulitis: unspecified site Qualified Code(s): L03.90 - Cellulitis , unspecified (2) ESRD (end stage renal disease) Code(s): N18.6 - END STAGE RENAL DISEASE (3) Hematoma Code(s): T14.8XXA - OTHER INJURY OF UNSPECIFIED BODY REGION, INITIAL ENCOUNTER (4) Leukocytosis Code(s): D72.829 - ELEVATED WHITE BLOOD CELL COUNT, UNSPECIFIED (5) AICD (automatic cardioverter/defibrillator) present Code(s): Z95.810 - PRESENCE OF AUTOMATIC (IMPLANTABLE) CARDIAC DEFIBRILLATOR (6) Bacteremia Code(s): R78.81 - BACTEREMIA (7) Bronchitis Code(s): J40 - BRONCHITIS, NOT SPECIFIED ACUTE OR CHRONIC (8) CHF (congestive heart failure) Code(s): I50.9 - HEART FAILURE, UNSPECIFIED (9) Cirrhosis Code(s): K74.60 - UNSPECIFIED CIRRHOSIS OF LIVER Qualifiers: Hepatic cirrhosis type: unspecified hepatic cirrhosis (10) Decubitus ulcer of left leg, stage 1 Code(s): L89.891 - PRESSURE ULCER OF OTHER SITE, STAGE 1 Assessment/Plan AWAIT BLOOD CX HD PER NEPHROLOGY IV ABX PER ID WOUND CARE MONITOR LABS
[2017-12-08] MEDS: BACITRACIN 15 GM TUBE TOPICAL OINTMENT TP SCH (12:00)
--- NOTE | 2017-12-08 12:57 | CONSULT ---
- Consultation REQUESTING PROVIDER: CONSULT REQUEST: We have been asked to surgically evaluate this patient for left leg weeping/blisters. PCP:Loida Jimenez HISTORY OF PRESENT ILLNESS:The patient is a 72 yo male with a h/o DM, ESRD on HD , afib who presented to the ER for Left lower ext wounds and SOB. He states that several weeks ago he was in the ER when they did an EKG. When the EKG sticker was removed he had a skin tear. Since then he has developed worsening pain, weeping from his leg. He denies any SOB/CP/Fevers. PMHx: CHF, afib, COPD, hypertension, hyperlipidemia, and diabetes mellitus PSHx: pacemaker insertion, thyroidectomy, R arm AV fistula Home Medications Medication Instructions Recorded Simvastatin [Zocor -] 20 mg PO HS 10/29/12 Warfarin Sodium [Coumadin] 5 mg PO TU 10/29/12 Levothyroxine [Synthroid -] 125 mcg PO DAILY 06/26/14 Docusate Sodium [Colace -] 100 mg PO BID 07/19/14 Nut.tx.impaired Renal Fxn,Soy 1 ml PO ASDIR 07/19/14 [Nepro] Pantoprazole Sodium [Protonix -] 40 mg PO DAILY 07/19/14 Warfarin Na [Coumadin -] 2.5 mg PO SUMOWETHFRSA 07/19/14 Albuterol Sulfate Inhaler - 1 - 2 inh PO Q4H PRN 08/10/17 [Ventolin HFA Inhaler -] Insulin (Levemir) [Levemir Flexpen 7 units SQ BID 08/10/17 -] Allergies Allergy/AdvReac Type Severity Reaction Status Date / Time iodine Allergy TONGUE Verified 12/06/17 12:02 SWELLING shellfish derived Allergy Hives Verified 12/06/17 12:02 IV CONTRAST Allergy "RASH" Uncoded 12/06/17 12:02 REVIEW OF SYSTEMS: CONSTITUTIONAL: Absent: fever, chills CARDIOVASCULAR: Absent: chest pain, syncope, palpitations RESPIRATORY: Present: cough, shortness of breath GASTROINTESTINAL: Absent: nausea, vomiting SKIN: Present:Left leg skin sloughing, oozing PHYSICAL EXAM: GENERAL: Awake, alert, and fully oriented, in no acute distress. HEAD: Normal with no signs of trauma. UPPER EXTREMITIES:RUE with fistula, gd thrill/bruit LOWER EXTREMITIES: 1+ pulses, warm, well-perfused. No ulcers to feet/toes/ heels. b/l legs with chronic venous stasis changes. Left leg with blister and sloughing skin over from ankle to knee circumfrential. Left leg with slight swelling in comparison to the right. NEUROLOGICAL: Normal speech, gait not observed. PSYCH: Cooperative. Good eye contact. Appropriate mood and affect. Vital Signs Temperature 97.9 F 12/08/17 06:00 Pulse Rate 70 12/08/17 06:00 Respiratory Rate 18 12/08/17 06:00 Blood Pressure 114/46 12/08/17 06:00 O2 Sat by Pulse Oximetry (%) 98 12/07/17 21:00 Lab Results WBC 13.3 K/mm3 (4.0-10.0) H 12/08/17 07:05 RBC 4.01 M/mm3 (4.00-5.60) 12/08/17 07:05 Hgb 12.2 GM/dL (11.7-16.9) 12/08/17 07:05 Hct 37.8 % (35.4-49) 12/08/17 07:05 MCV 94.3 fl (80-96) 12/08/17 07:05 MCHC 32.3 g/dl (32.0-35.9) 12/08/17 07:05 RDW 17.7 % (11.9-15.9) H 12/08/17 07:05 Plt Count 101 K/MM3 (134-434) L 12/08/17 07:05 Sodium 137 mmol/L (136-145) 12/07/17 07:50 Potassium 4.3 mmol/L (3.5-5.1) D 12/07/17 07:50 Chloride 100 mmol/L (98-107) 12/07/17 07:50 Carbon Dioxide 23 mmol/L (21-32) D 12/07/17 07:50 Anion Gap 14 (8-16) 12/07/17 07:50 BUN 48 mg/dL (7-18) H D 12/07/17 07:50 Creatinine 4.9 mg/dL (0.7-1.3) H 12/07/17 07:50 Random Glucose 81 mg/dL (74-106) D 12/07/17 07:50 Calcium 8.1 mg/dL (8.5-10.1) L 12/07/17 07:50 INR 3.21 (0.82-1.09) H 12/08/17 07:05 12/06- left LE xray-no fracture/tissue swelling noted 12/06-duplex-no evidence of DVT Problem List - Problems (1) ESRD (end stage renal disease) Assessment/Plan: Continue HD via RUE fistula Code(s): N18.6 - END STAGE RENAL DISEASE (2) Blister Assessment/Plan: 72 yo male with DM/chronic venous statsis and Blister/sloughing skin from skin tear D/w Dr. Farris, local wound care ordered. Calcium alginate to open areas, kerlix and aspen wrap from foot to knee. Leg elevation. No tape to skin F/u in wound clinic after discharge from the hospital Code(s): T14.8XXA - OTHER INJURY OF UNSPECIFIED BODY REGION, INITIAL ENCOUNTER Visit type - Case Type Case Type: ED Admission - Emergency Emergency Visit: Yes ED Registration Date: 12/06/17 Care time: The patient presented to the Emergency Department on the above date and was hospitalized for further evaluation of their emergent condition. - New patient This patient is new to me today: Yes Date on this admission: 12/08/17
[2017-12-08] MEDS ORDERED: SODIUM CHLORIDE 250 ML IV PRN ×3 (13:36→19:57)
[2017-12-08] MEDS: traMADol HCL 50 MG TABLET PO PRN (14:58)
[2017-12-08 15:52] LABS: ANION GAP 12 (8-16); BLOOD UREA NITROGEN 40 mg/dL (7-18); CHLORIDE 98 mmol/L (98-107); CO2 24 mmol/L (21-32); CREATININE 3.6 mg/dL (0.7-1.3); GLUCOSE,RANDOM 266 mg/dL (74-106); POTASSIUM 3.5 mmol/L (3.5-5.1); SODIUM 134 mmol/L (136-145)
--- NOTE | 2017-12-08 17:20 | PN ---
Progress Note (short form) - Note Progress Note: cc: sob, cough, chills S: getting HD today. no cp, palps, sob, dizziness. Current Medications Acetaminophen (Tylenol -) 650 mg PO Q6H PRN PRN Reason: PAIN LEVEL 6-10 Last Admin: 12/07/17 21:15 Dose: 650 mg Atorvastatin Calcium (Lipitor -) 10 mg PO HS [facility] Last Admin: 12/07/17 21:15 Dose: 10 mg Bacitracin (Bacitracin -) 1 applic TP BID [facility] Docusate Sodium (Colace -) 100 mg PO BID [facility] Last Admin: 12/08/17 09:21 Dose: 100 mg Sodium Chloride (Normal Saline -) 250 mls @ 3,000 mls/hr IV PRN PRN PRN Reason: Hypotension during Dialysis Stop: 12/08/17 11:44 Sodium Chloride (Normal Saline -) 250 mls @ 3,000 mls/hr IV PRN PRN PRN Reason: Hypotension during Dialysis Stop: 12/09/17 13:36 Insulin Aspart (Novolog Vial Sliding Scale -) 1 vial SQ ACHS [facility] PRN Reason: Protocol Last Admin: 12/08/17 12:25 Dose: 8 units Levothyroxine Sodium (Synthroid -) 125 mcg PO DAILY@0700 [facility] Last Admin: 12/08/17 06:41 Dose: 125 mcg Pantoprazole Sodium (Protonix -) 40 mg PO DAILY [facility] Last Admin: 12/08/17 09:21 Dose: 40 mg Tramadol HCl (Ultram -) 50 mg PO Q12H PRN PRN Reason: PAIN LEVEL 6-10 Last Admin: 12/08/17 14:58 Dose: 50 mg Vital Signs - 24 hr 12/07/17 12/07/17 12/07/17 17:25 17:55 18:25 Temperature Pulse Rate 55 L 77 74 Respiratory 18 18 18 Rate Blood Pressure 167/53 126/64 155/53 O2 Sat by Pulse Oximetry (%) 12/07/17 12/07/17 12/07/17 18:55 19:13 21:00 Temperature Pulse Rate 80 80 Respiratory 18 18 18 Rate Blood Pressure 125/74 134/83 O2 Sat by Pulse 98 Oximetry (%) 12/07/17 12/08/17 12/08/17 22:00 02:00 06:00 Temperature 97.4 F L 97.6 F 97.9 F Pulse Rate 72 70 Respiratory 18 18 Rate Blood Pressure 109/52 114/46 O2 Sat by Pulse Oximetry (%) 12/08/17 12/08/17 12/08/17 09:00 14:15 14:18 Temperature 97.5 F L Pulse Rate 69 75 Respiratory 18 18 18 Rate Blood Pressure 135/48 112/54 O2 Sat by Pulse 98 Oximetry (%) 12/08/17 12/08/17 12/08/17 14:35 15:05 15:35 Temperature Pulse Rate 79 89 72 Respiratory 18 18 18 Rate Blood Pressure 115/57 123/83 94/22 O2 Sat by Pulse Oximetry (%) 12/08/17 12/08/17 16:05 16:35 Temperature Pulse Rate 87 90 Respiratory 18 18 Rate Blood Pressure 101/48 114/31 O2 Sat by Pulse Oximetry (%) Intake & Output 12/06/17 12/07/17 12/08/17 12/09/17 07:59 07:59 07:59 07:59 Intake Total 270 1080 Balance 270 1080 Weight 123 lb nad no jvd rrr, s1s2 no mrg cta bl nl eff aaox3 trace le edema bl, no c/c + LE wound on left abd nt nd pos bs no jaundice diaphoresis dimished dp/pt. black dry necrosis at right UE fingertips. CBC, BMP 12/08/17 07:05 12/08/17 14:50 ekg- vpaced cxr: no infiltrates Echo 07/2017: mild conc lvh, nl lv/rv, mod [place], mild MR/TR. small pericardial eff, rvsp 50-60 L/RHC 2014: wedge 22, PA 70/22, RA 14, C.I. normal (2.6). stent LPL1 patent; 60- 70% OM1; 70-80% small RCA (med mngd) A/P sob, volume overload, acute diast chf, -fluid mgmt per renal (HD) -mgm't of possible copd component per pmd cad s/p remote pci: -no signs/sx of acs, ce's intermediate elevation x3. flat trend in setting of underlying ckd. no concern for acs. -cath 2014 no ischemia-causing dz (small RCA with stenosis--med mngd) -nl lvef -cont statin, ac (no asa) -not on bb due to copd copd: -per pmd htn: -currently controlled off meds. hld: -cont statin icd: -follows at [facility] for monitoring. (Dr. Valenzueal for other cv issues). con't outpatient monitoring. -unclear why has ICD (? low lvef in past that has since improved) afib: -cont warfarin, dose per INRs here -not on bb anymore due to copd, rate controlled off meds for now, monitor ESRD, on HD: -dialysis schedule per renal LE wound - per pmd/ID/vascular
--- NOTE | 2017-12-08 18:25 | PN ---
Progress Note (short form) - Note Progress Note: dialyzed again today leg seen by surgery blister unroofed- much improved Vital Signs Period Temp Pulse Resp BP Sys/Rea Pulse Ox Last 24 Hr 97.4 F-97.9 F 69-90 - 94-155/22-83 98-98 cor-rrr lungs clear abd soft,nt ext no erythema of the leg- blister open, leg is dry CBC, BMP 12/08/17 07:05 12/08/17 14:50 Microbiology 12/06/17 15:27 Blood - Peripheral Venous Blood Culture - Preliminary NO GROWTH OBTAINED AFTER 48 HOURS, INCUBATION TO CONTINUE FOR 3 DAYS. 12/06/17 15:27 Blood - Peripheral Venous Blood Culture - Preliminary NO GROWTH OBTAINED AFTER 48 HOURS, INCUBATION TO CONTINUE FOR 3 DAYS. 12/07/17 10:20 Sputum - Expectorated Sputum Culture - Preliminary NORMAL RESPIRATORY AIDA a/p leukocytosis-f/u blood cultures volume overload - improved with HD, left leg with hematoma?- reports this occurred after a tape was removed from his leg leaving a small hole ?secondary to coagulopathy cultures negative, no cellulitis, would observe off antibiotics esrd/hd suggest vascular to see for the LLE chronic thrombocytopenia Problem List - Problems (1) Leukocytosis Code(s): D72.829 - ELEVATED WHITE BLOOD CELL COUNT, UNSPECIFIED (2) ESRD (end stage renal disease) Code(s): N18.6 - END STAGE RENAL DISEASE (3) Hematoma Code(s): T14.8XXA - OTHER INJURY OF UNSPECIFIED BODY REGION, INITIAL ENCOUNTER
--- NOTE | 2017-12-08 19:56 | PN ---
Progress Note (short form) - Note Progress Note: Renal follow up for ESRD on HD Pt seen and examined at the bedside sob is improved but not at the baseline has new skin tear on LE edema persists Vital Signs Temperature 97.3 F L 12/08/17 18:45 Pulse Rate 73 12/08/17 18:45 Respiratory Rate 18 12/08/17 18:45 Blood Pressure 116/52 12/08/17 18:45 O2 Sat by Pulse Oximetry (%) 98 12/08/17 09:00 Intake & Output 12/05/17 12/06/17 12/07/17 12/08/17 23:59 23:59 23:59 23:59 Intake Total 240 630 680 Balance 240 630 680 Weight 57.606 kg 55.792 kg NAD on NC O2 MMM, No JVD, neck supple RRR, No M/R Dec Bs at lung bases but no rales soft NT/ND 1+ edema in b/l LE, bursing and skin tears on left LE Right arm AVF + thrill CBC, BMP 12/08/17 07:05 12/08/17 14:50 Current Medications Acetaminophen (Tylenol -) 650 mg PO Q6H PRN PRN Reason: PAIN LEVEL 6-10 Last Admin: 12/07/17 21:15 Dose: 650 mg Atorvastatin Calcium (Lipitor -) 10 mg PO HS [facility] Last Admin: 12/07/17 21:15 Dose: 10 mg Bacitracin (Bacitracin -) 1 applic TP BID [facility] Last Admin: 12/08/17 12:00 Dose: 1 applic Docusate Sodium (Colace -) 100 mg PO BID [facility] Last Admin: 12/08/17 09:21 Dose: 100 mg Sodium Chloride (Normal Saline -) 250 mls @ 3,000 mls/hr IV PRN PRN PRN Reason: Hypotension during Dialysis Stop: 12/08/17 11:44 Sodium Chloride (Normal Saline -) 250 mls @ 3,000 mls/hr IV PRN PRN PRN Reason: Hypotension during Dialysis Stop: 12/09/17 13:36 Insulin Aspart (Novolog Vial Sliding Scale -) 1 vial SQ ACHS [facility] PRN Reason: Protocol Last Admin: 12/08/17 17:55 Dose: 4 units Levothyroxine Sodium (Synthroid -) 125 mcg PO DAILY@0700 [facility] Last Admin: 12/08/17 06:41 Dose: 125 mcg Pantoprazole Sodium (Protonix -) 40 mg PO DAILY [facility] Last Admin: 12/08/17 09:21 Dose: 40 mg Tramadol HCl (Ultram -) 50 mg PO Q12H PRN PRN Reason: PAIN LEVEL 6-10 Last Admin: 12/08/17 14:58 Dose: 50 mg 72 year old gentleman with PMhx of ESRD on HD, Hypertension, CHF, Hyperlipidemia , DM who presented with SOB and hyperkalemia #Fluid Overload #CHF #ESRD on HD #Hypertension #Hyperkalemia #Thrombocytopenia s/p HD yesterday, will arrange for isolated UF today to improve volume status Fluid and salt restricton Renal Diet Vascular follow up Thank you Antonio Koroma DO
[2017-12-08] MEDS: ATORVASTATIN CA 10 MG TABLET (FP) PO SCH (23:59)
[2017-12-09] MEDS: traMADol HCL 50 MG TABLET PO PRN (00:02)
[2017-12-09] MEDS: INSULIN SLIDING SCALE (NOVOLOG) 1 VIAL SQ SCH ×4 (01:47→19:33)
[2017-12-09] MEDS: LEVOTHYROXINE NA 125 MCG TABLET (FP) PO SCH (06:25)
[2017-12-09 08:12] LABS: HBSAG SCREEN Negative (Negative); HEP B CORE AB, TOT Negative (Negative)
[2017-12-09] MEDS: ACETAMINOPHEN 325 MG TABLET (FP) PO PRN (10:48)
[2017-12-09] MEDS: PANTOPRAZOLE 40 MG TABLET (FP) PO SCH (10:49)
[2017-12-09] MEDS: DOCUSATE SODIUM 100 MG CAPSULE (FP) PO SCH (10:49)
--- NOTE | 2017-12-09 10:52 | DS ---
Physical Examination Vital Signs: Vital Signs Temperature 97.5 F L 12/09/17 06:00 Pulse Rate 71 12/09/17 06:00 Respiratory Rate 18 12/09/17 06:00 Blood Pressure 98/45 12/09/17 06:00 O2 Sat by Pulse Oximetry (%) 98 12/08/17 21:00 Findings/Remarks: AWAKE ALERT HARD OF HEARING NOTES REVIEWED OFF ABX Constitutional: Yes: No Distress Eyes: Yes: WNL HENT: Yes: WNL Neck: Yes: WNL Cardiovascular: Yes: WNL Respiratory: Yes: WNL Gastrointestinal: Yes: WNL Musculoskeletal: Yes: Muscle Weakness Extremities: Yes: Erythema Edema: No Peripheral Pulses WNL: Yes Integumentary: Yes: Pressure Ulcer, Skin Tear Wound/Incision: Yes: Dressing Dry and Intact Neurological: Yes: Pre-Existing Deficit ...Motor Strength: LLE, RLE Psychiatric: Yes: WNL Labs: CBC, BMP 12/08/17 07:05 12/08/17 14:50 Discharge Summary Reason For Visit: CELLULITIS,END-STAGE RENAL DISEASE Current Active Problems Blister (Acute) Cellulitis (Acute) Chronic venous stasis dermatitis (Acute) Decubitus ulcer of left leg, stage 1 (Acute) ESRD (end stage renal disease) (Acute) Hematoma (Acute) Leukocytosis (Acute) Procedures: Principal: VASCULAR WORKUP Hospital Course: ADMITTED IV ABX FOR CELLULITIS WOUND LEFT LEG ON HD ESRD. STOP ABX, WOUND CARE LEFT LEG Condition: Guarded - Instructions Diet, Activity, Other Instructions: RENAL DIET BACITRACIN WITH WOUND CARE LEFT LEG SEE DR ZAMORA NEXT WEEK HOLD COUMADIN FOR 2 DAYS. START COUMADIN THERAPY WednesdayNovember Referrals: Loida Zamora MD [Primary Care Provider] - Disposition: VNS/HOME HEALTH CARE - Home Medications Comprehensive Discharge Medication List: Ambulatory Orders Simvastatin [Zocor -] 20 mg PO HS 10/29/12 Warfarin Sodium [Coumadin] 5 mg PO TU 10/29/12 Levothyroxine [Synthroid -] 125 mcg PO DAILY 06/26/14 Docusate Sodium [Colace -] 100 mg PO BID 07/19/14 Nut.tx.impaired Renal Fxn,Soy [Nepro] 1 ml PO ASDIR 07/19/14 Pantoprazole Sodium [Protonix -] 40 mg PO DAILY 07/19/14 Warfarin Na [Coumadin -] 2.5 mg PO SUMOWETHFRSA 07/19/14 Albuterol Sulfate Inhaler - [Ventolin HFA Inhaler -] 1 - 2 inh PO Q4H PRN Insulin (Levemir) [Levemir Flexpen -] 7 units SQ BID 08/10/17 Acetaminophen [Tylenol .Regular Strength -] 650 mg PO Q6H PRN tablet 12/09/17 Bacitracin - [Bacitracin Topical Ointment -] 1 applic TP BID tube 12/09/17 Insulin Sliding Scale [Novolog Vial Sliding Scale -] 1 vial SQ ACHS units 12/09
[2017-12-09] MEDS ORDERED: INSULIN (NOVOLOG) ASPART 100 UNITS/ML 10ML VIAL ONE (11:14)
[2017-12-09] MEDS ORDERED: FUROSEMIDE 100 MG/10 ML INJECTABLE VIAL IVPB ONE (12:24)
[2017-12-09] MEDS ORDERED: FUROSEMIDE INJECTION 100 MG in SODIUM CHLORIDE 40 ML IVPB SCH (12:30)
[2017-12-09] MEDS: BACITRACIN 15 GM TUBE TOPICAL OINTMENT TP SCH ×2 (13:22)
[2017-12-09 16:24] LABS: HEMATOCRIT 33.4 % (35.4-49); HEMOGLOBIN 11.1 GM/dL (11.7-16.9); MCH 30.9 pg (25.7-33.7); MCHC 33.2 g/dl (32.0-35.9); MEAN PLT VOLUME 9.7 fl (7.5-11.1); PLATELET COUNT 106 K/MM3 (134-434); RBC 3.59 M/mm3 (4.00-5.60); RDW 17.3 % (11.9-15.9); WHITE BLOOD COUNT 13.2 K/mm3 (4.0-10.0)
[2017-12-09 16:45] VITALS: TEMP 98.4
[2017-12-09 17:00] LABS: ANION GAP 13 (8-16); BLOOD UREA NITROGEN 65 mg/dL (7-18); CHLORIDE 92 mmol/L (98-107); CO2 22 mmol/L (21-32); CREATININE 4.7 mg/dL (0.7-1.3); GLUCOSE,RANDOM 193 mg/dL (74-106); PHOSPHOROUS 5.2 mg/dL (2.5-4.9); POTASSIUM 4.5 mmol/L (3.5-5.1); SODIUM 127 mmol/L (136-145)
--- NOTE | 2017-12-09 17:26 | PN ---
Progress Note (short form) - Note Progress Note: Renal follow up for ESRD on HD Pt seen and examined during dialysis awake and alert BP low, will reduce UF goal Access with BFR at goal he reports some cramping in his left leg Vital Signs Temperature 98.4 F 12/09/17 15:35 Pulse Rate 75 12/09/17 17:10 Respiratory Rate 18 12/09/17 17:10 Blood Pressure 95/71 12/09/17 17:10 O2 Sat by Pulse Oximetry (%) 98 12/08/17 21:00 Intake & Output 12/06/17 12/07/17 12/08/17 12/09/17 23:59 23:59 23:59 23:59 Intake Total 240 630 800 Balance 240 630 800 Weight 57.606 kg 55.792 kg 53.932 kg NAD on NC O2 MMM, No JVD, neck supple RRR, No M/R Dec Bs at lung bases but no rales soft NT/ND 1+ edema in b/l LE, bursing and skin tears on left LE Right arm AVF + thrill CBC, BMP 12/09/17 15:50 12/09/17 15:50 Current Medications Acetaminophen (Tylenol -) 650 mg PO Q6H PRN PRN Reason: PAIN LEVEL 6-10 Last Admin: 12/09/17 10:48 Dose: 650 mg Atorvastatin Calcium (Lipitor -) 10 mg PO HS [facility] Last Admin: 12/08/17 23:59 Dose: 10 mg Bacitracin (Bacitracin -) 1 applic TP BID [facility] Last Admin: 12/09/17 13:22 Dose: 1 applic Docusate Sodium (Colace -) 100 mg PO BID [facility] Last Admin: 12/09/17 10:49 Dose: 100 mg Sodium Chloride (Normal Saline -) 250 mls @ 3,000 mls/hr IV PRN PRN PRN Reason: Hypotension during Dialysis Stop: 12/09/17 19:57 Insulin Aspart (Novolog Vial Sliding Scale -) 1 vial SQ ACHS [facility] PRN Reason: Protocol Last Admin: 12/09/17 11:18 Dose: 2 units Levothyroxine Sodium (Synthroid -) 125 mcg PO DAILY@0700 [facility] Last Admin: 12/09/17 06:25 Dose: 125 mcg Pantoprazole Sodium (Protonix -) 40 mg PO DAILY [facility] Last Admin: 12/09/17 10:49 Dose: 40 mg Tramadol HCl (Ultram -) 50 mg PO Q12H PRN PRN Reason: PAIN LEVEL 6-10 Last Admin: 12/09/17 00:02 Dose: 50 mg 72 year old gentleman with PMhx of ESRD on HD, Hypertension, CHF, Hyperlipidemia , DM who presented with SOB and hyperkalemia #Fluid Overload #CHF #ESRD on HD #Hypertension #Hyperkalemia #Thrombocytopenia tolerating dialysis well Volume status much improved reduced UF with HD today LE wound care discharge planning as per primary Thank you Antonio Koroma DO
[2017-12-09 19:24] VITALS: BP 116/59; PULSE 95
== END 2017-12-09 20:03 | disposition home health service (06) | DRG 291 ==
LOC: JER 11:50 → JERBED 18:14 → J5S 12-07 00:31
PROVIDERS: ADMIT Internal Medicine; ATTEND Family Medicine
PROC: 5A1D90Z Performance of Urinary Filtration, Continuous, Greater than 18 hours Per Day (ICD-10-PCS; principal; 2017-12-08)
DX: I13.2 Hypertensive heart and chronic kidney disease with heart failure and with stage 5 chronic kidney disease, or end stage renal disease (principal); N18.6 End stage renal disease; I50.31 Acute diastolic (congestive) heart failure; L03.116 Cellulitis of left lower limb; E11.22 Type 2 diabetes mellitus with diabetic chronic kidney disease; Z99.2 Dependence on renal dialysis; Z79.4 Long term (current) use of insulin; E78.5 Hyperlipidemia, unspecified; E87.70 Fluid overload, unspecified; D69.6 Thrombocytopenia, unspecified; D72.829 Elevated white blood cell count, unspecified; L89.891 Pressure ulcer of other site, stage 1; I25.10 Atherosclerotic heart disease of native coronary artery without angina pectoris; Z98.61 Coronary angioplasty status; Z95.810 Presence of automatic (implantable) cardiac defibrillator; J44.9 Chronic obstructive pulmonary disease, unspecified; I48.91 Unspecified atrial fibrillation
CPT/HCPCS: 36415; 71045-TC-FY; 73590-TC-LT-FY; 80048; 80053; 80061; 82550; 82962; 83036; 83721; 83735; 83880; 84100; 84443; 84484; 85025; 85027; 85610; 86704; 86706; 86708; 87040; 87070; 87186; 87205; 87340; 93005; 93010; 93971-TC; 99285-25; G0480; J1644

== ENCOUNTER 2017-12-10 11:40 | Inpatient (IN) | payer OTHER, MEDICARE ==
--- NOTE | 2017-12-10 11:55 | PDOC ---
Attending Attestation - Resident Resident Name: Ranulfo Flores - ED Attending Attestation I have performed the following: I have examined & evaluated the patient, The case was reviewed & discussed with the resident, I agree w/resident's findings & plan, Exceptions are as noted - HPI HPI: 72 yo M history ESRD on HD // and DM s/p recent hospitalization presents with episode of unresponsiveness, found to have severe hypoglycemia. He was given IV D10 by EMS with improvement in mental status. Currently awake, alert, answering questions. He states he has pain to the left leg. He was recently admitted and had a large blister on the leg that opened. He had bloody drainage at the time. He notes decreased sensation in the foot, but feels pain in the lower leg. No recent fevers, chills. He was dialyzed yesterday. - Physicial Exam PE: GENERAL: Awake, alert, and fully oriented, in no acute distress HEAD: No signs of trauma EYES: PERRLA, EOMI, sclera anicteric, conjunctiva clear ENT: Auricles normal inspection, hearing grossly normal, nares patent, oropharynx clear without exudates. Dry mucosa. Hard of hearing. NECK: Normal ROM, supple, no lymphadenopathy, JVD, or masses LUNGS: Breath sounds equal, clear to auscultation bilaterally. No wheezes, and no crackles HEART: Regular rate and rhythm, normal S1 and S2, no murmurs, rubs or gallops ABDOMEN: Soft, nontender, normoactive bowel sounds. No guarding, no rebound. No masses EXTREMITIES: RUE with dialysis fistula, +palpable thrill. Normal range of motion , no edema. No clubbing or cyanosis. No cords, erythema, or tenderness to RLE. Left lower leg erythematous with areas of sloughed skin. No purulent drainage. + Edema of the L foot with purple mottling. Difficult to palpate pulse to L foot due to edema. NEUROLOGICAL: Cranial nerves II through XII grossly intact. Normal speech. Motor intact. Dec sensation L leg. SKIN: Warm, Dry, normal turgor. See extremity exam for details. - Medical Decision Making Patient with large lesion to LLE. D/w Dr. Farris, who saw patient on prior admission, who stated that it was initially a large bullous lesion containing bloody fluid. It opened and drained during the admission. However, it is worse now. Discussed with Dr. Jaffe of ID as well- poss skin infection vs nec fasciitis. Poss TEN? It is an atypical presentation for any of these, however, infection is most likely case. Patient was heaton-cultured, admitted. Heart Score/ECG Review - ECG Impressions Comment:: EKG read 12:01- V-paced 74 bpm
[2017-12-10] MEDS ORDERED: SODIUM CHLORIDE 1,000 ML IV STA ×2 (12:18→13:36)
[2017-12-10] MEDS ORDERED: VANCOMYCIN 1,000 MG in DEXTROSE 5%-WATER - 250 ML IVPB ONE ×2 (12:19→13:33)
[2017-12-10] MEDS ORDERED: PIPERACILLIN/TAZOBACTAM 2.25 GM VIAL IVPB ONE ×2 (12:36→23:24)
--- NOTE | 2017-12-10 12:51 | PDOC ---
History of Present Illness - General Chief Complaint: Blood Sugar Problem Stated Complaint: Altered Mental Status Time Seen by Provider: 12/10/17 11:54 History Source: Patient Exam Limitations: No Limitations - History of Present Illness Initial Comments: 12/10/17 12:30 72yo M with history of ESRD (dialysis //Wed), diabetes, and recent hospitalization (discharged 12/09) for L lower extremity wound was found at his house unresponsive and was brought in by EMS. Pt was found to be hypotensive and hypoglycemic (<20 BG) and was given D10 en route. Pt's repeat glucometer reading showed 335 after the D10 injection. Pt is currently responsive and oriented x3. He states he was doing well at home last night and even ate this morning some eggs this morning. Pt states when he was in the bathroom this morning he noticed his leg began to hurt when standing on it. At this time pt forgets what has happened. Pt does endorse that his L leg is painful from the thigh down and that he has lost some feeling in his distal L lower extremity. Also he states his L foot is difficult to move, however he can still move it. Currently denies fever/chills, CP/discomfort, trauma to his head, lightheadedness, dizziness, abdominal pain. Past History - Past Medical History Allergies/Adverse Reactions: Allergies Allergy/AdvReac Type Severity Reaction Status Date / Time iodine Allergy TONGUE Verified 12/10/17 12:16 SWELLING shellfish derived Allergy Hives Verified 12/10/17 12:16 IV CONTRAST Allergy "RASH" Uncoded 12/10/17 12:16 Home Medications: Ambulatory Orders Simvastatin [Zocor -] 20 mg PO 10/29/12 Warfarin Sodium [Coumadin] 5 mg PO TU 10/29/12 Levothyroxine [Synthroid -] 125 mcg PO DAILY 06/26/14 Docusate Sodium [Colace -] 100 mg PO BID 07/19/14 Nut.tx.impaired Renal Fxn,Soy [Nepro] 1 ml PO ASDIR 07/19/14 Pantoprazole Sodium [Protonix -] 40 mg PO DAILY 07/19/14 Warfarin Na [Coumadin -] 2.5 mg PO SUMOWETHFRSA 07/19/14 Albuterol Sulfate Inhaler - [Ventolin HFA Inhaler -] 1 - 2 inh PO Q4H PRN Insulin (Levemir) [Levemir Flexpen -] 7 units SQ BID 08/10/17 Acetaminophen [Tylenol .Regular Strength -] 650 mg PO Q6H PRN tablet 12/09/17 Bacitracin - [Bacitracin Topical Ointment -] 1 applic TP BID tube 12/09/17 Insulin Sliding Scale [Novolog Vial Sliding Scale -] 1 vial SQ ACHS units 12/09 Anemia: Yes Asthma: No Cancer: Yes (SKIN) Cardiac Disorders: Yes (A FIB; ASHD) 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) COPD: Yes (BRONCHITIS 04/2014) CHF: Yes Dementia: No Diabetes: Yes (IDDM) GI Disorders: Yes (POLYPS) Disorders: No HTN: Yes Hypercholesterolemia: Yes Liver Disease: Yes (CIRRHOSIS) Seizures: No Thyroid Disease: Yes (THYROID REMOVED IN 1995) - Surgical History Abdominal Surgery: No Appendectomy: No Cardiac Surgery: Yes (DEFIB/PACEMEAKER, STENT) Cholecystectomy: No Lung Surgery: No Neurologic Surgery: No Orthopedic Surgery: No - Suicide/Smoking/Psychosocial Hx Smoking Status: Yes Smoking History: Never smoked Have you smoked in the past 12 months: No Number of Cigarettes Smoked Daily: 0 If you are a former smoker, when did you quit?: 27 YRS AGO Information on smoking cessation initiated: No Hx Alcohol Use: No Drug/Substance Use Hx: No Substance Use Type: None Hx Substance Use Treatment: No Review of Systems - Review of Systems Constitutional: No: Chills, Diaphoresis, Fever, Night Sweats, Weight Stable HEENTM: No: Nose Congestion, Throat Pain Respiratory: No: Cough, Shortness of Breath, Wheezing Cardiac (ROS): No: Chest Pain, Palpitations, Chest Tightness ABD/GI: Yes: Diarrhea. No: Abdominal Distended, Constipated, Nausea, Poor Appetite, Vomiting : No: Dysuria, Frequency Musculoskeletal: Yes: See HPI. No: Back Pain, Neck Pain Integumentary: Yes: See HPI Neurological: Yes: Numbness, Tingling. No: Headache, Dizziness Endocrine: No: Change in Weight *Physical Exam - Vital Signs Last Vital Signs Temp Pulse Resp BP Pulse Ox 97.4 F L 71 22 94/69 100 12/10/17 12:04 12/10/17 12:24 12/10/17 12:24 12/10/17 12:24 12/10/17 12:24 - Physical Exam Comments: 12/10/17 11:54 GEN: NAD, awake, alert, oriented x3, hard of hearing HEENT: EOMI, MARK, sclera anicteric, dry mucosa Neck: No JVD, soft LUNG: CTA b/l; no rhonchi wheezes rales CARDIAC: RRR, no murmurs appreciated ABD: Soft, NT/ND, normoactive BS, Heart Score/ECG Review #1 12/10/17 Ventricularly-paced rhythm; vent rate of 74bpm. ED Treatment Course - LABORATORY CBC & Chemistry Diagram: 12/11/17 06:22 12/11/17 06:22 - RADIOLOGY Radiology Studies Ordered: Category Date Time Status CXRPORT [CHEST X-RAY PORTABLE*] [RAD] Stat Radiology 12/10/17 12:29 Ordered Medical Decision Making - Medical Decision Making 12/10/17 13:14 DDx: TEN vs. Necrotizing fasciitis vs. other infectious causes --CBC, CMP, LA, 1L bolus, LE XR for subcutaneous air, Spoke with Dr. Koroma --If CTA needed okay to use contrast; can dialyze tomorrow Call placed for Dr. Jaffe 12/10/17 13:[address] Jaffe and Dr Farris at bedside --Lower wound (distal to major wound) cultured --Dopplerable DP pulse on LLE --Will cover with Vancomycin 1gm, Zosyn 3.35gm, and Clindamycin one time doses --Blood cultures --LA showing 5.8, WBC only 12,000's --CMP pending --Can do Lower extremity noncontrast CT for assessment of infectious causes/subcutaneous air 12/10/17 14:[address] Jimenez for admission; okay to accept for ICU inpatient *DC/Admit/Observation/Transfer Diagnosis at time of Disposition: Elevated lactic acid level, ESRD (end stage renal disease) Wound of left lower extremity Qualifiers: Encounter type: subsequent encounter Qualified Code(s): S81.802D - Unspecified open wound, left lower leg, subsequent encounter - Discharge Dispostion Condition at time of disposition: Stable Admit: Yes - Referrals - Patient Instructions - Post Discharge Activity
[2017-12-10] MEDS: PIPERACILLIN/TAZOB 2.25 GM/50 ML PREMIX BAG IVPB ONE ×2 (12:55→13:45)
[2017-12-10 13:20] LABS: MCH 30.4 pg (25.7-33.7); MCHC 32.4 g/dl (32.0-35.9); MEAN CELL VOLUME 93.6 fl (80-96); MEAN PLT VOLUME 10.1 fl (7.5-11.1); PLATELET COUNT 90 K/MM3 (134-434); RBC 3.63 M/mm3 (4.00-5.60); RDW 17.2 % (11.9-15.9); WHITE BLOOD COUNT 12.3 K/mm3 (4.0-10.0)
[2017-12-10] MEDS ORDERED: PIPERACIL/TAZOB 3.375 GM 3.375 GM/50 ML PREMIX IVPB ONE (13:33)
[2017-12-10] MEDS ORDERED: CLINDAMYCIN 600MG PREMIX IVPB 600 MG/50 ML BAG IVPB ONE ×2 (13:35→14:01)
[2017-12-10 13:44] LABS: ALBUMIN 2.1 g/dl (3.4-5.0); ANION GAP 17 (8-16); BILIRUBIN,TOTAL 1.9 mg/dL (0.2-1.0); BLOOD UREA NITROGEN 40 mg/dL (7-18); CALCIUM 7.9 mg/dL (8.5-10.1); CHLORIDE 93 mmol/L (98-107); CO2 22 mmol/L (21-32); CREATININE 3.5 mg/dL (0.7-1.3); POTASSIUM 4.7 mmol/L (3.5-5.1); SODIUM 132 mmol/L (136-145); TOT PROT 6.1 g/dl (6.4-8.2)
[2017-12-10 13:50] LABS: ALK PHOS 184 U/L (45-117)
[2017-12-10 13:51] LABS: SGOT/AST 1476 U/L (15-37); SGPT/ALT 486 U/L (12-78)
[2017-12-10 13:53] LABS: GLUCOSE,RANDOM 335 mg/dL (74-106)
[2017-12-10] MEDS ORDERED: VANCOMYCIN 1 GRAM (PRE-DOCKED) 1,000 MG/250 ML BAG IVPB ONE (14:01)
--- NOTE | 2017-12-10 14:11 | PN ---
Progress Note (short form) - Note Progress Note: ID consult dictated imp/reccd asked to see patient emergently in ED by ER staff he was just discharged home yesterday after a 3 day admission for volume overload he had a noted incidental large hematoma of the LLE that was unroofed by surgery he was discharged yesterday this am he was brought to ED after EMS was called- he was aparently hypotensive and hypoglycemic no fevers/chills, no seafood ingestion reports pain in his calf of the left foot foot is cold and dusky he is awake and appropriate he is [place] Vital Signs Period Temp Pulse Resp BP Sys/Rea Pulse Ox Last 24 Hr 97.4 F 71-75 14-22 94-111/15-69 97-100 cor-rrr lungs clear abd soft,nt +femoral pulses LLE is discolored below the knee and ecchymotic , foot is cool and dusky no crepitus noted labs are pending a/p r/o sepsis ?ischemic doubt necrotizing fascitis but unexplained hypoglycemia and worsening leg are concerning plan stat blood cultures, wound culture vancomycin/zosyn/clindamycin stat- d/w ER imaging of leg to r/o deep infection or vascular compromise vascular surgery to see- d/w Dr Farris multiple conversations with ED docs, vascular , ICU attending over 45 minutes spent in the care of this critically ill icu patient
[2017-12-10 14:15] LABS: PLATELET ESTIMATE DECREASED
[2017-12-10] MEDS ORDERED: PIPERACILLIN/TAZOB 3.375 GM 3.375 GM in DEXTROSE 5%-WATER - 50 ML IVPB ONE (14:15)
[2017-12-10 15:32] LABS: INR 3.41 (0.82-1.09); PROTHROMBIN TIME (PATIENT) 38.5 SEC (9.98-11.88)
[2017-12-10] MEDS ORDERED: ACETAMINOPHEN 325 MG TABLET (FP) PO PRN (15:51)
--- NOTE | 2017-12-10 16:49 | PN ---
Progress Note (short form) - Note Progress Note: Renal follow up for ESRD on HD This is a 72 year old gentleman with PMhx of ESRD on HD, Hypertension, CHD ( diastolic dysfunction), Afib on Coumadin, DM who presented from home with LOC and Hypoglycemia with hypotension, shock and worsening LE wounds. Pt s/p admission for HF/Volume overload with left LE brusing, and wounds and was discharged yesterday. Pt cannot receall events at home. Vital Signs Temperature 97.4 F L 12/10/17 12:04 Pulse Rate 75 12/10/17 16:13 Respiratory Rate 20 12/10/17 16:13 Blood Pressure 96/69 12/10/17 16:13 O2 Sat by Pulse Oximetry (%) 96 12/10/17 16:13 Vital Signs Temperature 97.4 F L 12/10/17 12:04 Pulse Rate 75 12/10/17 16:13 Respiratory Rate 20 12/10/17 16:13 Blood Pressure 96/69 12/10/17 16:13 O2 Sat by Pulse Oximetry (%) 96 12/10/17 16:13 NAD, awake and alert hard of hearing Dry MM, NO JVD Dec BS at lung bases soft NT/ND Left LE with brusing, skin tears, erythema and edema CBC, BMP 12/10/17 13:03 12/10/17 13:03 Current Medications Acetaminophen (Tylenol -) 650 mg PO Q6H PRN PRN Reason: PAIN LEVEL 6-10 Atorvastatin Calcium (Lipitor -) 10 mg PO HS LIEN Docusate Sodium (Colace -) 100 mg PO BID LIEN Clindamycin Phosphate (Cleocin 900 Mg Premix Ivpb -) 900 mg in 50 mls @ 100 mls /hr IVPB Q8H LIEN Piperacillin Sod/Tazobactam (Sod 2.25 gm/ Dextrose) 50 mls @ 100 mls/hr IVPB Q8H LIEN Levothyroxine Sodium (Synthroid -) 125 mcg PO 0700 LIEN Pantoprazole Sodium (Protonix -) 40 mg PO DAILY LIEN 72 year old gentleman with PMhx of ESRD on HD, Hypertension, CHD (diastolic dysfunction), Afib on Coumadin, DM who presented from home with LOC and Hypoglycemia with hypotension, shock and worsening LE wounds. #Shock r/o Sepsis #ESRD on HD #LE wounds #Anemia #Liver Injury #Afib on Coumadin Agree with ICU monitoring given hypotension and shock picture broad spectrum Abx coverage as per ID Check Cultures IVF to keep MAP > 65 Will access for HD tomorrow Trend LFTs Monitor respiratory status closely
[2017-12-10] MEDS ORDERED: SODIUM CHLORIDE 1,000 ML IV SCH (17:00)
--- NOTE | 2017-12-10 17:00 | PN ---
Progress Note (short form) - Note Progress Note: Vascular Surgery Pt seen and examined. Came back after he was DC home yest. Left foot -- motor intact. Dopplerable DP and PT pulse. CT of the leg shows no necrotizing changes. Pt on IV antibiotics. Pt going to the ICU . WBC is 12. Dress leg with ALVIN for compression. Therabond placed. Fabián Farris DO
[2017-12-10] MEDS ORDERED: PIPERACILLIN/TAZOB 2.25 GM/50 ML PREMIX BAG IVPB SCH ×2 (18:00→22:00)
[2017-12-10] MEDS ORDERED: PIPERACILLIN/TAZOB 2.25 GM 2.25 GM in DEXTROSE 5%-WATER - 50 ML IVPB SCH (18:00)
--- NOTE | 2017-12-10 18:01 | CONSULT ---
Consultation: Service: CCM CC: Hypotension and hypoglycemia PCP: Dr. Jimenez HPI: Briefly, 72 yo M h/o ESRD on HD and DM BIBEMS for hypotension and hypoglycemia. He was hospitalized for 4 days for worsening LE blisters and discharged yesterday. However, his LE continues to hurt with redness and skin starts to shed. Denies fever, chills, n/v, chest pain, shortness of breath. PMH: As above PSH: Defib/pacemaker and stent Social History: Former smoker quit at 27 yo Family History: Non-contributory Allergy: iodine, shellfish derived, iv contrast Home Meds: Simvastatin [Zocor -] 20 mg PO HS 10/29/12 Warfarin Sodium [Coumadin] 5 mg PO TU 10/29/12 Levothyroxine [Synthroid -] 125 mcg PO DAILY 06/26/14 Docusate Sodium [Colace -] 100 mg PO BID 07/19/14 Nut.tx.impaired Renal Fxn,Soy [Nepro] 1 ml PO ASDIR 07/19/14 Pantoprazole Sodium [Protonix -] 40 mg PO DAILY 07/19/14 Warfarin Na [Coumadin -] 2.5 mg PO SUMOWETHFRSA 07/19/14 Albuterol Sulfate Inhaler - [Ventolin HFA Inhaler -] 1 - 2 inh PO Q4H PRN Insulin (Levemir) [Levemir Flexpen -] 7 units SQ BID 08/10/17 Acetaminophen [Tylenol .Regular Strength -] 650 mg PO Q6H PRN tablet 12/09/17 Bacitracin - [Bacitracin Topical Ointment -] 1 applic TP BID tube 12/09/17 Insulin Sliding Scale [Novolog Vial Sliding Scale -] 1 vial SQ ACHS units 12/09 ROS: Constitutional: no fever, no loss of appetite, no weakness or weight change HEENT: No headache, nasal congestion, sore throat, ear pain, vision change Skin: +LLE skin blister and pain Cardiovascular: No chest pain or sob Pulmonary: No cough (dry or productive), colored sputum Endocrine: No polyuria, polydipsia, skin /hair changes, heat/cold intolerance. GI: No active abd pain, nausea or vomiting : No frequency, urgency, dysuria, or hematuria. MSK: No joint or muscle pain Psychology: No depression, anxiety, or insomnia. Physical Examination Temp Pulse Resp BP Pulse Ox 97.4 F L 75 20 96/69 96 12/10/17 12:04 12/10/17 16:13 12/10/17 16:13 12/10/17 16:13 12/10/17 17:11 GENERAL: AAO x 3, in no acute distress HEAD: No signs of trauma EYES: PERRLA, EOMI, sclera anicteric, conjunctiva pale ENT:nares patent, oropharynx clear without exudates. Dry mucosa NECK: Normal ROM, supple, no lymphadenopathy, JVD, or masses Lymph Nodes: No cervical or inguinal LAD. Cardiovascular: RRR, S1 and S2 normal, no m/g/r. Lungs: CTAB Abdomen: Normoactive bowel sounds. non-tender, no guarding/rebound Extremeties: cold L lower extremity, large blisters concentrated below the L knee with skin breakdown, erythema, no crepitus CBCD WBC 12.3 K/mm3 (4.0-10.0) H 12/10/17 13:03 RBC 3.63 M/mm3 (4.00-5.60) L 12/10/17 13:03 Hgb 11.0 GM/dL (11.7-16.9) L 12/10/17 13:03 Hct 34.0 % (35.4-49) L 12/10/17 13:03 MCV 93.6 fl (80-96) 12/10/17 13:03 MCHC 32.4 g/dl (32.0-35.9) 12/10/17 13:03 RDW 17.2 % (11.9-15.9) H 12/10/17 13:03 Plt Count 90 K/MM3 (134-434) L 12/10/17 13:03 MPV 10.1 fl (7.5-11.1) 12/10/17 13:03 CMP Sodium 132 mmol/L (136-145) L 12/10/17 13:03 Potassium 4.7 mmol/L (3.5-5.1) 12/10/17 13:03 Chloride 93 mmol/L (98-107) L 12/10/17 13:03 Carbon Dioxide 22 mmol/L (21-32) 12/10/17 13:03 Anion Gap 17 (8-16) H 12/10/17 13:03 BUN 40 mg/dL (7-18) H D 12/10/17 13:03 Creatinine 3.5 mg/dL (0.7-1.3) H D 12/10/17 13:03 Creat Clearance w eGFR 17.30 (>60) 12/10/17 13:03 Calcium 7.9 mg/dL (8.5-10.1) L 12/10/17 13:03 Total Bilirubin 1.9 mg/dL (0.2-1.0) H D 12/10/17 13:03 AST 1476 U/L (15-37) H 12/10/17 13:03 ALT 486 U/L (12-78) H D 12/10/17 13:03 Alkaline Phosphatase 184 U/L (45-117) H 12/10/17 13:03 Total Protein 6.1 g/dl (6.4-8.2) L 12/10/17 13:03 Albumin 2.1 g/dl (3.4-5.0) L 12/10/17 13:03 Imaging: CT of LLE without contrast on 12/10: No subcutaneous gas, b/l concentric subcutaneous edema A/P: 72 yo M admitted to ICU for severe sepsis. # Severe sepsis 2/2 skin wound in LLE # IDDM # ESRD on HD # Transaminitis - Cont. broad spectrum abx and fluid resuscitation, xeroform and ALVIN dressing, monitor vitals - Insulin sliding scale and DM diet - HD tomorrow - Likely shock liver, trend LFT and correct underlying sepsis [facility] PGY2 Pager: [phone] Visit type - Emergency Visit Emergency Visit: Yes ED Registration Date: 12/10/17 Care time: The patient presented to the Emergency Department on the above date and was hospitalized for further evaluation of their emergent condition. - New Patient This patient is new to me today: Yes Date on this admission: 12/10/17 - Critical Care Critical Care patient: Yes Total Critical Care Time (in minutes): 30 Critical Care Statement: The care of this patient involved high complexity decision making to prevent further life threatening deterioration of the patient 's condition and/or to evaluate & treat vital organ system(s) failure or risk of failure.
--- NOTE | 2017-12-10 20:44 | CONSULT ---
Consult Consult Specialty:: Pulm/CCM Reason for Consultation:: AMS - History of Present Illness History of Present Illness: 72yom with PMHx of ESRD (dialysis //Wed), DMII, recently hospitalized( discharged 12/09) for L lower extremity cellulitis and wound/venous stasis dermatitis who was brought in by EMS after as per report being found down and unresponsive at his house. Pt was hypotensive and hypoglycemic (<20 BG) and was given D10 en route. BG bumped to 300's s/p D10. In the ED he was responsive and A+Ox 3. T 97.4, HR 74, SBP 11o's, O2 sat 97% on room air. Labs notable for WBC 12.3, neuts 88.5%, Bands 2.1%, Plts 90, INR 3.41 , Lactate 5.8, Trop 0.52, AST/ALT 1476/486. He denied fever/chills, CP/ discomfort, trauma to his head, lightheadedness, dizziness, abdominal pain at that time. He states that his gave him his insulin, he ate his breakfast in the morning, had LLE pain and weakness and then does not remember what happened. He was transferred to ICU for further management. In the ICU rec'd somnolent, easily aroused, hard of hearing, confused. BP 88/53 , HR paced 73, O2 sat 92% on room air. 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 No: Alzheimer's Cardio/Vascular: Yes: CAD, CHF, HTN, Hyperlipdemia Pulmonary: Yes: Bronchitis, COPD Gastrointestinal: Yes: Other Hepatobiliary: Yes: Cirrhosis, Other (Gallbladder polyps, suspected liver cirrhosis) Renal/: Yes: Renal Failure (CKD on HD /), Hemodialysis ENT: Yes: Other (Hearing loss right ear) Endocrine: Yes: Diabetes Mellitus (DM II), Other (Multinoduilar thyroid goiter in the past) - Past Surgical History Past Surgical History: Yes: AICD (PPM/AICD), AV Fistula/Graft, Tonsillectomy - Alcohol/Substance Use Hx Alcohol Use: No History of Substance Use: reports: None - Smoking History Smoking history: Never smoked Have you smoked in the past 12 months: No Aproximately how many cigarettes per day: 0 If you are a former smoker, when did you quit?: 27 YRS AGO - Social History Usual Living Arrangement: With Spouse ADL: Independent 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 History of Recent Travel: No Home Medications - Allergies Allergies/Adverse Reactions: Allergies Allergy/AdvReac Type Severity Reaction Status Date / Time iodine Allergy TONGUE Verified 12/10/17 12:16 SWELLING shellfish derived Allergy Hives Verified 12/10/17 12:16 IV CONTRAST Allergy "RASH" Uncoded 12/10/17 12:16 - Home Medications Home Medications: Ambulatory Orders Simvastatin [Zocor -] 20 mg PO HS 10/29/12 Warfarin Sodium [Coumadin] 5 mg PO TU 10/29/12 Levothyroxine [Synthroid -] 125 mcg PO DAILY 06/26/14 Docusate Sodium [Colace -] 100 mg PO BID 07/19/14 Nut.tx.impaired Renal Fxn,Soy [Nepro] 1 ml PO ASDIR 07/19/14 Pantoprazole Sodium [Protonix -] 40 mg PO DAILY 07/19/14 Warfarin Na [Coumadin -] 2.5 mg PO SUMOWETHFRSA 07/19/14 Albuterol Sulfate Inhaler - [Ventolin HFA Inhaler -] 1 - 2 inh PO Q4H PRN Insulin (Levemir) [Levemir Flexpen -] 7 units SQ BID 08/10/17 Acetaminophen [Tylenol .Regular Strength -] 650 mg PO Q6H PRN tablet 12/09/17 Bacitracin - [Bacitracin Topical Ointment -] 1 applic TP BID tube 12/09/17 Insulin Sliding Scale [Novolog Vial Sliding Scale -] 1 vial SQ ACHS units 12/09 Family Disease History - Family Disease History Family History: Unremarkable Family Disease History: Other: Father (Alive: 96: healthy), Mother (: 89 : Alzheimer's dementia), Sister (: alcoholic liver disease/cirrhosis) Review of Systems Unable to obtain ROS, reason: Partial; pt confused - Review of Systems Constitutional: reports: Weakness Eyes: reports: No Symptoms HENT: reports: No Symptoms Neck: reports: No Symptoms Cardiovascular: reports: No Symptoms Gastrointestinal: reports: Diarrhea (reports few days of loose stools) Genitourinary: reports: No Symptoms Musculoskeletal: reports: Extremity Pain (LLE pain and immobility) Neurological: reports: Change in LOC, Dizziness Hematology/Lymphatic: reports: No Symptoms Physical Exam Vital Signs: Vital Signs Temperature 98.7 F 12/10/17 19:30 Pulse Rate 76 12/10/17 19:30 Respiratory Rate 18 12/10/17 19:30 Blood Pressure 113/67 12/10/17 19:30 O2 Sat by Pulse Oximetry (%) 96 12/10/17 17:11 Intake & Output 12/07/17 12/08/17 12/09/17 12/10/17 23:59 23:59 23:59 23:59 Intake Total 10 Balance 10 Weight 56.699 kg Constitutional: Yes: No Distress, Thin Eyes: Yes: EOM Intact, PERRL HENT: Yes: Atraumatic, Normocephalic Neck: Yes: Supple, Trachea Midline Cardiovascular: Yes: S1, S2, Other (Paced) Respiratory: Yes: Regular, CTA Bilaterally, On Nasal O2 Gastrointestinal: Yes: Normal Bowel Sounds, Soft Extremities: Yes: Other (venous stasis discoloration RUE AV fistula with +pulse and bruit) Edema: Yes Edema: LLE: Trace, RLE: Trace Integumentary: Yes: Venous Stasis Changes Wound/Incision: Yes: Dressing Dry and Intact, Other (unable to view LLE wound) Neurological: Yes: Alert, Other (waxing and waning confusion) ...Motor Strength: LLE (weak) Labs: CBC, BMP 12/10/17 13:03 12/10/17 13:03 CBC,CMP WBC 12.3 K/mm3 (4.0-10.0) H 12/10/17 13:03 RBC 3.63 M/mm3 (4.00-5.60) L 12/10/17 13:03 Hgb 11.0 GM/dL (11.7-16.9) L 12/10/17 13:03 Hct 34.0 % (35.4-49) L 12/10/17 13:03 MCV 93.6 fl (80-96) 12/10/17 13:03 MCH 30.4 pg (25.7-33.7) 12/10/17 13:03 MCHC 32.4 g/dl (32.0-35.9) 12/10/17 13:03 RDW 17.2 % (11.9-15.9) H 12/10/17 13:03 Plt Count 90 K/MM3 (134-434) L 12/10/17 13:03 MPV 10.1 fl (7.5-11.1) 12/10/17 13:03 Neutrophils % No Result Required. 12/10/17 13:03 Neutrophils % (Manual) 88.5 % (42.8-82.8) H 12/10/17 13:03 Band Neutrophils % 2.1 % 12/10/17 13:03 Lymphocytes % No Result Required. 12/10/17 13:03 Lymphocytes % (Manual) 3.1 % (8-40) L 12/10/17 13:03 Monocytes % (Manual) 4 % (3.8-10.2) 12/10/17 13:03 Eosinophils % (Manual) 0.0 % (0-4.5) 12/10/17 13:03 Basophils % (Manual) 0.0 % (0-2.0) 12/10/17 13:03 Myelocytes % (Man) 0 % (0-2) 12/10/17 13:03 Promyelocytes % (Man) 0 % (0-2) 12/10/17 13:03 Blast Cells % (Manual) 0 % (0-0) 12/10/17 13:03 Nucleated RBC % 0 % (0-0) 12/10/17 13:03 Metamyelocytes 0 % (0-2) 12/10/17 13:03 Platelet Estimate Decreased 12/10/17 13:03 Platelet Comment 12/10/17 13:03 Sodium 132 mmol/L (136-145) L 12/10/17 13:03 Potassium 4.7 mmol/L (3.5-5.1) 12/10/17 13:03 Chloride 93 mmol/L (98-107) L 12/10/17 13:03 Carbon Dioxide 22 mmol/L (21-32) 12/10/17 13:03 Anion Gap 17 (8-16) H 12/10/17 13:03 BUN 40 mg/dL (7-18) H D 12/10/17 13:03 Creatinine 3.5 mg/dL (0.7-1.3) H D 12/10/17 13:03 Creat Clearance w eGFR 17.30 (>60) 12/10/17 13:03 Random Glucose 335 mg/dL (74-106) H* D 12/10/17 13:03 Lactic Acid 4.2 mmol/L (0.0-2.0) H* 12/10/17 16:03 Calcium 7.9 mg/dL (8.5-10.1) L 12/10/17 13:03 Total Bilirubin 1.9 mg/dL (0.2-1.0) H D 12/10/17 13:03 AST 1476 U/L (15-37) H 12/10/17 13:03 ALT 486 U/L (12-78) H D 12/10/17 13:03 Alkaline Phosphatase 184 U/L (45-117) H 12/10/17 13:03 Creatine Kinase 341 IU/L (39-308) H 12/10/17 18:20 Creatine Kinase Index 4.0 % (0.0-5.0) 12/10/17 18:20 CK-MB (CK-2) 13.801 ng/mL (0.5-3.6) H 12/10/17 18:20 Troponin I 0.52 ng/ml (0.00-0.05) H 12/10/17 18:20 Total Protein 6.1 g/dl (6.4-8.2) L 12/10/17 13:03 Albumin 2.1 g/dl (3.4-5.0) L 12/10/17 13:03 TSH 5.03 uIU/ml (0.358-3.74) H D 12/10/17 13:03 Active Medications Acetaminophen (Tylenol -) 650 mg PO Q6H PRN PRN Reason: PAIN LEVEL 6-10 Atorvastatin Calcium (Lipitor -) 10 mg PO HS [facility] Docusate Sodium (Colace -) 100 mg PO BID [facility] Clindamycin Phosphate (Cleocin 900 Mg Premix Ivpb -) 900 mg in 50 mls @ 100 mls /hr IVPB Q8H [facility] Piperacillin Sod/Tazobactam (Sod 2.25 gm/ Dextrose) 50 mls @ 100 mls/hr IVPB Q8H [facility] Sodium Chloride (Normal Saline -) 1,000 mls @ 83 mls/hr IV ASDIR [facility]EN Stop: 12/11/17 04:59 Last Admin: 12/10/17 19:22 Dose: 83 mls/hr Insulin Human Regular 100 (units/ Sodium Chloride) 100 mls @ 5 mls/hr IVPB TITR LIEN; 5 UNITS/HR PRN Reason: Protocol Sodium Chloride (Normal Saline -) 500 mls @ 500 mls/hr IV ASDIR STA Stop: 12/10/17 22:25 Levothyroxine Sodium (Synthroid -) 125 mcg PO 0700 [facility] Pantoprazole Sodium (Protonix -) 40 mg PO DAILY [facility] Problem List - Problems (1) ESRD (end stage renal disease) Code(s): N18.6 - END STAGE RENAL DISEASE (2) Elevated lactic acid level Code(s): R79.89 - OTHER SPECIFIED ABNORMAL FINDINGS OF BLOOD CHEMISTRY (3) Wound of left lower extremity Code(s): S81.802A - UNSPECIFIED OPEN WOUND, LEFT LOWER LEG, INITIAL ENCOUNTER Qualifiers: Encounter type: subsequent encounter Qualified Code(s): S81.802D - Unspecified open wound, left lower leg, subsequent encounter (4) AICD (automatic cardioverter/defibrillator) present Code(s): Z95.810 - PRESENCE OF AUTOMATIC (IMPLANTABLE) CARDIAC DEFIBRILLATOR (5) CHF (congestive heart failure) Code(s): I50.9 - HEART FAILURE, UNSPECIFIED (6) Cellulitis Code(s): L03.90 - CELLULITIS, UNSPECIFIED Qualifiers: Site of cellulitis: unspecified site Qualified Code(s): L03.90 - Cellulitis , unspecified (7) Chronic venous stasis dermatitis Code(s): I87.2 - VENOUS INSUFFICIENCY (CHRONIC) (PERIPHERAL) (8) Cirrhosis Code(s): K74.60 - UNSPECIFIED CIRRHOSIS OF LIVER Qualifiers: Hepatic cirrhosis type: unspecified hepatic cirrhosis (9) Sepsis Code(s): A41.9 - SEPSIS, UNSPECIFIED ORGANISM Qualifiers: Sepsis type: sepsis due to unspecified organism Qualified Code(s): A41.9 - Sepsis, unspecified organism Assessment/Plan 72yom with PMHx of ESRD (dialysis //Wed), DMII, recently hospitalized( discharged 12/09) for L lower extremity cellulitis and extensive LLE wound/ venous stasis dermatitis who was brought in by EMS after being found down and unresponsive at his house. He is now admitted to ICU with AMS 2/2 metabolic encephalopathy in the setting of sepsis. Also with hypo now hyperglycemia, thrombocytepenia, supratherapeutic INR, demand ischemia, ? shock liver. Plan: - NC O2 for O2 sat>92% -Aspiration precautions -F/u cultures -Continue vanco(by level), zosyn, empiric antibiotics for LLE wound as per ID -Lower extremity dopplers -Derm consult for LLE dermatitis assessment -Surgery consult for wound management -Trend lactate -Hypotension-gentle fluid bolus -Low threshold for central line and pressors -Trend troponin -Heme/onc following- apprec recs -trend CBC and coags -Hold anticoagulation for INR>2 -Normal transfusion threshold -Check acetone, AGAP -Insulin drip for BG management -Fingersticks q1h -D5NS when BG<250 -Monitor and replete electrolytes -iHD in am as per renal -Renal dose meds -NPO for now re somnolence -GI prophylaxis, SCD to RLE EV Roy CC time 35mins
[2017-12-10] MEDS ORDERED: SODIUM CHLORIDE 500 ML IV STA (21:26)
[2017-12-10] MEDS ORDERED: INSULIN REGULAR 100 UNITS in SODIUM CHLORIDE 99 ML IVPB SCH (21:30)
[2017-12-10 22:15] VITALS: BMI 21.2
[2017-12-10 23:18] LABS: ANION GAP 11 (8-16); BLOOD UREA NITROGEN 44 mg/dL (7-18); CALCIUM 7.3 mg/dL (8.5-10.1); CHLORIDE 95 mmol/L (98-107); CO2 23 mmol/L (21-32); CREATININE 3.6 mg/dL (0.7-1.3); POTASSIUM 4.2 mmol/L (3.5-5.1); SODIUM 129 mmol/L (136-145)
[2017-12-10 23:25] LABS: INR 3.72 (0.82-1.09)
[2017-12-10] MEDS ORDERED: DEXTROSE 5%-WATER - 50 ML IVPB ONE (23:25)
[2017-12-10 23:26] LABS: ACETONE SERUM NEGATIVE (NEGATIVE)
[2017-12-10] MEDS: CLINDAMYCIN 900 MG PREMIX IVPB 900 MG/50 ML BAG IVPB SCH (23:26)
[2017-12-10] MEDS: ATORVASTATIN CA 10 MG TABLET (FP) PO SCH (23:27)
[2017-12-10] MEDS: DOCUSATE SODIUM 100 MG CAPSULE (FP) PO SCH (23:27)
[2017-12-10 23:28] LABS: ACTIVATED PTT 49.4 SECONDS (26.9-34.4)
[2017-12-10] MEDS: PIPERACILLIN/TAZOB 2.25 GM 2.25 GM in DEXTROSE 5%-WATER - 50 ML IVPB SCH (23:28)
[2017-12-10 23:30] LABS: GLUCOSE,RANDOM 393 mg/dL (74-106)
[2017-12-11] MEDS ORDERED: VANCOMYCIN 1,000 MG in DEXTROSE 5%-WATER - 250 ML IVPB ONE (00:59)
[2017-12-11] MEDS ORDERED: DEXTROSE 5%-WATER - 50 ML IVPB ONE ×3 (06:24→21:58)
[2017-12-11] MEDS ORDERED: PIPERACILLIN/TAZOBACTAM 2.25 GM VIAL IVPB ONE ×3 (06:24→21:58)
[2017-12-11] MEDS: PIPERACILLIN/TAZOB 2.25 GM 2.25 GM in DEXTROSE 5%-WATER - 50 ML IVPB SCH ×3 (06:26→22:02)
[2017-12-11] MEDS: CLINDAMYCIN 900 MG PREMIX IVPB 900 MG/50 ML BAG IVPB SCH ×3 (06:48→22:07)
[2017-12-11 06:56] LABS: BASO % 0.1 % (0-2.0); EOS % 0.5 % (0-4.5); HEMATOCRIT 31.5 % (35.4-49); HEMOGLOBIN 10.4 GM/dL (11.7-16.9); LYMPH % 4.2 % (8-40); MCHC 33.1 g/dl (32.0-35.9); MEAN CELL VOLUME 93.6 fl (80-96); MEAN PLT VOLUME 10.4 fl (7.5-11.1); MONO % 5.6 % (3.8-10.2); NEUT % 89.6 % (42.8-82.8); PLATELET COUNT 93 K/MM3 (134-434); RBC 3.37 M/mm3 (4.00-5.60); RDW 17.2 % (11.9-15.9); WHITE BLOOD COUNT 11.5 K/mm3 (4.0-10.0)
[2017-12-11] MEDS ORDERED: LEVOTHYROXINE NA 125 MCG TABLET (FP) PO SCH (07:00)
[2017-12-11] MEDS ORDERED: DEXTROSE 5%-NORMAL SALINE 1,000 ML IV SCH (07:00)
[2017-12-11 07:30] LABS: INR 4.69 (0.82-1.09)
[2017-12-11 07:34] LABS: ALBUMIN 1.7 g/dl (3.4-5.0); ANION GAP 10 (8-16); BILIRUBIN,TOTAL 1.1 mg/dL (0.2-1.0); BLOOD UREA NITROGEN 48 mg/dL (7-18); CALCIUM 7.3 mg/dL (8.5-10.1); CHLORIDE 99 mmol/L (98-107); CO2 25 mmol/L (21-32); CREATININE 3.9 mg/dL (0.7-1.3); GLUCOSE,RANDOM 72 mg/dL (74-106); POTASSIUM 3.9 mmol/L (3.5-5.1); SGPT/ALT 391 U/L (12-78); SODIUM 134 mmol/L (136-145); TOT PROT 5.4 g/dl (6.4-8.2)
[2017-12-11 07:52] LABS: ALK PHOS 164 U/L (45-117)
[2017-12-11 07:55] LABS: SGOT/AST 665 U/L (15-37)
--- NOTE | 2017-12-11 09:16 | PN ---
Progress Note (short form) - Note Progress Note: Patient seen and examined in the ICU. Awake and alert. Hemodynamics fluctuating. Denies CP or SOB. No dizziness. Intake & Output 12/08/17 12/09/17 12/10/17 12/11/17 23:59 23:59 23:59 23:59 Intake Total 798 1040 Output Total 0 Balance 798 1040 Weight 131 lb 5 oz 131 lb 5 oz Last Vital Signs Temp Pulse Resp BP Pulse Ox 98.4 F 73 25 H 82/50 96 12/11/17 02:00 12/11/17 02:00 12/11/17 02:00 12/11/17 02:00 12/10/17 17:11 Active Medications Acetaminophen (Tylenol -) 650 mg PO Q6H PRN PRN Reason: PAIN LEVEL 6-10 Atorvastatin Calcium (Lipitor -) 10 mg PO HS [facility] Last Admin: 12/10/17 23:27 Dose: 10 mg Docusate Sodium (Colace -) 100 mg PO BID [facility] Last Admin: 12/10/17 23:27 Dose: 100 mg Clindamycin Phosphate (Cleocin 900 Mg Premix Ivpb -) 900 mg in 50 mls @ 100 mls /hr IVPB Q8H [facility] Last Admin: 12/11/17 06:48 Dose: 100 mls/hr Piperacillin Sod/Tazobactam (Sod 2.25 gm/ Dextrose) 50 mls @ 100 mls/hr IVPB Q8H [facility] Last Admin: 12/11/17 06:26 Dose: 100 mls/hr Insulin Human Regular 100 (units/ Sodium Chloride) 100 mls @ 5 mls/hr IVPB TITR LIEN; 5 UNITS/HR PRN Reason: Protocol Last Titration: 12/11/17 07:07 Dose: 1 units/hr, 1 mls/hr Dextrose/Sodium Chloride (D5-Ns -) 1,000 mls @ 83 mls/hr IV ASDIR [facility] Last Admin: 12/11/17 07:07 Dose: 83 mls/hr Levothyroxine Sodium (Synthroid -) 125 mcg PO 0700 [facility] Last Admin: 12/11/17 06:26 Dose: 125 mcg Pantoprazole Sodium (Protonix -) 40 mg PO DAILY [facility] Constitutional: Yes: No Distress, Thin Eyes: Yes: EOM Intact, PERRL HENT: Yes: Atraumatic, Normocephalic Neck: Yes: Supple, Trachea Midline Cardiovascular: Yes: S1, S2, Other (Paced) Respiratory: Yes: Regular, CTA Bilaterally, On Nasal O2 Gastrointestinal: Yes: Normal Bowel Sounds, Soft Extremities: Yes: Other (venous stasis discoloration RUE AV fistula with +pulse and bruit) Edema: Yes Edema: LLE: Trace, RLE: Trace Integumentary: Yes: Venous Stasis Changes Wound/Incision: Yes: Dressing Dry and Intact, Other (unable to view LLE wound) Neurological: Yes: Alert, Other (waxing and waning confusion) ...Motor Strength: LLE (weak) Labs: Laboratory Results - last 24 hr 12/10/17 12/10/17 12/10/17 13:03 13:03 13:03 WBC 12.3 H RBC 3.63 L Hgb 11.0 L Hct 34.0 L MCV 93.6 MCH 30.4 MCHC 32.4 RDW 17.2 H Plt Count 90 L MPV 10.1 Neutrophils % No Result Required. Neutrophils % (Manual) 88.5 H Band Neutrophils % 2.1 Lymphocytes % No Result Required. Lymphocytes % (Manual) 3.1 L Monocytes % Monocytes % (Manual) 4 Eosinophils % Eosinophils % (Manual) 0.0 Basophils % Basophils % (Manual) 0.0 Myelocytes % (Man) 0 Promyelocytes % (Man) 0 Blast Cells % (Manual) 0 Nucleated RBC % 0 Metamyelocytes 0 Platelet Estimate Decreased Platelet Comment PT with INR INR PTT (Actin FS) Fibrinogen Sodium 132 L Potassium 4.7 Chloride 93 L Carbon Dioxide 22 Anion Gap 17 H BUN 40 H D Creatinine 3.5 H D Creat Clearance w eGFR 17.30 Random Glucose 335 H* D Lactic Acid 5.8 H* Calcium 7.9 L Total Bilirubin 1.9 H D AST 1476 H ALT 486 H D Alkaline Phosphatase 184 H Creatine Kinase 310 H Creatine Kinase Index 3.7 CK-MB (CK-2) 11.5 H Troponin I 0.41 H D Total Protein 6.1 L Albumin 2.1 L TSH 5.03 H D Random Vancomycin Acetone, Qual 12/10/17 12/10/17 12/10/17 14:41 16:03 18:20 WBC RBC Hgb Hct MCV MCH MCHC RDW Plt Count MPV Neutrophils % Neutrophils % (Manual) Band Neutrophils % Lymphocytes % Lymphocytes % (Manual) Monocytes % Monocytes % (Manual) Eosinophils % Eosinophils % (Manual) Basophils % Basophils % (Manual) Myelocytes % (Man) Promyelocytes % (Man) Blast Cells % (Manual) Nucleated RBC % Metamyelocytes Platelet Estimate Platelet Comment PT with INR 38.50 H INR 3.41 H PTT (Actin FS) Fibrinogen Sodium Potassium Chloride Carbon Dioxide Anion Gap BUN Creatinine Creat Clearance w eGFR Random Glucose Lactic Acid 4.2 H* Calcium Total Bilirubin AST ALT Alkaline Phosphatase Creatine Kinase 341 H Creatine Kinase Index 4.0 CK-MB (CK-2) 13.801 H Troponin I 0.52 H Total Protein Albumin TSH Random Vancomycin Acetone, Qual 12/10/17 12/10/17 12/10/17 21:55 21:55 23:00 WBC RBC Hgb Hct MCV MCH MCHC RDW Plt Count MPV Neutrophils % Neutrophils % (Manual) Band Neutrophils % Lymphocytes % Lymphocytes % (Manual) Monocytes % Monocytes % (Manual) Eosinophils % Eosinophils % (Manual) Basophils % Basophils % (Manual) Myelocytes % (Man) Promyelocytes % (Man) Blast Cells % (Manual) Nucleated RBC % Metamyelocytes Platelet Estimate Platelet Comment PT with INR INR PTT (Actin FS) Fibrinogen Sodium 129 L Potassium 4.2 Chloride 95 L Carbon Dioxide 23 Anion Gap 11 BUN 44 H Creatinine 3.6 H Creat Clearance w eGFR Random Glucose 393 H* Lactic Acid 3.3 H* Calcium 7.3 L Total Bilirubin AST ALT Alkaline Phosphatase Creatine Kinase Creatine Kinase Index CK-MB (CK-2) Troponin I Total Protein Albumin TSH Random Vancomycin 3.604 Acetone, Qual Negative 12/10/17 12/10/17 12/11/17 23:00 23:00 06:22 WBC 11.5 H RBC 3.37 L Hgb 10.4 L Hct 31.5 L MCV 93.6 MCH 31.0 MCHC 33.1 RDW 17.2 H Plt Count 93 L MPV 10.4 Neutrophils % 89.6 H Neutrophils % (Manual) Band Neutrophils % Lymphocytes % 4.2 L D Lymphocytes % (Manual) Monocytes % 5.6 Monocytes % (Manual) Eosinophils % 0.5 Eosinophils % (Manual) Basophils % 0.1 Basophils % (Manual) Myelocytes % (Man) Promyelocytes % (Man) Blast Cells % (Manual) Nucleated RBC % Metamyelocytes Platelet Estimate Platelet Comment PT with INR 42.00 H INR 3.72 H PTT (Actin FS) 49.4 H D Fibrinogen 503.0 H D Sodium Potassium Chloride Carbon Dioxide Anion Gap BUN Creatinine Creat Clearance w eGFR Random Glucose Lactic Acid Calcium Total Bilirubin AST ALT Alkaline Phosphatase Creatine Kinase Creatine Kinase Index CK-MB (CK-2) Troponin I Total Protein Albumin TSH Random Vancomycin Acetone, Qual 12/11/17 12/11/17 06:22 06:22 WBC RBC Hgb Hct MCV MCH MCHC RDW Plt Count MPV Neutrophils % Neutrophils % (Manual) Band Neutrophils % Lymphocytes % Lymphocytes % (Manual) Monocytes % Monocytes % (Manual) Eosinophils % Eosinophils % (Manual) Basophils % Basophils % (Manual) Myelocytes % (Man) Promyelocytes % (Man) Blast Cells % (Manual) Nucleated RBC % Metamyelocytes Platelet Estimate Platelet Comment PT with INR 53.00 H INR 4.69 H* PTT (Actin FS) Fibrinogen Sodium 134 L Potassium 3.9 Chloride 99 Carbon Dioxide 25 Anion Gap 10 BUN 48 H Creatinine 3.9 H Creat Clearance w eGFR 15.27 Random Glucose 72 L D Lactic Acid Calcium 7.3 L Total Bilirubin 1.1 H D AST 665 H D ALT 391 H Alkaline Phosphatase 164 H Creatine Kinase 246 Creatine Kinase Index CK-MB (CK-2) Troponin I 0.72 H* D Total Protein 5.4 L Albumin 1.7 L TSH Random Vancomycin Acetone, Qual Problem List - Problems (1) ESRD (end stage renal disease) Code(s): N18.6 - END STAGE RENAL DISEASE (2) Elevated lactic acid level Code(s): R79.89 - OTHER SPECIFIED ABNORMAL FINDINGS OF BLOOD CHEMISTRY (3) Wound of left lower extremity Code(s): S81.802A - UNSPECIFIED OPEN WOUND, LEFT LOWER LEG, INITIAL ENCOUNTER Qualifiers: Encounter type: subsequent encounter Qualified Code(s): S81.802D - Unspecified open wound, left lower leg, subsequent encounter (4) AICD (automatic cardioverter/defibrillator) present Code(s): Z95.810 - PRESENCE OF AUTOMATIC (IMPLANTABLE) CARDIAC DEFIBRILLATOR (5) CHF (congestive heart failure) Code(s): I50.9 - HEART FAILURE, UNSPECIFIED (6) Cellulitis Code(s): L03.90 - CELLULITIS, UNSPECIFIED Qualifiers: Site of cellulitis: unspecified site Qualified Code(s): L03.90 - Cellulitis , unspecified (7) Chronic venous stasis dermatitis Code(s): I87.2 - VENOUS INSUFFICIENCY (CHRONIC) (PERIPHERAL) (8) Cirrhosis Code(s): K74.60 - UNSPECIFIED CIRRHOSIS OF LIVER Qualifiers: Hepatic cirrhosis type: unspecified hepatic cirrhosis (9) Sepsis Code(s): A41.9 - SEPSIS, UNSPECIFIED ORGANISM Qualifiers: Sepsis type: sepsis due to unspecified organism Qualified Code(s): A41.9 - Sepsis, unspecified organism Assessment/Plan AMS due to metabolic encephalopathy in the setting of sepsis. Hyperglycemia Thrombocytepenia Supratherapeutic INR (?) demand ischemia (?) shock liver. Plan: Heme evaluation NC O2 for O2 sat>92% Aspiration precautions F/u cultures ABX per ID Derm consult for LLE dermatitis assessment Surgery for wound management TLC and pressors as needed Hold anticoagulation for INR>2 Normal transfusion threshold Glycemic control HD per Renal Dr Gonsalves Critical care time spent in reviewing chart, evaluating patient and formulating plan - 36 minutes.
[2017-12-11] MEDS ORDERED: PANTOPRAZOLE 40 MG TABLET (FP) PO SCH (10:00)
[2017-12-11] MEDS: DOCUSATE SODIUM 100 MG CAPSULE (FP) PO SCH ×2 (10:17→21:42)
--- NOTE | 2017-12-11 10:19 | HP ---
Admitting History and Physical - Admission History of Present Illness: 72yo M with history of ESRD (dialysis //Wed), diabetes, and recent hospitalization (discharged 12/09) for L lower extremity wound was found at his house unresponsive and was brought in by EMS. Pt was found to be hypotensive and hypoglycemic (<20 BG) and was given D10 en route. Pt's repeat glucometer reading showed 335 after the D10 injection. Pt is currently responsive and oriented x3. He states he was doing well at home Pt states when he was in the bathroom this morning he noticed his leg began to hurt when standing on it. At this time pt forgets what has happened. Pt does endorse that his L leg is painful from the thigh down and that he has lost some feeling in his distal L lower extremity. 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 No: Alzheimer's Cardiovascular: Yes: CAD, CHF, HTN, Hyperlipdemia Pulmonary: Yes: Bronchitis, COPD Gastrointestinal: Yes: Other Hepatobiliary: Yes: Cirrhosis, Other (Gallbladder polyps, suspected liver cirrhosis) Renal/: Yes: Renal Failure (CKD on HD //Wed), Hemodialysis ENT: Yes: Other (Hearing loss right ear) Endocrine: Yes: Diabetes Mellitus (DM II), Other (Multinoduilar thyroid goiter in the past) - Past Surgical History Past Surgical History: Yes: AICD (PPM/AICD), AV Fistula/Graft, Tonsillectomy - Smoking History Smoking history: Never smoked Have you smoked in the past 12 months: No Aproximately how many cigarettes per day: 0 If you are a former smoker, when did you quit?: 27 YRS AGO - Alcohol/Substance Use Hx Alcohol Use: No History of Substance Use: reports: None - Social History ADL: Independent 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 History of Recent Travel: No Home Medications - Allergies Allergies/Adverse Reactions: Allergies Allergy/AdvReac Type Severity Reaction Status Date / Time iodine Allergy TONGUE Verified 12/10/17 12:16 SWELLING shellfish derived Allergy Hives Verified 12/10/17 12:16 IV CONTRAST Allergy "RASH" Uncoded 12/10/17 12:16 - Home Medications Home Medications: Ambulatory Orders Simvastatin [Zocor -] 20 mg PO HS 10/29/12 Warfarin Sodium [Coumadin] 5 mg PO TU 10/29/12 Levothyroxine [Synthroid -] 125 mcg PO DAILY 06/26/14 Docusate Sodium [Colace -] 100 mg PO BID 07/19/14 Nut.tx.impaired Renal Fxn,Soy [Nepro] 1 ml PO ASDIR 07/19/14 Pantoprazole Sodium [Protonix -] 40 mg PO DAILY 07/19/14 Warfarin Na [Coumadin -] 2.5 mg PO SUMOWETHFRSA 07/19/14 Albuterol Sulfate Inhaler - [Ventolin HFA Inhaler -] 1 - 2 inh PO Q4H PRN Insulin (Levemir) [Levemir Flexpen -] 7 units SQ BID 08/10/17 Acetaminophen [Tylenol .Regular Strength -] 650 mg PO Q6H PRN tablet 12/09/17 Bacitracin - [Bacitracin Topical Ointment -] 1 applic TP BID tube 12/09/17 Insulin Sliding Scale [Novolog Vial Sliding Scale -] 1 vial SQ ACHS units 12/09 Family Disease History - Family Disease History Family Disease History: Other: Father (Alive: 96: healthy), Mother (: 89 : Alzheimer's dementia), Sister (: alcoholic liver disease/cirrhosis) Review of Systems - Review of Systems Musculoskeletal: reports: Extremity Pain, Other (UNABLE TO MOVE LEG) Integumentary: reports: Change in Color, Other Physical Examination Vital Signs: Vital Signs Temperature 98.2 F 12/11/17 10:12 Pulse Rate 76 12/11/17 10:12 Respiratory Rate 24 12/11/17 10:12 Blood Pressure 86/42 12/11/17 10:12 O2 Sat by Pulse Oximetry (%) 96 12/10/17 17:11 Cardiovascular: Yes: S1, S2 Respiratory: Yes: Regular, CTA Bilaterally Gastrointestinal: Yes: Normal Bowel Sounds, Soft Integumentary: Yes: Skin Tear, Venous Stasis Changes, Other (SKIN PEALING OFF LARGE PART OF LEFT LEG BOLLOUS OF ANKLE ECHYMOSIS OF LEG) Labs: CBC, BMP 12/11/17 06:22 12/11/17 06:22 Problem List - Problems (1) Wound of left lower extremity Assessment/Plan: IV ABX SURGERY ON BOARD PLASTIC AND DERM WOUND CARE CULTURES Code(s): S81.802A - UNSPECIFIED OPEN WOUND, LEFT LOWER LEG, INITIAL ENCOUNTER Qualifiers: Encounter type: subsequent encounter Qualified Code(s): S81.802D - Unspecified open wound, left lower leg, subsequent encounter (2) Sepsis Assessment/Plan: ABOVE IVF PRESSERS Code(s): A41.9 - SEPSIS, UNSPECIFIED ORGANISM Qualifiers: Sepsis type: sepsis due to unspecified organism Qualified Code(s): A41.9 - Sepsis, unspecified organism (3) Abnormal LFTs Assessment/Plan: PROBABLY DUE TO HYPOTENSION MONITOR FOLLOW LABS Code(s): R94.5 - ABNORMAL RESULTS OF LIVER FUNCTION STUDIES (4) ESRD (end stage renal disease) Assessment/Plan: PER RENAL Code(s): N18.6 - END STAGE RENAL DISEASE (5) CHF (congestive heart failure) Assessment/Plan: MONITOR Code(s): I50.9 - HEART FAILURE, UNSPECIFIED (6) Elevated troponin Assessment/Plan: -maybe due to sepsis -follow trend -ekg -cardio Code(s): R74.8 - ABNORMAL LEVELS OF OTHER SERUM ENZYMES (7) Diabetes Assessment/Plan: -insulin -bgm -endo Code(s): E11.9 - TYPE 2 DIABETES MELLITUS WITHOUT COMPLICATIONS (8) Elevated INR Assessment/Plan: --monitor --ffp--to correct--to place line for access Code(s): R79.1 - ABNORMAL COAGULATION PROFILE
--- NOTE | 2017-12-11 10:19 | PN ---
Progress Note (short form) - Note Progress Note: remains alert he is AKIAK bp is low reports less leg pain but also notes foot is numb today has doppler pulses Vital Signs Period Temp Pulse Resp BP Sys/Rea Pulse Ox Last 24 Hr 97.4 F-98.7 F 70-76 14-25 81-113/15-69 95-100 cor-rrr llungs clear abd soft, nt ext ecchymostic LLE with large skin tear and large bullae at ankle CBC, BMP 12/11/17 06:22 12/11/17 06:22 Laboratory Tests 12/10/17 12/11/17 12/11/17 13:03 06:22 06:22 Total Bilirubin 1.9 H D 1.1 H D AST 1476 H 665 H D ALT 486 H D 391 H Alkaline Phosphatase 184 H 164 H Creatine Kinase 310 H 246 Random Vancomycin 22.[address] scan edema, no air, no abscess a/p r/o sepsis continue antibiotics as ordered to cover skin organisms and GNR d/w Dr Campos and Dr Gonsalves at length spoke with junior manufacturing engineer at length last night plastics and derm to see vascular followup echo duplex leg r/o dvt abnl lefts- most likely due to hypotension- improved esrd/hd may need pressors overall prognosis is guarded
--- NOTE | 2017-12-11 10:57 | CONS ---
DATE OF CONSULTATION: 12/10/2017 The consult is dictated on the . The patient was seen on the in the emergency room. HISTORY OF PRESENT ILLNESS: This is a 72-year-old man with a history of end-stage renal disease, on dialysis, who was just in the hospital from the to the with shortness of breath. On that admission he had complained of progressive left lower extremity pain that started after he went for an MRI. He had what was noted to be a hematoma on his leg with a large bulla. His INR was elevated to 4. He was give vancomycin for possible cellulitis. He was noted to be in volume overload and received dialysis. He was seen by Vascular Surgery Wound Care prior to discharge. He also had a duplex on admission that was negative for DVT. He was seen by Vascular Surgery. He had the bulla and skin tear cleaned up. Local care was prescribed. He was discharged home on the . He presented on the to the emergency room. He apparently had gotten home the night before, was feeling weak. The next morning his leg was hurting. He managed to get himself downstairs. He ate a little bit, coffee and scrambled eggs. He apparently became lethargic and unresponsive; 911 was called. He was found to be hypotensive and hypoglycemic, was given D10 and with a repeat glucose of 335 after D10 he was given a liter of fluids with return of his blood pressure. The leg was noted to be swollen and painful and dusky and I was asked to see him. There were no fevers or chills. No seafood ingestion in the small time he was home. No water exposures. ALLERGIES: SHELLFISH and IODINE. MEDICATIONS AT HOME: Include Zocor, Coumadin, levothyroxine, Colace, Protonix, albuterol inhaler and insulin. 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 SOCIAL HISTORY: He lives at home with his . Former smoker; quit 27 years ago. REVIEW OF SYSTEMS: There is no diarrhea or shortness of breath. His niece was present, reports his vision had worsened and that he had been advised some followup tests by his tissue coordinator that he had not completed. PHYSICAL EXAMINATION: Vital Signs: When I saw him he was in the emergency room afebrile. Temperature is 98.7, blood pressure 113/67, pulse of 76, respiratory rate of 18. HEENT: He is normocephalic. Eyes are anicteric. He has very limited vision. Neck: Supple. Lungs: Clear to auscultation. Heart: Regular rate and rhythm. Abdomen: Soft, nontender. Extremities: He has good femoral pulses. The left leg below the knee has evidence of tissue slough. The foot is cold and dusky. He has 2 large bullae on the ankles that again have blood in them and the leg is discolored and ecchymotic. There is no crepitus noted of the foot or of the thigh. LABORATORIES: When I saw him labs were not available, but labs were later available with a white count of 12.3, hemoglobin of 11, platelets of 90,000. Chemistries were notable for a BUN of 40 and a creatinine of 3.5 with a glucose of 335, a lactic acid of 5.8, an SGOT of 1476, ALT of 486 with a CK of 310. Blood cultures and wound cultures of leg were sent. ASSESSMENT: In summary, a 72-year-old man admitted with possible sepsis given the hypotension and hypoglycemia, possible ischemic foot. I doubt this is necrotizing fasciitis, but the hypoglycemia and worsening leg are concerning, especially given the pain. RECOMMENDATIONS: Would plan stat blood cultures, wound cultures. Vancomycin, Zosyn and clindamycin. Discussed with the ER doctor. Imaging of the leg to rule out deep infection or vascular compromise. I spoke with Dr. Farris who then came down to the emergency room to evaluate the patient. Further recommendations to follow. In this critically ill patient I would recommend he be admitted to the ICU. I spoke as well to the ICU doctor who is agreeable with this plan. FRANK MCDUFFIE M.D. [id number]
--- NOTE | 2017-12-11 11:05 | CONSULT ---
Consult Consult Specialty:: Cardiology Referred by:: ICU Reason for Consultation:: (+) Troponin - History of Present Illness Chief Complaint: Found unresponsive, hypotensivem hypoglycemic History of Present Illness: 72 yo male ESRD, DM, Afib, CAD s/p PCI with ICD (preserved LV function) Recently admitted and discharged for LE cellulitis and venous stasis on 12/09 Now readmitted after being found down unresponsive with hypotension, hypoglycemia, transmainitis and lactic acidosis Admitted to IcU for sepsis Cardiology called for (+) troponin elevation He denies any cardiovascular complaints, no chest pain or dyspnea at present - Past Medical History 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 No: Alzheimer's Cardio/Vascular: Yes: CAD, CHF, HTN, Hyperlipdemia Pulmonary: Yes: Bronchitis, COPD Gastrointestinal: Yes: Other Hepatobiliary: Yes: Cirrhosis, Other (Gallbladder polyps, suspected liver cirrhosis) Renal/: Yes: Renal Failure (CKD on HD //Wed), Hemodialysis ENT: Yes: Other (Hearing loss right ear) Endocrine: Yes: Diabetes Mellitus (DM II), Other (Multinoduilar thyroid goiter in the past) - Past Surgical History Past Surgical History: Yes: AICD (PPM/AICD), AV Fistula/Graft, Tonsillectomy - Alcohol/Substance Use Hx Alcohol Use: No History of Substance Use: reports: None - Smoking History Smoking history: Never smoked Have you smoked in the past 12 months: No Aproximately how many cigarettes per day: 0 If you are a former smoker, when did you quit?: 27 YRS AGO - Social History Usual Living Arrangement: With Spouse ADL: Independent 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 History of Recent Travel: No Home Medications - Allergies Allergies/Adverse Reactions: Allergies Allergy/AdvReac Type Severity Reaction Status Date / Time iodine Allergy TONGUE Verified 12/10/17 12:16 SWELLING shellfish derived Allergy Hives Verified 12/10/17 12:16 IV CONTRAST Allergy "RASH" Uncoded 12/10/17 12:16 - Home Medications Home Medications: Ambulatory Orders Simvastatin [Zocor -] 20 mg PO HS 10/29/12 Warfarin Sodium [Coumadin] 5 mg PO TU 10/29/12 Levothyroxine [Synthroid -] 125 mcg PO DAILY 06/26/14 Docusate Sodium [Colace -] 100 mg PO BID 07/19/14 Nut.tx.impaired Renal Fxn,Soy [Nepro] 1 ml PO ASDIR 07/19/14 Pantoprazole Sodium [Protonix -] 40 mg PO DAILY 07/19/14 Warfarin Na [Coumadin -] 2.5 mg PO SUMOWETHFRSA 07/19/14 Albuterol Sulfate Inhaler - [Ventolin HFA Inhaler -] 1 - 2 inh PO Q4H PRN Insulin (Levemir) [Levemir Flexpen -] 7 units SQ BID 08/10/17 Acetaminophen [Tylenol .Regular Strength -] 650 mg PO Q6H PRN tablet 12/09/17 Bacitracin - [Bacitracin Topical Ointment -] 1 applic TP BID tube 12/09/17 Insulin Sliding Scale [Novolog Vial Sliding Scale -] 1 vial SQ ACHS units 12/09 Family Disease History - Family Disease History Family Disease History: Other: Father (Alive: 96: healthy), Mother (: 89 : Alzheimer's dementia), Sister (: alcoholic liver disease/cirrhosis) Review of Systems Unable to obtain ROS, reason: poor historian Physical Exam Vital Signs: Vital Signs Temperature 98.2 F 12/11/17 10:12 Pulse Rate 76 12/11/17 10:12 Respiratory Rate 24 12/11/17 10:12 Blood Pressure 86/42 12/11/17 10:12 O2 Sat by Pulse Oximetry (%) 96 12/10/17 17:11 Constitutional: Yes: No Distress, Calm Eyes: Yes: WNL HENT: Yes: WNL Neck: Yes: WNL Cardiovascular: Yes: Regular Rate and Rhythm Respiratory: Yes: CTA Bilaterally Gastrointestinal: Yes: WNL Extremities: Yes: WNL Edema: No Labs: CBC, BMP 12/11/17 06:22 12/11/17 06:22 Imaging - Results EKG: Image Reviewed (Done on 12/10/2017 at 11:56 V-paced at 74/min) Other: Report Reviewed (07/2017 Normal LV/RV with RVSP 50-60mmHg) Assessment/Plan 72 yo male with ESRD, DM, CAD with prior PCIs, ICD recently admitted with LE cellulitis, now admitted to ICU after being found down with elevated IR, elevated lactate, trasaminitis and INR. Found to have (+) troponin 1) (+) troponin -Troponin trend as follows: 0.41->0.52->0.72 with plateaued CK-MB as 11.5->13.8- >12.3 -No symptoms concerning for ACS, ECG V-paced -Likely Type II [place] from underlying sepsis -Abx as per ICU team -Continue asa and statin -BP support as needed with DA 2) Elevated INR -Hold warfarin -No bleeding at present, would NOT give Vit K unless bleeding present
--- NOTE | 2017-12-11 11:35 | CONSULT ---
Consult Consult Specialty:: Hematology - History of Present Illness History of Present Illness: 72yo M with history of ESRD (dialysis //Wed), diabetes, and recent hospitalization (discharged 12/09) for L lower extremity wound was found at his house unresponsive and was brought in by EMS. Pt was found to be hypotensive and hypoglycemic (<20 BG). Transferred to MICU for further management. Was admitted from 12/06-12/09. Admission course reviewed. Presently , Is being treated for severe sepsis. Was called by ID for consult for coagulopathy. Overnight, discussed case with PARKING CONTROL OFFICER and also ID. chart reviewed, ordered DIC profile , US doppler LE, Derm consult for concern for TEN. Pt seen and examined. 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 No: Alzheimer's Cardio/Vascular: Yes: CAD, CHF, HTN, Hyperlipdemia Pulmonary: Yes: Bronchitis, COPD Gastrointestinal: Yes: Other Hepatobiliary: Yes: Cirrhosis, Other (Gallbladder polyps, suspected liver cirrhosis) Renal/: Yes: Renal Failure (CKD on HD //Wed), Hemodialysis ENT: Yes: Other (Hearing loss right ear) Endocrine: Yes: Diabetes Mellitus (DM II), Other (Multinoduilar thyroid goiter in the past) - Past Surgical History Past Surgical History: Yes: AICD (PPM/AICD), AV Fistula/Graft, Tonsillectomy - Alcohol/Substance Use Hx Alcohol Use: No History of Substance Use: reports: None - Smoking History Smoking history: Never smoked Have you smoked in the past 12 months: No Aproximately how many cigarettes per day: 0 If you are a former smoker, when did you quit?: 27 YRS AGO - Social History Usual Living Arrangement: With Spouse ADL: Independent 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 History of Recent Travel: No Home Medications - Allergies Allergies/Adverse Reactions: Allergies Allergy/AdvReac Type Severity Reaction Status Date / Time iodine Allergy TONGUE Verified 12/10/17 12:16 SWELLING shellfish derived Allergy Hives Verified 12/10/17 12:16 IV CONTRAST Allergy "RASH" Uncoded 12/10/17 12:16 - Home Medications Home Medications: Ambulatory Orders Simvastatin [Zocor -] 20 mg PO 10/29/12 Warfarin Sodium [Coumadin] 5 mg PO 10/29/12 Levothyroxine [Synthroid -] 125 mcg PO DAILY 06/26/14 Docusate Sodium [Colace -] 100 mg PO BID 07/19/14 Nut.tx.impaired Renal Fxn,Soy [Nepro] 1 ml PO ASDIR 07/19/14 Pantoprazole Sodium [Protonix -] 40 mg PO DAILY 07/19/14 Warfarin Na [Coumadin -] 2.5 mg PO SUMOWETHFRSA 07/19/14 Albuterol Sulfate Inhaler - [Ventolin HFA Inhaler -] 1 - 2 inh PO Q4H PRN Insulin (Levemir) [Levemir Flexpen -] 7 units SQ BID 08/10/17 Acetaminophen [Tylenol .Regular Strength -] 650 mg PO Q6H PRN tablet 12/09/17 Bacitracin - [Bacitracin Topical Ointment -] 1 applic TP BID tube 12/09/17 Insulin Sliding Scale [Novolog Vial Sliding Scale -] 1 vial SQ ACHS units 12/09 Family Disease History - Family Disease History Family Disease History: Other: Father (Alive: 96: healthy), Mother (: 89 : Alzheimer's dementia), Sister (: alcoholic liver disease/cirrhosis) Physical Exam Vital Signs: Vital Signs Temperature 98.2 F 12/11/17 10:12 Pulse Rate 76 12/11/17 10:12 Respiratory Rate 24 12/11/17 10:12 Blood Pressure 86/42 12/11/17 10:12 O2 Sat by Pulse Oximetry (%) 96 12/10/17 17:11 Constitutional: Yes: Mild Distress Eyes: Yes: Conjunctiva Clear HENT: Yes: Atraumatic, Normocephalic Neck: Yes: Supple Cardiovascular: Yes: Regular Rate and Rhythm Respiratory: Yes: CTA Bilaterally Extremities: Yes: Cyanosis, Erythema, Other (knee to toes purpuric LE (rt)) Edema: Yes Labs: CBC, BMP 12/11/17 06:22 12/11/17 06:22 Imaging - Results Cat Scan: Report Reviewed Assessment/Plan Impression: Coagulopathy in the setting of likely LE infection/ vascular etiology ?had an ulcer earlier this week--->septic shock Warfarin is not a new medication, to induce a "acute" onset skin necrosis. Shock liver, from Hypotension--could also exacerbate a coagulopathy--causing a decrease in protein C/S in addition to Warfarin ESRD Contrast Allergy Multiple Cardiac co-morbdities. would give FFP now, post repeat INR, if INR less than 3, will start on heparin Drip Surgery/Derm eval for SJS-TEN Abx per ID Methylprednisolone/benadryl prior to contrast administration ( pt aware, he agreed for IV contrast to be given) d/w ICU/ID/Cardiology/Renal/RN
[2017-12-11] MEDS: INSULIN DETEMIR 100 UNITS/ML MDV SQ SCH ×2 (11:42→21:53)
--- NOTE | 2017-12-11 12:07 | PN ---
Progress Note, Physician - Current Medication List Current Medications: Active Medications Acetaminophen (Tylenol -) 650 mg PO Q6H PRN PRN Reason: PAIN LEVEL 6-10 Atorvastatin Calcium (Lipitor -) 10 mg PO HS [facility] Last Admin: 12/10/17 23:27 Dose: 10 mg Docusate Sodium (Colace -) 100 mg PO BID [facility] Last Admin: 12/11/17 10:17 Dose: 100 mg Clindamycin Phosphate (Cleocin 900 Mg Premix Ivpb -) 900 mg in 50 mls @ 100 mls /hr IVPB Q8H [facility] Last Admin: 12/11/17 06:48 Dose: 100 mls/hr Piperacillin Sod/Tazobactam (Sod 2.25 gm/ Dextrose) 50 mls @ 100 mls/hr IVPB Q8H [facility] Last Admin: 12/11/17 06:26 Dose: 100 mls/hr Dextrose/Sodium Chloride (D5-Ns -) 1,000 mls @ 83 mls/hr IV ASDIR [facility] Last Admin: 12/11/17 07:07 Dose: 83 mls/hr Insulin Detemir (Levemir Vial) 7 units SQ BID@0700,2200 [facility] Last Admin: 12/11/17 11:42 Dose: Not Given Levothyroxine Sodium (Synthroid -) 125 mcg PO 0700 [facility] Last Admin: 12/11/17 06:26 Dose: 125 mcg Pantoprazole Sodium (Protonix -) 40 mg PO DAILY [facility] Last Admin: 12/11/17 10:17 Dose: 40 mg - Objective Vital Signs: Vital Signs Temperature 98.2 F 12/11/17 10:12 Pulse Rate 76 12/11/17 10:12 Respiratory Rate 24 12/11/17 10:12 Blood Pressure 86/42 12/11/17 10:12 O2 Sat by Pulse Oximetry (%) 96 12/10/17 17:11 Labs: CBC, BMP 12/11/17 06:22 12/11/17 06:22 INR, PTT INR 4.69 (0.82-1.09) H* 12/11/17 06:22 Fibrinogen 503.0 mg/dL (238-498) H D 12/10/17 23:00
--- NOTE | 2017-12-11 12:15 | CON.GI ---
Consult Consult Specialty:: Gastroenterology Referred by:: Dr Jimenez Reason for Consultation:: Shock liver - History of Present Illness Chief Complaint: Collapsed at home History of Present Illness: 72M collapsed at home and was found to be hypotensive and hypoglycemia. He had just been discharged from the hospital where he had been treated for volume overload and a LLE pain with a bulla and hematoma. He is now felt to be septic. His LFTs have markedly risen. 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 He denies any abdominal pain but has pain and numbness on his LLE. He had an EGD with ut on 07/20/14 that revealed candidal esophagitis and erosive duodenitis. Colonoscopy in 07/20/14 led to the removal of cecal, right and transverse colon adenomas. 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 Place of : [facility] History of Recent Travel: No Home Medications - Allergies Allergies/Adverse Reactions: Allergies Allergy/AdvReac Type Severity Reaction Status Date / Time iodine Allergy TONGUE Verified 12/10/17 12:16 SWELLING shellfish derived Allergy Hives Verified 12/10/17 12:16 IV CONTRAST Allergy "RASH" Uncoded 12/10/17 12:16 - Home Medications Home Medications: Ambulatory Orders Simvastatin [Zocor -] 20 mg PO HS 10/29/12 Warfarin Sodium [Coumadin] 5 mg PO TU 10/29/12 Levothyroxine [Synthroid -] 125 mcg PO DAILY 06/26/14 Docusate Sodium [Colace -] 100 mg PO BID 07/19/14 Nut.tx.impaired Renal Fxn,Soy [Nepro] 1 ml PO ASDIR 07/19/14 Pantoprazole Sodium [Protonix -] 40 mg PO DAILY 07/19/14 Warfarin Na [Coumadin -] 2.5 mg PO SUMOWETHFRSA 07/19/14 Albuterol Sulfate Inhaler - [Ventolin HFA Inhaler -] 1 - 2 inh PO Q4H PRN Insulin (Levemir) [Levemir Flexpen -] 7 units SQ BID 08/10/17 Acetaminophen [Tylenol .Regular Strength -] 650 mg PO Q6H PRN tablet 12/09/17 Bacitracin - [Bacitracin Topical Ointment -] 1 applic TP BID tube 12/09/17 Insulin Sliding Scale [Novolog Vial Sliding Scale -] 1 vial SQ ACHS units 12/09 Family Disease History - Family Disease History Family Disease History: Other: Father (Alive: 96: healthy), Mother (: 89 : Alzheimer's dementia), Sister (: alcoholic liver disease/cirrhosis) Review of Systems - Review of Systems Constitutional: reports: Chills, Malaise, Weakness Eyes: reports: Blurred Vision HENT: reports: No Symptoms, Other (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) Neck: reports: No Symptoms Cardiovascular: reports: No Symptoms Respiratory: reports: No Symptoms Gastrointestinal: reports: No Symptoms Musculoskeletal: reports: Extremity Pain (LLE) Physical Exam-GI Vital Signs: Vital Signs Temperature 98.2 F 12/11/17 10:12 Pulse Rate 76 12/11/17 10:12 Respiratory Rate 24 12/11/17 10:12 Blood Pressure 86/42 12/11/17 10:12 O2 Sat by Pulse Oximetry (%) 96 12/10/17 17:11 CBC,CMP WBC 11.5 K/mm3 (4.0-10.0) H 12/11/17 06:22 RBC 3.37 M/mm3 (4.00-5.60) L 12/11/17 06:22 Hgb 10.4 GM/dL (11.7-16.9) L 12/11/17 06:22 Hct 31.5 % (35.4-49) L 12/11/17 06:22 MCV 93.6 fl (80-96) 12/11/17 06:22 MCH 31.0 pg (25.7-33.7) 12/11/17 06:22 MCHC 33.1 g/dl (32.0-35.9) 12/11/17 06:22 RDW 17.2 % (11.9-15.9) H 12/11/17 06:22 Plt Count 93 K/MM3 (134-434) L 12/11/17 06:22 MPV 10.4 fl (7.5-11.1) 12/11/17 06:22 Neutrophils % 89.6 % (42.8-82.8) H 12/11/17 06:22 Neutrophils % (Manual) 88.5 % (42.8-82.8) H 12/10/17 13:03 Band Neutrophils % 2.1 % 12/10/17 13:03 Lymphocytes % 4.2 % (8-40) L D 12/11/17 06:22 Lymphocytes % (Manual) 3.1 % (8-40) L 12/10/17 13:03 Monocytes % 5.6 % (3.8-10.2) 12/11/17 06:22 Monocytes % (Manual) 4 % (3.8-10.2) 12/10/17 13:03 Eosinophils % 0.5 % (0-4.5) 12/11/17 06:22 Eosinophils % (Manual) 0.0 % (0-4.5) 12/10/17 13:03 Basophils % 0.1 % (0-2.0) 12/11/17 06:22 Basophils % (Manual) 0.0 % (0-2.0) 12/10/17 13:03 Myelocytes % (Man) 0 % (0-2) 12/10/17 13:03 Promyelocytes % (Man) 0 % (0-2) 12/10/17 13:03 Blast Cells % (Manual) 0 % (0-0) 12/10/17 13:03 Nucleated RBC % 0 % (0-0) 12/10/17 13:03 Metamyelocytes 0 % (0-2) 12/10/17 13:03 Platelet Estimate Decreased 12/10/17 13:03 Platelet Comment 12/10/17 13:03 Sodium 134 mmol/L (136-145) L 12/11/17 06:22 Potassium 3.9 mmol/L (3.5-5.1) 12/11/17 06:22 Chloride 99 mmol/L (98-107) 12/11/17 06:22 Carbon Dioxide 25 mmol/L (21-32) 12/11/17 06:22 Anion Gap 10 (8-16) 12/11/17 06:22 BUN 48 mg/dL (7-18) H 12/11/17 06:22 Creatinine 3.9 mg/dL (0.7-1.3) H 12/11/17 06:22 Creat Clearance w eGFR 15.27 (>60) 12/11/17 06:22 Random Glucose 72 mg/dL (74-106) L D 12/11/17 06:22 Lactic Acid 3.3 mmol/L (0.0-2.0) H* 12/10/17 21:55 Calcium 7.3 mg/dL (8.5-10.1) L 12/11/17 06:22 Total Bilirubin 1.1 mg/dL (0.2-1.0) H D 12/11/17 06:22 AST 665 U/L (15-37) H D 12/11/17 06:22 ALT 391 U/L (12-78) H 12/11/17 06:22 Alkaline Phosphatase 164 U/L (45-117) H 12/11/17 06:22 Creatine Kinase 246 IU/L (39-308) 12/11/17 06:22 Creatine Kinase Index 5.0 % (0.0-5.0) 12/11/17 06:22 CK-MB (CK-2) 12.303 ng/mL (0.5-3.6) H 12/11/17 06:22 Troponin I 0.72 ng/ml (0.00-0.05) H* D 12/11/17 06:22 Total Protein 5.4 g/dl (6.4-8.2) L 12/11/17 06:22 Albumin 1.7 g/dl (3.4-5.0) L 12/11/17 06:22 TSH 5.03 uIU/ml (0.358-3.74) H D 12/10/17 13:03 Current Medications Generic Name Dose Route Start Last Admin Trade Name Freq PRN Reason Stop Dose Admin Acetaminophen 650 mg 12/10/17 15:51 Tylenol - PO Q6H PRN PAIN LEVEL 6-10 Atorvastatin Calcium 10 mg 12/10/17 22:00 12/10/17 23:27 Lipitor - PO 10 mg HS LIEN Administration Docusate Sodium 100 mg 12/10/17 22:00 12/11/17 10:17 Colace - PO 100 mg BID LIEN Administration Clindamycin Phosphate 900 mg in 50 mls @ 100 mls/hr 12/10/17 22:00 12/11/17 06:48 Cleocin 900 Mg Premix Ivpb - IVPB 100 mls/hr Q8H LIEN Administration Piperacillin Sod/Tazobactam 50 mls @ 100 mls/hr 12/10/17 22:00 12/11/17 06:26 Sod 2.25 gm/ Dextrose IVPB 100 mls/hr Q8H LIEN Administration Dextrose/Sodium Chloride 1,000 mls @ 83 mls/hr 12/11/17 07:00 12/11/17 07:07 D5-Ns - IV 83 mls/hr ASDIR LIEN Administration Insulin Detemir 7 units 12/11/17 10:00 12/11/17 11:42 Levemir Vial SQ Not Given BID@0700,2200 LIEN Levothyroxine Sodium 125 mcg 12/11/17 07:00 12/11/17 06:26 Synthroid - PO 125 mcg 0700 LIEN Administration Pantoprazole Sodium 40 mg 12/11/17 10:00 12/11/17 10:17 Protonix - PO 40 mg DAILY LIEN Administration Constitutional: Yes: Other (lethargic) Eyes: Yes: Conjunctiva Clear HENT: Yes: Atraumatic Neck: Yes: Supple Cardiovascular: Yes: Regular Rate and Rhythm, Other (Left AICD) Respiratory: Yes: CTA Bilaterally Gastrointestinal Inspection: Yes: WNL ...Auscultate: Yes: Normoactive Bowel Sounds ...Palpate: Yes: Soft, Other (nontender) ...Rectal Exam: Yes: Deferred Extremities: Yes: Other (LLE is bandaged) Labs: CBC, BMP 12/11/17 06:22 12/11/17 06:22 INR, PTT INR 4.69 (0.82-1.09) H* 12/11/17 06:22 Fibrinogen 503.0 mg/dL (238-498) H D 12/10/17 23:00 Laboratory Tests 11/03/12 07/19/14 08/11/17 05:35 14:31 06:45 Plt Count 64 L 72 L Total Bilirubin AST ALT Alkaline Phosphatase 97 D 08/12/17 11/25/17 11/25/17 05:05 12:38 12:38 Plt Count 103 L Total Bilirubin AST ALT Alkaline Phosphatase 140 H D 237 H D 12/07/17 12/08/17 12/10/17 07:50 07:05 13:03 Plt Count 101 L Total Bilirubin 1.0 1.9 H D AST 31 D 1476 H ALT 22 D 486 H D Alkaline Phosphatase 186 H D 184 H 12/11/17 12/11/17 06:22 06:22 Plt Count 93 L Total Bilirubin 1.1 H D AST 665 H D ALT 391 H Alkaline Phosphatase 164 H Problem List - Problems (1) Cirrhosis of liver not due to alcohol Assessment/Plan: Given the hypotension and suspected sepsis likely emanating from his LLE I suspect that Efren's elevated LFTs reflect shock liver superimposed on cirrhosis perhaps with a component of reactive hepatopathy to sepsis. He may also have some congestive hepatopathy given the recent alkaline phosphatase elevations while fluid overloaded. Treatment is supportive IV fluids to maintain good perfusion and antibiotics. He is at risk of lapsing into liver failure Code(s): K74.60 - UNSPECIFIED CIRRHOSIS OF LIVER (2) Gallbladder polyp Code(s): K82.4 - CHOLESTEROLOSIS OF GALLBLADDER (3) Colon adenomas Code(s): D12.6 - BENIGN NEOPLASM OF COLON, UNSPECIFIED (4) Duodenitis Code(s): K29.80 - DUODENITIS WITHOUT BLEEDING
[2017-12-11] MEDS ORDERED: methylPREDNISolone NA SUCC 40 MG/1 ML VIAL IVPUSH ONE (12:27)
[2017-12-11] MEDS ORDERED: methylPREDNISolone NA SUCC 40 MG/1 ML VIAL IVPUSH SCH (12:27)
--- NOTE | 2017-12-11 13:54 | PN ---
Progress Note (short form) - Note Progress Note: 72 year old gentleman with PMhx of ESRD on HD, Hypertension, CHD (diastolic dysfunction), Afib on Coumadin, DM who presented from home with LOC and Hypoglycemia with hypotension, shock and worsening LE wounds. 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 [facility] Stop: 12/11/17 17:00 Docusate Sodium (Colace -) 100 mg PO BID [facility] Last Admin: 12/11/17 10:17 Dose: 100 mg Clindamycin Phosphate (Cleocin 900 Mg Premix Ivpb -) 900 mg in 50 mls @ 100 mls /hr IVPB Q8H [facility] Last Admin: 12/11/17 13:23 Dose: 100 mls/hr Piperacillin Sod/Tazobactam (Sod 2.25 gm/ Dextrose) 50 mls @ 100 mls/hr IVPB Q8H [facility] Last Admin: 12/11/17 13:24 Dose: 100 mls/hr Dextrose/Sodium Chloride (D5-Ns -) 1,000 mls @ 83 mls/hr IV ASDIR [facility] Last Admin: 12/11/17 07:07 Dose: 83 mls/hr Insulin Aspart (Novolog Vial Sliding Scale -) 1 vial SQ ACHS [facility] PRN Reason: Protocol Insulin Detemir (Levemir Vial) 7 units SQ BID@0700,2200 [facility] Last Admin: 12/11/17 11:42 Dose: Not Given Levothyroxine Sodium (Synthroid -) 125 mcg PO 0700 [facility] Last Admin: 12/11/17 06:26 Dose: 125 mcg Methylprednisolone Sodium Succinate (Solu-Medrol -) 40 mg IVPUSH 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
--- NOTE | 2017-12-11 14:25 | PROC ---
Central Line Insertion Indication: Poor Venous Access, Sepsis, Vasopressor Risks and Benefits Explained: Yes Consent on Chart: Yes Central Line: Triple Lumen Catheter Anesthesia: 1% Lidocaine Sterile Technique: Yes Ultrasound Guided Assistance: Yes Position: Right Internal Jugular Post Insertion: Yes: Bilateral Breath Sounds, Bilateral Chest Expansion, Chest X-Ray Ordered Sterile Dressing Applied: Yes
--- NOTE | 2017-12-11 17:03 | ED.PROV ---
Physicial Exam I saw and examined the patient. - Vital Signs Last Vital Signs Temp Pulse Resp BP Pulse Ox 98 F 74 24 86/42 96 12/11/17 12:00 12/11/17 12:00 12/11/17 12:00 12/11/17 10:12 12/11/17 09:00 Critical Care Time/MDM Note - Medical Decision Making Note: 12/11/17 17:01 I responded to Radiology for Code 99. Pt was from ICU getting a CT of the leg for eval of infection/vascular status, and became goldman and unresponsive. Rapid response called approx 4:45, chest compressions started immediately by radiology /nursing staff .upon my arrival, the pt unresponsive, wide complex rhthm on monitor, rate of 90 on the monitor. no pulses palpable with delayed cap refill. pt was given epi x 1, and dextrose at appro x4:57 and became respsponsive and was spontaneously respiring immeidately after epi bolus prior to dextrose.. post arrest bp after arrest was 161/80. 12/11/17 17:28 case discussed with Caridad Morel from hospitalist team (covering for dr. odonnell) will have hospitalist team continue care in the ICU of the patient.
[2017-12-11] MEDS ORDERED: MIDAZOLAM HCL 5 MG/1 ML Single Dose Vial ONE (17:43)
[2017-12-11] MEDS ORDERED: PROPOFOL 1,000,000 MCG/100 ML VIAL ONE (17:52)
--- NOTE | 2017-12-11 17:58 | PROC ---
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 Recently coded in the Cat Scan Dl x 1 after sedation + visualization of the VC. #8 ETT passed without trauma +ETCO2 BS=BL Tube taped at 22cm at the lip care left to ICU team Ranulfo Simpson MD
[2017-12-11] MEDS: INSULIN SLIDING SCALE (NOVOLOG) 1 VIAL SQ SCH ×2 (18:00→21:52)
[2017-12-11] MEDS ORDERED: MIDAZOLAM HCL 2 MG/2 ML SINGLE DOSE VIAL IVPUSH ONE (18:00)
[2017-12-11] MEDS: DOPAMINE 400 MG/D5W - 400,000 MCG/250 ML INFUS.BAG IVPB SCH (18:00)
[2017-12-11] MEDS ORDERED: DEXTROSE 50%-WATER - 25 GM/50 ML VIAL IVPUSH ONE (18:03)
[2017-12-11] MEDS ORDERED: PROPOFOL 1,000,000 MCG/100 ML VIAL IVPB SCH (18:15)
[2017-12-11 18:59] LABS: HEMATOCRIT 24.7 % (35.4-49); HEMOGLOBIN 8.1 GM/dL (11.7-16.9); MCH 30.5 pg (25.7-33.7); MCHC 32.8 g/dl (32.0-35.9); MEAN CELL VOLUME 93.2 fl (80-96); PLATELET COUNT 71 K/MM3 (134-434); RBC 2.65 M/mm3 (4.00-5.60); RDW 17.3 % (11.9-15.9); WHITE BLOOD COUNT 14.4 K/mm3 (4.0-10.0)
[2017-12-11 19:00] LABS: ADD RBC MORPHOLOGY YES
[2017-12-11 19:18] LABS: PROTHROMBIN TIME (PATIENT) 49.2 SEC (9.98-11.88)
[2017-12-11 19:21] LABS: INR 4.35 (0.82-1.09)
[2017-12-11 19:31] LABS: ALBUMIN 1.4 g/dl (3.4-5.0); ANION GAP 9 (8-16); BLOOD UREA NITROGEN 33 mg/dL (7-18); CHLORIDE 107 mmol/L (98-107); CO2 24 mmol/L (21-32); CREATININE 2.2 mg/dL (0.7-1.3); GLUCOSE,RANDOM 241 mg/dL (74-106); MAGNESIUM 1.4 mg/dL (1.8-2.4); PHOSPHOROUS 3.4 mg/dL (2.5-4.9); POTASSIUM 3.7 mmol/L (3.5-5.1); SGOT/AST 297 U/L (15-37); SGPT/ALT 219 U/L (12-78); SODIUM 140 mmol/L (136-145)
[2017-12-11 19:32] LABS: ALK PHOS 121 U/L (45-117); TOT PROT 3.9 g/dl (6.4-8.2)
[2017-12-11 19:34] LABS: CALCIUM 6.7 mg/dL (8.5-10.1)
[2017-12-11 19:47] LABS: ANISOCYTOSIS 1+; MACROCYTOSIS 1+; OVALOCYTE 1+
[2017-12-11 19:48] LABS: PLATELET ESTIMATE SLT DECREASE; TOXIC GRANULATION 1+
--- NOTE | 2017-12-11 19:50 | RAPID ---
Physical Examination Vital Signs: Vital Signs Temperature 97.8 F 12/11/17 18:10 Pulse Rate 73 12/11/17 18:45 Respiratory Rate 12 12/11/17 18:45 Blood Pressure 121/41 12/11/17 18:45 O2 Sat by Pulse Oximetry (%) 96 12/11/17 09:00 Constitutional: Yes: No Distress, Ashen Eyes: Yes: WNL, Conjunctiva Clear, EOM Intact HENT: Yes: Atraumatic Cardiovascular: Yes: JVD Respiratory: Yes: CTA Bilaterally Gastrointestinal: Yes: WNL Peripheral Pulses: Left Doralis Pedis: 0 Labs: CBC, BMP 12/11/17 18:00 Rapid Response - Rapid Response Assessment: RR called on ICU bed 14. Pt desatting to mid 60s on venti-mask. Pt obtunded, intermittently conscious. BL breath sounds appreciated. Telemetry notable for wide-complex paced rhythm in 70s. BP 100s-120s/40s. Anesthesia was paged. Rapid sequence intubation performed by Dr. Simpson (see note for details). Pt started on propofol gtt for sedation. BL breath sounds appreciated, chest rise appreciated. Sats normalized to 90s with O2 support. CXR, EKG, ABG, CMP, CBC, mag, phos, PT/INR, trops, lactate sent. Family contact. Spoke with nidulce Fong , pt account contact associate, appraised of situation. All questions answered. Family will be coming in tonight. PE: HEENT normal; sedated, ETT in place 22cm, 8fr Cor: RRR, S1, S2 pulm: BL breath sounds, no crackles or wheezing Ab: soft/nt/nd Ext: No pulses appreciable in LL extremity. L foot cool to touch, cyanotic Assessment: F/u all pending labs F/u CXR, ABG, EKG Arterial doppler LEs ICU attending contacted Family contacted Cardiac monitoring Pulse Ox Heme/Onc recommended repeat INR; FFP x2; possible heparin if PT/INR decreased Remainder of care per critical care ROLLER
[2017-12-11] MEDS: ATORVASTATIN CA 10 MG TABLET (FP) PO SCH (22:07)
[2017-12-11 22:45] LABS: ALLENS TEST POSITIVE; ARTERIAL BLOOD GAS BASE EXCESS -1.5 meq/l (-2-2); ARTERIAL BLOOD GAS PCO2 42.7 mmHg (35-45); ARTERIAL BLOOD GAS pH 7.36 (7.35-7.45)
[2017-12-11 23:46] LABS: HEMATOCRIT 31.5 % (35.4-49); HEMOGLOBIN 10.6 GM/dL (11.7-16.9); MCH 30.9 pg (25.7-33.7); MCHC 33.5 g/dl (32.0-35.9); MEAN CELL VOLUME 92.2 fl (80-96); MEAN PLT VOLUME 9.9 fl (7.5-11.1); PLATELET COUNT 85 K/MM3 (134-434); RBC 3.42 M/mm3 (4.00-5.60); RDW 17.5 % (11.9-15.9); WHITE BLOOD COUNT 12.3 K/mm3 (4.0-10.0)
[2017-12-12] LABS: INR 2.8 (0.82-1.09); PROTHROMBIN TIME (PATIENT) 31.6 SEC (9.98-11.88)
[2017-12-12] MEDS ORDERED: MEROPENEM 500 MG in DEXTROSE 5%-WATER - 100 ML IVPB SCH (00:45)
--- NOTE | 2017-12-12 01:49 | CONSULT ---
Consult Consult Specialty:: endocrine Referred by:: dr.[email or web address] coleman Reason for Consultation:: diabetes mellitus - History of Present Illness Chief Complaint: low sugar 20's History of Present Illness: 72yom with PMHx of ESRD (dialysis /), DMII, recently hospitalized( discharged 12/09) for L lower extremity cellulitis and wound/venous stasis dermatitis who was brought in by EMS after as per report being found down and unresponsive at his house. 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 No: Alzheimer's Cardio/Vascular: Yes: CAD, CHF, HTN, Hyperlipdemia Pulmonary: Yes: Bronchitis, COPD Gastrointestinal: Yes: Other Hepatobiliary: Yes: Cirrhosis, Other (Gallbladder polyps, suspected liver cirrhosis) Renal/: Yes: Renal Failure (CKD on HD /), Hemodialysis ENT: Yes: Other (Hearing loss right ear) Endocrine: Yes: Diabetes Mellitus (DM II), Other (Multinoduilar thyroid goiter in the past) - Past Surgical History Past Surgical History: Yes: AICD (PPM/AICD), AV Fistula/Graft, Tonsillectomy Additional Surgical History: Total thyroidectomy for multinodular goiter. 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 History of Recent Travel: No Home Medications - Allergies Allergies/Adverse Reactions: Allergies Allergy/AdvReac Type Severity Reaction Status Date / Time iodine Allergy TONGUE Verified 12/10/17 12:16 SWELLING shellfish derived Allergy Hives Verified 12/10/17 12:16 IV CONTRAST Allergy "RASH" Uncoded 12/10/17 12:16 - Home Medications Home Medications: Ambulatory Orders Simvastatin [Zocor -] 20 mg PO 10/29/12 Warfarin Sodium [Coumadin] 5 mg PO TU 10/29/12 Levothyroxine [Synthroid -] 125 mcg PO DAILY 06/26/14 Docusate Sodium [Colace -] 100 mg PO BID 07/19/14 Nut.tx.impaired Renal Fxn,Soy [Nepro] 1 ml PO ASDIR 07/19/14 Pantoprazole Sodium [Protonix -] 40 mg PO DAILY 07/19/14 Warfarin Na [Coumadin -] 2.5 mg PO SUMOWETHFRSA 07/19/14 Albuterol Sulfate Inhaler - [Ventolin HFA Inhaler -] 1 - 2 inh PO Q4H PRN Insulin (Levemir) [Levemir Flexpen -] 7 units SQ BID 08/10/17 Acetaminophen [Tylenol .Regular Strength -] 650 mg PO Q6H PRN tablet 12/09/17 Bacitracin - [Bacitracin Topical Ointment -] 1 applic TP BID tube 12/09/17 Insulin Sliding Scale [Novolog Vial Sliding Scale -] 1 vial SQ ACHS units 12/09 Family Disease History - Family Disease History Family Disease History: Other: Father (Alive: 96: healthy), Mother (: 89 : Alzheimer's dementia), Sister (: alcoholic liver disease/cirrhosis) Physical Exam Vital Signs: Vital Signs Temperature 98 F 12/11/17 22:00 Pulse Rate 75 12/12/17 00:00 Respiratory Rate 12 12/12/17 00:34 Blood Pressure 124/45 12/12/17 00:00 O2 Sat by Pulse Oximetry (%) 99 12/11/17 19:40 Constitutional: Yes: Calm Eyes: Yes: EOM Intact HENT: Yes: Normocephalic Neck: Yes: Trachea Midline Cardiovascular: Yes: Tachycardia Respiratory: Yes: Mechanically Ventilated Gastrointestinal: Yes: Normal Bowel Sounds ...Rectal Exam: Yes: Deferred Musculoskeletal: Yes: Muscle Weakness Edema: No Neurological: Yes: Unresponsive Labs: CBC, BMP 12/11/17 23:30 12/11/17 18:00 Problem List - Problems (1) Abnormal LFTs Code(s): R94.5 - ABNORMAL RESULTS OF LIVER FUNCTION STUDIES (2) Diabetes Code(s): E11.9 - TYPE 2 DIABETES MELLITUS WITHOUT COMPLICATIONS (3) ESRD (end stage renal disease) Code(s): N18.6 - END STAGE RENAL DISEASE (4) Elevated INR Code(s): R79.1 - ABNORMAL COAGULATION PROFILE (5) Wound of left lower extremity Code(s): S81.802A - UNSPECIFIED OPEN WOUND, LEFT LOWER LEG, INITIAL ENCOUNTER Qualifiers: Encounter type: subsequent encounter Qualified Code(s): S81.802D - Unspecified open wound, left lower leg, subsequent encounter Assessment/Plan Current Active Problems Abnormal LFTs (Acute) Diabetes (Acute) ESRD (end stage renal disease) (Acute) Elevated INR (Acute) Elevated lactic acid level (Acute) Elevated troponin (Acute) Wound of left lower extremity (Acute) hypothyroidism Abnormal Lab Results 12/11/17 12/11/17 12/11/17 06:22 06:22 06:22 WBC 11.5 H RBC 3.37 L Hgb 10.4 L Hct 31.5 L RDW 17.2 H Plt Count 93 L Neutrophils % 89.6 H Neutrophils % (Manual) Lymphocytes % 4.2 L D Lymphocytes % (Manual) Monocytes % (Manual) Nucleated RBC % PT with INR 53.00 H INR 4.69 H* ABG pO2 at Pt Temp ABG O2 Sat (Measured) Sodium 134 L BUN 48 H Creatinine 3.9 H Random Glucose 72 L D Lactic Acid Calcium 7.3 L Magnesium Total Bilirubin 1.1 H D AST 665 H D ALT 391 H Alkaline Phosphatase 164 H CK-MB (CK-2) 12.303 H Troponin I 0.72 H* D Total Protein 5.4 L Albumin 1.7 L 12/11/17 12/11/17 12/11/17 18:00 18:00 18:00 WBC 14.4 H RBC 2.65 L D Hgb 8.1 L D Hct 24.7 L D RDW 17.3 H Plt Count 71 L D Neutrophils % Neutrophils % (Manual) 83.0 H Lymphocytes % Lymphocytes % (Manual) 3.0 L Monocytes % (Manual) 1 L Nucleated RBC % 3 H PT with INR INR ABG pO2 at Pt Temp ABG O2 Sat (Measured) Sodium BUN 33 H D Creatinine 2.2 H D Random Glucose 241 H D Lactic Acid 2.1 H Calcium 6.7 L* Magnesium 1.4 L D Total Bilirubin AST 297 H D ALT 219 H D Alkaline Phosphatase 121 H D CK-MB (CK-2) Troponin I Total Protein 3.9 L D Albumin 1.4 L 12/11/17 12/11/17 12/11/17 18:00 18:00 22:40 WBC RBC Hgb Hct RDW Plt Count Neutrophils % Neutrophils % (Manual) Lymphocytes % Lymphocytes % (Manual) Monocytes % (Manual) Nucleated RBC % PT with INR 49.20 H INR 4.35 H* ABG pO2 at Pt Temp 356.0 H* ABG O2 Sat (Measured) 100.0 H* Sodium BUN Creatinine Random Glucose Lactic Acid Calcium Magnesium Total Bilirubin AST ALT Alkaline Phosphatase CK-MB (CK-2) Troponin I 0.49 H D Total Protein Albumin 12/11/17 12/11/17 23:30 23:30 WBC 12.3 H RBC 3.42 L D Hgb 10.6 L D Hct 31.5 L D RDW 17.5 H Plt Count 85 L Neutrophils % Neutrophils % (Manual) Lymphocytes % Lymphocytes % (Manual) Monocytes % (Manual) Nucleated RBC % PT with INR 31.60 H INR 2.80 H D ABG pO2 at Pt Temp ABG O2 Sat (Measured) Sodium BUN Creatinine Random Glucose Lactic Acid Calcium Magnesium Total Bilirubin AST ALT Alkaline Phosphatase CK-MB (CK-2) Troponin I Total Protein Albumin Laboratory Results - last 24 hr 12/11/17 12/11/17 12/11/17 06:22 06:22 06:22 WBC 11.5 H RBC 3.37 L Hgb 10.4 L Hct 31.5 L MCV 93.6 MCH 31.0 MCHC 33.1 RDW 17.2 H Plt Count 93 L MPV 10.4 Total Counted Neutrophils % 89.6 H Neutrophils % (Manual) Band Neutrophils % Lymphocytes % 4.2 L D Lymphocytes % (Manual) Monocytes % 5.6 Monocytes % (Manual) Eosinophils % 0.5 Basophils % 0.1 Nucleated RBC % Differential Comment Toxic Granulation Platelet Estimate Platelet Comment Polychromasia Poikilocytosis Anisocytosis Macrocytosis Ovalocytes PT with INR 53.00 H INR 4.69 H* Puncture Site ABG pH ABG pCO2 at Pt Temp ABG pO2 at Pt Temp ABG HCO3 ABG O2 Sat (Measured) ABG O2 Content ABG Base Excess Matthew Test O2 Delivery Device Oxygen Flow Rate Vent Mode Vent Rate Mechanical Rate PEEP Pressure Support Vent Sodium Potassium Chloride Carbon Dioxide Anion Gap BUN Creatinine Creat Clearance w eGFR POC Glucometer Random Glucose Lactic Acid Calcium Phosphorus Magnesium Total Bilirubin AST ALT Alkaline Phosphatase Creatine Kinase Creatine Kinase Index CK-MB (CK-2) Troponin I Total Protein Albumin Random Vancomycin 22.305 Blood Type Antibody Screen 12/11/17 12/11/17 12/11/17 06:22 10:40 16:56 WBC RBC Hgb Hct MCV MCH MCHC RDW Plt Count MPV Total Counted Neutrophils % Neutrophils % (Manual) Band Neutrophils % Lymphocytes % Lymphocytes % (Manual) Monocytes % Monocytes % (Manual) Eosinophils % Basophils % Nucleated RBC % Differential Comment Toxic Granulation Platelet Estimate Platelet Comment Polychromasia Poikilocytosis Anisocytosis Macrocytosis Ovalocytes PT with INR INR Puncture Site ABG pH ABG pCO2 at Pt Temp ABG pO2 at Pt Temp ABG HCO3 ABG O2 Sat (Measured) ABG O2 Content ABG Base Excess Matthew Test O2 Delivery Device Oxygen Flow Rate Vent Mode Vent Rate Mechanical Rate PEEP Pressure Support Vent Sodium 134 L Potassium 3.9 Chloride 99 Carbon Dioxide 25 Anion Gap 10 BUN 48 H Creatinine 3.9 H Creat Clearance w eGFR 15.27 POC Glucometer 212.95197 Random Glucose 72 L D Lactic Acid Calcium 7.3 L Phosphorus Magnesium Total Bilirubin 1.1 H D AST 665 H D ALT 391 H Alkaline Phosphatase 164 H Creatine Kinase 246 Creatine Kinase Index 5.0 CK-MB (CK-2) 12.303 H Troponin I 0.72 H* D Total Protein 5.4 L Albumin 1.7 L Random Vancomycin Blood Type O POSITIVE Antibody Screen Negative 12/11/17 12/11/17 12/11/17 18:00 18:00 18:00 WBC 14.4 H RBC 2.65 L D Hgb 8.1 L D Hct 24.7 L D MCV 93.2 MCH 30.5 MCHC 32.8 RDW 17.3 H Plt Count 71 L D MPV 10.0 Total Counted 100 Neutrophils % No Result Required. Neutrophils % (Manual) 83.0 H Band Neutrophils % 13.0 Lymphocytes % No Result Required. Lymphocytes % (Manual) 3.0 L Monocytes % Monocytes % (Manual) 1 L Eosinophils % Basophils % Nucleated RBC % 3 H Differential Comment Man diff performed Toxic Granulation 1+ Platelet Estimate Slt decrease Platelet Comment Few giant plt noted. Polychromasia 1+ Poikilocytosis 1+ Anisocytosis 1+ Macrocytosis 1+ Ovalocytes 1+ PT with INR INR Puncture Site ABG pH ABG pCO2 at Pt Temp ABG pO2 at Pt Temp ABG HCO3 ABG O2 Sat (Measured) ABG O2 Content ABG Base Excess Matthew Test O2 Delivery Device Oxygen Flow Rate Vent Mode Vent Rate Mechanical Rate PEEP Pressure Support Vent Sodium 140 Potassium 3.7 Chloride 107 Carbon Dioxide 24 Anion Gap 9 BUN 33 H D Creatinine 2.2 H D Creat Clearance w eGFR 29.57 POC Glucometer Random Glucose 241 H D Lactic Acid 2.1 H Calcium 6.7 L* Phosphorus 3.4 D Magnesium 1.4 L D Total Bilirubin 1.0 AST 297 H D ALT 219 H D Alkaline Phosphatase 121 H D Creatine Kinase Creatine Kinase Index CK-MB (CK-2) Troponin I Total Protein 3.9 L D Albumin 1.4 L Random Vancomycin Blood Type Antibody Screen 12/11/17 12/11/17 12/11/17 18:00 18:00 22:40 WBC RBC Hgb Hct MCV MCH MCHC RDW Plt Count MPV Total Counted Neutrophils % Neutrophils % (Manual) Band Neutrophils % Lymphocytes % Lymphocytes % (Manual) Monocytes % Monocytes % (Manual) Eosinophils % Basophils % Nucleated RBC % Differential Comment Toxic Granulation Platelet Estimate Platelet Comment Polychromasia Poikilocytosis Anisocytosis Macrocytosis Ovalocytes PT with INR 49.20 H INR 4.35 H* Puncture Site Left radial ABG pH 7.36 ABG pCO2 at Pt Temp 42.7 ABG pO2 at Pt Temp 356.0 H* ABG HCO3 23.4 ABG O2 Sat (Measured) 100.0 H* ABG O2 Content 17.0 ABG Base Excess -1.5 Matthew Test Positive O2 Delivery Device Mech vent Oxygen Flow Rate 80% Vent Mode A/c Vent Rate 12 Mechanical Rate Yes PEEP 5.0 Pressure Support Vent 500 Sodium Potassium Chloride Carbon Dioxide Anion Gap BUN Creatinine Creat Clearance w eGFR POC Glucometer Random Glucose Lactic Acid Calcium Phosphorus Magnesium Total Bilirubin AST ALT Alkaline Phosphatase Creatine Kinase Creatine Kinase Index CK-MB (CK-2) Troponin I 0.49 H D Total Protein Albumin Random Vancomycin Blood Type Antibody Screen 12/11/17 12/11/17 23:30 23:30 WBC 12.3 H RBC 3.42 L D Hgb 10.6 L D Hct 31.5 L D MCV 92.2 MCH 30.9 MCHC 33.5 RDW 17.5 H Plt Count 85 L MPV 9.9 Total Counted Neutrophils % Neutrophils % (Manual) Band Neutrophils % Lymphocytes % Lymphocytes % (Manual) Monocytes % Monocytes % (Manual) Eosinophils % Basophils % Nucleated RBC % Differential Comment Toxic Granulation Platelet Estimate Platelet Comment Polychromasia Poikilocytosis Anisocytosis Macrocytosis Ovalocytes PT with INR 31.60 H INR 2.80 H D Puncture Site ABG pH ABG pCO2 at Pt Temp ABG pO2 at Pt Temp ABG HCO3 ABG O2 Sat (Measured) ABG O2 Content ABG Base Excess Matthew Test O2 Delivery Device Oxygen Flow Rate Vent Mode Vent Rate Mechanical Rate PEEP Pressure Support Vent Sodium Potassium Chloride Carbon Dioxide Anion Gap BUN Creatinine Creat Clearance w eGFR POC Glucometer Random Glucose Lactic Acid Calcium Phosphorus Magnesium Total Bilirubin AST ALT Alkaline Phosphatase Creatine Kinase Creatine Kinase Index CK-MB (CK-2) Troponin I Total Protein Albumin Random Vancomycin Blood Type Antibody Screen plan bgm q4hrs novolog insulin doses will intubated will need frequent monitoring nutrtion calorie assesment
[2017-12-12] MEDS: INSULIN SLIDING SCALE (NOVOLOG) 1 VIAL SQ SCH ×5 (02:14→18:32)
[2017-12-12] MEDS ORDERED: CLINDAMYCIN 600MG PREMIX IVPB 600 MG/50 ML BAG IVPB SCH (06:00)
[2017-12-12 06:32] LABS: ALLENS TEST POSITIVE; ARTERIAL BLD GAS O2 SATURATION 99.7 % (90-98.9); ARTERIAL BLOOD GAS BASE EXCESS -0.1 meq/l (-2-2); ARTERIAL BLOOD GAS PCO2 37.8 mmHg (35-45); ARTERIAL BLOOD GAS pH 7.42 (7.35-7.45)
[2017-12-12 06:34] LABS: HEMATOCRIT 30.3 % (35.4-49); HEMOGLOBIN 10.2 GM/dL (11.7-16.9); MCH 31.1 pg (25.7-33.7); MCHC 33.8 g/dl (32.0-35.9); MEAN CELL VOLUME 91.8 fl (80-96); MEAN PLT VOLUME 9.8 fl (7.5-11.1); PLATELET COUNT 75 K/MM3 (134-434); RDW 16.9 % (11.9-15.9); WHITE BLOOD COUNT 10.7 K/mm3 (4.0-10.0)
[2017-12-12] MEDS ORDERED: LEVOTHYROXINE NA 125 MCG TABLET (FP) PO SCH (07:00)
[2017-12-12] MEDS ORDERED: INSULIN DETEMIR 100 UNITS/ML MDV SQ SCH (07:00)
[2017-12-12 07:01] LABS: INR 3.81 (0.82-1.09)
[2017-12-12 07:31] LABS: ALBUMIN 1.9 g/dl (3.4-5.0); ANION GAP 9 (8-16); BLOOD UREA NITROGEN 48 mg/dL (7-18); CALCIUM 7.3 mg/dL (8.5-10.1); CHLORIDE 98 mmol/L (98-107); CO2 26 mmol/L (21-32); GLUCOSE,RANDOM 141 mg/dL (74-106); POTASSIUM 3.9 mmol/L (3.5-5.1); SGPT/ALT 255 U/L (12-78); SODIUM 133 mmol/L (136-145)
[2017-12-12 07:34] LABS: ALK PHOS 145 U/L (45-117); BILIRUBIN,TOTAL 1.4 mg/dL (0.2-1.0); CREATININE 3.8 mg/dL (0.7-1.3); SGOT/AST 260 U/L (15-37); TOT PROT 5.6 g/dl (6.4-8.2)
[2017-12-12] MEDS: DOCUSATE SODIUM 100 MG CAPSULE (FP) PO SCH (09:55)
--- NOTE | 2017-12-12 09:55 | PN ---
Progress Note (short form) - Note Progress Note: events noted s/p code in CT scan resuscitated intubated by anaesthesia in ICU Vital Signs Period Temp Pulse Resp BP Sys/Rea Pulse Ox Last 24 Hr 97.6 F-98.4 F 73-88 12-24 84-155/19-68 99 cor-rrr llungs clear abd soft,nt ext leg with ecchymoses, avulsed skin, blisters- cool foot CBC, BMP 12/12/17 06:15 12/12/17 06:15 Microbiology 12/10/17 13:42 Leg - Left Lower Gram Stain - Final 12/10/17 13:42 Leg - Left Lower Wound Culture - Preliminary Serratia Marcescens 12/10/17 13:34 Blood - Peripheral Venous Blood Culture - Preliminary NO GROWTH OBTAINED AFTER 24 HOURS, INCUBATION TO CONTINUE FOR 4 DAYS. 12/10/17 13:34 Blood - Peripheral Venous Blood Culture - Preliminary NO GROWTH OBTAINED AFTER 24 HOURS, INCUBATION TO CONTINUE FOR 4 DAYS. duplex negative for dvt arterial doppler with documented weak flow in femoral/popliteal artery cta pending ct scan edema, no air, no abscess a/p s/p code-now intubated ischemic leg, cannot rule out secondary infection serratia sensitive to zosyn continue zosyn d/c clindamycin continue vanco by levels vascular surgery followup esrd/hd diabetes d/w icu team, d/w PMD d/w MICRO- broth culture with staph aureus- presumptive MSSA continue vancomycin by levels for now continue zosyn
--- NOTE | 2017-12-12 10:02 | PN ---
Progress Note (short form) - Note Progress Note: Patient seen and examined in the ICU. Events from yesterday noted. Intubated and sedated. No pressors. CXR: ETT in position / bibasilar effusions / atelectasis Intake & Output 12/09/17 12/10/17 12/11/17 12/12/17 23:59 23:59 23:59 23:59 Intake Total 798 2626 848.6 Output Total 0 0 Balance 798 2626 848.6 Weight 131 lb 5 oz 131 lb 5 oz 130 lb 1.164 oz Last Vital Signs Temp Pulse Resp BP Pulse Ox 98.3 F 76 13 110/55 99 12/12/17 06:00 12/12/17 06:00 12/12/17 09:34 12/12/17 06:00 12/11/17 19:40 Active Medications Acetaminophen (Tylenol -) 650 mg PO Q6H PRN PRN Reason: PAIN LEVEL 6-10 Atorvastatin Calcium (Lipitor -) 10 mg PO HS [facility] Last Admin: 12/11/17 22:07 Dose: Not Given Docusate Sodium (Colace -) 100 mg PO BID [facility] Last Admin: 12/12/17 09:55 Dose: Not Given Dopamine HCl/Dextrose (Dopamine 400 Mg/D5w -) 400,000 mcg in 250 mls @ 11.168 mls/hr IVPB TITR [facility]; 5 MCG/KG/MIN PRN Reason: Protocol Last Titration: 12/12/17 02:14 Dose: 1 mcg/kg/min, 2.234 mls/hr Propofol (Diprivan -) 1,000,000 mcg in 100 mls @ 1.787 mls/hr IVPB TITR [facility]; 5 MCG/KG/MIN PRN Reason: Protocol Last Titration: 12/11/17 19:00 Dose: 10 mcg/kg/min, 3.574 mls/hr Clindamycin Phosphate (Cleocin 600 Mg Premix Ivpb -) 600 mg in 50 mls @ 100 mls /hr IVPB TID [facility] Last Admin: 12/12/17 06:44 Dose: 100 mls/hr Meropenem 500 mg/ Dextrose 100 mls @ 200 mls/hr IVPB DAILY@0000 [facility] Last Admin: 12/12/17 00:40 Dose: 200 mls/hr Insulin Aspart (Novolog Vial Sliding Scale -) 1 vial SQ Q4HPO [facility] PRN Reason: Protocol Last Admin: 12/12/17 06:26 Dose: Not Given Insulin Detemir (Levemir Vial) 7 units SQ AM [facility] Last Admin: 12/12/17 06:29 Dose: Not Given Levothyroxine Sodium (Synthroid -) 125 mcg PO DAILY@0700 [facility] Last Admin: 12/12/17 06:26 Dose: Not Given Pantoprazole Sodium (Protonix -) 40 mg PO DAILY [facility] Last Admin: 12/11/17 10:17 Dose: 40 mg Constitutional: Yes: Intubated and sedated Eyes: Yes: EOM Intact, PERRL HENT: Yes: Atraumatic, Normocephalic Neck: Yes: Supple, Trachea Midline Cardiovascular: Yes: S1, S2, Other (Paced) Respiratory: Yes: few basilar rhonchi Gastrointestinal: Yes: Normal Bowel Sounds, Soft Extremities: Yes: Other (venous stasis discoloration RUE AV fistula with +pulse and bruit) Edema: Yes Edema: LLE: Trace, RLE: Trace Integumentary: Yes: Venous Stasis Changes Wound/Incision: Yes: slight proximal extension Neurological: Yes: sedated ...Motor Strength: LLE (weak) Labs: Laboratory Results - last 24 hr 12/11/17 12/11/17 12/11/17 10:40 16:56 18:00 WBC 14.4 H RBC 2.65 L D Hgb 8.1 L D Hct 24.7 L D MCV 93.2 MCH 30.5 MCHC 32.8 RDW 17.3 H Plt Count 71 L D MPV 10.0 Total Counted 100 Neutrophils % No Result Required. Neutrophils % (Manual) 83.0 H Band Neutrophils % 13.0 Lymphocytes % No Result Required. Lymphocytes % (Manual) 3.0 L Monocytes % (Manual) 1 L Nucleated RBC % 3 H Differential Comment Man diff performed Toxic Granulation 1+ Platelet Estimate Slt decrease Platelet Comment Few giant plt noted. Polychromasia 1+ Poikilocytosis 1+ Anisocytosis 1+ Macrocytosis 1+ Ovalocytes 1+ PT with INR INR Puncture Site ABG pH ABG pCO2 at Pt Temp ABG pO2 at Pt Temp ABG HCO3 ABG O2 Sat (Measured) ABG O2 Content ABG Base Excess Matthew Test O2 Delivery Device Oxygen Flow Rate Vent Mode Vent Rate Mechanical Rate PEEP Pressure Support Vent Sodium Potassium Chloride Carbon Dioxide Anion Gap BUN Creatinine Creat Clearance w eGFR POC Glucometer [phone] Random Glucose Lactic Acid Calcium Phosphorus Magnesium Total Bilirubin AST ALT Alkaline Phosphatase Creatine Kinase Creatine Kinase Index CK-MB (CK-2) Troponin I Total Protein Albumin Random Vancomycin Blood Type O POSITIVE Antibody Screen Negative 12/11/17 12/11/17 12/11/17 18:00 18:00 18:00 WBC RBC Hgb Hct MCV MCH MCHC RDW Plt Count MPV Total Counted Neutrophils % Neutrophils % (Manual) Band Neutrophils % Lymphocytes % Lymphocytes % (Manual) Monocytes % (Manual) Nucleated RBC % Differential Comment Toxic Granulation Platelet Estimate Platelet Comment Polychromasia Poikilocytosis Anisocytosis Macrocytosis Ovalocytes PT with INR INR Puncture Site ABG pH ABG pCO2 at Pt Temp ABG pO2 at Pt Temp ABG HCO3 ABG O2 Sat (Measured) ABG O2 Content ABG Base Excess Matthew Test O2 Delivery Device Oxygen Flow Rate Vent Mode Vent Rate Mechanical Rate PEEP Pressure Support Vent Sodium 140 Potassium 3.7 Chloride 107 Carbon Dioxide 24 Anion Gap 9 BUN 33 H D Creatinine 2.2 H D Creat Clearance w eGFR 29.57 POC Glucometer Random Glucose 241 H D Lactic Acid 2.1 H Calcium 6.7 L* Phosphorus 3.4 D Magnesium 1.4 L D Total Bilirubin 1.0 AST 297 H D ALT 219 H D Alkaline Phosphatase 121 H D Creatine Kinase Creatine Kinase Index CK-MB (CK-2) Troponin I 0.49 H D Total Protein 3.9 L D Albumin 1.4 L Random Vancomycin Blood Type Antibody Screen 12/11/17 12/11/17 12/11/17 18:00 22:40 23:30 WBC 12.3 H RBC 3.42 L D Hgb 10.6 L D Hct 31.5 L D MCV 92.2 MCH 30.9 MCHC 33.5 RDW 17.5 H Plt Count 85 L MPV 9.9 Total Counted Neutrophils % Neutrophils % (Manual) Band Neutrophils % Lymphocytes % Lymphocytes % (Manual) Monocytes % (Manual) Nucleated RBC % Differential Comment Toxic Granulation Platelet Estimate Platelet Comment Polychromasia Poikilocytosis Anisocytosis Macrocytosis Ovalocytes PT with INR 49.20 H INR 4.35 H* Puncture Site Left radial ABG pH 7.36 ABG pCO2 at Pt Temp 42.7 ABG pO2 at Pt Temp 356.0 H* ABG HCO3 23.4 ABG O2 Sat (Measured) 100.0 H* ABG O2 Content 17.0 ABG Base Excess -1.5 Matthew Test Positive O2 Delivery Device Mech vent Oxygen Flow Rate 80% Vent Mode A/c Vent Rate 12 Mechanical Rate Yes PEEP 5.0 Pressure Support Vent 500 Sodium Potassium Chloride Carbon Dioxide Anion Gap BUN Creatinine Creat Clearance w eGFR POC Glucometer Random Glucose Lactic Acid Calcium Phosphorus Magnesium Total Bilirubin AST ALT Alkaline Phosphatase Creatine Kinase Creatine Kinase Index CK-MB (CK-2) Troponin I Total Protein Albumin Random Vancomycin Blood Type Antibody Screen 12/11/17 12/12/17 12/12/17 23:30 06:15 06:15 WBC 10.7 H RBC 3.30 L Hgb 10.2 L Hct 30.3 L MCV 91.8 MCH 31.1 MCHC 33.8 RDW 16.9 H Plt Count 75 L MPV 9.8 Total Counted Neutrophils % Neutrophils % (Manual) Band Neutrophils % Lymphocytes % Lymphocytes % (Manual) Monocytes % (Manual) Nucleated RBC % Differential Comment Toxic Granulation Platelet Estimate Platelet Comment Polychromasia Poikilocytosis Anisocytosis Macrocytosis Ovalocytes PT with INR 31.60 H INR 2.80 H D Puncture Site ABG pH ABG pCO2 at Pt Temp ABG pO2 at Pt Temp ABG HCO3 ABG O2 Sat (Measured) ABG O2 Content ABG Base Excess Matthew Test O2 Delivery Device Oxygen Flow Rate Vent Mode Vent Rate Mechanical Rate PEEP Pressure Support Vent Sodium Potassium Chloride Carbon Dioxide Anion Gap BUN Creatinine Creat Clearance w eGFR POC Glucometer Random Glucose Lactic Acid Calcium Phosphorus Magnesium Total Bilirubin AST ALT Alkaline Phosphatase Creatine Kinase Creatine Kinase Index CK-MB (CK-2) Troponin I Total Protein Albumin Random Vancomycin 15.884 Blood Type Antibody Screen 12/12/17 12/12/17 12/12/17 06:15 06:15 06:15 WBC RBC Hgb Hct MCV MCH MCHC RDW Plt Count MPV Total Counted Neutrophils % Neutrophils % (Manual) Band Neutrophils % Lymphocytes % Lymphocytes % (Manual) Monocytes % (Manual) Nucleated RBC % Differential Comment Toxic Granulation Platelet Estimate Platelet Comment Polychromasia Poikilocytosis Anisocytosis Macrocytosis Ovalocytes PT with INR 43.00 H INR 3.81 H D Puncture Site ABG pH ABG pCO2 at Pt Temp ABG pO2 at Pt Temp ABG HCO3 ABG O2 Sat (Measured) ABG O2 Content ABG Base Excess Matthew Test O2 Delivery Device Oxygen Flow Rate Vent Mode Vent Rate Mechanical Rate PEEP Pressure Support Vent Sodium 133 L Potassium 3.9 Chloride 98 Carbon Dioxide 26 Anion Gap 9 BUN 48 H D Creatinine 3.8 H D Creat Clearance w eGFR 15.74 POC Glucometer Random Glucose 141 H D Lactic Acid Calcium 7.3 L Phosphorus Magnesium Total Bilirubin 1.4 H D AST 260 H ALT 255 H Alkaline Phosphatase 145 H Creatine Kinase 334 H Creatine Kinase Index 4.0 CK-MB (CK-2) 13.426 H Troponin I 1.23 H* D Total Protein 5.6 L D Albumin 1.9 L D Random Vancomycin Blood Type Antibody Screen 12/12/17 12/12/17 06:15 06:20 WBC RBC Hgb Hct MCV MCH MCHC RDW Plt Count MPV Total Counted Neutrophils % Neutrophils % (Manual) Band Neutrophils % Lymphocytes % Lymphocytes % (Manual) Monocytes % (Manual) Nucleated RBC % Differential Comment Toxic Granulation Platelet Estimate Platelet Comment Polychromasia Poikilocytosis Anisocytosis Macrocytosis Ovalocytes PT with INR INR Puncture Site Left radial ABG pH 7.42 ABG pCO2 at Pt Temp 37.8 ABG pO2 at Pt Temp 190.0 H* D ABG HCO3 23.8 ABG O2 Sat (Measured) 99.7 H* ABG O2 Content 14.2 L ABG Base Excess -0.1 Matthew Test Positive O2 Delivery Device Mech vent Oxygen Flow Rate 60% Vent Mode A/c Vent Rate 12 Mechanical Rate Yes PEEP 5.0 Pressure Support Vent 500 Sodium Potassium Chloride Carbon Dioxide Anion Gap BUN Creatinine Creat Clearance w eGFR POC Glucometer Random Glucose Lactic Acid 1.8 Calcium Phosphorus Magnesium Total Bilirubin AST ALT Alkaline Phosphatase Creatine Kinase Creatine Kinase Index CK-MB (CK-2) Troponin I Total Protein Albumin Random Vancomycin Blood Type Antibody Screen Problem List - Problems (1) ESRD (end stage renal disease) Code(s): N18.6 - END STAGE RENAL DISEASE (2) Elevated lactic acid level Code(s): R79.89 - OTHER SPECIFIED ABNORMAL FINDINGS OF BLOOD CHEMISTRY (3) Wound of left lower extremity Code(s): S81.802A - UNSPECIFIED OPEN WOUND, LEFT LOWER LEG, INITIAL ENCOUNTER Qualifiers: Encounter type: subsequent encounter Qualified Code(s): S81.802D - Unspecified open wound, left lower leg, subsequent encounter (4) AICD (automatic cardioverter/defibrillator) present Code(s): Z95.810 - PRESENCE OF AUTOMATIC (IMPLANTABLE) CARDIAC DEFIBRILLATOR (5) CHF (congestive heart failure) Code(s): I50.9 - HEART FAILURE, UNSPECIFIED (6) Cellulitis Code(s): L03.90 - CELLULITIS, UNSPECIFIED Qualifiers: Site of cellulitis: unspecified site Qualified Code(s): L03.90 - Cellulitis , unspecified (7) Chronic venous stasis dermatitis Code(s): I87.2 - VENOUS INSUFFICIENCY (CHRONIC) (PERIPHERAL) (8) Cirrhosis Code(s): K74.60 - UNSPECIFIED CIRRHOSIS OF LIVER Qualifiers: Hepatic cirrhosis type: unspecified hepatic cirrhosis (9) Sepsis Code(s): A41.9 - SEPSIS, UNSPECIFIED ORGANISM Qualifiers: Sepsis type: sepsis due to unspecified organism Qualified Code(s): A41.9 - Sepsis, unspecified organism Assessment/Plan AMS due to metabolic encephalopathy in the setting of sepsis. Hyperglycemia Thrombocytepenia Supratherapeutic INR (?) demand ischemia (?) shock liver. Plan: Vascular follow up Wean FiO2 Aspiration precautions ABX per ID Hold anticoagulation for INR>2 Transfusional support Glycemic control HD per Renal Dr Gonsalves Critical care time spent in reviewing chart, evaluating patient and formulating plan - 36 minutes.
--- NOTE | 2017-12-12 10:17 | PN ---
Progress Note, Physician - Current Medication List Current Medications: Active Medications Acetaminophen (Tylenol -) 650 mg PO Q6H PRN PRN Reason: PAIN LEVEL 6-10 Atorvastatin Calcium (Lipitor -) 10 mg PO HS [facility] Last Admin: 12/11/17 22:07 Dose: Not Given Docusate Sodium (Colace -) 100 mg PO BID [facility] Last Admin: 12/12/17 09:55 Dose: Not Given Dopamine HCl/Dextrose (Dopamine 400 Mg/D5w -) 400,000 mcg in 250 mls @ 11.168 mls/hr IVPB TITR [facility]; 5 MCG/KG/MIN PRN Reason: Protocol Last Titration: 12/12/17 02:14 Dose: 1 mcg/kg/min, 2.234 mls/hr Propofol (Diprivan -) 1,000,000 mcg in 100 mls @ 1.787 mls/hr IVPB TITR [facility]; 5 MCG/KG/MIN PRN Reason: Protocol Last Titration: 12/11/17 19:00 Dose: 10 mcg/kg/min, 3.574 mls/hr Insulin Aspart (Novolog Vial Sliding Scale -) 1 vial SQ Q4HPO [facility] PRN Reason: Protocol Last Admin: 12/12/17 06:26 Dose: Not Given Insulin Detemir (Levemir Vial) 7 units SQ AM [facility] Last Admin: 12/12/17 06:29 Dose: Not Given Levothyroxine Sodium (Synthroid Injection -) 50 mcg IVPUSH DAILY [facility] Pantoprazole Sodium (Protonix Iv) 40 mg IVPUSH DAILY [facility] Piperacillin/Tazobactam/Dextrose (Zosyn 2.25gm Ivpb (Premix)) 2.25 gm IVPB Q8H- IV [facility] - Objective Vital Signs: Vital Signs Temperature 98.3 F 12/12/17 06:00 Pulse Rate 76 12/12/17 06:00 Respiratory Rate 13 12/12/17 09:34 Blood Pressure 110/55 12/12/17 06:00 O2 Sat by Pulse Oximetry (%) 99 12/11/17 19:40 Cardiovascular: Yes: S1, S2 Respiratory: Yes: Mechanically Ventilated Gastrointestinal: Yes: Normal Bowel Sounds, Soft Extremities: Yes: Cyanosis Integumentary: Yes: Skin Tear, Other (avulsed skin) Labs: CBC, BMP 12/12/17 06:15 12/12/17 06:15 INR, PTT INR 3.81 (0.82-1.09) H D 12/12/17 06:15 Fibrinogen 503.0 mg/dL (238-498) H D 12/10/17 23:00 Problem List - Problems (1) Wound of left lower extremity Assessment/Plan: ABX PER ID SURGERY ON BOARD PLASTIC AND DERM CONSULT WOUND CARE CULTURES D/W NIECE REGARDING CONDITION AND POSSIBLE TRANSFER Code(s): S81.802A - UNSPECIFIED OPEN WOUND, LEFT LOWER LEG, INITIAL ENCOUNTER Qualifiers: Encounter type: subsequent encounter Qualified Code(s): S81.802D - Unspecified open wound, left lower leg, subsequent encounter (2) Sepsis Assessment/Plan: ABOVE IVF PRESSERS Code(s): A41.9 - SEPSIS, UNSPECIFIED ORGANISM Qualifiers: Sepsis type: sepsis due to unspecified organism Qualified Code(s): A41.9 - Sepsis, unspecified organism (3) Abnormal LFTs Assessment/Plan: PROBABLY DUE TO HYPOTENSION MONITOR FOLLOW LABS Code(s): R94.5 - ABNORMAL RESULTS OF LIVER FUNCTION STUDIES (4) ESRD (end stage renal disease) Assessment/Plan: PER RENAL Code(s): N18.6 - END STAGE RENAL DISEASE (5) CHF (congestive heart failure) Code(s): I50.9 - HEART FAILURE, UNSPECIFIED (6) Elevated troponin Assessment/Plan: -maybe due to sepsis -follow trend -ekg -cardio Code(s): R74.8 - ABNORMAL LEVELS OF OTHER SERUM ENZYMES (7) Diabetes Assessment/Plan: -insulin -bgm -endo Code(s): E11.9 - TYPE 2 DIABETES MELLITUS WITHOUT COMPLICATIONS (8) Elevated INR Assessment/Plan: --monitor --ffp--to correct--to place line for access Code(s): R79.1 - ABNORMAL COAGULATION PROFILE (9) Respiratory failure Assessment/Plan: VENT SUPPORT Code(s): J96.90 - RESPIRATORY FAILURE, UNSP, UNSP W HYPOXIA OR HYPERCAPNIA
--- NOTE | 2017-12-12 10:25 | PN ---
GI Progress Note Subjective: GI NOte: Intubated and sedated. LLE is desquamating and raw below the knee but thigh is warm. LFTs are improving . - Objective Vital Signs: Vital Signs Temperature 98.3 F 12/12/17 06:00 Pulse Rate 76 12/12/17 06:00 Respiratory Rate 13 12/12/17 09:34 Blood Pressure 110/55 12/12/17 06:00 O2 Sat by Pulse Oximetry (%) 99 12/11/17 19:40 Laboratory Tests 12/11/17 12/11/17 12/12/17 06:22 18:00 06:15 Total Bilirubin 1.1 H D 1.0 1.4 H D AST 665 H D 297 H D 260 H ALT 391 H 219 H D 255 H Alkaline Phosphatase 164 H 121 H D 145 H Albumin 1.9 L D Constitutional: Other (Intubated and sedated) ...Auscultate: Yes: Hypoactive Bowel Sounds ...Palpate: Yes: Soft, Other (nontender) Extremities: Yes: Other (desquamating skin with erythema below knss LLE, thigh is warm) Labs: CBC, BMP 12/12/17 06:15 12/12/17 06:15 INR, PTT INR 3.81 (0.82-1.09) H D 12/12/17 06:15 Fibrinogen 503.0 mg/dL (238-498) H D 12/10/17 23:00 Assessment/Plan Case discussed with Dr Jimenez and Dr Gonsalves. Anticipate amputation. I can discuss this with Sarita's who speaks [place]. My cell # is [phone]. I asked Louise the nurse to call me when the visits to bring her up to date on her son's course Problem List - Problems (1) Abnormal LFTs Assessment/Plan: Shock liver due to sepsis is improving. Treatment is supportive IV fluids to maintain good perfusion and antibiotics. He remains at risk of lapsing into liver failure Code(s): R94.5 - ABNORMAL RESULTS OF LIVER FUNCTION STUDIES (2) Elevated troponin Code(s): R74.8 - ABNORMAL LEVELS OF OTHER SERUM ENZYMES (3) Diabetes Code(s): E11.9 - TYPE 2 DIABETES MELLITUS WITHOUT COMPLICATIONS (4) Elevated INR Code(s): R79.1 - ABNORMAL COAGULATION PROFILE
[2017-12-12] MEDS ORDERED: PANTOPRAZOLE SODIUM 40 MG VIAL IVPUSH SCH (10:30)
[2017-12-12] MEDS ORDERED: LEVOTHYROXINE SODIUM 100 MCG VIAL IVPUSH SCH (11:00)
--- NOTE | 2017-12-12 11:21 | PN ---
Progress Note (short form) - Note Progress Note: Vascular surgery Pt seen and examined. Dressing changed. Will apply silvadene, xeroform and kerlex. Pt with dopplerable PT pulse. CTA results read officially now - low grade stenosis in bl lower ext without high grade stenosis, clot, or occlusion. Spoke to jillian Fong - explained to her that there is no vascular issue here. His circulation is good. The low grade stenosis are probably due to his diabetes. Pt does not need angiogram for any intervention. I explained to niece , that if the leg doesn't get better, that he might need a amputation. Fabián Farris DO
[2017-12-12] MEDS ORDERED: DEXTROSE 5%-WATER - 50 ML IVPB ONE (11:22)
[2017-12-12] MEDS ORDERED: PIPERACILLIN/TAZOBACTAM 2.25 GM VIAL IVPB ONE ×2 (11:22→16:49)
--- NOTE | 2017-12-12 11:28 | PN ---
Progress Note (short form) - Note Progress Note: All events noted. Pt now intubated/sedated seen and examined. Constitutional: Yes: intubated sedated Eyes: Yes: Conjunctiva Clear HENT: Yes: Atraumatic, Normocephalic Neck: Yes: Supple Cardiovascular: Yes: Regular Rate and Rhythm Respiratory: Yes: CTA Bilaterally Extremities: Yes: Cyanosis, Erythema, blisters Other (knee to toes purpuric LE ( left)) Last Vital Signs Temp Pulse Resp BP Pulse Ox 98.3 F 76 13 110/55 99 12/12/17 06:00 12/12/17 06:00 12/12/17 09:34 12/12/17 06:00 12/11/17 19:40 CBC, BMP 12/12/17 06:15 12/12/17 06:15 Current Medications Generic Name Dose Route Start Last Admin Trade Name Freq PRN Reason Stop Dose Admin Acetaminophen 650 mg 12/10/17 15:51 Tylenol - PO Q6H PRN PAIN LEVEL 6-10 Atorvastatin Calcium 10 mg 12/10/17 22:00 12/11/17 22:07 Lipitor - PO Not Given HS [facility] Docusate Sodium 100 mg 12/10/17 22:00 12/12/17 09:55 Colace - PO Not Given BID [facility] Dopamine HCl/Dextrose 400,000 mcg in 250 mls @ 11.168 mls/hr 12/11/17 14:30 12/12/17 02:14 Dopamine 400 Mg/D5w - IVPB 1 mcg/kg/min TITR [facility] 2.234 mls/hr Protocol Titration 5 MCG/KG/MIN Propofol 1,000,000 mcg in 100 mls @ 1.787 mls/hr 12/11/17 18:15 12/11/17 19: 00 Diprivan - IVPB 10 mcg/kg/min TITR [facility] 3.574 mls/hr Protocol Titration 5 MCG/KG/MIN Piperacillin Sod/Tazobactam 50 mls @ 100 mls/hr 12/12/17 12:00 Sod 2.25 gm/ Dextrose IVPB Q8H-IV [facility] Insulin Aspart 1 vial 12/12/17 02:00 12/12/17 11:20 Novolog Vial Sliding Scale - SQ Not Given Q4HPO [facility] Protocol Insulin Detemir 7 units 12/12/17 07:00 12/12/17 06:29 Levemir Vial SQ Not Given AM [facility] Levothyroxine Sodium 50 mcg 12/12/17 11:00 Synthroid Injection - IVPUSH DAILY [facility] Pantoprazole Sodium 40 mg 12/12/17 10:30 Protonix Iv IVPUSH DAILY [facility] Silver Sulfadiazine 1 applic 12/12/17 11:30 Silvadene - TP DAILY [facility] LE changes: ?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 Due to his limb threatening condition leading to limb loss, as there is presently no active bleeding and he remains critically ill, will reverse coagulopathy, start heparin drip as some literature suggest Anticoagulation is Rx. Anti-platelets are used too, aspirin. Trental being considere in the studies, asa/trental are po meds. the above anti-coagulation/anti-platelets can be administered as platelets remain >50K and pt with no active bleeding would need Definitive biopsy for diagnosis Rheum eval. for serology w.u will reverse the INR now repeat INR start heparin drip once INR <3 rest per ICU coagulopathy from septic shock critically ill. considering transfer to tertiary care facility.
--- NOTE | 2017-12-12 11:38 | PN ---
Progress Note, Physician History of Present Illness: Respiratory arrest with hypotension during CT scan requiring intubation Off pressors and on Abx - Current Medication List Current Medications: Active Medications Acetaminophen (Tylenol -) 650 mg PO Q6H PRN PRN Reason: PAIN LEVEL 6-10 Atorvastatin Calcium (Lipitor -) 10 mg PO HS [facility] Last Admin: 12/11/17 22:07 Dose: Not Given Docusate Sodium (Colace -) 100 mg PO BID [facility] Last Admin: 12/12/17 09:55 Dose: Not Given Dopamine HCl/Dextrose (Dopamine 400 Mg/D5w -) 400,000 mcg in 250 mls @ 11.168 mls/hr IVPB TITR [facility]; 5 MCG/KG/MIN PRN Reason: Protocol Last Titration: 12/12/17 02:14 Dose: 1 mcg/kg/min, 2.234 mls/hr Propofol (Diprivan -) 1,000,000 mcg in 100 mls @ 1.787 mls/hr IVPB TITR [facility]; 5 MCG/KG/MIN PRN Reason: Protocol Last Titration: 12/11/17 19:00 Dose: 10 mcg/kg/min, 3.574 mls/hr Piperacillin Sod/Tazobactam (Sod 2.25 gm/ Dextrose) 50 mls @ 100 mls/hr IVPB Q8H-IV [facility] Insulin Aspart (Novolog Vial Sliding Scale -) 1 vial SQ Q4HPO [facility] PRN Reason: Protocol Last Admin: 12/12/17 11:20 Dose: Not Given Insulin Detemir (Levemir Vial) 7 units SQ AM [facility] Last Admin: 12/12/17 06:29 Dose: Not Given Levothyroxine Sodium (Synthroid Injection -) 50 mcg IVPUSH DAILY [facility] Pantoprazole Sodium (Protonix Iv) 40 mg IVPUSH DAILY [facility] Silver Sulfadiazine (Silvadene -) 1 applic TP DAILY [facility] - Objective Vital Signs: Vital Signs Temperature 98.3 F 12/12/17 06:00 Pulse Rate 76 12/12/17 06:00 Respiratory Rate 13 12/12/17 09:34 Blood Pressure 110/55 12/12/17 06:00 O2 Sat by Pulse Oximetry (%) 99 12/11/17 19:40 Constitutional: Yes: No Distress (Intubated) Eyes: Yes: WNL HENT: Yes: WNL Neck: Yes: WNL Cardiovascular: Yes: Regular Rate and Rhythm Respiratory: Yes: CTA Bilaterally Gastrointestinal: Yes: Normal Bowel Sounds (Left lower extremity erythema and serosanginous drainage) Labs: CBC, BMP 12/12/17 06:15 12/12/17 06:15 INR, PTT INR 3.81 (0.82-1.09) H D 12/12/17 06:15 Fibrinogen 503.0 mg/dL (238-498) H D 12/10/17 23:00 Assessment/Plan 72 yo male with ESRD, DM, CAD with prior PCIs, ICD recently admitted with LE cellulitis, now admitted to ICU after being found down with elevated IR, elevated lactate, trasaminitis and INR. Found to have (+) troponin 1) (+) troponin -Troponin trend as follows: 0.41->0.52->0.72 with plateaued CK-MB as 11.5->13.8- >12.3 -Interval rise in Trop after arrest to 1.23 and CK-MB 13.4 -Likely Type II CT from underlying sepsis -Abx and supportive care as per ICU team -Continue asa and statin. No heparin in setting of elevated INR -BP support as needed with pressors -Rise in sCr to 3.8 2) Elevated INR -Continue to Hold warfarin -No bleeding at present, would NOT give Vit K unless bleeding present -INR down today to 3.81
[2017-12-12] MEDS: PIPERACILLIN/TAZOB 2.25 GM 2.25 GM in DEXTROSE 5%-WATER - 50 ML IVPB SCH ×2 (11:49→17:29)
[2017-12-12] MEDS ORDERED: SILVER SULFADIAZINE 1% TOP CREAM 50 GM JAR TP SCH (12:00)
--- NOTE | 2017-12-12 13:10 | PN ---
Progress Note (short form) - Note Progress Note: covering dr edmonds Hypertension, CHD (diastolic dysfunction), Afib on Coumadin, DM s/p LOC s/p Hypoglycemia with hypotension, s/p worsening LE wounds. #Shock r/o Sepsis #ESRD on HD #Anemia #Liver Injury s/p acute resp failure, depressed mental status, hypotension now on vent s/p uneventful HD yesterday elevated INR Active Medications Acetaminophen (Tylenol -) 650 mg PO Q6H PRN PRN Reason: PAIN LEVEL 6-10 Atorvastatin Calcium (Lipitor -) 10 mg PO HS [facility] Last Admin: 12/11/17 22:07 Dose: Not Given Docusate Sodium (Colace -) 100 mg PO BID [facility] Last Admin: 12/12/17 09:55 Dose: Not Given Dopamine HCl/Dextrose (Dopamine 400 Mg/D5w -) 400,000 mcg in 250 mls @ 11.168 mls/hr IVPB TITR LIEN; 5 MCG/KG/MIN PRN Reason: Protocol Last Titration: 12/12/17 02:14 Dose: 1 mcg/kg/min, 2.234 mls/hr Propofol (Diprivan -) 1,000,000 mcg in 100 mls @ 1.787 mls/hr IVPB TITR LIEN; 5 MCG/KG/MIN PRN Reason: Protocol Last Titration: 12/11/17 19:00 Dose: 10 mcg/kg/min, 3.574 mls/hr Piperacillin Sod/Tazobactam (Sod 2.25 gm/ Dextrose) 50 mls @ 100 mls/hr IVPB Q8H-IV [facility] Last Admin: 12/12/17 11:49 Dose: 100 mls/hr Insulin Aspart (Novolog Vial Sliding Scale -) 1 vial SQ Q4HPO [facility]EN PRN Reason: Protocol Last Admin: 12/12/17 11:20 Dose: Not Given Insulin Detemir (Levemir Vial) 7 units SQ AM [facility] Last Admin: 12/12/17 06:29 Dose: Not Given Levothyroxine Sodium (Synthroid Injection -) 50 mcg IVPUSH DAILY [facility] Pantoprazole Sodium (Protonix Iv) 40 mg IVPUSH DAILY [facility] Last Admin: 12/12/17 11:47 Dose: 40 mg Silver Sulfadiazine (Silvadene -) 1 applic TP DAILY [facility] Last Vital Signs Temp Pulse Resp BP Pulse Ox 98.3 F 76 12 110/55 99 12/12/17 06:00 12/12/17 06:00 12/12/17 12:51 12/12/17 06:00 12/11/17 19:40 on vent sedated CBC, BMP 12/11/17 06:22 12/11/17 06:22 IMP- ESRD leg wounds hypotension improved with pressors PLAN- hd wednesday
--- NOTE | 2017-12-12 13:35 | CONSULT ---
Consult - text type - Consultation Consultation Note: Podiatry Consultation: 72 year old M, DM, ESRD on HD, recently discharged from hospital and readmitted for worsening changes LLE. Patient intubated in ICU. Currently afebrile, VSS. Per staff, patient had a tissue injury to his leg about 1 month ago from a lead being applied to the leg. PMHx: ESRD on HD, DM, HTN Meds: noted ALL: iodine, shellfish JEFF: L foot: extensive serous blistering with temperature gradient warm to thigh- cold to lower leg-colder to foot, underlying necrotic superficial eschar to the entirety of the leg in the area of deroofed skin; there is no soft tissue crepitus to the foot and leg, no streaking cellulitis, no purulent drainage. There are non-palpable pedal pulses with dopplerable PT pulse monophasic WBC: 10.7 Blood Cx: no growth RLE CT scan: no subcutaneous emphysema, no necrotizing changes Arterial Duplex: weak monophasic changes to LLE without complete occlusion CTA: report pending L Leg Wound Cx: serratia, MSSA Imp: 72 year old DM M with LLE ulcer, ?ischemic changes 1. IV abx per ID 2. Would recommend Dermatology on board, ?[facility] [facility] [place] [place]? 3. Serous blistering could be in lieu of CHF, fluid overload, however rarely turns necrotic to the entirety of the leg 4. LLE cold to leg and foot. As per Vascular, no acute intervention. Does have an element of ischemic changes to the leg and foot clinically. He is at risk of limb loss of condition worsens. 5. Would continue with supportive measures, local wound care. Discussed with intensive team, may require transfer to tertiary center. 6. No acute podiatric intervention. Thanks for the courtesy of this consultation. Mario Neil DPM
[2017-12-12 13:43] VITALS: PULSE 73
[2017-12-12] MEDS ORDERED: PHYTONADIONE 10 MG/1 ML AMP IVPB ONE ×2 (14:32→17:00)
[2017-12-12] MEDS: DOPAMINE 400 MG/D5W - 400,000 MCG/250 ML INFUS.BAG IVPB SCH (15:14)
[2017-12-12] MEDS ORDERED: DEXTROSE 5%-WATER - 100 ML IVPB ONE (16:49)
[2017-12-12] MEDS ORDERED: PIPERACILLIN/TAZOB 2.25 GM/50 ML PREMIX BAG IVPB SCH (18:00)
[2017-12-12 18:14] VITALS: BP 93/64; TEMP 98.6
--- NOTE | 2017-12-13 12:26 | EKG ---
Test Reason : Blood Pressure : / mmHG Vent. Rate : 074 BPM Atrial Rate : 074 BPM P-R Int : 000 ms QRS Dur : 186 ms QT Int : 524 ms P-R-T Axes : 000 -82 103 degrees QTc Int : 581 ms Ventricular-paced rhythm ABNORMAL ECG WHEN COMPARED WITH ECG OF 11-DEC-2017 17:34, VENT. RATE HAS INCREASED BY 4 BPM Confirmed by NIKKY BEAVER MD ([id number]) on 12/13/2017 12:25:52 PM Referred By: Jorje ADAIR Confirmed By:NIKKY BEAVER MD
--- NOTE | 2017-12-13 12:32 | EKG ---
Test Reason : Blood Pressure : / mmHG Vent. Rate : 070 BPM Atrial Rate : 082 BPM P-R Int : 000 ms QRS Dur : 158 ms QT Int : 496 ms P-R-T Axes : 000 -88 097 degrees QTc Int : 535 ms Ventricular-paced rhythm ABNORMAL ECG WHEN COMPARED WITH ECG OF 10-DEC-2017 11:56, VENT. RATE HAS DECREASED BY 4 BPM Confirmed by NIKKY BEAVER MD ([id number]) on 12/13/2017 12:31:34 PM Referred By: Confirmed By:NIKKY BEAVER MD
--- NOTE | 2017-12-13 14:15 | EKG ---
Test Reason : Blood Pressure : / mmHG Vent. Rate : 074 BPM Atrial Rate : 055 BPM P-R Int : 000 ms QRS Dur : 170 ms QT Int : 498 ms P-R-T Axes : 000 262 091 degrees QTc Int : 552 ms Ventricular-paced rhythm ABNORMAL ECG WHEN COMPARED WITH ECG OF 06-DEC-2017 12:34, VENT. RATE HAS DECREASED BY 2 BPM Confirmed by NIKKY BEAVER MD ([id number]) on 12/13/2017 2:14:31 PM Referred By: Confirmed By:NIKKY BEAVER MD
== END 2017-12-12 19:00 | disposition short-term general hospital (02) | DRG 871 ==
LOC: JER 11:40 → JERBED 15:02 → J4W 17:00 → JICU 20:29
PROVIDERS: ADMIT Family Medicine; ATTEND Family Medicine
PROC: 0CHY7BZ Insertion of Airway into Mouth and Throat, Via Natural or Artificial Opening (ICD-10-PCS; principal; 2017-12-11)
PROC: 5A1945Z Respiratory Ventilation, 24-96 Consecutive Hours (ICD-10-PCS; 2017-12-11)
PROC: 05HM33Z Insertion of Infusion Device into Right Internal Jugular Vein, Percutaneous Approach (ICD-10-PCS; 2017-12-11)
PROC: B513ZZA Fluoroscopy of Right Jugular Veins, Guidance (ICD-10-PCS; 2017-12-11)
PROC: 5A1D70Z Performance of Urinary Filtration, Intermittent, Less than 6 Hours Per Day (ICD-10-PCS; 2017-12-11)
DX: A41.9 Sepsis, unspecified organism (principal); N18.6 End stage renal disease; R65.21 Severe sepsis with septic shock; I21.A1 Myocardial infarction type 2; G93.41 Metabolic encephalopathy; K72.00 Acute and subacute hepatic failure without coma; J96.00 Acute respiratory failure, unspecified whether with hypoxia or hypercapnia; I13.2 Hypertensive heart and chronic kidney disease with heart failure and with stage 5 chronic kidney disease, or end stage renal disease; I50.32 Chronic diastolic (congestive) heart failure; I24.8 Other forms of acute ischemic heart disease; E87.2 Acidosis; L03.116 Cellulitis of left lower limb; R79.1 Abnormal coagulation profile; Z95.810 Presence of automatic (implantable) cardiac defibrillator; E11.22 Type 2 diabetes mellitus with diabetic chronic kidney disease; E11.65 Type 2 diabetes mellitus with hyperglycemia; E11.649 Type 2 diabetes mellitus with hypoglycemia without coma; B95.61 Methicillin susceptible Staphylococcus aureus infection as the cause of diseases classified elsewhere; J44.9 Chronic obstructive pulmonary disease, unspecified; K74.60 Unspecified cirrhosis of liver; K82.4 Cholesterolosis of gallbladder; D12.6 Benign neoplasm of colon, unspecified; K29.80 Duodenitis without bleeding; D69.6 Thrombocytopenia, unspecified; E03.9 Hypothyroidism, unspecified; Z99.2 Dependence on renal dialysis; Z79.4 Long term (current) use of insulin; D64.9 Anemia, unspecified; I48.91 Unspecified atrial fibrillation; I25.10 Atherosclerotic heart disease of native coronary artery without angina pectoris; Z79.01 Long term (current) use of anticoagulants; I95.9 Hypotension, unspecified; Z87.891 Personal history of nicotine dependence; Z95.5 Presence of coronary angioplasty implant and graft; R74.0 Nonspecific elevation of levels of transaminase and lactic acid dehydrogenase [LDH]; H91.8X2 Other specified hearing loss, left ear; E04.2 Nontoxic multinodular goiter; I87.2 Venous insufficiency (chronic) (peripheral)
CPT/HCPCS: 31500; 36415; 36430; 36600; 71045-TC-FY; 73590-TC-LT-FY; 73700-TC-RT; 75635-TC; 80048; 80053; 82009; 82550; 82553; 82803; 82962; 83605; 83735; 84100; 84443; 84484; 85025; 85027; 85384; 85610; 85730; 86140; 86431; 86850; 86900; 86901; 87040; 87070; 87186; 87205; 93005; 93010; 93926-TC; 93971-TC; 94002; 99285-25; G0480; J7030; P9017